=== PATIENT | male | born 1930 | race Caucasian/White ===

== ENCOUNTER → 2016-03-16 | Outpatient (REF) | payer OTHER ==
[~2016-03-16] MED LIST: ASPI1TAB PO; ASPI81TA45 OR; ASPI81TA83 OR; BACL10TA2 OR; CARD120T6 OR; CIPR500T89 PO; COLA100C2 OR; DILT30TA PO; FLEXERIL OR; FLOM5CAP PO; GABA600T PO; HYDR25TA6 OR; IBUP600T OR; IBUP80TA PO; METF-414 PO; METF500T PO; METFORMIN OR; METR500T10 PO; NEUR100C OR; OMEP20CA3 PO; OMEP20TA7 PO; OTC PROSTATE MED PO; PENNSAID TOP; PERC5TAB6 PO; PERC5TAB8 OR; PRAV20TA2 PO; PRAV40TA OR; REST15CA OR; SOMA250T OR; SOTA80TA2 OR; SOTA80TA2 PO; SOTALOL PO; TERA2CAP3 OR; TERA2CAP3 PO; TIAG2TAB PO; TIZA2CAP3 PO; TIZA2TA PO; TIZA2TAB OR; VICO5TAB OR; VOLT1GEL24 TD; XANA0.25 OR; XANA0.25 PO; XARE20TA PO; ZANA4TAB PO; [UNRECOGNIZED DRUG - OTHER] PO
== END ==
LOC: M SFHCLERA 11:21
PROVIDERS: ATTEND Family Medicine
DX: R82.90 Unspecified abnormal findings in urine (principal)

== ENCOUNTER → 2016-03-23 | Outpatient (CLI) | payer OTHER ==
[2016-03-23 14:17] LABS: ANION GAP 9 MEQ/L (8-16); BLOOD UREA NITROGEN 18 MG/DL (7-18); CALCIUM LEVEL 8.9 MG/DL (8.8-10.2); CARBON DIOXIDE LEVEL 29 MEQ/L (21-32); CHLORIDE LEVEL 105 MEQ/L (98-107); CREATININE FOR GFR 1.03 MG/DL (0.70-1.30); GLOMERULAR FILTRATION RATE > 60.0 (>35); GLUCOSE, FASTING 78 MG/DL (83-110); POTASSIUM SERUM 4.7 MEQ/L (3.5-5.1); SODIUM LEVEL 143 MEQ/L (136-145)
== END ==
LOC: M SMT 10:11
PROVIDERS: ATTEND Nurse Practitioner Women's Health
DX: R31.9 Hematuria, unspecified (principal)
CPT/HCPCS: 36415; 80048; 81001; 87086; 88108; G0463

== ENCOUNTER → 2016-04-04 | Outpatient (REF) | payer OTHER ==
[2016-04-04 19:20] LABS: PERCENT SATURATION 18.5 % (19.7-37.4)
== END ==
LOC: M LAB REF 17:03
PROVIDERS: ATTEND Internal Medicine Nephrology
DX: N39.0 Urinary tract infection, site not specified (principal); D50.9 Iron deficiency anemia, unspecified

== ENCOUNTER → 2016-04-11 | Outpatient (CLI) | payer OTHER ==
[~2016-04-11] MED LIST changes: +ISOVUE-370 76% 100ML VIAL (Q9967) As Ordered ONE
--- NOTE | 2016-04-11 09:17 | REP ---
CT UROGRAM: ABDOMEN AND PELVIS CT WITHOUT AND WITH IV CONTRAST, WITHOUT ORAL CONTRAST: HISTORY: Hematuria. Comparison CT study is from December 08, 2015. CT CONTRAST DOSE: 100 mL of Isovue-[address] FINDINGS: Preliminary digital cooperative manager radiograph demonstrates advanced degenerative disc disease at L2-3. Bowel gas pattern is unremarkable. The lung bases show extensive calcific pleural plaquing bilaterally consistent with previous asbestos exposure. Patient is status post cholecystectomy. No focal hepatic lesion is seen. No adrenal lesion is observed on either side. The spleen is homogeneous in size. There are accessory splenules near the splenic hilus. The pancreas shows marked diffuse fatty infiltration or involution. No pancreatic mass lesion is seen. Noncontrast CT study through the kidneys shows no evidence of intrarenal nephrolithiasis on either side. No hydronephrosis is seen. The kidneys enhance symmetrically. They are mildly atrophic. No filling defect is seen in the collecting system on delayed images. Ureters describe a normal course to the bladder. No bladder mass lesion is seen. There is sigmoid colon diverticulosis without evidence of diverticulitis. Diverticulosis is also seen in the descending segment of the colon. Prostate enlargement is seen, and the prostate contains a few calcifications. No retroperitoneal mass or adenopathy is seen. Normal caliber aorta is noted. There are degenerative disc changes throughout the lumbar spine. No bony destructive lesion is appreciated. IMPRESSION: Prostate enlargement. Mild bilateral cortical atrophy. No hydronephrosis, nephrolithiasis, or mass lesion seen. Left colonic diverticulosis and degenerative spondylosis in the spine along with bilateral calcific pleural plaquing are among incidental findings. Signed by Javi Tariq MD 04/11/2016 02:32 P
== END ==
LOC: M RAD 07:58
PROVIDERS: ATTEND Nurse Practitioner Women's Health
DX: R31.9 Hematuria, unspecified (principal); N40.0 Benign prostatic hyperplasia without lower urinary tract symptoms; K57.30 Diverticulosis of large intestine without perforation or abscess without bleeding; G31.9 Degenerative disease of nervous system, unspecified
CPT/HCPCS: 74178; Q9967

== ENCOUNTER → 2016-04-18 | Outpatient (CLI) | payer OTHER ==
[~2016-04-18] MED LIST changes: +CONRAY-43 43% 50ML VIAL (Q9960) As Ordered ONE; -ISOVUE-370 76% 100ML VIAL (Q9967) As Ordered ONE; +LIDOCAINE 1% MDV 20ML VIAL As Ordered ONE; +TRIAMCINOLONE ACETONIDE SUSP 40 MG/ML VIAL (J3301) As Ordered ONE
--- NOTE | 2016-04-18 12:29 | REP ---
LEFT HIP INJECTION: The procedure was performed under the direct supervision of Dr. Edwards. The benefits and risks including, but not limited to, pain, infection, bleeding, and anaphylaxis were explained to the patient, and informed consent was obtained. The left femoral neck was localized using fluoroscopic guidance. The skin was prepped and draped in a sterile fashion. 1% lidocaine was used as a local anesthetic. Using fluoroscopic guidance, a 22-gauge spinal needle was inserted and advanced to the femoral neck. 0.5 mL of Conray-43 was injected to verify placement. 6 mL of a solution containing 5 mL of 1% lidocaine and 1 mL of Kenalog 40 mg was injected. The needle was then removed. The patient tolerated the procedure well, and there were no immediate complications. 2 second of fluoroscopy time was utilized for this procedure. Reviewed by SUKUMAR Santos 04/18/2016 12:55 PEdited and Signed by Carlitos Edwards MD 04/18/2016 03:29 P
== END | disposition home or self-care (01) ==
LOC: M RADPRO 10:19
PROVIDERS: ATTEND Orthopaedic Surgery
DX: M16.12 Unilateral primary osteoarthritis, left hip (principal)
CPT/HCPCS: 20610; 77002; J3301; Q9960

== ENCOUNTER → 2016-05-25 | Outpatient (REF) | payer OTHER ==
[~2016-05-25] MED LIST changes: -CONRAY-43 43% 50ML VIAL (Q9960) As Ordered ONE; -LIDOCAINE 1% MDV 20ML VIAL As Ordered ONE; -TRIAMCINOLONE ACETONIDE SUSP 40 MG/ML VIAL (J3301) As Ordered ONE
== END ==
LOC: M SFHCLERA 17:15
PROVIDERS: ATTEND Family Medicine
DX: Z12.11 Encounter for screening for malignant neoplasm of colon (principal)

== ENCOUNTER → 2016-05-29 | Outpatient (REF) | payer OTHER ==
[2016-05-29 19:14] LABS: INR 1.34
== END ==
LOC: M LABDRAW1 16:51
PROVIDERS: ATTEND Physical Medicine & Rehabilitation
DX: I10 Essential (primary) hypertension (principal); E11.9 Type 2 diabetes mellitus without complications; G89.4 Chronic pain syndrome; Z79.84 Long term (current) use of oral hypoglycemic drugs; Z79.899 Other long term (current) drug therapy

== ENCOUNTER 2016-07-17 13:27 | Emergency (ER) | payer OTHER ==
[~2016-07-17] VITALS: Ht 172.7 cm; Wt 82.6 kg
[2016-07-17] MEDS ORDERED: PERCOCET 5MG/325MG TAB PO ONE (15:00)
--- NOTE | 2016-07-17 15:41 | REP ---
CT CERVICAL SPINE WITHOUT CONTRAST: 07/17/2016. Comparison: CT 08/21/2001 at [facility]. Clinical history: Worsening nontraumatic pain. Remote odontoid transverse fracture 15 years ago. Technique: Axial soft-tissue and bone windows with coronal and sagittal reconstructions provided. Findings: There is a transverse old fracture through the dens with sclerotic margins anteriorly and peripherally. The fracture is not fully united. Compared to the 2001 study there is a few millimeters of anterolisthesis of the upper dens fragment on the base of the dens, but nothing suggesting an acute fracture. Prevertebral swelling mid and lower thoracic region, spondylosis from C3-4 through T2-3 noted with anterior osteophytes at all levels, the largest at T2-3, C6-7, and C7-T1. There are posterior osteophytes and fusing at the C5-6 level with posterior osteophytes at C3-4, C4-5 and C6-7 levels as well. Spinous processes intact. There is extensive hypertrophic facet change at multiple levels in the mid and lower thoracic spine. Large posterior osteophytic spur in the neural canal at the C5 to mid body of C6. This would cause significant central canal stenosis. There is foraminal encroachment bilaterally at the C5-6 level, C4-5, C3-4, sparing C2-3. There is marginally adequate foramina at C6-7 without other significant findings. No prevertebral swelling or malalignment. Impression: 1. Evidence of old transverse fracture of the dens with a few millimeters of anterolisthesis of the upper fragment on the base of the dens compared to the 2001 CT study, but none of this appears grossly acute without any significant prevertebral swelling in this region. 2. Some degenerative disc change with marked narrowing from C3-4 through T2-3 disc levels with anterior osteophytes at all levels, posterior osteophytes at multiple levels, the largest being from C5-6 through C6-7 causing significant central canal stenosis at that level with bilateral foraminal encroachment due to facet arthritis, uncinate spurs and disc bulging. Signed by Malcom Harrison MD 07/17/2016 05:24 P
[2016-07-17 15:43] VITALS: BP 138/65
== END 2016-07-17 16:08 | disposition home or self-care (01) ==
LOC: M ED 14:59
DX: M50.320 Other cervical disc degeneration, mid-cervical region, unspecified level (principal); M54.12 Radiculopathy, cervical region

== ENCOUNTER 2016-07-20 15:08 | Emergency (ER) | payer OTHER ==
[~2016-07-20] VITALS: Ht 172.7 cm; Wt 83.9 kg
--- NOTE | 2016-07-20 16:11 | REP ---
Clinical: Trauma. Comparison: 08/22/2014 . Findings: Age-related atrophy and microvascular ischemic changes are appreciated. The ventricles and sulci are symmetric. Edwards-white differentiation is maintained. There is no evidence for acute intracranial hemorrhage, mass/mass effect, pathology or infarction. No extra-axial fluid collection. Calvarium is intact. Paranasal sinuses and mastoid air cells are clear. Impression: Age related atrophy and microvascular ischemic changes. No acute intracranial hemorrhage, infarction, or mass/mass effect. Signed by Eugenio Sommers MD 07/20/2016 04:02 P
[2016-07-20] MEDS ORDERED: PERCOCET 5MG/325MG TAB PO ONE (18:00)
--- NOTE | 2016-07-20 18:17 | REP ---
CT of the cervical spine: Comparison is a 08/21 2001. Axial images are acquired helical scanning in the reformatted in sagittal and coronal projections. Comparison is 08/21/2001. The patient has an old fracture through the base of the dens. The lucent fracture line persists. The margins of the fracture well corticated suggesting fibrous union. There is no displacement or angulation of the odontoid process. There is osteoarthritis of the articulation between the dens and anterior process of C1. The skull base, C1 and C2 are otherwise unremarkable except for osteoarthritis. There is advanced degenerative disc disease throughout the cervical spine with fusion of the endplates at C 04/05 and 05/06. There are posterior osteophytes projecting into the spinal canal at C 04/05 and C5-6. There are no vertebral body compression deformities. There is no listhesis. The facets appear normally aligned. There is facet osteoarthritis. I suspect the facets at C 04/05 on the left are fused. This is likely a consequence of the facet osteoarthritis. The prevertebral soft tissues are unremarkable. Impression: Old fracture of the base of the dens without evidence of displacement or angulation and this appears to have healed with fibrous union. No acute fracture or listhesis. Severe osteoarthritis and degenerative disc disease as described. The end plates are fused as a consequence of the advanced degenerative disc disease at C 04/05 and C5-6. I suspect the posterior facets are fused on the left at C 05/06. There are large osteophytes projecting posteriorly into the spinal canal at C 05/06. Signed by Carlitos Edmonds MD 07/20/2016 06:09 P
[2016-07-20 18:25] LABS: MEAN CORPUSCULAR HEMOGLOBIN 31.6 pg (27.0-33.0); MEAN CORPUSCULAR HGB CONC 33.5 g/dl (32.0-36.5); MEAN CORPUSCULAR VOLUME 94.1 fl (80.0-96.0); PLATELET COUNT, AUTOMATED 285 k/mm3 (150-450); RED CELL DISTRIBUTION WIDTH 13.3 % (11.5-14.5); WHITE BLOOD COUNT 9.6 K/mm3 (4.0-10.0)
[2016-07-20 19:37] VITALS: BP 125/69
== END 2016-07-20 19:38 | disposition home or self-care (01) ==
LOC: M ED 17:08
DX: M54.2 Cervicalgia (principal); G89.29 Other chronic pain; W06.XXXA Fall from bed, initial encounter; Y92.89 Other specified places as the place of occurrence of the external cause; Y93.84 Activity, sleeping; Y99.8 Other external cause status; G31.9 Degenerative disease of nervous system, unspecified; R90.82 White matter disease, unspecified; M47.812 Spondylosis without myelopathy or radiculopathy, cervical region; I48.0 Paroxysmal atrial fibrillation; I10 Essential (primary) hypertension; E11.9 Type 2 diabetes mellitus without complications; Z89.512 Acquired absence of left leg below knee; Z89.611 Acquired absence of right leg above knee; Z89.111 Acquired absence of right hand; H54.42 Blindness, left eye, normal vision right eye; Z87.891 Personal history of nicotine dependence; Z79.01 Long term (current) use of anticoagulants; Z79.899 Other long term (current) drug therapy; Z79.84 Long term (current) use of oral hypoglycemic drugs; Z88.5 Allergy status to narcotic agent

== ENCOUNTER 2016-07-22 17:15 | Inpatient (IN) | payer OTHER ==
[~2016-07-22] VITALS: Ht 172.7 cm; Wt 74.4 kg
[2016-07-22] MEDS ORDERED: TIMO5OPD OU (17:36)
[2016-07-22] MEDS ORDERED: REFR0.1D OU (17:36)
[2016-07-22 18:47] LABS: ANION GAP 7 MEQ/L (8-16); BLOOD UREA NITROGEN 13 MG/DL (7-18); CALCIUM LEVEL 8.2 MG/DL (8.8-10.2); CARBON DIOXIDE LEVEL 28 MEQ/L (21-32); CHLORIDE LEVEL 102 MEQ/L (98-107); CREATININE FOR GFR 0.89 MG/DL (0.70-1.30); GLOMERULAR FILTRATION RATE > 60.0 (>35); GLUCOSE, FASTING 96 MG/DL (83-110); POTASSIUM SERUM 4.2 MEQ/L (3.5-5.1); SODIUM LEVEL 137 MEQ/L (136-145)
[2016-07-22 18:57] LABS: MEAN CORPUSCULAR HEMOGLOBIN 31.6 pg (27.0-33.0); MEAN CORPUSCULAR HGB CONC 32.6 g/dl (32.0-36.5); MEAN CORPUSCULAR VOLUME 96.8 fl (80.0-96.0); PLATELET COUNT, AUTOMATED 316 k/mm3 (150-450); WHITE BLOOD COUNT 11.7 K/mm3 (4.0-10.0)
[2016-07-22 19:09] LABS: BASOPHILS 1 % (0-4); EOSINOPHILS 1 % (0-5)
[2016-07-22] MEDS ORDERED: ONDANSETRON 4MG/2ML VIAL (J2405) IV PRN (20:00)
[2016-07-22] MEDS ORDERED: cefTRIAXone SOD 2 GM in D5W MINI-BAG PLUS 50 ML IV ONE (20:00)
[2016-07-22 20:06] LABS: GLUCOSE CSF 66 MG/DL (40-75)
[2016-07-22 20:12] LABS: RBC CSF AUTO 222 /mm3 (0-0); WBC CSF AUTO 11 /mm3 (0-10)
[2016-07-22 20:13] LABS: RBC CSF AUTO 5 /mm3 (0-0); WBC CSF AUTO 1 /mm3 (0-10)
[2016-07-22 20:14] LABS: APPEARANCE, CSF CLEAR (CLEAR); COLOR, CSF COLORLESS (COLORLESS); CSF DIFF IF INDICATED? YES (NO); CSF DILUENT LOT # 6221; CSF TUBE# CELL CNT TUBE 1
[2016-07-22 20:14] LABS: APPEARANCE, CSF CLEAR (CLEAR); COLOR, CSF COLORLESS (COLORLESS); CSF DIFF IF INDICATED? NO (NO); CSF TUBE# CELL CNT TUBE 4
[2016-07-22 20:15] LABS: CSF DILUENT LOT # 6221
[2016-07-22] MEDS ORDERED: PERCOCET 5MG/325MG TAB PO ONE (20:15)
[2016-07-22 20:27] LABS: ALBUMIN 2.8 GM/DL (3.2-5.2); ALBUMIN/GLOBULIN RATIO 0.72 (1.00-1.93); ALKALINE PHOSPHATASE 137 U/L (45-117); ALT/SGPT 26 U/L (12-78); AST/SGOT 24 U/L (15-37); BILIRUBIN,DIRECT 0.3 MG/DL (0.0-0.2); BILIRUBIN,TOTAL 0.6 MG/DL (0.2-1.0); TOTAL PROTEIN 6.7 GM/DL (6.4-8.2)
[2016-07-22] MEDS ORDERED: DICL1GEL3 TD (20:34)
[2016-07-22] MEDS ORDERED: LATA5OPD OU (20:34)
[2016-07-22] MEDS ORDERED: TIZA2TA PO (20:34)
[2016-07-22 20:35] LABS: ERYTHROCYTE SEDIMENTATION RATE 83 mm/hr (0-30)
[2016-07-22] MEDS ORDERED: VANCOMYCIN HCL 1,000 MG, VIAL MATE ADAPTER 1 EACH in D5W 250 ML IV SCH (21:00)
[2016-07-22] MEDS ORDERED: GABAPENTIN 300 MG CAP PO SCH (21:00)
[2016-07-22] MEDS ORDERED: OMEPRAZOLE 20 MG CAP PO PRN (21:45)
[2016-07-22 22:18] LABS: ABG BASE EXCESS -1.6 (-2.0-2.0); ABG HCO3 21.6 MEQ/L (22.0-26.0); ABG PARTIAL PRESSURE CO2 31.5 mmHg (35.0-45.0); ABG PARTIAL PRESSURE O2 88.6 mmHg (75.0-100.0); ABG STANDARD HCO3 23.1 MEQ/L (22.0-26.0); ABG TOTAL CO2 22.5 MEQ/L (23.0-31.0); ABG pH (ARTERIAL) 7.453 UNITS (7.350-7.450)
[2016-07-22 22:26] LABS: METHADONE URINE NEGATIVE (NEGATIVE)
[2016-07-22 22:48] VITALS: BP 143/71
[2016-07-22] MEDS ORDERED: AMPICILLIN SOD IV SCH (23:00)
[2016-07-22] MEDS ORDERED: D5W MINI IV SCH (23:00)
[2016-07-22] MEDS ORDERED: GLUCOSE 4 GM CHEW TABLET PO PRN (23:30)
[2016-07-22] MEDS ORDERED: DEXTROSE 50% 50 ML SYRINGE IV PRN (23:30)
[2016-07-22] MEDS ORDERED: GLUCAGON FOR INJ 1 MG VIAL (J1610) SC PRN (23:30)
[2016-07-22] MEDS: SOTALOL HCL 80 MG TAB PO SCH (23:50)
[2016-07-22] MEDS: TERAZOSIN 1 MG CAP PO SCH (23:51)
[2016-07-22] MEDS: RIVAROXABAN 20 MG TAB (XARELTO) PO SCH (23:52)
[2016-07-22] MEDS: AMPICILLIN SOD 2 GM in D5W MINI-BAG PLUS 100 ML IV SCH (23:53)
[2016-07-22] MEDS: GABAPENTIN 300 MG CAP PO SCH (23:53)
[2016-07-22] MEDS: LATANOPROST 0.005% OPHTH SOLN 2.5 ML OU SCH (23:54)
[2016-07-22 23:59] VITALS: BP 115/64
[2016-07-23] VITALS (7 sets, daily range): BP systolic 105–136; BP diastolic 54–81; PULSE 61–77
[2016-07-23] MEDS: AMPICILLIN SOD 2 GM in D5W MINI-BAG PLUS 100 ML IV SCH ×6 (02:18→22:57)
[2016-07-23] MEDS ORDERED: DICLOFENAC EPOLAMINE 1.3 % PATCH TOP SCH (02:30)
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
[2016-07-23] MEDS: PERCOCET 5MG/325MG TAB PO PRN ×4 (03:23→20:31)
--- NOTE | 2016-07-23 03:59 | PHACANCOPD ---
PHARMACY VANCOMYCIN DOSING Pt Demographics Demographics Patient Age:86 , Weight:73.9 , Gender: male Adjusted Body Weight Date: 07/23/16, Adjusted Body Weight: [70.6] Kg Vancomycin Vancomycin indication: AMS Vancomycin Target Ranges: 10-20 mcg/ml Vancomycin Load Y/N: No Load Dose Date Time Vancomycin Load Dose: Date: Time: Vancomycin Dose Date: 07/23/16. Current Vancomycin Dose: [1 GM Q18H] Intermittent Dosing?: No Labs Labs Laboratory Tests 07/22/16 18:20 Red Blood Count 3.96 L, Mean Corpuscular Volume 96.8 H, Mean Corpuscular Hemoglobin 31.6, Mean Corpuscular Hemoglobin Concent 32.6, Red Cell Distribution Width 13.0, Calcium Level 8.2 L Micro Microbiology 07/22/16 Blood Culture, Received Pending 07/22/16 Blood Culture, Received Pending 07/22/16 , Received Pending 07/22/16 Gram Stain - Final, Resulted 07/22/16 CSF Culture, Resulted Pending 07/22/16 MRSA Screen, Resulted Pending 07/22/16 Respiratory Virus Panel (PCR) (BERE) - Final, Resulted 07/22/16 Urine Culture, Received Pending Creatinine Clearance Date:07/23/16. Creatinine Clearance: [60.6]Calculated. Pending Labs vancomycin trough due 07/24@1100 Assessment and Plan Maintaining Current Dose?: Yes Reason for dose change: No Dose Change Pharmacist Note Pharmacist Note Date: 07/23/16. Pharmacist note:[id number]: AKA admitted w AMS r/o meningitis/ encephalitis. ABX begun as follows: Ampicillin 2 GM IV Q4h,Ceftriaxone 2 GM Q12H ,and Vancomycin per consult,Will give 1 Gram Vancomycin in ED @2330 and will continue this dose Q18H.First trough is ordered for 07/24@1100: Will continue to follow labs and levels HAILEY TAY [facility]ARM[facility] July 23, 2016 03:59
[2016-07-23 05:17] LABS: MEAN CORPUSCULAR HGB CONC 32.7 g/dl (32.0-36.5); MEAN CORPUSCULAR VOLUME 94.9 fl (80.0-96.0); PLATELET COUNT, AUTOMATED 282 k/mm3 (150-450); RED CELL DISTRIBUTION WIDTH 13.2 % (11.5-14.5); WHITE BLOOD COUNT 9.5 K/mm3 (4.0-10.0)
[2016-07-23 05:21] LABS: ANION GAP 8 MEQ/L (8-16); BLOOD UREA NITROGEN 13 MG/DL (7-18); CARBON DIOXIDE LEVEL 27 MEQ/L (21-32); CHLORIDE LEVEL 101 MEQ/L (98-107); GLOMERULAR FILTRATION RATE > 60.0 (>35); GLUCOSE, FASTING 144 MG/DL (83-110); POTASSIUM SERUM 3.7 MEQ/L (3.5-5.1); SODIUM LEVEL 136 MEQ/L (136-145)
[2016-07-23 06:13] LABS: BASOPHILS 1 % (0-4); EOSINOPHILS 1 % (0-5)
--- NOTE | 2016-07-23 07:53 | ECGEPIP ---
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
--- NOTE | 2016-07-23 08:58 | REP ---
Clinical: Fever. Technique: Portable semiupright. Comparison: 12/08/2015. Findings: Mediastinum and cardiac silhouette are stable and within normal limits. The lung delgado demonstrate diffuse chronic interstitial changes including scattered partially calcified pleural plaques. Superimposed acute basilar infiltrate/atelectasis cannot be excluded. No effusion. No pneumothorax. Skeletal structures demonstrate stable degenerative changes. 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 Cannot exclude superimposed basilar process. Signed by Eugenio Sommers MD 07/23/2016 08:49 A
[2016-07-23] MEDS: DICLOFENAC EPOLAMINE 1.3 % PATCH TOP SCH ×2 (09:00→20:31)
[2016-07-23] MEDS: HumaLOG INSULIN (NovoLOG) PER UNIT SC SCH ×4 (09:04→20:01)
[2016-07-23] MEDS: LACTOBACILLUS ACIDOPHILUS CAP (BACID) PO SCH (09:05)
[2016-07-23] MEDS: GABAPENTIN 300 MG CAP PO SCH ×3 (09:05→20:29)
[2016-07-23] MEDS: cefTRIAXone SOD 2 GM in D5W MINI-BAG PLUS 50 ML IV SCH ×2 (09:05→19:58)
[2016-07-23] MEDS: SOTALOL HCL 80 MG TAB PO SCH ×2 (09:09→20:30)
[2016-07-23] MEDS: TIMOLOL MALEATE 0.5% OPHTH SOLN 5 ML OU SCH (09:09)
--- NOTE | 2016-07-23 13:57 | REP ---
Clinical: Trauma. Comparison: 07/20/2016. Findings: Age-related atrophy and microvascular ischemic changes are appreciated. The ventricles and sulci are symmetric. Edwards-white differentiation is maintained. There is no evidence for acute intracranial hemorrhage, mass/mass effect, pathology or infarction. No extra-axial fluid collection. Calvarium is intact. Paranasal sinuses and mastoid air cells are clear. Impression: Age related atrophy and microvascular ischemic changes. No acute intracranial hemorrhage, infarction, or mass/mass effect. Signed by Eugenio Sommers MD 07/23/2016 01:49 P
[2016-07-23] MEDS: DOCUSATE SODIUM 100 MG CAP PO PRN (15:42)
[2016-07-23] MEDS ORDERED: SENNA 8.6 MG TAB (SENOKOT) PO PRN (15:45)
[2016-07-23] MEDS ORDERED: VANCOMYCIN HCL 1,000 MG, VIAL MATE ADAPTER 1 EACH in D5W 250 ML IV SCH (18:00)
[2016-07-23] MEDS: RIVAROXABAN 20 MG TAB (XARELTO) PO SCH (20:30)
[2016-07-23] MEDS: TERAZOSIN 1 MG CAP PO SCH (20:30)
[2016-07-23] MEDS: LATANOPROST 0.005% OPHTH SOLN 2.5 ML OU SCH (20:32)
[2016-07-24] MEDS: AMPICILLIN SOD 2 GM in D5W MINI-BAG PLUS 100 ML IV SCH ×3 (02:32→10:15)
[2016-07-24] MEDS: PERCOCET 5MG/325MG TAB PO PRN ×3 (03:53→20:25)
[2016-07-24 04:55] VITALS: BP 137/67
[2016-07-24 05:16] LABS: MEAN CORPUSCULAR HEMOGLOBIN 31.5 pg (27.0-33.0); MEAN CORPUSCULAR HGB CONC 33.1 g/dl (32.0-36.5); PLATELET COUNT, AUTOMATED 306 k/mm3 (150-450); RED CELL DISTRIBUTION WIDTH 13.1 % (11.5-14.5); WHITE BLOOD COUNT 8.4 K/mm3 (4.0-10.0)
[2016-07-24 05:25] LABS: ANION GAP 9 MEQ/L (8-16); BLOOD UREA NITROGEN 15 MG/DL (7-18); CALCIUM LEVEL 8.1 MG/DL (8.8-10.2); CARBON DIOXIDE LEVEL 27 MEQ/L (21-32); CHLORIDE LEVEL 103 MEQ/L (98-107); CREATININE FOR GFR 0.96 MG/DL (0.70-1.30); GLOMERULAR FILTRATION RATE > 60.0 (>35); GLUCOSE, FASTING 125 MG/DL (83-110); POTASSIUM SERUM 3.9 MEQ/L (3.5-5.1); SODIUM LEVEL 139 MEQ/L (136-145)
[2016-07-24 05:50] LABS: BANDS 1 % (< 11); EOSINOPHILS 1 % (0-5)
[2016-07-24 08:00] VITALS: BP 137/72
[2016-07-24] MEDS: LACTOBACILLUS ACIDOPHILUS CAP (BACID) PO SCH (08:36)
[2016-07-24] MEDS: HumaLOG INSULIN (NovoLOG) PER UNIT SC SCH ×4 (08:36→21:00)
[2016-07-24] MEDS: DICLOFENAC EPOLAMINE 1.3 % PATCH TOP SCH ×2 (08:37→20:31)
[2016-07-24] MEDS: cefTRIAXone SOD 2 GM in D5W MINI-BAG PLUS 50 ML IV SCH (08:37)
[2016-07-24] MEDS: GABAPENTIN 300 MG CAP PO SCH ×3 (08:37→20:27)
[2016-07-24] MEDS: TIMOLOL MALEATE 0.5% OPHTH SOLN 5 ML OU SCH (08:37)
[2016-07-24] MEDS: SOTALOL HCL 80 MG TAB PO SCH ×2 (09:50→20:26)
--- NOTE | 2016-07-24 11:33 | IPNPDOC ---
Subjective Date Seen The patient was seen on 07/24/16. Subjective Chief Complaint/HPI The patient is a 86-year-old male admitted with a reason for visit of [facility]. General: Denies: ROS Unobtainable, Chills, Night Sweats, Fatigue, Malaise, Normal Appetite, Other Symptoms Constitutional: Denies: Chills, Fever, Malaise, Night Sweats, Weakness, Fatigue , Weight Loss, Lethargy, Other Eyes: Denies: Pain, Vision change, Conjunctivae inflammation, Eyelid inflammation, Redness, Other ENT: Denies: Head Aches, Ear Pain, Dysphagia, Sinus Congestion, Post Nasal Drip , Sore Throat, Epistaxis, Other Symptoms Skin: Denies: Rash, Lesions, Jaundice, Bruising, Itching, Dry, Breakdown, Nail Changes, Other Pulmonary: Denies: Dyspnea, Cough, Pleuritic Chest Pain, Other Symptoms Cardiovascular: Denies: Chest Pain, Palpitations, Orthopnea, Paroxysmal Noc. Dyspnea, Edema, Lt Headedness, Other Symptoms Gastrointestinal: Denies: Nausea, Vomiting, Abdominal Pain, Diarrhea, Constipation, Melena, Hematochezia, Other Symptoms Genitourinary: Denies: Dysuria, Frequency, Incontinence, Hematuria, Retention, Other Symptoms Musculoskeletal: Reports: Neck Pain Objective Physical Examination General Exam: Positive: Alert, Cooperative Eye Exam: Positive: Conjunctiva & lids normal, EOMI, Negative: Sclera icteric, Ptosis ENT Exam: Positive: Tongue Midline, Nares Patent, Negative: Atraumatic Neck Exam: Positive: Supple, Other (pain to palpation bilateral posterior neck , pain with movement), Negative: Lymphadenopathy Chest Exam: Positive: Rhonchi, Diminished Heart Exam: Positive: Rate Normal, Tachycardic, Regular Rhythm, Normal S1, Normal S2, Negative: Gallops, Murmurs, Rubs Telemetry: Positive: Bradycardia Abdomen Exam: Positive: Normal bowel sounds, Soft, Negative: Tenderness, Hepatospenomegaly, Mass, Hernia Extremity Exam: Positive: Other (left [id number] amputation, right below- the-knee amputation, right hand amputation) Psych Exam: Positive: Oriented x 3 Assessment /Plan Problems (1) Neck pain Status: Acute Problem Text: CT C spine from 07/20 shows: Old fracture of the base of the dens without evidence of displacement or angulation and this appears to have healed with fibrous union. No acute fracture or listhesis. Severe osteoarthritis and degenerative disc disease as described. The end plates are fused as a consequence of the advanced degenerative disc disease at C 04/05 and C5-6. I suspect the posterior facets are fused on the left at C 05/06. There are large osteophytes projecting posteriorly into the spinal canal at C 05/06. Continue with pain regimen. If no improvement consider pain management c/s, orthopedic c/s. (2) Meningitis Status: Acute Discussed With: Patient Problem Specific Plan: Monitor Clinically Problem Text: Appears possibly asceptic meningitis. (3) Afib Status: Chronic Discussed With: Patient Problem Text: Continue sotalol, cardizem, xarelto. (4) Diabetes Status: Chronic Problem Text: insulin sliding scale (5) GERD (gastroesophageal reflux disease) Status: Chronic Problem Text: prilosec (6) HTN (hypertension) Status: Chronic Discussed With: Patient Problem Specific Plan: Monitor Clinically Problem Text: cardizem, sotalol, terazosin (7) BPH (benign prostatic hyperplasia) Status: Chronic Discussed With: Patient Problem Specific Plan: Monitor Clinically Problem Text: terazosin (8) Chronic lower back pain Status: Chronic Discussed With: Patient Problem Specific Plan: Monitor Clinically (9) Degenerative disc disease, cervical Status: Acute (10) Altered mental status Status: Resolved Discussed With: Patient Problem Specific Plan: Monitor Clinically Plan/VTE VTE Prophylaxis Ordered?: Yes (Xarelto for atrial fibrillation) Plan/Urinary Catheter Reason for insertion/continuin: Acute obstruct/retention Plan Diet: Continue Current (consistent carbohydrate) Activity: Encourage Ambulation Therapy: PT Diagnostics: Check Labs, Repeat Labs in AM, Obtain Cultures Anticipated Discharge: Home Pending orthopedics consultation. Continue pain control, will possibly require pain management consultation Pending ID consultation, possibly asceptic meningitis. PT/OT. VS, I&O, 24H, Fishbone Vital Signs/I&O Vital Signs Date Time Temp Pulse Resp B/P (MAP) Pulse Ox O2 Delivery O2 Flow Rate FiO2 07/24/16 08:44 Room Air 07/24/16 08:00 97.6 59 20 137/72 (93) 98 I&O- Last 24 Hours up to 6 AM 07/24/16 05:59 Intake Total 1590 ml Output Total 1550 ml Balance 40 ml Laboratory Data 24H LABS Laboratory Tests 2 07/23/16 11:33: Bedside Glucose (Misc Panel) 181H 07/23/16 16:44: Bedside Glucose (Misc Panel) 166H 07/23/16 20:00: Bedside Glucose (Misc Panel) 178H 07/24/16 04:35: Neutrophils 74, Band Neutrophils 1, Lymphocytes (Manual) 14L, Monocytes (Manual ) 5, Eosinophils (Manual) 1, Atypical Lymphocytes 5, Platelet Estimate NORMAL, Anion Gap 9, Glomerular Filtration Rate > 60.0, Blood Urea Nitrogen 15, Creatinine 0.96, Sodium Level 139, Potassium Level 3.9, Chloride Level 103, Carbon Dioxide Level 27, Calcium Level 8.1L 07/24/16 11:06: CBC/BMP Laboratory Tests 07/24/16 04:35 Red Blood Count 3.57 L, Mean Corpuscular Volume 95.0, Mean Corpuscular Hemoglobin 31.5, Mean Corpuscular Hemoglobin Concent 33.1, Red Cell Distribution Width 13.1, Calcium Level 8.1 L Microbiology Microbiology 07/22/16 Blood Culture - Preliminary, Resulted No growth after 24 hours . All specim... 07/22/16 Blood Culture - Preliminary, Resulted No growth after 24 hours . All specim... 07/22/16 - Final, Complete 07/22/16 Gram Stain - Final, Complete 07/22/16 CSF Culture - Final, Complete 07/22/16 MRSA Screen - Final, Complete 07/22/16 Respiratory Virus Panel (PCR) ([facility]) - Final, Complete 07/22/16 Urine Culture - Final, Complete NATALIA OTTO MD July 24, 2016 11:33
[2016-07-24 12:00] VITALS: BP 136/64
[2016-07-24 15:50] VITALS: BP 128/56
[2016-07-24 20:00] VITALS: BP 145/83
[2016-07-24] MEDS: NORTRIPTYLINE 25 MG CAP PO SCH (20:25)
[2016-07-24] MEDS: RIVAROXABAN 20 MG TAB (XARELTO) PO SCH (20:27)
[2016-07-24] MEDS: TERAZOSIN 1 MG CAP PO SCH (20:27)
[2016-07-24] MEDS: LATANOPROST 0.005% OPHTH SOLN 2.5 ML OU SCH (20:31)
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
[2016-07-24] MEDS: tiZANidine 4 MG TAB PO PRN (22:41)
--- NOTE | 2016-07-24 23:19 | IPN ---
DATE: 07/24/2016 ADDENDUM: Addendum on the note on Mr. Kolby Thibodeaux. Also, the patient should be ruled out for Lyme disease. Lyme serology was sent, although he denies having any recent rashes. [place]. 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
[2016-07-24 23:59] VITALS: BP 121/60
[2016-07-25] VITALS (11 sets, daily range): BP systolic 122–138; BP diastolic 62–80; O2SAT 90–100
[2016-07-25] MEDS ORDERED: SLF 3 ML SYR IV PRN
[2016-07-25] MEDS: SLF 3 ML SYR IV SCH ×3 (05:45→22:12)
[2016-07-25 06:09] LABS: MEAN CORPUSCULAR HEMOGLOBIN 31.5 pg (27.0-33.0); MEAN CORPUSCULAR HGB CONC 32.9 g/dl (32.0-36.5); MEAN CORPUSCULAR VOLUME 95.6 fl (80.0-96.0); PLATELET COUNT, AUTOMATED 320 k/mm3 (150-450); RED CELL DISTRIBUTION WIDTH 13.1 % (11.5-14.5); WHITE BLOOD COUNT 7.2 K/mm3 (4.0-10.0)
[2016-07-25 06:16] LABS: ANION GAP 7 MEQ/L (8-16); BLOOD UREA NITROGEN 12 MG/DL (7-18); CALCIUM LEVEL 8.5 MG/DL (8.8-10.2); CARBON DIOXIDE LEVEL 25 MEQ/L (21-32); CHLORIDE LEVEL 106 MEQ/L (98-107); CREATININE FOR GFR 0.84 MG/DL (0.70-1.30); GLOMERULAR FILTRATION RATE > 60.0 (>35); GLUCOSE, FASTING 110 MG/DL (83-110); POTASSIUM SERUM 4.3 MEQ/L (3.5-5.1); SODIUM LEVEL 138 MEQ/L (136-145)
[2016-07-25 06:29] LABS: EOSINOPHILS 2 % (0-5)
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
[2016-07-25] MEDS: HumaLOG INSULIN (NovoLOG) PER UNIT SC SCH ×4 (08:06→21:00)
[2016-07-25] MEDS: PERCOCET 5MG/325MG TAB PO PRN ×3 (08:06→20:49)
[2016-07-25] MEDS: DICLOFENAC EPOLAMINE 1.3 % PATCH TOP SCH ×3 (08:30→20:51)
[2016-07-25] MEDS: LACTOBACILLUS ACIDOPHILUS CAP (BACID) PO SCH (08:31)
[2016-07-25] MEDS: GABAPENTIN 300 MG CAP PO SCH ×3 (08:32→20:47)
[2016-07-25] MEDS: TIMOLOL MALEATE 0.5% OPHTH SOLN 5 ML OU SCH (08:32)
[2016-07-25] MEDS: SOTALOL HCL 80 MG TAB PO SCH ×2 (08:32→20:48)
[2016-07-25] MEDS ORDERED: MORPHINE 2 MG/ML 1ML SYRINGE IV ONE ×2 (12:00→12:45)
[2016-07-25] MEDS: ACETAMINOPHEN TAB 650MG DOSE (2X325MG) PO PRN (17:27)
--- NOTE | 2016-07-25 17:33 | IPNPDOC ---
Subjective Date Seen The patient was seen on 07/25/16. Subjective Chief Complaint/HPI The patient is a 86-year-old male admitted with a reason for visit of [facility]. Events since last encounter This morning pain reasonably well controlled- tolerating diet Went on to have phantom limb pain of left lower extremity- unresponsive to morphine that prevented MRI Responded to valium for spasm Pulmonary: Denies: Dyspnea, Cough Cardiovascular: Denies: Chest Pain Gastrointestinal: Denies: Nausea, Vomiting, Abdominal Pain Objective Physical Examination General Exam: Positive: Alert, Cooperative Eye Exam: Negative: Sclera icteric ENT Exam: Positive: Tongue Midline, Nares Patent, Negative: Atraumatic Neck Exam: Positive: Supple, Other (pain at bilateral occiput), Negative: Lymphadenopathy Chest Exam: Positive: Rhonchi, Diminished Heart Exam: Positive: Rate Normal, Regular Rhythm, Normal S1, Normal S2 Telemetry: Positive: Bradycardia Abdomen Exam: Positive: Normal bowel sounds, Soft, Negative: Tenderness Psych Exam: Positive: Oriented x 3 Assessment /Plan Problems (1) Neck pain Status: Acute Problem Text: CT C spine from 07/20 shows: Old fracture of the base of the dens without evidence of displacement or angulation and this appears to have healed with fibrous union. No acute fracture or listhesis. Severe osteoarthritis and degenerative disc disease as described. The end plates are fused as a consequence of the advanced degenerative disc disease at C 04/05 and C5-6. I suspect the posterior facets are fused on the left at C 05/06. There are large osteophytes projecting posteriorly into the spinal canal at C 05/06. Continue with pain regimen. Has previously been told than pain management has nothing more to offer him (2) Meningitis Status: Acute Discussed With: Patient Problem Specific Plan: Monitor Clinically Problem Text: Initially thought possibly aseptic meningitis- has been seen by Dr. Coles (3) Afib Status: Chronic Discussed With: Patient Problem Text: Continue sotalol, cardizem, xarelto. No ICH on CT, will repeat (4) Diabetes Status: Chronic Problem Text: insulin sliding scale (5) GERD (gastroesophageal reflux disease) Status: Chronic Problem Text: prilosec (6) HTN (hypertension) Status: Chronic Discussed With: Patient Problem Specific Plan: Monitor Clinically Problem Text: cardizem, sotalol, terazosin (7) BPH (benign prostatic hyperplasia) Status: Chronic Discussed With: Patient Problem Specific Plan: Monitor Clinically Problem Text: terazosin (8) Chronic lower back pain Status: Chronic Discussed With: Patient Problem Specific Plan: Monitor Clinically (9) Degenerative disc disease, cervical Status: Acute (10) Altered mental status Status: Resolved Discussed With: Patient Problem Specific Plan: Monitor Clinically Plan/VTE VTE Prophylaxis Ordered?: Yes (Xarelto for atrial fibrillation) Plan/Urinary Catheter Reason for insertion/continuin: Acute obstruct/retention Plan Diet: Continue Current (consistent carbohydrate) Activity: Encourage Ambulation Therapy: PT Diagnostics: Check Labs, Repeat Labs in AM, Obtain Cultures Anticipated Discharge: Home VS, I&O, 24H, Fishbone Vital Signs/I&O Vital Signs Date Time Temp Pulse Resp B/P (MAP) Pulse Ox O2 Delivery O2 Flow Rate FiO2 07/25/16 16:00 92 Room Air 07/25/16 15:58 99.6 80 18 136/80 (98) I&O- Last 24 Hours up to 6 AM 07/25/16 06:00 Intake Total 1540 ml Output Total 1000 ml Balance 540 ml Laboratory Data 24H LABS Laboratory Tests 2 07/24/16 21:18: Bedside Glucose (Misc Panel) 188H 07/25/16 05:42: Neutrophils 67, Lymphocytes (Manual) 20, Monocytes (Manual) 8, Eosinophils ( Manual) 2, Atypical Lymphocytes 3, Platelet Estimate NORMAL, Red Blood Cell Morphology NORMAL, Anion Gap 7L, Glomerular Filtration Rate > 60.0, Blood Urea Nitrogen 12, Creatinine 0.84, Sodium Level 138, Potassium Level 4.3, Chloride Level 106, Carbon Dioxide Level 25, Calcium Level 8.5L CBC/BMP Laboratory Tests 07/25/16 05:42 Red Blood Count 3.56 L, Mean Corpuscular Volume 95.6, Mean Corpuscular Hemoglobin 31.5, Mean Corpuscular Hemoglobin Concent 32.9, Red Cell Distribution Width 13.1, Calcium Level 8.5 L Microbiology Microbiology 07/22/16 Blood Culture - Preliminary, Resulted No Growth after 48 hours. All Specime... 07/22/16 Blood Culture - Preliminary, Resulted No Growth after 48 hours. All Specime... 07/22/16 - Final, Complete 07/22/16 Gram Stain - Final, Complete 07/22/16 CSF Culture - Final, Complete 07/22/16 MRSA Screen - Final, Complete 07/22/16 Respiratory Virus Panel (PCR) ([facility]) - Final, Complete 07/22/16 Urine Culture - Final, Complete MONTRELL PEPE MD July 25, 2016 17:32
--- NOTE | 2016-07-25 18:26 | REP ---
Clinical: Headache. Fall/trauma. Comparison: 07/23/2016 . Findings: Age-related atrophy and microvascular ischemic changes are appreciated. The ventricles and sulci are symmetric. Edwards-white differentiation is maintained. There is no evidence for acute intracranial hemorrhage, mass/mass effect, pathology or infarction. No extra-axial fluid collection. Calvarium is intact. Paranasal sinuses and mastoid air cells are clear. Impression: Age related atrophy and microvascular ischemic changes. No acute intracranial hemorrhage, infarction, or mass/mass effect. Signed by Eugenio Sommers MD 07/25/2016 06:18 P
--- NOTE | 2016-07-25 18:30 | REP ---
Clinical: Fever. Comparison: 07/22/2016. Findings: Evaluation is limited by poor inspiratory effort. Mild cardiomegaly cannot be excluded. Diffuse bilateral pleuroparenchymal changes including calcified pleural plaques are again identified and unchanged. Bibasilar atelectasis cannot be excluded. Skeletal structures demonstrate stable degenerative changes. Impression: Chronic stable changes. Cannot exclude basilar atelectasis or small right pleural reaction. Signed by Eugenio Sommers MD 07/25/2016 06:22 P
[2016-07-25] MEDS: NORTRIPTYLINE 25 MG CAP PO SCH (20:47)
[2016-07-25] MEDS: RIVAROXABAN 20 MG TAB (XARELTO) PO SCH (20:49)
[2016-07-25] MEDS: TERAZOSIN 1 MG CAP PO SCH (20:50)
[2016-07-25] MEDS: LATANOPROST 0.005% OPHTH SOLN 2.5 ML OU SCH (20:52)
[2016-07-25] MEDS: tiZANidine 4 MG TAB PO PRN (22:11)
[2016-07-25] MEDS: cefTRIAXone SOD 2 GM in D5W MINI-BAG PLUS 50 ML IV SCH (22:11)
--- NOTE | 2016-07-25 22:21 | IPN ---
DATE: 07/25/2016 Mr. Thibodeaux continues complaining of fever and neck stiffness. Today he could not have his MRI because he had significant muscle spasm in his left leg from phantom pain. His temperature was 102.9 at 5 o'clock. Pulse 103, respirations 20, blood pressure 122/70, oxygen saturation 97% on 3 liters nasal cannula. Neck remained stiff. HEART: Normal S1, S2. No murmurs. Lungs are clear. No wheezes, rales or rhonchi. ABDOMEN: Soft, nontender. Blood cultures, two sets from 07/22/2016, were no growth after 72 hours. On 07/25/2016, two more sets of blood cultures were ordered. Methicillin-resistant Staphylococcus aureus (MRSA) screen and respiratory virus panel were negative. Cerebrospinal fluid (CSF) finding had total protein elevated at 76 and slight increase in RBC with 68% lymphocytes. The patient received vancomycin and Rocephin yesterday after CSF. Multiplex polymerase chain reaction (PCR) was negative and gram stain and culture were negative. All antibiotics were discontinued. IMPRESSION: Abnormal CSF finding with elevated total protein, neck stiffness and fever. 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 PLAN: 1. Will resume IV Rocephin 2 grams every 24 hours until Lyme serology is available. 2. MRI of brain and cervical spine to be done tomorrow with better sedation. [facility]
[2016-07-26] VITALS (16 sets, daily range): BP systolic 100–166; BP diastolic 53–72; O2SAT 82–100
[2016-07-26 00:10] LABS: Lyme Disease IgG/IgM Antibodie <0.91 ISR (0.00-0.90); Lyme Disease IgM Ab Quantitati <0.80 index (0.00-0.79)
[2016-07-26] MEDS: SLF 3 ML SYR IV SCH ×3 (05:18→21:48)
[2016-07-26 05:43] LABS: MEAN CORPUSCULAR HEMOGLOBIN 31.5 pg (27.0-33.0); MEAN CORPUSCULAR HGB CONC 33.2 g/dl (32.0-36.5); MEAN CORPUSCULAR VOLUME 94.9 fl (80.0-96.0); PLATELET COUNT, AUTOMATED 383 k/mm3 (150-450); RED CELL DISTRIBUTION WIDTH 12.8 % (11.5-14.5)
[2016-07-26 05:47] LABS: ANION GAP 8 MEQ/L (8-16); BLOOD UREA NITROGEN 14 MG/DL (7-18); CALCIUM LEVEL 8.1 MG/DL (8.8-10.2); CARBON DIOXIDE LEVEL 28 MEQ/L (21-32); CHLORIDE LEVEL 103 MEQ/L (98-107); CREATININE FOR GFR 0.83 MG/DL (0.70-1.30); GLOMERULAR FILTRATION RATE > 60.0 (>35); GLUCOSE, FASTING 131 MG/DL (83-110); POTASSIUM SERUM 4.2 MEQ/L (3.5-5.1); SODIUM LEVEL 139 MEQ/L (136-145)
[2016-07-26 06:37] LABS: BASOPHILS 3 % (0-4); EOSINOPHILS 1 % (0-5)
[2016-07-26] MEDS: GABAPENTIN 300 MG CAP PO SCH ×3 (08:35→21:47)
[2016-07-26] MEDS: LACTOBACILLUS ACIDOPHILUS CAP (BACID) PO SCH (08:35)
[2016-07-26] MEDS: SOTALOL HCL 80 MG TAB PO SCH ×2 (08:36→21:00)
[2016-07-26] MEDS: HumaLOG INSULIN (NovoLOG) PER UNIT SC SCH ×4 (08:36→21:00)
[2016-07-26] MEDS: TIMOLOL MALEATE 0.5% OPHTH SOLN 5 ML OU SCH (08:36)
[2016-07-26] MEDS: DICLOFENAC EPOLAMINE 1.3 % PATCH TOP SCH ×2 (09:00→21:00)
[2016-07-26] MEDS: tiZANidine 4 MG TAB PO PRN ×2 (09:33→14:34)
[2016-07-26] MEDS: PERCOCET 5MG/325MG TAB PO PRN ×2 (09:39→21:50)
[2016-07-26] MEDS ORDERED: PERCOCET 5MG/325MG TAB PO ONE (11:15)
--- NOTE | 2016-07-26 16:23 | IPNPDOC ---
Subjective Date Seen The patient was seen on 07/26/16. Subjective Chief Complaint/HPI The patient is a 86-year-old male admitted with a reason for visit of [facility]. Events since last encounter Slept well last night, left phantom limb pain controlled better this morning, tolerated diet, no chest pain, has neck pain Constitutional: Denies: Chills, Fever Skin: Denies: Rash, Lesions Pulmonary: Denies: Dyspnea, Cough Cardiovascular: Denies: Chest Pain, Palpitations Gastrointestinal: Denies: Nausea, Vomiting, Abdominal Pain Musculoskeletal: Reports: Neck Pain Objective Physical Examination General Exam: Positive: Alert, Cooperative, No Acute Distress ENT Exam: Positive: Tongue Midline, Nares Patent Neck Exam: Positive: Supple, Other Chest Exam: Positive: Rhonchi, Diminished Heart Exam: Positive: Rate Normal, Regular Rhythm, Normal S1, Normal S2 Telemetry: Positive: Bradycardia Abdomen Exam: Positive: Normal bowel sounds, Soft Psych Exam: Positive: Oriented x 3 Assessment /Plan Problems (1) Neck pain Status: Acute Problem Text: CT C spine from 07/20 shows: Old fracture of the base of the dens without evidence of displacement or angulation and this appears to have healed with fibrous union. No acute fracture or listhesis. Severe osteoarthritis and degenerative disc disease as described. The end plates are fused as a consequence of the advanced degenerative disc disease at C 04/05 and C5-6. I suspect the posterior facets are fused on the left at C 05/06. There are large osteophytes projecting posteriorly into the spinal canal at C 05/06. Continue with pain regimen. Has previously been told than pain management has nothing more to offer him I ordered repeat attempt at MRI today (2) Meningitis Status: Acute Discussed With: Patient Problem Specific Plan: Monitor Clinically Problem Text: Initially thought possibly aseptic meningitis- has been seen by Dr. Coles We discussed in person- will send csf for lyme/[place] (3) Afib Status: Chronic Discussed With: Patient Problem Text: Continue sotalol, cardizem, xarelto. No ICH on CT, will repeat continue telemetry care (4) Diabetes Status: Chronic Problem Text: insulin sliding scale (5) GERD (gastroesophageal reflux disease) Status: Chronic Problem Text: prilosec (6) HTN (hypertension) Status: Chronic Discussed With: Patient Problem Specific Plan: Monitor Clinically Problem Text: cardizem, sotalol, terazosin (7) BPH (benign prostatic hyperplasia) Status: Chronic Discussed With: Patient Problem Specific Plan: Monitor Clinically Problem Text: terazosin (8) Chronic lower back pain Status: Chronic Discussed With: Patient Problem Specific Plan: Monitor Clinically (9) Degenerative disc disease, cervical Status: Acute (10) Altered mental status Status: Resolved Discussed With: Patient Problem Specific Plan: Monitor Clinically (11) Phantom limb pain Problem Text: would like to try lidocaine cream to limb, flector has been tried unsuccessfully in past Plan/VTE VTE Prophylaxis Ordered?: Yes (Xarelto for atrial fibrillation) Plan/Urinary Catheter Reason for insertion/continuin: Acute obstruct/retention Plan Diet: Continue Current (consistent carbohydrate) Activity: Encourage Ambulation Therapy: PT Diagnostics: Check Labs, Repeat Labs in AM, Obtain Cultures Anticipated Discharge: Home VS, I&O, 24H, [facility] Vital Signs/I&O Vital Signs Date Time Temp Pulse Resp B/P (MAP) Pulse Ox O2 Delivery O2 Flow Rate FiO2 07/26/16 14:35 20 Nasal Cannula 3.0 07/26/16 14:00 98 07/26/16 12:00 99.8 70 100/72 (81) I&O- Last 24 Hours up to 6 AM 07/26/16 05:59 Intake Total 1380 ml Output Total 775 ml Balance 605 ml Laboratory Data 24H LABS Laboratory Tests 2 07/25/16 17:29: Bedside Glucose (Misc Panel) 119H 07/25/16 19:40: Urine Appearance CLEAR, Urine Color YELLOW, Urine pH 7.0, Urine Specific [place] 1.015, Urine Protein NEGATIVE, Urine Glucose (UA) NEGATIVE, Urine Ketones NEGATIVE, Urine Urobilinogen 0.2, Urine Bilirubin NEGATIVE, Urine Leukocyte Esterase NEGATIVE, Urine Blood NEGATIVE, Urine Nitrite NEGATIVE, Urine WBC (Auto) 1, Urine RBC (Auto) 5H, Urine Hyaline Casts (Auto) 0, Urine Bacteria (Auto) NEGATIVE, Urine Squamous Epithelial Cells 0, Urine Sperm (Auto) 07/25/16 20:59: Bedside Glucose (Misc Panel) 158H 07/26/16 05:17: Neutrophils 75, Lymphocytes (Manual) 12L, Monocytes (Manual) 8, Eosinophils ( Manual) 1, Basophils (Manual) 3, Atypical Lymphocytes 1, Platelet Estimate NORMAL, Red Blood Cell Morphology NORMAL, Anion Gap 8, Glomerular Filtration Rate > 60.0, Blood Urea Nitrogen 14, Creatinine 0.83, Sodium Level 139, Potassium Level 4.2, Chloride Level 103, Carbon Dioxide Level 28, Calcium Level 8.1L, Total Creatine Kinase 19L, C-Reactive Protein, Quantitative 18.50H 07/26/16 11:28: Bedside Glucose (Misc Panel) 132H CBC/BMP Laboratory Tests 07/26/16 05:17 Red Blood Count 3.74 L, Mean Corpuscular Volume 94.9, Mean Corpuscular Hemoglobin 31.5, Mean Corpuscular Hemoglobin Concent 33.2, Red Cell Distribution Width 12.8, Calcium Level 8.1 L Microbiology Microbiology 07/25/16 Blood Culture, Received Pending 07/25/16 Blood Culture, Received Pending 07/22/16 Blood Culture - Preliminary, Resulted No Growth after 72 hours. All specime... 07/22/16 Blood Culture - Preliminary, Resulted No Growth after 72 hours. All specime... 07/22/16 - Final, Complete 07/22/16 Gram Stain - Final, Complete 07/22/16 CSF Culture - Final, Complete 07/22/16 MRSA Screen - Final, Complete 07/22/16 Respiratory Virus Panel (PCR) ([facility]) - Final, Complete 07/22/16 Urine Culture - Final, Complete MONTRELL PEPE MD July 26, 2016 16:23
[2016-07-26] MEDS: ACETAMINOPHEN TAB 650MG DOSE (2X325MG) PO PRN (17:57)
[2016-07-26] MEDS: TERAZOSIN 1 MG CAP PO SCH (21:46)
[2016-07-26] MEDS: LATANOPROST 0.005% OPHTH SOLN 2.5 ML OU SCH (21:47)
[2016-07-26] MEDS: RIVAROXABAN 20 MG TAB (XARELTO) PO SCH (21:47)
[2016-07-26] MEDS: NORTRIPTYLINE 25 MG CAP PO SCH (21:47)
[2016-07-26] MEDS: cefTRIAXone SOD 2 GM in D5W MINI-BAG PLUS 50 ML IV SCH (21:48)
[2016-07-27] VITALS (11 sets, daily range): BP systolic 80–160; BP diastolic 54–79; O2SAT 93–100
[2016-07-27] MEDS: tiZANidine 4 MG TAB PO PRN ×2 (00:17→18:20)
[2016-07-27] MEDS ORDERED: NS 500 ML IV ONE (04:30)
[2016-07-27] MEDS: SLF 3 ML SYR IV SCH ×3 (06:00→22:00)
[2016-07-27 06:25] LABS: MEAN CORPUSCULAR HEMOGLOBIN 30.9 pg (27.0-33.0); MEAN CORPUSCULAR HGB CONC 32.7 g/dl (32.0-36.5); MEAN CORPUSCULAR VOLUME 94.5 fl (80.0-96.0); PLATELET COUNT, AUTOMATED 422 k/mm3 (150-450); RED CELL DISTRIBUTION WIDTH 12.7 % (11.5-14.5); WHITE BLOOD COUNT 8.4 K/mm3 (4.0-10.0)
[2016-07-27 06:34] LABS: ANION GAP 8 MEQ/L (8-16); BLOOD UREA NITROGEN 13 MG/DL (7-18); CALCIUM LEVEL 8.7 MG/DL (8.8-10.2); CARBON DIOXIDE LEVEL 27 MEQ/L (21-32); CHLORIDE LEVEL 100 MEQ/L (98-107); CREATININE FOR GFR 0.96 MG/DL (0.70-1.30); GLOMERULAR FILTRATION RATE > 60.0 (>35); GLUCOSE, FASTING 150 MG/DL (83-110); POTASSIUM SERUM 4.1 MEQ/L (3.5-5.1); SODIUM LEVEL 135 MEQ/L (136-145)
[2016-07-27 06:47] LABS: BASOPHILS 1 % (0-4); EOSINOPHILS 2 % (0-5)
[2016-07-27] MEDS: GABAPENTIN 300 MG CAP PO SCH ×2 (08:39→15:44)
[2016-07-27] MEDS: HumaLOG INSULIN (NovoLOG) PER UNIT SC SCH ×4 (08:39→21:00)
[2016-07-27] MEDS: LACTOBACILLUS ACIDOPHILUS CAP (BACID) PO SCH (08:39)
[2016-07-27] MEDS: DICLOFENAC EPOLAMINE 1.3 % PATCH TOP SCH ×2 (08:41→21:00)
[2016-07-27] MEDS: TIMOLOL MALEATE 0.5% OPHTH SOLN 5 ML OU SCH (08:41)
[2016-07-27] MEDS: SOTALOL HCL 80 MG TAB PO SCH ×2 (09:00→21:00)
--- NOTE | 2016-07-27 09:04 | REP ---
MRI BRAIN WITHOUT AND WITH CONTRAST: HISTORY: Fever. CONTRAST: ProHance 15 mL. COMPARISON: CT 07/25/2016. Areas of increased signal intensity on T2-weighted images are present in the periventricular and subcortical white matter. This represents small vessel ischemic disease. There is no intraparenchymal hemorrhage, infarct, mass or midline shift. There is no abnormal enhancement. The ventricular system and cortical sulci as well as subarachnoid space in the posterior fossa are dilated consistent with mild volume loss. There is no extracerebral collection. The sinuses are clear. IMPRESSION: 1. Small vessel ischemic disease. 2. Mild volume loss. Signed by Maxx Kent MD 07/27/2016 09:36 A
--- NOTE | 2016-07-27 09:19 | REP ---
MRI CERVICAL SPINE WITHOUT AND WITH CONTRAST: HISTORY: Neck pain. CONTRAST: ProHance 15 mL. There is an old ununited type 3 fracture of the odontoid process. There is no subluxation. A disc bulge is present at the C2-3 level. There is minimal effacement of the thecal sac without spinal cord compression. Uncinate process hypertrophy is present on the left. This produces minimal narrowing of the left C2 neural foramen. The right C2 neural foramen is patent. A disc bulge with associated osteophyte formation is present at the C3-4 level. This produces moderate spinal cord compression. Bilateral uncinate process and facet hypertrophy are present. These findings produce severe narrowing of the C3 neural foramina. A disc bulge with associated osteophyte formation is present at the C4-5 level. There is mild spinal cord compression. Bilateral uncinate process and left facet hypertrophy are present. These findings produce moderate and severe narrowing of the right and left C4 neural foramina respectively. A disc bulge with associated osteophyte formation is present at the C5-6 level. There is severe spinal cord compression. Bilateral uncinate process and left facet hypertrophy are present. These findings produce severe narrowing of the C5 neural foramina. A disc bulge with associated osteophyte formation is present at the C6-7 level. There is moderate effacement of the thecal sac without spinal cord compression. Bilateral uncinate process and left facet hypertrophy are present. These findings produce moderate narrowing of the C6 neural foramina. A disc bulge is present at the C7-T1 level. There is minimal effacement of the thecal sac without spinal cord compression. Bilateral facet hypertrophy is present. This produces minimal narrowing of the C7 neural foramina. There is no other disc bulge or herniation. The remaining neural foramina are patent. The spinal cord is normal in signal intensity. The C2-3, C3-4, C6-7 and C7-T1 intervertebral discs are decreased in height consistent with disc degeneration. Normal signal intensity is present in the cervical vertebral bodies. IMPRESSION: 1. 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 2. There is cervical spondylosis at the C2-3 through C7-T1 levels with spinal cord compression at the C3-4 through C5-6 levels as described above. Signed by Maxx Kent MD 07/27/2016 09:38 A
[2016-07-27] MEDS: PERCOCET 5MG/325MG TAB PO PRN ×2 (11:03→15:46)
--- NOTE | 2016-07-27 12:17 | IPNPDOC ---
Subjective Date Seen The patient was seen on 07/27/16. Subjective Chief Complaint/HPI The patient is a 86-year-old male admitted with a reason for visit of [facility]. Events since last encounter Continues with head and neck pain, was hypotensive last night after evening meds , recieved ivf with effect- patient was unaware of hypotension still has LLE stump pain Constitutional: Denies: Chills, Fever ENT: Reports: Head Aches Pulmonary: Denies: Dyspnea, Cough Cardiovascular: Denies: Chest Pain, Palpitations Gastrointestinal: Denies: Nausea, Vomiting, Abdominal Pain Musculoskeletal: Reports: Neck Pain Objective Physical Examination General Exam: Positive: Alert, Cooperative, No Acute Distress ENT Exam: Positive: Tongue Midline Neck Exam: Positive: Supple, Other Chest Exam: Positive: Diminished, Negative: Rhonchi, Wheezing Heart Exam: Positive: Rate Normal, Regular Rhythm, Normal S1, Normal S2 Telemetry: Positive: Bradycardia Abdomen Exam: Positive: Normal bowel sounds, Soft Psych Exam: Positive: Oriented x 3 Assessment /Plan Problems (1) Neck pain Status: Acute Problem Text: CT C spine from 07/20 shows: Old fracture of the base of the dens without evidence of displacement or angulation and this appears to have healed with fibrous union. No acute fracture or listhesis. Severe osteoarthritis and degenerative disc disease as described. The end plates are fused as a consequence of the advanced degenerative disc disease at C 04/05 and C5-6. I suspect the posterior facets are fused on the left at C 05/06. There are large osteophytes projecting posteriorly into the spinal canal at C 05/06. Continue with pain regimen. 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 Cervical spondylosis at the C2-3 through C7-T1 levels with spinal cord compression at the C3-4 through C5-6 levels as described above I discussed with Dr. Grmim by phone, he will see in consult. Not currently a surgical candidate (2) Meningitis Status: Acute Discussed With: Patient Problem Specific Plan: Monitor Clinically Problem Text: Initially thought possibly aseptic meningitis- has been seen by Dr. Sanket kelly for lyme/[place] pending (3) Afib Status: Chronic Discussed With: Patient Problem Text: Continue sotalol, cardizem, xarelto. Hold parameters placed based on episode of hypotension last evening No ICH on CT, will repeat continue telemetry care (4) Diabetes Status: Chronic Problem Text: insulin sliding scale (5) GERD (gastroesophageal reflux disease) Status: Chronic Problem Text: prilosec (6) HTN (hypertension) Status: Chronic Discussed With: Patient Problem Specific Plan: Monitor Clinically Problem Text: cardizem, sotalol, terazosin (7) BPH (benign prostatic hyperplasia) Status: Chronic Discussed With: Patient Problem Specific Plan: Monitor Clinically Problem Text: terazosin (8) Chronic lower back pain Status: Chronic Discussed With: Patient Problem Specific Plan: Monitor Clinically (9) Degenerative disc disease, cervical Status: Acute (10) Altered mental status Status: Resolved Discussed With: Patient Problem Specific Plan: Monitor Clinically (11) Phantom limb pain Problem Text: would like to try lidocaine cream to limb, flector has been tried unsuccessfully in past Plan/VTE VTE Prophylaxis Ordered?: Yes (Xarelto for atrial fibrillation) Plan/Urinary Catheter Reason for insertion/continuin: Acute obstruct/retention Plan Diet: Continue Current (consistent carbohydrate) Activity: Encourage Ambulation Therapy: PT Diagnostics: Check Labs, Repeat Labs in AM, Obtain Cultures Anticipated Discharge: Home VS, I&O, 24H, [facility] Vital Signs/I&O Vital Signs Date Time Temp Pulse Resp B/P (MAP) Pulse Ox O2 Delivery O2 Flow Rate FiO2 07/27/16 11:03 20 Room Air 07/27/16 09:00 54 111/56 07/27/16 08:36 2.0 07/27/16 08:00 97.9 97 I&O- Last 24 Hours up to 6 AM 07/27/16 06:00 Intake Total 1760 ml Output Total 775 ml Balance 985 ml Laboratory Data 24H LABS Laboratory Tests 2 07/26/16 17:51: Bedside Glucose (Misc Panel) 106 07/26/16 21:20: Bedside Glucose (Misc Panel) 132H 07/27/16 05:26: Neutrophils 61, Lymphocytes (Manual) 20, Monocytes (Manual) 13H, Eosinophils ( Manual) 2, Basophils (Manual) 1, Atypical Lymphocytes 3, Platelet Estimate INCREASED, Red Blood Cell Morphology NORMAL, Anion Gap 8, Glomerular Filtration Rate > 60.0, Blood Urea Nitrogen 13, Creatinine 0.96, Sodium Level 135L, Potassium Level 4.1, Chloride Level 100, Carbon Dioxide Level 27, Calcium Level 8.7L CBC/BMP Laboratory Tests 07/27/16 05:26 Red Blood Count 3.56 L, Mean Corpuscular Volume 94.5, Mean Corpuscular Hemoglobin 30.9, Mean Corpuscular Hemoglobin Concent 32.7, Red Cell Distribution Width 12.7, Calcium Level 8.7 L Microbiology Microbiology 07/25/16 Blood Culture - Preliminary, Resulted No growth after 24 hours . All specim... 07/25/16 Blood Culture - Preliminary, Resulted No growth after 24 hours . All specim... 07/22/16 Blood Culture - Preliminary, Resulted No Growth after 72 hours. All specime... 07/22/16 Blood Culture - Preliminary, Resulted No Growth after 72 hours. All specime... 07/22/16 - Final, Complete 07/22/16 Gram Stain - Final, Complete 07/22/16 CSF Culture - Final, Complete 07/22/16 MRSA Screen - Final, Complete 07/22/16 Respiratory Virus Panel (PCR) ([facility]) - Final, Complete 07/22/16 Urine Culture - Final, Complete MONTRELL PEPE MD July 27, 2016 12:17
--- NOTE | 2016-07-27 18:15 | REP ---
Clinical: Fever. Technique: AP semiupright. Comparison: 07/25/2016. Findings: Diffuse chronic interstitial changes and partially calcified pleural plaques are again identified and unchanged. Cardiomegaly is suggested bibasilar infiltrate/atelectasis (right greater than left) cannot be excluded. No pneumothorax. Skeletal structures stable. Impression: Diffuse chronic changes. Cardiomegaly. Cannot exclude superimposed lower lobe infiltrate/atelectasis. Signed by Eugenio Sommers MD 07/27/2016 06:06 P
[2016-07-27] MEDS: LIDOCAINE 4% CREAM 5GM (LMX4) TOP PRN (18:21)
[2016-07-27] MEDS ORDERED: GASTROGRAFIN SOLUTION 30ML PO ONE (19:35)
[2016-07-27] MEDS ORDERED: GASTROGRAFIN SOLUTION 30ML (Q9963) PO ONE (20:05)
--- NOTE | 2016-07-27 21:10 | IPN ---
DATE: 07/27/2016 Mr. Thibodeaux complains of persistent neck stiffness and myoclonic jerks of the left leg which seem to be worse lately. He denies any abdominal pain, nausea, vomiting or diarrhea. He continues to have fevers. Temperature is 101, pulse 69, respirations 19, blood pressure 150/79, oxygen saturation 90% on room air. Heart: Normal S1, S2. No murmurs. Lungs are clear. No wheezes, rales, or rhonchi. Abdomen: Soft, nontender. Left leg stump has some healed areas but no evidence of erythema, purulence or drainage. Right stump has no infection either. Left leg is constantly flexing and rhythmic movement. Neck is mildly stiff, tender mostly on the right side. LABORATORY DATA: White count 8.4, hemoglobin 11, hematocrit 33.6, platelets 422, 61% neutrophils, 20% lymphocytes, 13% monocytes. White count on admission was 11.7. Blood cultures on 07/22/2016, two sets, were no growth after 5 days. Cerebrospinal fluid (CSF) cultures are final negative. Urine culture is negative. Blood cultures on 07/25/2016, were also no growth and 07/27/2016, two more sets of blood cultures have been ordered. Chest x-ray today from 07/27/2016, showed diffuse chronic changes with cardiomegaly, cannot exclude superimposed lower lobe infiltrate / atelectasis. This was a supine. Brain MRI shows small vessel ischemic disease, mild volume loss with and without contrast. There is no abscess. Cervical (C) spine MRI shows old type 3 odontoid process fracture without subluxation and spondylosis at C2-[address] C7-T1 with spinal cord compression at 3-4 and 5 and 6. IMPRESSION: 1. Fever of unknown origin with neck stiffness, elevated CRP at 18.5, negative cultures. 2. Triple amputation. 3. Severe degenerative disc disease of cervical spine with spinal stenosis. PLAN will schedule the patient tomorrow for CT chest and abdomen to rule out a psoas abscess or occult malignancy or abscess as the cause of fever. The patient is currently on IV Rocephin day #3. MTDD
[2016-07-27] MEDS: TERAZOSIN 1 MG CAP PO SCH (22:24)
[2016-07-27] MEDS: GABAPENTIN 400 MG CAP PO SCH (22:24)
[2016-07-27] MEDS: cefTRIAXone SOD 2 GM in D5W MINI-BAG PLUS 50 ML IV SCH (22:27)
[2016-07-27] MEDS: LATANOPROST 0.005% OPHTH SOLN 2.5 ML OU SCH (22:27)
[2016-07-27] MEDS: RIVAROXABAN 20 MG TAB (XARELTO) PO SCH (22:30)
[2016-07-28] VITALS (8 sets, daily range): BP systolic 110–128; BP diastolic 58–76
[2016-07-28] MEDS: tiZANidine 4 MG TAB PO PRN ×3 (04:29→23:57)
[2016-07-28 05:38] LABS: MEAN CORPUSCULAR HGB CONC 32.8 g/dl (32.0-36.5); MEAN CORPUSCULAR VOLUME 94.5 fl (80.0-96.0); RED CELL DISTRIBUTION WIDTH 12.6 % (11.5-14.5); WHITE BLOOD COUNT 6.7 K/mm3 (4.0-10.0)
[2016-07-28] MEDS: SLF 3 ML SYR IV SCH ×3 (05:45→22:18)
[2016-07-28 05:59] LABS: ANION GAP 9 MEQ/L (8-16); BLOOD UREA NITROGEN 13 MG/DL (7-18); CALCIUM LEVEL 8.6 MG/DL (8.8-10.2); CARBON DIOXIDE LEVEL 27 MEQ/L (21-32); CHLORIDE LEVEL 101 MEQ/L (98-107); CREATININE FOR GFR 0.74 MG/DL (0.70-1.30); GLOMERULAR FILTRATION RATE > 60.0 (>35); GLUCOSE, FASTING 99 MG/DL (83-110); POTASSIUM SERUM 4.1 MEQ/L (3.5-5.1); SODIUM LEVEL 137 MEQ/L (136-145)
[2016-07-28] MEDS: HumaLOG INSULIN (NovoLOG) PER UNIT SC SCH ×4 (07:30→22:26)
[2016-07-28] MEDS: LACTOBACILLUS ACIDOPHILUS CAP (BACID) PO SCH (08:40)
[2016-07-28] MEDS: GABAPENTIN 400 MG CAP PO SCH ×3 (08:41→22:15)
[2016-07-28] MEDS: SOTALOL HCL 80 MG TAB PO SCH ×2 (08:41→22:33)
[2016-07-28] MEDS: DICLOFENAC EPOLAMINE 1.3 % PATCH TOP SCH ×2 (08:44→21:00)
[2016-07-28] MEDS: TIMOLOL MALEATE 0.5% OPHTH SOLN 5 ML OU SCH (08:45)
[2016-07-28] MEDS ORDERED: GASTROGRAFIN SOLUTION 30ML PO ONE (08:45)
[2016-07-28] MEDS ORDERED: GASTROGRAFIN SOLUTION 30ML (Q9963) PO ONE (09:15)
[2016-07-28] MEDS ORDERED: ISOVUE-370 76% 100ML VIAL (Q9967) As Ordered ONE (09:43)
--- NOTE | 2016-07-28 11:00 | REP ---
Clinical: Abdominal pain and fever. Technique: Axial contrast enhanced images from the lung bases to the pubic symphysis using oral and 100 ml Isovue 370 intravenous contrast material with coronal and sagittal re-formations. Comparison: 04/11/2016. Findings: Lung bases demonstrate partially calcified pleural plaques and chronic fibro atelectatic change suggesting sequelae of asbestosis Liver, spleen, bilateral adrenal glands and kidneys are normal. Diffuse complete fatty replacement of the pancreas is appreciated along with prior cholecystectomy. The enteric system demonstrates moderate fecal stasis through the ascending and transverse colon as well as sigmoid diverticulosis without evidence for acute diverticulitis. There is no evidence for bowel obstruction or acute inflammatory process. The small bowel appears normal. Pelvis demonstrates normal bladder and age appropriate prostate/seminal vesicles. No free air. No free fluid. No significant intraperitoneal or retroperitoneal adenopathy. Atherosclerotic changes to the aorta and vasculature noted without aneurysm or dissection. Skeletal structures demonstrate degenerative changes without focal osseous abnormality. Impression: Moderate fecal stasis. Sigmoid diverticulosis without acute diverticulitis. Chronic changes as described above. No free fluid or acute intra-abdominal/pelvic pathology. Signed by Eugenio Sommers MD 07/28/2016 10:52 A
--- NOTE | 2016-07-28 11:01 | REP ---
Clinical: Chest pain and fever. Technique: Axial contrast enhanced images from the thoracic inlet to the upper abdomen using 100 ml Isovue 370 intravenous contrast material with coronal and sagittal re-formations. Comparison: None. Findings: Scattered bilateral partially calcified pleural plaques are noted along with mild age-related diffuse chronic interstitial changes and basilar chronic fibroatelectatic change. No acute consolidation, obvious nodule or mass lesion is appreciated. No axillary, hilar or mediastinal adenopathy. Atherosclerotic changes to the thoracic aorta and coronary arteries noted without aortic aneurysm/dissection, cardiomegaly or pericardial effusion. Surrounding musculoskeletal structures demonstrate age-related degenerative change. Impression: 1. 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 2. No acute mediastinal or pleuroparenchymal process appreciated. Signed by Eugenio Sommers MD 07/28/2016 10:52 A
[2016-07-28] MEDS: PERCOCET 5MG/325MG TAB PO PRN ×2 (11:22→17:09)
[2016-07-28] MEDS: DOCUSATE SODIUM 100 MG CAP PO PRN (14:32)
--- NOTE | 2016-07-28 14:59 | IPNPDOC ---
Subjective Date Seen The patient was seen on 07/28/16. Subjective Chief Complaint/HPI The patient is a 86-year-old male admitted with a reason for visit of [facility]. Events since last encounter Slept better last night, no unusual dreams, tolerating diet, neck pain/headache persist but are better, he has more energy- looking forward to working with PT Constitutional: Denies: Chills, Fever ENT: Reports: Head Aches Pulmonary: Denies: Dyspnea, Cough Cardiovascular: Denies: Chest Pain, Palpitations Gastrointestinal: Denies: Nausea, Vomiting, Abdominal Pain Musculoskeletal: Reports: Neck Pain Objective Physical Examination General Exam: Positive: Alert, Cooperative, No Acute Distress Eye Exam: Negative: Sclera icteric ENT Exam: Positive: Mucous membr. moist/pink Neck Exam: Positive: Supple, Other Chest Exam: Positive: Diminished, Negative: Rales, Rhonchi, Wheezing Heart Exam: Positive: Rate Normal, Regular Rhythm, Normal S1, Normal S2 Telemetry: Positive: Bradycardia Abdomen Exam: Positive: Normal bowel sounds, Soft Psych Exam: Positive: Oriented x 3 Assessment /Plan Problems (1) Neck pain Status: Acute Problem Text: CT C spine from 07/20 shows: Old fracture of the base of the dens without evidence of displacement or angulation and this appears to have healed with fibrous union. No acute fracture or listhesis. Severe osteoarthritis and degenerative disc disease as described. The end plates are fused as a consequence of the advanced degenerative disc disease at C 04/05 and C5-6. I suspect the posterior facets are fused on the left at C 05/06. There are large osteophytes projecting posteriorly into the spinal canal at C 05/06. Continue with pain regimen. 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 Cervical spondylosis at the C2-3 through C7-T1 levels with spinal cord compression at the C3-4 through C5-6 levels as described above I discussed with Dr. Grimm by phone, he will see in consult. Not currently a surgical candidate Plans to see patient 07/28/16- pain improved AM 07/28/16 (2) Meningitis Status: Acute Discussed With: Patient Problem Specific Plan: Monitor Clinically Problem Text: Initially thought possibly aseptic meningitis- has been seen by Dr. Coles- we discussed in person 07/28/16 csf for lyme/west nile pending workup for FUO includes unremarkable CT chest/abd/pelvis- echo ordered for possible aseptic endocarditis, rheumatoid screen (3) Afib Status: Chronic Discussed With: Patient Problem Text: Continue sotalol, cardizem, xarelto. Hold parameters placed based on episode of hypotension continue telemetry care (4) Diabetes Status: Chronic Problem Text: insulin sliding scale (5) GERD (gastroesophageal reflux disease) Status: Chronic Problem Text: prilosec (6) HTN (hypertension) Status: Chronic Discussed With: Patient Problem Specific Plan: Monitor Clinically Problem Text: cardizem, sotalol, terazosin (7) BPH (benign prostatic hyperplasia) Status: Chronic Discussed With: Patient Problem Specific Plan: Monitor Clinically Problem Text: terazosin (8) Chronic lower back pain Status: Chronic Discussed With: Patient Problem Specific Plan: Monitor Clinically (9) Degenerative disc disease, cervical Status: Acute (10) Altered mental status Status: Resolved Discussed With: Patient Problem Specific Plan: Monitor Clinically (11) Phantom limb pain Problem Text: would like to try lidocaine cream to limb, flector has been tried unsuccessfully in past Plan/VTE VTE Prophylaxis Ordered?: Yes (Xarelto for atrial fibrillation) Plan/Urinary Catheter Reason for insertion/continuin: Acute obstruct/retention Plan Diet: Continue Current (consistent carbohydrate) Activity: Encourage Ambulation Therapy: PT Diagnostics: Check Labs, Repeat Labs in AM, Obtain Cultures Anticipated Discharge: Home VS, I&O, 24H, [facility] Vital Signs/I&O Vital Signs Date Time Temp Pulse Resp B/P (MAP) Pulse Ox O2 Delivery O2 Flow Rate FiO2 07/28/16 12:00 98.3 66 20 123/60 (81) 96 Room Air 07/28/16 08:45 2.0 I&O- Last 24 Hours up to 6 AM 07/28/16 06:00 Intake Total 1080 ml Output Total 1125 ml Balance -45 ml Laboratory Data 24H LABS Laboratory Tests 2 07/27/16 16:34: Bedside Glucose (Misc Panel) 98 07/27/16 20:28: Bedside Glucose (Misc Panel) 181H 07/28/16 05:14: Erythrocyte Sedimentation Rate 116H, Anion Gap 9, Glomerular Filtration Rate > 60.0, Blood Urea Nitrogen 13, Creatinine 0.74, Sodium Level 137, Potassium Level 4.1, Chloride Level 101, Carbon Dioxide Level 27, Calcium Level 8.6L, C- Reactive Protein, Quantitative 25.10H 07/28/16 12:03: Bedside Glucose (Misc Panel) 157H 07/28/16 12:12: CBC/BMP Laboratory Tests 07/28/16 05:14 Red Blood Count 3.59 L, Mean Corpuscular Volume 94.5, Mean Corpuscular Hemoglobin 31.0, Mean Corpuscular Hemoglobin Concent 32.8, Red Cell Distribution Width 12.6, Calcium Level 8.6 L Microbiology Microbiology 07/27/16 Blood Culture, Received Pending 07/27/16 Blood Culture, Received Pending 07/25/16 Blood Culture - Preliminary, Resulted No Growth after 48 hours. All Specime... 07/25/16 Blood Culture - Preliminary, Resulted No Growth after 48 hours. All Specime... 07/22/16 Blood Culture - Final, Complete NO GROWTH AFTER 5 DAYS 07/22/16 Blood Culture - Final, Complete NO GROWTH AFTER 5 DAYS 07/22/16 - Final, Complete 07/22/16 Gram Stain - Final, Complete 07/22/16 CSF Culture - Final, Complete 07/22/16 MRSA Screen - Final, Complete 07/22/16 Respiratory Virus Panel (PCR) ([facility]) - Final, Complete 07/22/16 Urine Culture - Final, Complete MONTRELL PEPE MD July 28, 2016 14:59
--- NOTE | 2016-07-28 15:03 | IPN ---
DATE: 07/28/2016 Mr. Thibodeaux seems to be doing fairly well. He is sitting in his chair eating his breakfast. He just had a CT of the abdomen and chest. I have reviewed the studies with Dr. Sommers. There is no evidence of infection. 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 No mediastinal adenopathy. No infiltrates. CT of the abdomen and pelvis looks normal as well except for some fecal stasis and diverticulosis. There is no pathology. PHYSICAL EXAMINATION: The patient continues to have fevers mostly at night. He had a temperature 101 and it seems like every fever mostly is at nighttime. Neck is slightly stiff mostly with terminal stiffness. Heart normal S1, S2. No murmurs. Lungs are clear with no wheezes, rales or rhonchi. Abdomen is soft, nontender. Extremities: Triple amputation, both legs and right arm. No evidence of infection. Oropharynx is clear with no thrush. He has upper dentures, but his own teeth on the bottom, and he has a cleaning every 6 months. LABORATORY DATA: White count is 6.7, hemoglobin 11.2, hematocrit 34, platelets 473. ESR 116. Sodium 137, potassium 4.1, chloride 101, bicarbonate 27, BUN 13, creatinine 0.74, glucose 99, calcium 8.6, CRP 25.1. IMPRESSION 1. Fever of unknown origin, so far Lyme serology was negative. RANJITH and anti-CCP are pending. CSF showed elevated total protein but no pleocytosis. VDRL was negative. Urinalysis negative. Blood cultures is negative. The patient has significantly elevated inflammation marker, including sedimentation rate and CRP. CT of the abdomen and chest were negative as well. PLAN: We will obtain echocardiogram to rule out endocarditis and order West Nile serology. Other things that need to be ruled out would be autoimmune diseases.
[2016-07-28] MEDS: ACETAMINOPHEN TAB 650MG DOSE (2X325MG) PO PRN (20:14)
[2016-07-28] MEDS: RIVAROXABAN 20 MG TAB (XARELTO) PO SCH (22:15)
[2016-07-28] MEDS: LATANOPROST 0.005% OPHTH SOLN 2.5 ML OU SCH (22:16)
[2016-07-28] MEDS: cefTRIAXone SOD 2 GM in D5W MINI-BAG PLUS 50 ML IV SCH (22:17)
[2016-07-28] MEDS: TERAZOSIN 1 MG CAP PO SCH (22:33)
[2016-07-29 03:49] VITALS: BP 135/63
[2016-07-29 05:22] LABS: MEAN CORPUSCULAR HEMOGLOBIN 30.7 pg (27.0-33.0); MEAN CORPUSCULAR HGB CONC 32.1 g/dl (32.0-36.5); MEAN CORPUSCULAR VOLUME 95.6 fl (80.0-96.0); RED CELL DISTRIBUTION WIDTH 12.7 % (11.5-14.5); WHITE BLOOD COUNT 5.8 K/mm3 (4.0-10.0)
[2016-07-29 05:35] LABS: ANION GAP 8 MEQ/L (8-16); BLOOD UREA NITROGEN 14 MG/DL (7-18); CALCIUM LEVEL 8.6 MG/DL (8.8-10.2); CARBON DIOXIDE LEVEL 28 MEQ/L (21-32); CHLORIDE LEVEL 102 MEQ/L (98-107); CREATININE FOR GFR 0.79 MG/DL (0.70-1.30); GLOMERULAR FILTRATION RATE > 60.0 (>35); GLUCOSE, FASTING 111 MG/DL (83-110); SODIUM LEVEL 138 MEQ/L (136-145)
[2016-07-29] MEDS: SLF 3 ML SYR IV SCH ×3 (06:14→21:49)
[2016-07-29 08:00] VITALS: BP 132/67
[2016-07-29] MEDS: SOTALOL HCL 80 MG TAB PO SCH ×2 (08:53→21:44)
[2016-07-29] MEDS: GABAPENTIN 400 MG CAP PO SCH ×3 (08:53→21:43)
[2016-07-29] MEDS: LACTOBACILLUS ACIDOPHILUS CAP (BACID) PO SCH (08:53)
[2016-07-29] MEDS: HumaLOG INSULIN (NovoLOG) PER UNIT SC SCH ×4 (08:53→21:46)
[2016-07-29] MEDS: DICLOFENAC EPOLAMINE 1.3 % PATCH TOP SCH ×2 (08:53→21:00)
[2016-07-29] MEDS: TIMOLOL MALEATE 0.5% OPHTH SOLN 5 ML OU SCH (08:53)
--- NOTE | 2016-07-29 10:50 | ECHO ---
DATE OF SERVICE: 07/28/2016 REFERRING PROVIDER: Dr. Manuel Coles PATIENT LOCATION: Room 3225 REASON FOR ECHOCARDIOGRAM: Fever. 2D MEASUREMENTS: IVS: 1.2 cm LV: 4.1 cm LVPW: 1.2 cm LA: 4.0 cm Aorta: 3.6 cm DOPPLER MEASUREMENTS: Peak velocity across the aortic valve: 1.5 m/s Peak velocity across the LVOT: 1.1 m/s Mitral E: 0.81 Mitral A: 1.1 with a ratio of 0.8 Maximum tricuspid valve velocity: 2.6 m/s 2D COMMENTS: 1. Normal left ventricular size, wall thickness and normal global left ventricular systolic function. Left ventricular systolic ejection fraction is estimated at 60-65%. 2. Borderline enlarged left atrium. Normal right atrium and right ventricle. 3. The atrial septum appeared to be normal without evidence of defect or shunt. 4. Normal aortic root. 5. No pericardial effusions seen. 6. Minimal calcified aortic valve with normal leaflet excursion. Mildly calcified mitral annulus with normal anterior mitral valve leaflet motion. Normal tricuspid valve. The pulmonic valve and proximal pulmonary artery branches were not well visualized. 7. The inferior vena cava was not visualized. DOPPLER: It detects trace mitral regurgitation and mild tricuspid regurgitation. The calculated pulmonary artery systolic pressure varies between 30 to 40 mmHg. Abnormal relaxation pattern was noted across the mitral valve leaflets as well as the mitral valve annulus consistent with grade 1 left ventricular diastolic dysfunction. IMPRESSION: 1. Normal global left ventricular systolic function. There are features of left ventricular diastolic dysfunction manifested by abnormal relaxation, grade 1. 2. Aortic valve sclerosis without stenosis or aortic regurgitation. 3. Mitral annulus calcification with trace mitral regurgitation. 4. Mild tricuspid regurgitation with mild pulmonary hypertension. MTDD
--- NOTE | 2016-07-29 11:15 | IPNPDOC ---
Subjective Date Seen The patient was seen on 07/29/16. Subjective Chief Complaint/HPI The patient is a 86-year-old male admitted with a reason for visit of [facility]. Events since last encounter Feeling better- specifically no shoulder pain, no head ache, less neck pain, no muscle aches- still feels weaker than normal- was in chair quite a bit yesterday. tolerating diet Constitutional: Denies: Chills, Fever Pulmonary: Denies: Dyspnea, Cough Cardiovascular: Denies: Chest Pain, Palpitations Gastrointestinal: Denies: Nausea, Vomiting, Abdominal Pain Objective Physical Examination General Exam: Positive: Alert, Cooperative, No Acute Distress ENT Exam: Positive: Mucous membr. moist/pink Neck Exam: Positive: Supple, Other Chest Exam: Positive: Clear to auscultation, Negative: Rales, Rhonchi, Wheezing Heart Exam: Positive: Rate Normal, Regular Rhythm, Normal S1, Normal S2 Telemetry: Positive: Bradycardia Abdomen Exam: Positive: Normal bowel sounds, Soft Psych Exam: Positive: Oriented x 3 Assessment /Plan Problems (1) Neck pain Status: Acute Problem Text: CT C spine from 07/20 shows: Old fracture of the base of the dens without evidence of displacement or angulation and this appears to have healed with fibrous union. No acute fracture or listhesis. Severe osteoarthritis and degenerative disc disease as described. The end plates are fused as a consequence of the advanced degenerative disc disease at C 04/05 and C5-6. I suspect the posterior facets are fused on the left at C 05/06. There are large osteophytes projecting posteriorly into the spinal canal at C 05/06. Continue with pain regimen. 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 Cervical spondylosis at the C2-3 through C7-T1 levels with spinal cord compression at the C3-4 through C5-6 levels as described above Dr. Grimm saw in consult- may be a surgical candidate for c-spine stenosis- once infectious work-up is complete (2) Meningitis Status: Acute Discussed With: Patient Problem Specific Plan: Monitor Clinically Problem Text: Initially thought possibly aseptic meningitis- has been seen by Dr. Coles- we discussed in person 07/28/16 csf for lyme/west nile pending workup for FUO includes unremarkable CT chest/abd/pelvis- echo ordered for possible culture-negative/partially treated endocarditis, rheumatoid screen pending (3) Afib Status: Chronic Discussed With: Patient Problem Text: Continue sotalol, cardizem, xarelto. Hold parameters placed based on episode of hypotension continue telemetry care (4) Diabetes Status: Chronic Problem Text: insulin sliding scale (5) GERD (gastroesophageal reflux disease) Status: Chronic Problem Text: prilosec (6) HTN (hypertension) Status: Chronic Discussed With: Patient Problem Specific Plan: Monitor Clinically Problem Text: cardizem, sotalol, terazosin (7) BPH (benign prostatic hyperplasia) Status: Chronic Discussed With: Patient Problem Specific Plan: Monitor Clinically Problem Text: terazosin (8) Chronic lower back pain Status: Chronic Discussed With: Patient Problem Specific Plan: Monitor Clinically (9) Degenerative disc disease, cervical Status: Acute (10) Altered mental status Status: Resolved Discussed With: Patient Problem Specific Plan: Monitor Clinically (11) Phantom limb pain Problem Text: improved 07/29/16 (12) Diastolic CHF Status: Chronic Problem Text: compensated fluid status Plan/VTE VTE Prophylaxis Ordered?: Yes (Xarelto for atrial fibrillation) Plan/Urinary Catheter Reason for insertion/continuin: Acute obstruct/retention Plan Diet: Continue Current (consistent carbohydrate) Activity: Encourage Ambulation Therapy: PT Diagnostics: Check Labs, Repeat Labs in AM, Obtain Cultures Anticipated Discharge: Home VS, I&O, 24H, [facility] Vital Signs/I&O Vital Signs Date Time Temp Pulse Resp B/P (MAP) Pulse Ox O2 Delivery O2 Flow Rate FiO2 07/29/16 08:53 66 132/67 07/29/16 08:00 98.6 18 98 Room Air 07/28/16 08:45 2.0 I&O- Last 24 Hours up to 6 AM 07/29/16 06:00 Intake Total 1490 ml Output Total 1425 ml Balance 65 ml Laboratory Data 24H LABS Laboratory Tests 2 07/28/16 12:03: Bedside Glucose (Misc Panel) 157H 07/28/16 12:12: 07/28/16 16:42: Bedside Glucose (Misc Panel) 126H 07/28/16 22:21: Bedside Glucose (Misc Panel) 162H 07/29/16 04:37: Anion Gap 8, Glomerular Filtration Rate > 60.0, Blood Urea Nitrogen 14, Creatinine 0.79, Sodium Level 138, Potassium Level 4.0, Chloride Level 102, Carbon Dioxide Level 28, Calcium Level 8.6L CBC/BMP Laboratory Tests 07/29/16 04:37 Red Blood Count 3.47 L, Mean Corpuscular Volume 95.6, Mean Corpuscular Hemoglobin 30.7, Mean Corpuscular Hemoglobin Concent 32.1, Red Cell Distribution Width 12.7, Calcium Level 8.6 L Microbiology Microbiology 07/27/16 Blood Culture - Preliminary, Resulted No growth after 24 hours . All specim... 07/27/16 Blood Culture - Preliminary, Resulted No growth after 24 hours . All specim... 07/25/16 Blood Culture - Preliminary, Resulted No Growth after 72 hours. All specime... 07/25/16 Blood Culture - Preliminary, Resulted No Growth after 72 hours. All specime... 07/22/16 Blood Culture - Final, Complete NO GROWTH AFTER 5 DAYS 07/22/16 Blood Culture - Final, Complete NO GROWTH AFTER 5 DAYS 07/22/16 - Final, Complete 07/22/16 Gram Stain - Final, Complete 07/22/16 CSF Culture - Final, Complete 07/22/16 MRSA Screen - Final, Complete 07/22/16 Respiratory Virus Panel (PCR) ([facility]) - Final, Complete 07/22/16 Urine Culture - Final, Complete MONTRELL PEPE MD July 29, 2016 11:15
[2016-07-29] MEDS: PERCOCET 5MG/325MG TAB PO PRN ×2 (11:32→19:28)
[2016-07-29 12:00] VITALS: BP 134/60
[2016-07-29 16:00] VITALS: BP 129/62
[2016-07-29 20:01] VITALS: BP 142/65
[2016-07-29] MEDS: RIVAROXABAN 20 MG TAB (XARELTO) PO SCH (21:43)
[2016-07-29] MEDS: TERAZOSIN 1 MG CAP PO SCH (21:45)
[2016-07-29] MEDS: LATANOPROST 0.005% OPHTH SOLN 2.5 ML OU SCH (21:48)
[2016-07-29] MEDS: cefTRIAXone SOD 2 GM in D5W MINI-BAG PLUS 50 ML IV SCH (21:48)
[2016-07-30] VITALS (8 sets, daily range): BP systolic 92–163; BP diastolic 48–75
[2016-07-30] MEDS: tiZANidine 4 MG TAB PO PRN ×2 (00:54→21:41)
[2016-07-30] MEDS: SLF 3 ML SYR IV SCH ×3 (04:31→21:41)
[2016-07-30 06:06] LABS: ANION GAP 7 MEQ/L (8-16); BLOOD UREA NITROGEN 13 MG/DL (7-18); CALCIUM LEVEL 9.1 MG/DL (8.8-10.2); CARBON DIOXIDE LEVEL 28 MEQ/L (21-32); CHLORIDE LEVEL 103 MEQ/L (98-107); CREATININE FOR GFR 0.75 MG/DL (0.70-1.30); GLOMERULAR FILTRATION RATE > 60.0 (>35); GLUCOSE, FASTING 97 MG/DL (83-110); SODIUM LEVEL 138 MEQ/L (136-145)
[2016-07-30 06:07] LABS: MEAN CORPUSCULAR HEMOGLOBIN 30.6 pg (27.0-33.0); MEAN CORPUSCULAR VOLUME 95.6 fl (80.0-96.0); RED CELL DISTRIBUTION WIDTH 12.7 % (11.5-14.5); WHITE BLOOD COUNT 6.9 K/mm3 (4.0-10.0)
[2016-07-30] MEDS: LIDOCAINE 4% CREAM 5GM (LMX4) TOP PRN (06:11)
[2016-07-30] MEDS: HumaLOG INSULIN (NovoLOG) PER UNIT SC SCH ×4 (07:15→20:52)
[2016-07-30] MEDS: LACTOBACILLUS ACIDOPHILUS CAP (BACID) PO SCH (08:12)
[2016-07-30] MEDS: GABAPENTIN 400 MG CAP PO SCH ×3 (08:12→20:42)
[2016-07-30] MEDS: PERCOCET 5MG/325MG TAB PO PRN ×3 (08:13→20:43)
[2016-07-30] MEDS: SOTALOL HCL 80 MG TAB PO SCH ×2 (08:13→20:42)
[2016-07-30] MEDS: TIMOLOL MALEATE 0.5% OPHTH SOLN 5 ML OU SCH (08:14)
[2016-07-30] MEDS: DICLOFENAC EPOLAMINE 1.3 % PATCH TOP SCH ×2 (08:18→20:45)
--- NOTE | 2016-07-30 10:51 | IPNPDOC ---
Subjective Date Seen The patient was seen on 07/30/16. Subjective Chief Complaint/HPI The patient is a 86-year-old male admitted with a reason for visit of [facility]. Events since last encounter Has some right shoulder pain, neck pain and headache- has not received percocet as it fell off mar last evening- overall feels better than a few days ago, tolerating diet, walked yesterday Constitutional: Denies: Chills, Fever ENT: Reports: Head Aches Skin: Denies: Rash Pulmonary: Denies: Dyspnea, Cough Cardiovascular: Denies: Chest Pain, Palpitations Gastrointestinal: Denies: Nausea, Vomiting, Abdominal Pain Musculoskeletal: Reports: Neck Pain Objective Physical Examination General Exam: Positive: Alert, No Acute Distress Eye Exam: Negative: Sclera icteric ENT Exam: Positive: Mucous membr. moist/pink Neck Exam: Positive: Supple, Other Chest Exam: Positive: Clear to auscultation, Negative: Rales, Rhonchi, Wheezing Heart Exam: Positive: Rate Normal, Regular Rhythm, Normal S1, Normal S2 Telemetry: Positive: Bradycardia Abdomen Exam: Positive: Normal bowel sounds, Soft Psych Exam: Positive: Oriented x 3 Assessment /Plan Problems (1) Neck pain Status: Acute Problem Text: CT C spine from 07/20 shows: Old fracture of the base of the dens without evidence of displacement or angulation and this appears to have healed with fibrous union. No acute fracture or listhesis. Severe osteoarthritis and degenerative disc disease as described. The end plates are fused as a consequence of the advanced degenerative disc disease at C 04/05 and C5-6. I suspect the posterior facets are fused on the left at C 05/06. There are large osteophytes projecting posteriorly into the spinal canal at C 05/06. Continue with pain regimen. 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 Cervical spondylosis at the C2-3 through C7-T1 levels with spinal cord compression at the C3-4 through C5-6 levels as described above Dr. Grimm saw in consult- may be a surgical candidate for c-spine stenosis- once infectious work-up is complete Pain improving over several days as of 07/30/16 (2) Meningitis Status: Acute Discussed With: Patient Problem Specific Plan: Monitor Clinically Problem Text: Initially thought possibly aseptic meningitis- has been seen by Dr. Coles- we discussed in person 07/28/16 csf for lyme/west nile pending workup for FUO includes unremarkable CT chest/abd/pelvis- echo ordered for possible culture-negative/partially treated endocarditis, rheumatoid screen pending (3) Afib Status: Chronic Discussed With: Patient Problem Text: Continue sotalol, cardizem, xarelto. Hold parameters placed based on episode of hypotension continues telemetry care (4) Diabetes Status: Chronic Problem Text: insulin sliding scale (5) GERD (gastroesophageal reflux disease) Status: Chronic Problem Text: prilosec (6) HTN (hypertension) Status: Chronic Discussed With: Patient Problem Specific Plan: Monitor Clinically Problem Text: cardizem, sotalol, terazosin (7) BPH (benign prostatic hyperplasia) Status: Chronic Discussed With: Patient Problem Specific Plan: Monitor Clinically Problem Text: terazosin (8) Chronic lower back pain Status: Chronic Discussed With: Patient Problem Specific Plan: Monitor Clinically (9) Degenerative disc disease, cervical Status: Acute (10) Altered mental status Status: Resolved Discussed With: Patient Problem Specific Plan: Monitor Clinically (11) Phantom limb pain Problem Text: improved 07/29/16 percocet fell off MAR last night- is renewed (12) Diastolic CHF Status: Chronic Problem Text: compensated fluid status Plan/VTE VTE Prophylaxis Ordered?: Yes (Xarelto for atrial fibrillation) Plan/Urinary Catheter Reason for insertion/continuin: Acute obstruct/retention Plan Diet: Continue Current (consistent carbohydrate) Activity: Encourage Ambulation Therapy: PT Diagnostics: Check Labs, Repeat Labs in AM, Obtain Cultures Anticipated Discharge: Home VS, I&O, 24H, [facility], 1928[facility]1983 Vital Signs/I&O Vital Signs Date Time Temp Pulse Resp B/P (MAP) Pulse Ox O2 Delivery O2 Flow Rate FiO2 07/30/16 08:43 18 07/30/16 08:13 77 126/74 07/30/16 08:12 Room Air 07/30/16 08:00 99.5 95 07/30/16 04:19 2.0 I&O- Last 24 Hours up to 6 AM 07/30/16 05:59 Intake Total 540 ml Output Total 650 ml Balance -110 ml Laboratory Data 24H LABS Laboratory Tests 2 07/29/16 11:34: Bedside Glucose (Misc Panel) 121H 07/29/16 16:41: Bedside Glucose (Misc Panel) 121H 07/29/16 21:09: Bedside Glucose (Misc Panel) 118H 07/30/16 04:50: Anion Gap 7L, Glomerular Filtration Rate > 60.0, Blood Urea Nitrogen 13, Creatinine 0.75, Sodium Level 138, Potassium Level 4.0, Chloride Level 103, Carbon Dioxide Level 28, Calcium Level 9.1 CBC/BMP Laboratory Tests 07/30/16 04:50 Red Blood Count 3.73 L, Mean Corpuscular Volume 95.6, Mean Corpuscular Hemoglobin 30.6, Mean Corpuscular Hemoglobin Concent 32.0, Red Cell Distribution Width 12.7, Calcium Level 9.1 Microbiology Microbiology 07/27/16 Blood Culture - Preliminary, Resulted No Growth after 48 hours. All Specime... 07/27/16 Blood Culture - Preliminary, Resulted No Growth after 48 hours. All Specime... 07/25/16 Blood Culture - Preliminary, Resulted No Growth after 72 hours. All specime... 07/25/16 Blood Culture - Preliminary, Resulted No Growth after 72 hours. All specime... 07/22/16 Blood Culture - Final, Complete NO GROWTH AFTER 5 DAYS 07/22/16 Blood Culture - Final, Complete NO GROWTH AFTER 5 DAYS 07/22/16 - Final, Complete 07/22/16 Gram Stain - Final, Complete 07/22/16 CSF Culture - Final, Complete 07/22/16 MRSA Screen - Final, Complete 07/22/16 Respiratory Virus Panel (PCR) ([facility]) - Final, Complete 07/22/16 Urine Culture - Final, Complete MONTRELL PEPE MD July 30, 2016 10:50
[2016-07-30] MEDS: TERAZOSIN 1 MG CAP PO SCH (20:43)
[2016-07-30] MEDS: RIVAROXABAN 20 MG TAB (XARELTO) PO SCH (20:44)
[2016-07-30] MEDS: cefTRIAXone SOD 2 GM in D5W MINI-BAG PLUS 50 ML IV SCH (20:44)
[2016-07-30] MEDS: LATANOPROST 0.005% OPHTH SOLN 2.5 ML OU SCH (20:44)
[2016-07-31] MEDS: PERCOCET 5MG/325MG TAB PO PRN ×3 (00:32→15:09)
[2016-07-31] MEDS: tiZANidine 4 MG TAB PO PRN ×2 (05:16→21:52)
[2016-07-31] MEDS: SLF 3 ML SYR IV SCH ×3 (05:18→22:00)
[2016-07-31 05:20] LABS: MEAN CORPUSCULAR HEMOGLOBIN 30.7 pg (27.0-33.0); MEAN CORPUSCULAR HGB CONC 32.2 g/dl (32.0-36.5); MEAN CORPUSCULAR VOLUME 95.4 fl (80.0-96.0); RED CELL DISTRIBUTION WIDTH 12.7 % (11.5-14.5); WHITE BLOOD COUNT 5.5 K/mm3 (4.0-10.0)
[2016-07-31 05:25] VITALS: BP 146/80
[2016-07-31 05:33] LABS: ANION GAP 8 MEQ/L (8-16); BLOOD UREA NITROGEN 13 MG/DL (7-18); CALCIUM LEVEL 8.8 MG/DL (8.8-10.2); CARBON DIOXIDE LEVEL 27 MEQ/L (21-32); CHLORIDE LEVEL 105 MEQ/L (98-107); GLOMERULAR FILTRATION RATE > 60.0 (>35); GLUCOSE, FASTING 106 MG/DL (83-110); POTASSIUM SERUM 4.1 MEQ/L (3.5-5.1); SODIUM LEVEL 140 MEQ/L (136-145)
[2016-07-31 08:00] VITALS: BP 135/71
[2016-07-31] MEDS: HumaLOG INSULIN (NovoLOG) PER UNIT SC SCH ×4 (08:15→21:00)
[2016-07-31] MEDS: DICLOFENAC EPOLAMINE 1.3 % PATCH TOP SCH ×3 (08:15→20:40)
[2016-07-31] MEDS: GABAPENTIN 400 MG CAP PO SCH ×3 (08:16→20:40)
[2016-07-31] MEDS: SOTALOL HCL 80 MG TAB PO SCH ×2 (08:16→20:40)
[2016-07-31] MEDS: LACTOBACILLUS ACIDOPHILUS CAP (BACID) PO SCH (08:16)
[2016-07-31] MEDS: TIMOLOL MALEATE 0.5% OPHTH SOLN 5 ML OU SCH (08:17)
[2016-07-31 12:00] VITALS: BP 129/59
--- NOTE | 2016-07-31 14:55 | IPNPDOC ---
Subjective Date Seen The patient was seen on 07/31/16. Subjective Chief Complaint/HPI The patient is a 86-year-old male admitted with a reason for visit of AMS. Events since last encounter Feeling well, has walked short distances, thinks he is getting better, would like to think about going home, would consider spine surgery Constitutional: Denies: Chills, Fever ENT: Reports: Head Aches Pulmonary: Denies: Dyspnea, Cough Cardiovascular: Denies: Chest Pain, Palpitations Gastrointestinal: Denies: Nausea, Vomiting Musculoskeletal: Reports: Neck Pain Objective Physical Examination General Exam: Positive: Alert, Cooperative, No Acute Distress Eye Exam: Negative: Sclera icteric ENT Exam: Positive: Mucous membr. moist/pink Neck Exam: Positive: Supple, Other Chest Exam: Positive: Clear to auscultation, Negative: Rales, Rhonchi, Wheezing Heart Exam: Positive: Rate Normal, Regular Rhythm, Normal S1, Normal S2 Telemetry: Positive: Bradycardia Abdomen Exam: Positive: Normal bowel sounds, Soft Psych Exam: Positive: Oriented x 3 Assessment /Plan Problems (1) Neck pain Status: Acute Problem Text: CT C spine from 07/20 shows: Old fracture of the base of the dens without evidence of displacement or angulation and this appears to have healed with fibrous union. No acute fracture or listhesis. Severe osteoarthritis and degenerative disc disease as described. The end plates are fused as a consequence of the advanced degenerative disc disease at C 04/05 and C5-6. I suspect the posterior facets are fused on the left at C 05/06. There are large osteophytes projecting posteriorly into the spinal canal at C 05/06. Continue with pain regimen. 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 Cervical spondylosis at the C2-3 through C7-T1 levels with spinal cord compression at the C3-4 through C5-6 levels as described above Dr. Baez saw in consult- may be a surgical candidate for c-spine stenosis- once infectious work-up is complete Pain improving over several days as of 07/30/16 Need to further evaluate plan with Dr. Baez after holiday weekend (2) Meningitis Status: Acute Discussed With: Patient Problem Specific Plan: Monitor Clinically Problem Text: Initially thought possibly aseptic meningitis- has been seen by Dr. Coles- we discussed in person 07/28/16 csf for lyme/west nile pending workup for FUO includes unremarkable CT chest/abd/pelvis- echo ordered for possible culture-negative/partially treated endocarditis, rheumatoid screen negative (3) Afib Status: Chronic Discussed With: Patient Problem Text: Continue sotalol, cardizem, xarelto. Hold parameters placed based on episode of hypotension had bradycardia 07/31/16, ecg ordered- results pending- continue telemetry (4) Diabetes Status: Chronic Problem Text: insulin sliding scale (5) GERD (gastroesophageal reflux disease) Status: Chronic Problem Text: prilosec (6) HTN (hypertension) Status: Chronic Discussed With: Patient Problem Specific Plan: Monitor Clinically Problem Text: cardizem, sotalol, terazosin (7) BPH (benign prostatic hyperplasia) Status: Chronic Discussed With: Patient Problem Specific Plan: Monitor Clinically Problem Text: terazosin (8) Chronic lower back pain Status: Chronic Discussed With: Patient Problem Specific Plan: Monitor Clinically (9) Degenerative disc disease, cervical Status: Acute (10) Altered mental status Status: Resolved Discussed With: Patient Problem Specific Plan: Monitor Clinically (11) Phantom limb pain Problem Text: improved 07/29/16 percocet fell off MAR last night- is renewed (12) Diastolic CHF Status: Chronic Problem Text: compensated fluid status Plan/VTE VTE Prophylaxis Ordered?: Yes (Xarelto for atrial fibrillation) Plan/Urinary Catheter Reason for insertion/continuin: Acute obstruct/retention Plan Diet: Continue Current (consistent carbohydrate) Activity: Encourage Ambulation Therapy: PT Diagnostics: Check Labs, Repeat Labs in AM, Obtain Cultures Anticipated Discharge: Home VS, I&O, 24H, [facility] Vital Signs/I&O Vital Signs Date Time Temp Pulse Resp B/P (MAP) Pulse Ox O2 Delivery O2 Flow Rate FiO2 07/31/16 12:00 97.8 42 18 129/59 (82) 98 Room Air 07/30/16 04:19 2.0 I&O- Last 24 Hours up to 6 AM 07/31/16 06:00 Intake Total 1040 ml Output Total 300 ml Balance 740 ml Laboratory Data 24H LABS Laboratory Tests 2 07/30/16 16:47: Bedside Glucose (Misc Panel) 129H 07/30/16 20:39: Bedside Glucose (Misc Panel) 140H 07/31/16 04:44: Anion Gap 8, Glomerular Filtration Rate > 60.0, Blood Urea Nitrogen 13, Creatinine 0.80, Sodium Level 140, Potassium Level 4.1, Chloride Level 105, Carbon Dioxide Level 27, Calcium Level 8.8 07/31/16 12:14: Bedside Glucose (Misc Panel) 118H CBC/BMP Laboratory Tests 07/31/16 04:44 Red Blood Count 3.60 L, Mean Corpuscular Volume 95.4, Mean Corpuscular Hemoglobin 30.7, Mean Corpuscular Hemoglobin Concent 32.2, Red Cell Distribution Width 12.7, Calcium Level 8.8 Microbiology Microbiology 07/27/16 Blood Culture - Preliminary, Resulted No Growth after 72 hours. All specime... 07/27/16 Blood Culture - Preliminary, Resulted No Growth after 72 hours. All specime... 07/25/16 Blood Culture - Final, Complete NO GROWTH AFTER 5 DAYS 07/25/16 Blood Culture - Final, Complete NO GROWTH AFTER 5 DAYS 07/22/16 Blood Culture - Final, Complete NO GROWTH AFTER 5 DAYS 07/22/16 Blood Culture - Final, Complete NO GROWTH AFTER 5 DAYS 07/22/16 - Final, Complete 07/22/16 Gram Stain - Final, Complete 07/22/16 CSF Culture - Final, Complete 07/22/16 MRSA Screen - Final, Complete 07/22/16 Respiratory Virus Panel (PCR) (BERE) - Final, Complete 07/22/16 Urine Culture - Final, Complete MONTRELL PEPE MD July 31, 2016 14:55
[2016-07-31 16:00] VITALS: BP 126/60
[2016-07-31 20:00] VITALS: BP 132/64
[2016-07-31] MEDS: TERAZOSIN 1 MG CAP PO SCH (20:39)
[2016-07-31] MEDS: RIVAROXABAN 20 MG TAB (XARELTO) PO SCH (20:40)
[2016-07-31] MEDS: LATANOPROST 0.005% OPHTH SOLN 2.5 ML OU SCH (20:40)
--- NOTE | 2016-07-31 22:14 | ECGEPIP ---
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
[2016-07-31] MEDS: cefTRIAXone SOD 2 GM in D5W MINI-BAG PLUS 50 ML IV SCH (23:16)
[2016-08-01] VITALS (7 sets, daily range): BP systolic 108–141; BP diastolic 57–81
[2016-08-01] MEDS: PERCOCET 5MG/325MG TAB PO PRN ×4 (00:25→22:28)
[2016-08-01 05:32] LABS: MEAN CORPUSCULAR HGB CONC 32.8 g/dl (32.0-36.5); MEAN CORPUSCULAR VOLUME 94.6 fl (80.0-96.0); RED CELL DISTRIBUTION WIDTH 12.8 % (11.5-14.5); WHITE BLOOD COUNT 6.5 K/mm3 (4.0-10.0)
[2016-08-01 05:48] LABS: ANION GAP 7 MEQ/L (8-16); BLOOD UREA NITROGEN 14 MG/DL (7-18); CALCIUM LEVEL 9.2 MG/DL (8.8-10.2); CARBON DIOXIDE LEVEL 29 MEQ/L (21-32); CHLORIDE LEVEL 107 MEQ/L (98-107); CREATININE FOR GFR 0.81 MG/DL (0.70-1.30); GLOMERULAR FILTRATION RATE > 60.0 (>35); GLUCOSE, FASTING 95 MG/DL (83-110); POTASSIUM SERUM 4.3 MEQ/L (3.5-5.1); SODIUM LEVEL 143 MEQ/L (136-145)
[2016-08-01] MEDS: SLF 3 ML SYR IV SCH ×3 (06:00→22:00)
[2016-08-01] MEDS: HumaLOG INSULIN (NovoLOG) PER UNIT SC SCH ×4 (07:46→21:00)
[2016-08-01] MEDS: tiZANidine 4 MG TAB PO PRN ×2 (08:55→21:00)
[2016-08-01] MEDS: LACTOBACILLUS ACIDOPHILUS CAP (BACID) PO SCH (08:55)
[2016-08-01] MEDS: GABAPENTIN 400 MG CAP PO SCH ×3 (08:55→21:00)
[2016-08-01] MEDS: DICLOFENAC EPOLAMINE 1.3 % PATCH TOP SCH ×2 (08:58→21:00)
[2016-08-01] MEDS: TIMOLOL MALEATE 0.5% OPHTH SOLN 5 ML OU SCH (08:58)
[2016-08-01] MEDS: SOTALOL HCL 80 MG TAB PO SCH ×2 (09:27→20:59)
--- NOTE | 2016-08-01 09:30 | IPNPDOC ---
Subjective Date Seen The patient was seen on 08/01/16. Subjective Chief Complaint/HPI The patient is a 86-year-old male admitted with a reason for visit of AMS. Events since last encounter Patient continues to have decreased pain in his neck. He feels he is ready to go home. No fevers or chills. Did have some bradycardia yesterday afternoon but denies shortness of breath and chest pain. He was able to walk around with walker yesterday up and down the [place]. 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 moist/pink Neck Exam: Positive: Supple, Other, Negative: JVD Chest Exam: Positive: Clear to auscultation, Negative: Rales, Rhonchi, Wheezing Heart Exam: Positive: Rate Normal, Regular Rhythm, Normal S1, Normal S2 Telemetry: Positive: Bradycardia Abdomen Exam: Positive: Normal bowel sounds, Soft Extremity Exam: Positive: Other (no pain with range of motion in the neck.) Psych Exam: Positive: Oriented x 3 Assessment /Plan Problems (1) FUO (fever of unknown origin) Status: Resolved Response to Treatment: Stable Problem Text: Blood Cultures, Urinalysis, and Imaging not suggestive of any acute infectious process CSF revealed elevated total protein but no pleocytosis VDRL, RANJITH, Lyme work up, and anti-CCP negative ECHO with no signs of vegetation noted CRP decreased from 25-->5.8 Patient has remained afebrile for the last 48+ hours, and WBC has also been WNL s/p Rocephin for 7 days Patient's mentation and functionality has returned back to baseline Will follow up with PT recommendations regarding further disposition (2) Neck pain Status: Chronic Response to Treatment: Stable Problem Specific Plan: Monitor Clinically Problem Text: No pain in cervical spine as of 08/01/2016 Patient states that the pain has been well controlled and he denies any acute complaints Will d/w with Ortho and have the patient f/u with Dr. Grimm as an outpatient (3) Afib Status: Chronic Discussed With: Patient Problem Text: Continue sotalol, cardizem, xarelto. Hold parameters placed based on episode of hypotension had bradycardia 07/31/16, ecg ordered- showed bradycardia with right bundle branch block as seen on previous EKGs. Patient is still on telemetry. No bradycardia overnight. Patient was not symptomatic. (4) Diabetes Status: Chronic Problem Text: insulin sliding scale (5) GERD (gastroesophageal reflux disease) Status: Chronic Problem Text: prilosec (6) HTN (hypertension) Status: Chronic Discussed With: Patient Problem Specific Plan: Monitor Clinically Problem Text: cardizem, sotalol, terazosin (7) BPH (benign prostatic hyperplasia) Status: Chronic Discussed With: Patient Problem Specific Plan: Monitor Clinically Problem Text: terazosin (8) Chronic lower back pain Status: Chronic Discussed With: Patient Problem Specific Plan: Monitor Clinically (9) Degenerative disc disease, cervical Status: Acute (10) Altered mental status Status: Resolved Discussed With: Patient Problem Specific Plan: Monitor Clinically (11) Phantom limb pain Problem Text: Since restarting the Percocet this pain has been more manageable. (12) Diastolic CHF Status: Chronic Problem Text: compensated fluid status Plan/VTE VTE Prophylaxis Ordered?: Yes (Xarelto for atrial fibrillation) Plan/Urinary Catheter Reason for insertion/continuin: Acute obstruct/retention Plan Diet: Continue Current (consistent carbohydrate) Activity: Encourage Ambulation (patient was able to ambulate up and down the hallway yesterday.) Therapy: PT (having PT follow-up on patient to assess ambulation with walker.) Diagnostics: Check Labs, Repeat Labs in AM, Obtain Cultures Anticipated Discharge: Home VS, I&O, 24H, [facility] Vital Signs/I&O Vital Signs Date Time Temp Pulse Resp B/P (MAP) Pulse Ox O2 Delivery O2 Flow Rate FiO2 08/01/16 08:56 74 108/57 08/01/16 08:00 98.9 18 93 Room Air 07/30/16 04:19 2.0 I&O- Last 24 Hours up to 6 AM 08/01/16 06:00 Intake Total 1760 ml Output Total 1700 ml Balance 60 ml Laboratory Data 24H LABS Laboratory Tests 2 07/31/16 12:14: Bedside Glucose (Misc Panel) 118H 07/31/16 17:03: Bedside Glucose (Misc Panel) 106 07/31/16 21:50: Bedside Glucose (Misc Panel) 115H 08/01/16 05:18: Anion Gap 7L, Glomerular Filtration Rate > 60.0, Blood Urea Nitrogen 14, Creatinine 0.81, Sodium Level 143, Potassium Level 4.3, Chloride Level 107, Carbon Dioxide Level 29, Calcium Level 9.2 CBC/BMP Laboratory Tests 08/01/16 05:18 Red Blood Count 3.84 L, Mean Corpuscular Volume 94.6, Mean Corpuscular Hemoglobin 31.0, Mean Corpuscular Hemoglobin Concent 32.8, Red Cell Distribution Width 12.8, Calcium Level 9.2 Microbiology Microbiology 07/27/16 Blood Culture - Preliminary, Resulted No Growth after 72 hours. All specime... 07/27/16 Blood Culture - Preliminary, Resulted No Growth after 72 hours. All specime... 07/25/16 Blood Culture - Final, Complete NO GROWTH AFTER 5 DAYS 07/25/16 Blood Culture - Final, Complete NO GROWTH AFTER 5 DAYS 07/22/16 Blood Culture - Final, Complete NO GROWTH AFTER 5 DAYS 07/22/16 Blood Culture - Final, Complete NO GROWTH AFTER 5 DAYS 07/22/16 - Final, Complete 07/22/16 Gram Stain - Final, Complete 07/22/16 CSF Culture - Final, Complete 07/22/16 MRSA Screen - Final, Complete 07/22/16 Respiratory Virus Panel (PCR) (BERE) - Final, Complete 07/22/16 Urine Culture - Final, Complete GME ATTESTATION GME ATTESTATION My preceptor for this patient encounter was Dr. Chatterjee and he was physically present in the building during the encounter and was fully available. As needed , all aspects of the patient interview, examination, medical decision making process, and medical care plan development were reviewed and approved by the preceptor. Preceptor is aware and concurs with the plan as stated in the body of this note and will attest to such by his/her cosignature. NATALIA MOSCOSO DO August 01, 2016 09:22 TODD CHATTERJEE MD August 01, 2016 14:19
[2016-08-01 14:13] LABS: WEST NILE VIRUS ANTIBODY IgM Negative (Negative)
--- NOTE | 2016-08-01 17:57 | IPN ---
DATE: 08/01/2016 Mr. Thibodeaux seems to be doing very well. He is anxious to go home today, but physical therapy (PT) did not clear him because he tripped. He states that this has been 30 years that he has taken care of himself with both bilateral prosthesis, and tripping is part of his normal routine. He feels safe to go home. His is coming this afternoon, and he would like really to go home today. His last dose of antibiotic was on July 31. He received intravenous (IV) Rocephin. He has been afebrile for the past 3 days. He has no nausea, vomiting, or diarrhea. No neck stiffness. He is back to baseline neck pain, which is from cervical osteoarthritis. LABORATORY DATA: White count is 6.5, hemoglobin 11.9, hematocrit 36.3, platelets 689. Sodium 143, potassium 4.3, chloride 107, bicarbonate 29, BUN 14, creatinine 0.81, glucose 95, calcium 9.2. CRP is down from 25.1 to 5.8 in the past 4 days. All cultures have been negative, blood cultures six sets. Urine cultures, CSF culture, MRSA screen. Serology for Lyme disease was negative. West Nile virus was negative as well. RANJITH negative. Anti-CCP was negative. IMPRESSION: 1. Fever with neck stiffness and abnormal cerebrospinal fluid (CSF) with elevated total protein. All have resolved. The patient probably had a prior illness. He has received IV Rocephin for a total of 7 days, but all bacterial cultures have been negative. 2. 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 I did discuss the case with Dr. Quesada, who will come and discuss his discharge with the patient and his tyra. There is no need for infectious disease followup as an outpatient
[2016-08-01] MEDS: RIVAROXABAN 20 MG TAB (XARELTO) PO SCH (20:59)
[2016-08-01] MEDS: LATANOPROST 0.005% OPHTH SOLN 2.5 ML OU SCH (21:00)
[2016-08-01] MEDS: TERAZOSIN 1 MG CAP PO SCH (21:00)
[2016-08-02] MEDS: SLF 3 ML SYR IV SCH (05:01)
[2016-08-02 06:00] VITALS: BP 164/82
[2016-08-02 06:31] LABS: MEAN CORPUSCULAR HEMOGLOBIN 30.8 pg (27.0-33.0); MEAN CORPUSCULAR HGB CONC 32.6 g/dl (32.0-36.5); MEAN CORPUSCULAR VOLUME 94.3 fl (80.0-96.0); RED CELL DISTRIBUTION WIDTH 12.7 % (11.5-14.5); WHITE BLOOD COUNT 7.1 K/mm3 (4.0-10.0)
[2016-08-02 06:46] LABS: ANION GAP 6 MEQ/L (8-16); BLOOD UREA NITROGEN 16 MG/DL (7-18); CALCIUM LEVEL 9.1 MG/DL (8.8-10.2); CARBON DIOXIDE LEVEL 31 MEQ/L (21-32); CHLORIDE LEVEL 105 MEQ/L (98-107); CREATININE FOR GFR 0.79 MG/DL (0.70-1.30); GLOMERULAR FILTRATION RATE > 60.0 (>35); GLUCOSE, FASTING 96 MG/DL (83-110); POTASSIUM SERUM 4.6 MEQ/L (3.5-5.1); SODIUM LEVEL 142 MEQ/L (136-145)
[2016-08-02] MEDS: HumaLOG INSULIN (NovoLOG) PER UNIT SC SCH ×2 (07:30→11:46)
[2016-08-02] MEDS: DICLOFENAC EPOLAMINE 1.3 % PATCH TOP SCH (07:57)
[2016-08-02 08:55] VITALS: BP 164/82
[2016-08-02] MEDS: LACTOBACILLUS ACIDOPHILUS CAP (BACID) PO SCH (08:55)
[2016-08-02] MEDS: GABAPENTIN 400 MG CAP PO SCH (08:55)
[2016-08-02] MEDS: PERCOCET 5MG/325MG TAB PO PRN (08:55)
[2016-08-02] MEDS: TIMOLOL MALEATE 0.5% OPHTH SOLN 5 ML OU SCH (08:55)
[2016-08-02] MEDS: SOTALOL HCL 80 MG TAB PO SCH (08:55)
--- NOTE | 2016-08-02 11:23 | DS.PDOC ---
Discharge Summary General Date of Admission July 22, 2016 at 19:53 Date of Discharge 08/02/2016 Primary Care Physician: QUIANA HORVATH MD Attending Physician: TODD CHATTERJEE MD Specialist/Consultants Involve: Manuel Coles MD Specialist/Consultants Involve Bethel Maria M.D., Bruce M.D. Discharge Summary PROCEDURES PERFORMED DURING STAY: [None]. ADMITTING DIAGNOSES: 1. Neck pain. 2. Altered mental status. 3. Chronic atrial fibrillation. DISCHARGE DIAGNOSES: 1. Fever of unknown origin. 2. Neck pain. 3. Chronic atrial fibrillation. COMPLICATIONS/CHIEF COMPLAINT: AMS. HISTORY OF PRESENT ILLNESS: Patient is a 86-year-old male who was seen in the ER on 07/22/2016 for neck pain and headache. Patient was accompanied by his . 10 days prior to ER visit patient was in good health. Patient is a former and has triple amputations. 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 Patient has prosthetics for all 3 of these extremities. Patient did not have any complaints of unsteadiness or falls. Patient sleeps sitting on the edge of the bed and fell forward and hit his head. Patient was unable to get himself back in the bed. Patient denied confusion, loss of consciousness, bowel incontinence, tongue laceration. Patient said his head hurt and that he is stiff neck next day. Patient went to the ER at that time. The images neck and this showed degenerative disc disease of the cervical spine and patient was discharged from the ER. Upon second presentation to the ER patient was diagnosed with acute exacerbation of chronic neck pain recommended to follow-up with his PCP. Patient was afebrile at that time. The patient was turned back to the ER [address] Trejo. Patient appeared more confused and fatigued at that time. states that patient was "wasn't right". HOSPITAL COURSE: Patient was admitted on 07/22/2016. While in the hospital patient had a workup for his neck pain and altered mental status which was thought to be related with patient's fever of unknown origin. Workup included 6 blood cultures, urine culture, CSF culture and Gram stain, respiratory virus panel, MRSA screen and UA. All cultures were negative. Respiratory virus panel negative and MRSA screen negative. UA showed yellow clear urine with no signs of infection. Repeated chest x-ray showed chronic changes with repeated right lobe atelectasis cannot be ruled out. Chest CT was also performed and showed chronic changes. Multiple head CTs were performed and showed chronic changes. 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 This was discussed with spinal surgeon Dr. Grimm. He agreed to see patient in outpatient setting to discuss possible surgery. Patient showed interest in this and will see Dr. Tenorio as outpatient for potential surgery of his neck. Patient was seen by neurologist Dr. Gomes. His assessment is that patient's neck pain was musculoskeletal origin and that an infectious etiology needs to be ruled out. He also recommended a brain MRI, nortriptyline for patient's limb amputations and cutting back on tizanidine. Patient was also seen by infectious disease specialist Dr. Coles. After infectious disease workup that was found to be no infectious cause for patient' s neck pain and fever. Patient did receive 7 days of IV Rocephin. Lyme and West Nile were both negative. AMA and anti-CCP were negative. Service spinal fluid did reveal elevated protein. Was thought the patient had previous infection prior to hospitalization. This has since resolved. No follow-up needed for infectious disease as outpatient. No further continuation of antibiotics at home. DISCHARGE MEDICATIONS: Please see below. ALLERGIES: Please see below. PHYSICAL EXAMINATION ON DISCHARGE: VITAL SIGNS: Please see below. GENERAL: Alert and orientated. Cooperative and comfortable. HEENT: No signs of injury. No pain to palpation of cervical spine. NECK: Supple, no enlarged masses. CARDIOVASCULAR EXAMINATION: Normal S1 and S2 with no clicks rubs gallops or murmurs. RESPIRATORY EXAMINATION: Clear to auscultation bilaterally. No wheezing rhonchi or rales. ABDOMINAL EXAMINATION: Nondistended. Bowel sounds on auscultation. No tenderness to palpation. EXTREMITIES: No lower extremity edema. Radial pulses 2 out of 4 bilaterally. SKIN: No new rashes or lesions. Patient does have left old bruise on left forearm, from prior to admission. NEUROLOGICAL EXAMINATION: Patient able to move extremities equally. PSYCHIATRIC EXAMINATION: No depression or anxiety. LABORATORY DATA: Please see below. IMAGING: Chest x-ray revealed chronic changes. 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 Cannot exclude superimposed basilar process. Head CTs revealed age-related ischemic changes. Age related atrophy and microvascular ischemic changes. No acute intracranial hemorrhage, infarction, or mass/mass effect. Cervical MRI revealed, 1. 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 2. There is cervical spondylosis at the C2-3 through C7-T1 levels with spinal cord compression at the C3-4 through C5-6 levels as described above. Chest CT revealed chronic changes. Brain MRI revealed small vessel ischemic disease and mild volume loss. PROGNOSIS: Stable ACTIVITY: [As tolerated]. DIET: As tolerated. DISCHARGE PLAN: Discharge home DISPOSITION: Patient is a 86-year-old male with a history of atrial fibrillation , hypertension, diabetes, limb amputations who presented to [facility] on 07/[facility]2016 with neck stiffness pain and a headache. Patient is currently stable and is being discharged to home. Patient should continue with home medications at this time. No new medications need to be continued. Patient is to follow-up with PCP in the next week. Patient also discussed having interest in discussing spinal surgery for his chronic neck pain. Needs to follow-up with Dr. Grimm, spinal surgeon in the next 2-3 weeks. Patient was cleared by physical therapy today to go home. Continue on home medications. ITEMS TO FOLLOWUP ON ON OUTPATIENT: 1. Follow-up with PCP in the next week. 2. Follow-up with spinal surgeon Dr. Grimm within the next 2-3 weeks. DISCHARGE CONDITION: [Stable]. TIME SPENT ON DISCHARGE: Greater than 30 minutes minutes. Vital Signs/I&Os Vital Signs Date Time Temp Pulse Resp B/P (MAP) Pulse Ox O2 Delivery O2 Flow Rate FiO2 08/02/16 09:25 16 08/02/16 08:55 65 164/82 08/02/16 06:00 97.7 98 Room Air 07/30/16 04:19 2.0 I&O- Last 24 Hours up to 6 AM 08/02/16 06:00 Intake Total 1560 ml Output Total 1000 ml Balance 560 ml Laboratory Data Labs 24H Laboratory Tests 2 08/01/16 11:44: Bedside Glucose (Misc Panel) 119H 08/01/16 20:03: Bedside Glucose (Misc Panel) 214H 08/02/16 06:22: Anion Gap 6L, Glomerular Filtration Rate > 60.0, Blood Urea Nitrogen 16, Creatinine 0.79, Sodium Level 142, Potassium Level 4.6, Chloride Level 105, Carbon Dioxide Level 31, Calcium Level 9.1 CBC/BMP Laboratory Tests 08/02/16 06:22 Red Blood Count 3.88 L, Mean Corpuscular Volume 94.3, Mean Corpuscular Hemoglobin 30.8, Mean Corpuscular Hemoglobin Concent 32.6, Red Cell Distribution Width 12.7, Calcium Level 9.1 FSBS Laboratory Tests Test 08/01/16 11:44 08/01/16 20:03 Range/Units Bedside Glucose (Misc Panel) 119 214 83-110 MG/DL Microbiology Microbiology 07/27/16 Blood Culture - Final, Complete NO GROWTH AFTER 5 DAYS 07/27/16 Blood Culture - Final, Complete NO GROWTH AFTER 5 DAYS 07/25/16 Blood Culture - Final, Complete NO GROWTH AFTER 5 DAYS 07/25/16 Blood Culture - Final, Complete NO GROWTH AFTER 5 DAYS Discharge Medications Scheduled (Sotalol HCl) 80 Mg Tab, 80 MG PO BID, (Reported) Diltiazem HCl (Diltiazem HCl) 30 Mg Tab, 30 MG PO BID, (Reported) Gabapentin (Gabapentin) 600 Mg Tab, 600 MG PO TID, (Reported) Latanoprost (Latanoprost) 50 Drop/2.5 Ml Soln, 1 DROP OU QHS, (Reported) Metformin Hydrochloride (Metformin HCl) 500 Mg Tab, 500 MG PO DAILY, (Reported) Rivaroxaban (Xarelto) 20 Mg Tab, 20 MG PO QHS, (Reported) Terazosin HCl (Terazosin HCl) 2 Mg Cap, 2 MG PO QHS, (Reported) Timolol Maleate (Timolol Maleate) 0.5 % Cyndie, 1 DROP OU DAILY, (Reported) Scheduled PRN (Diclofenac Sodium) 1 % Gel, 4 GM TD QID PRN for PAIN, (Reported) PLACES ON LEG STUMPS Alprazolam (Xanax) 0.25 Mg Tab, 0.25 MG PO DAILY PRN for ANXIETY, (Reported) Carboxymethylcellulose Sodium (Refresh Plus) 1 Ea Cyndie, 1 DROP OU TID PRN for DRY EYES, (Reported) Omeprazole (Omeprazole) 20 Mg Cap, 20 MG PO QAM PRN for ACID REFLUX, (Reported) Oxycodone/Acetaminophen (Percocet 5-325 mg) 1 Tab Tab, 1 TAB PO Q6H PRN for PAIN , (Reported) Tizanidine HCl (Tizanidine HCl) 2 Mg Tab, 2 MG PO BID PRN for MUSCLE SPASMS, ( Reported) MORNING AND AFTERNOON Tizanidine HCl (Tizanidine HCl) 2 Mg Tab, 4 MG PO QHS PRN for MUSCLE SPASMS, ( Reported) Allergies Coded Allergies: Fentanyl (Verified Adverse Reaction, Mild, DIZZINESS ANXIOUSNESS,NAUSEA, 12/08/15) GME ATTESTATION GME ATTESTATION My preceptor for this patient encounter was Dr. Chatterjee and he was physically present in the building during the encounter and was fully available. As needed , all aspects of the patient interview, examination, medical decision making process, and medical care plan development were reviewed and approved by the preceptor. Preceptor is aware and concurs with the plan as stated in the body of this note and will attest to such by his/her cosignature. NATALIA MOSCOSO DO August 02, 2016 11:18
== END 2016-08-02 12:00 | disposition home or self-care (01) | DRG 552 ==
LOC: M ED 18:08 → M ED INP 19:53 → M PCU 22:27 → M MS5PR 08-01 18:45
PROVIDERS: ADMIT General Practice; ATTEND Internal Medicine
PROC: 009U3ZX Drainage of Spinal Canal, Percutaneous Approach, Diagnostic (ICD-10-PCS; principal; 2016-07-22)
DX: M50.321 Other cervical disc degeneration at C4-C5 level (principal); I50.32 Chronic diastolic (congestive) heart failure; G89.29 Other chronic pain; E11.40 Type 2 diabetes mellitus with diabetic neuropathy, unspecified; G31.9 Degenerative disease of nervous system, unspecified; N40.0 Benign prostatic hyperplasia without lower urinary tract symptoms; R90.82 White matter disease, unspecified; H54.42 Blindness, left eye, normal vision right eye; M47.812 Spondylosis without myelopathy or radiculopathy, cervical region; M50.322 Other cervical disc degeneration at C5-C6 level; I48.2 Chronic atrial fibrillation; H91.93 Unspecified hearing loss, bilateral; K59.00 Constipation, unspecified; R50.9 Fever, unspecified; R41.82 Altered mental status, unspecified; K21.9 Gastro-esophageal reflux disease without esophagitis; M62.838 Other muscle spasm; M54.5 Low back pain; I11.0 Hypertensive heart disease with heart failure; Z89.512 Acquired absence of left leg below knee; Z89.611 Acquired absence of right leg above knee; R39.12 Poor urinary stream; Z89.111 Acquired absence of right hand; Z87.891 Personal history of nicotine dependence; Z79.01 Long term (current) use of anticoagulants; Z79.899 Other long term (current) drug therapy; Z79.84 Long term (current) use of oral hypoglycemic drugs; Z88.5 Allergy status to narcotic agent; Z85.828 Personal history of other malignant neoplasm of skin

== ENCOUNTER → 2016-08-09 | Outpatient (REF) | payer OTHER ==
[~2016-08-09] MED LIST changes: +CIPR-249 PO; -CIPR500T89 PO; +DICL1GEL3 TD; +LATA5OPD OU; -METF500T PO; +METF500T13 PO; +METR1TAB66 PO; -METR500T10 PO; +PERC5TAB12 PO; -PERC5TAB6 PO; +REFR0.1D OU; +TIMO0.5S29 OU; +VOLT1GEL15 TD; -VOLT1GEL24 TD
[2016-08-09 17:22] LABS: ALBUMIN 3.2 GM/DL (3.2-5.2); ALBUMIN/GLOBULIN RATIO 0.84 (1.00-1.93); ALKALINE PHOSPHATASE 109 U/L (45-117); ALT/SGPT 18 U/L (12-78); ANION GAP 6 MEQ/L (8-16); AST/SGOT 17 U/L (15-37); BILIRUBIN,TOTAL 0.3 MG/DL (0.2-1.0); BLOOD UREA NITROGEN 18 MG/DL (7-18); CALCIUM LEVEL 8.7 MG/DL (8.8-10.2); CARBON DIOXIDE LEVEL 30 MEQ/L (21-32); CHLORIDE LEVEL 105 MEQ/L (98-107); CREATININE FOR GFR 0.97 MG/DL (0.70-1.30); GLOMERULAR FILTRATION RATE > 60.0 (>35); GLUCOSE, FASTING 87 MG/DL (83-110); POTASSIUM SERUM 4.7 MEQ/L (3.5-5.1); SODIUM LEVEL 141 MEQ/L (136-145)
[2016-08-09 18:03] LABS: MEAN CORPUSCULAR HEMOGLOBIN 31.2 pg (27.0-33.0); MEAN CORPUSCULAR HGB CONC 32.2 g/dl (32.0-36.5); MEAN CORPUSCULAR VOLUME 96.7 fl (80.0-96.0); RED CELL DISTRIBUTION WIDTH 13.4 % (11.5-14.5); WHITE BLOOD COUNT 8.7 K/mm3 (4.0-10.0)
[2016-08-09 21:48] LABS: EOSINOPHILS 4 % (0-5); PLATELET CLUMPS SMALL AMT
== END ==
LOC: M SFHCLERA 11:31
PROVIDERS: ATTEND Family Medicine
DX: R50.9 Fever, unspecified (principal)
CPT/HCPCS: 80053; 85007; 85027; 86140; G0463

== ENCOUNTER → 2016-10-05 | Outpatient (CLI) | payer OTHER ==
--- NOTE | 2016-10-06 08:11 | REP ---
Clinical: Neck pain. Technique: AP, lateral, flexion/extension, bilateral oblique and open mouth views of the cervical spine. Findings: Advanced multilevel degenerative disc osteophyte complexes and osteopenia noted throughout the cervical spine. Alignment is maintained. There is no obvious acute fracture / compression injury or subluxation. Impression: Limited evaluation due to advanced osteopenia and multilevel degenerative changes. Alignment appears maintained. Signed by Eugenio Sommers MD 10/06/2016 03:08 A
== END ==
LOC: M LRY 13:58
PROVIDERS: ATTEND Family Medicine
DX: M85.89 Other specified disorders of bone density and structure, multiple sites (principal); M25.78 Osteophyte, vertebrae; M50.30 Other cervical disc degeneration, unspecified cervical region
CPT/HCPCS: 72052; G0463

== ENCOUNTER 2017-02-04 14:12 | Inpatient (IN) | payer OTHER ==
[~2017-02-04] VITALS: Ht 172.7 cm; Wt 85.1 kg
[2017-02-04 16:11] LABS: MEAN CORPUSCULAR HEMOGLOBIN 30.8 pg (27.0-33.0); MEAN CORPUSCULAR HGB CONC 32.3 g/dl (32.0-36.5); MEAN CORPUSCULAR VOLUME 95.4 fl (80.0-96.0); PLATELET COUNT, AUTOMATED 359 10^3/uL (150-450); RED CELL DISTRIBUTION WIDTH 12.5 % (11.5-14.5); WHITE BLOOD COUNT 8.8 10^3/uL (4.0-10.0)
--- NOTE | 2017-02-04 16:17 | REP ---
Chest one-view HISTORY: CHF Comparison: 07/27/1969 An increase in interstitial markings is present in the lungs consistent with chronic interstitial change. Calcified pleural plaques are present. The cardiac silhouette is enlarged. The pulmonary vasculature is normal in appearance. Impression: 1. Chronic interstitial change. 2. Cardiomegaly. Signed by Maxx Kent MD 02/04/2017 04:09 P
[2017-02-04 16:26] LABS: ANION GAP 4 MEQ/L (8-16); BLOOD UREA NITROGEN 16 MG/DL (7-18); CALCIUM LEVEL 8.5 MG/DL (8.8-10.2); CARBON DIOXIDE LEVEL 31 MEQ/L (21-32); CHLORIDE LEVEL 104 MEQ/L (98-107); GLOMERULAR FILTRATION RATE > 60.0 (>35); GLUCOSE, FASTING 118 MG/DL (83-110); POTASSIUM SERUM 4.5 MEQ/L (3.5-5.1); SODIUM LEVEL 139 MEQ/L (136-145)
[2017-02-04] MEDS ORDERED: PERCOCET 5MG/325MG TAB PO ONE (16:45)
[2017-02-04] MEDS ORDERED: GABAPENTIN 300 MG CAP PO ONE (17:00)
--- NOTE | 2017-02-04 18:14 | ECGEPIP ---
Stationary ECG Study [facility] - ED Test Date: 2017-02-04 Pat Name: VANITA GEORGE Department: Room: - Gender: M [employer] Tender: KORTNEY : 1930 Requested By: CHELSIE Jackson Order Number: [id number] Reading MD: Omega Martinez Measurements Intervals [place] Rate: 80 P: 22 DC: 183 QRS: -22 QRSD: 99 T: 3 QT: 361 QTc: 418 Interpretive Statements SINUS RHYTHM BORDERLINE LEFT AXIS DEVIATION MODERATE VOLTAGE CRITERIA FOR LVH, CONSIDER NORMAL VARIANT NSTTW ABNORMALITIES SIMILAR TO 07/31/16 Electronically Signed On 02-04-2017 18:14:10 EST by Omega Martinez
[2017-02-04] MEDS ORDERED: MORPHINE 2 MG/ML 1ML SYRINGE As Ordered ONE (18:49)
[2017-02-04] MEDS ORDERED: MORPHINE 2 MG/ML 1ML SYRINGE IV ONE (19:00)
[2017-02-04] MEDS ORDERED: CYCLOBENZAPRINE 5MG TABLET PO PRN (19:30)
[2017-02-04] MEDS ORDERED: ACETAMINOPHEN TAB 650MG DOSE (2X325MG) PO PRN (19:30)
[2017-02-04] MEDS ORDERED: ONDANSETRON 4MG/2ML VIAL (J2405) IV PRN (19:30)
[2017-02-04] MEDS ORDERED: ACETAMINOPHEN TAB 650MG DOSE (2X325MG) PO ONE (19:30)
[2017-02-04] MEDS ORDERED: NS 1,500 ML IV SCH (20:00)
[2017-02-04] MEDS ORDERED: DEXTROSE 50% 50 ML SYRINGE IV PRN (20:00)
[2017-02-04] MEDS ORDERED: GLUCOSE 4 GM CHEW TABLET PO PRN (20:00)
[2017-02-04] MEDS ORDERED: GLUCAGON FOR INJ 1 MG VIAL (J1610) SC PRN (20:00)
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
[2017-02-04 20:22] LABS: ERYTHROCYTE SEDIMENTATION RATE 118 mm/hr (0-30)
[2017-02-04] MEDS: HumaLOG INSULIN (NovoLOG) PER UNIT SC SCH (21:00)
[2017-02-04 22:00] VITALS: BP 117/66
[2017-02-04] MEDS ORDERED: VANCOMYCIN HCL 1,000 MG, VIAL MATE ADAPTER 1 EACH in D5W 250 ML IV ONE (23:00)
[2017-02-04] MEDS: GABAPENTIN 300 MG CAP PO SCH (23:05)
[2017-02-04] MEDS: PERCOCET 5MG/325MG TAB PO PRN (23:06)
[2017-02-04] MEDS: RIVAROXABAN 20 MG TAB (XARELTO) PO SCH (23:08)
[2017-02-04 23:59] VITALS: BP 132/68
[2017-02-05] MEDS: LATANOPROST 0.005% OPHTH SOLN 2.5 ML OU SCH ×2 (00:53→20:43)
[2017-02-05] MEDS: SOTALOL HCL 80 MG TAB PO SCH ×3 (00:53→20:41)
[2017-02-05] MEDS: TERAZOSIN 1 MG CAP PO SCH ×2 (00:53→20:42)
[2017-02-05] MEDS: PIPERACILLIN/TAZOBACTAM SOD 3.375 GM in APPROPRIATE DILUENT 1 EA IV SCH ×4 (00:54→22:14)
--- NOTE | 2017-02-05 04:46 | PHACANCOPD ---
PHARMACY VANCOMYCIN DOSING Pt Demographics Demographics Patient Age:86 , Weight:83.800 , Gender: male Adjusted Body Weight Date: 02/05/17, Adjusted Body Weight: [75.9] Kg Vancomycin Vancomycin indication: EMPIRIC TX:FEVER Vancomycin Target Ranges: 15-20 mcg/ml Vancomycin Load Y/N: No Load Dose Date Time Vancomycin Load Dose: Date: Time: Vancomycin Dose Date: 02/05/17. Current Vancomycin Dose: [1 GM Q18H] Intermittent Dosing?: No Labs Labs Laboratory Tests 02/04/17 15:19 Red Blood Count 3.70 L, Mean Corpuscular Volume 95.4, Mean Corpuscular Hemoglobin 30.8, Mean Corpuscular Hemoglobin Concent 32.3, Red Cell Distribution Width 12.5, Calcium Level 8.5 L, Total Creatine Kinase 30 L Micro Microbiology 02/04/17 Blood Culture, Received Pending 02/04/17 Blood Culture, Received Pending 02/04/17 Respiratory Virus Panel (PCR) (BERE) - Final, Complete 02/04/17 Influenza Virus Type A Antigen - Final, Complete 02/04/17 Influenza Virus Type B Antigen - Final, Complete Creatinine Clearance Date:02/05/17. Creatinine Clearance: [64.4 ]. Pending Labs Vancomycin trough due:02/06@2200 Assessment and Plan Maintaining Current Dose?: Yes Reason for dose change: No Dose Change Pharmacist Note Pharmacist Note Date: 02/05/17. Pharmacist note:86YOM ADMITTED W/FEVER OF UNKNOWN ORIGIN.Ht;68", Wt;87.3kg(ABW=75.9kg),SCR=0.9,CRCL=64.4-calculated,allergy:fentanyl. To recieve Pip/Tazo 3.375 IV Q8h and Vancomycin per Pharmacy consult.Vanco 1 GM administered 02/04@2300. Will begin regimenof 1 gram iv Q18H 02/05@1100.First trough is scheduled 02/06@2200.-will continue to follow [facility] Feb 05, 2017 04:46
[2017-02-05 05:02] VITALS: BP 134/64
[2017-02-05 05:08] LABS: MEAN CORPUSCULAR HEMOGLOBIN 30.4 pg (27.0-33.0); MEAN CORPUSCULAR HGB CONC 32.6 g/dl (32.0-36.5); MEAN CORPUSCULAR VOLUME 93.5 fl (80.0-96.0); PLATELET COUNT, AUTOMATED 321 10^3/uL (150-450); RED CELL DISTRIBUTION WIDTH 12.6 % (11.5-14.5); WHITE BLOOD COUNT 8.2 10^3/uL (4.0-10.0)
[2017-02-05 05:31] LABS: ALBUMIN 2.4 GM/DL (3.2-5.2); ALBUMIN/GLOBULIN RATIO 0.52 (1.00-1.93); ALKALINE PHOSPHATASE 105 U/L (45-117); ALT/SGPT 18 U/L (12-78); ANION GAP 9 MEQ/L (8-16); AST/SGOT 20 U/L (7-37); BILIRUBIN,TOTAL 0.7 MG/DL (0.2-1.0); BLOOD UREA NITROGEN 15 MG/DL (7-18); CARBON DIOXIDE LEVEL 24 MEQ/L (21-32); CHLORIDE LEVEL 106 MEQ/L (98-107); GLOMERULAR FILTRATION RATE > 60.0 (>35); GLUCOSE, FASTING 108 MG/DL (83-110); MAGNESIUM LEVEL 2.2 MG/DL (1.8-2.4); POTASSIUM SERUM 3.9 MEQ/L (3.5-5.1); SODIUM LEVEL 139 MEQ/L (136-145)
[2017-02-05 05:36] LABS: ERYTHROCYTE SEDIMENTATION RATE 83 mm/hr (0-30)
[2017-02-05] MEDS: PERCOCET 5MG/325MG TAB PO PRN ×4 (05:58→22:15)
[2017-02-05] MEDS: HumaLOG INSULIN (NovoLOG) PER UNIT SC SCH ×4 (07:46→20:31)
[2017-02-05 08:00] VITALS: BP 125/61
[2017-02-05] MEDS: TIMOLOL MALEATE 0.5% OPHTH SOLN 5 ML OU SCH (09:11)
[2017-02-05] MEDS: GABAPENTIN 300 MG CAP PO SCH ×4 (09:12→20:41)
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
[2017-02-05] MEDS: VANCOMYCIN HCL 1,000 MG, VIAL MATE ADAPTER 1 EACH in D5W 250 ML IV SCH (10:40)
[2017-02-05] MEDS ORDERED: SLF 3 ML SYR IV PRN (11:30)
[2017-02-05] MEDS: SLF 3 ML SYR IV SCH ×2 (14:00→20:42)
[2017-02-05 16:00] VITALS: BP 140/64
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
[2017-02-05 19:55] VITALS: BP 167/69
[2017-02-05] MEDS: RIVAROXABAN 20 MG TAB (XARELTO) PO SCH (20:42)
[2017-02-05] MEDS: MORPHINE 2 MG/ML 1ML SYRINGE IV PRN (21:39)
[2017-02-05 23:59] VITALS: BP 126/61
[2017-02-06 04:00] VITALS: BP 117/66
[2017-02-06] MEDS: VANCOMYCIN HCL 1,000 MG, VIAL MATE ADAPTER 1 EACH in D5W 250 ML IV SCH ×2 (04:31→22:51)
[2017-02-06] MEDS: SLF 3 ML SYR IV SCH ×3 (04:32→22:51)
[2017-02-06 05:30] LABS: MEAN CORPUSCULAR HGB CONC 32.4 g/dl (32.0-36.5); MEAN CORPUSCULAR VOLUME 95.6 fl (80.0-96.0); PLATELET COUNT, AUTOMATED 378 10^3/uL (150-450); RED CELL DISTRIBUTION WIDTH 12.6 % (11.5-14.5); WHITE BLOOD COUNT 7.8 10^3/uL (4.0-10.0)
[2017-02-06 05:51] LABS: ALBUMIN 2.5 GM/DL (3.2-5.2); ALBUMIN/GLOBULIN RATIO 0.52 (1.00-1.93); ALKALINE PHOSPHATASE 116 U/L (45-117); ALT/SGPT 19 U/L (12-78); ANION GAP 9 MEQ/L (8-16); AST/SGOT 21 U/L (7-37); BILIRUBIN,TOTAL 0.4 MG/DL (0.2-1.0); BLOOD UREA NITROGEN 15 MG/DL (7-18); CALCIUM LEVEL 8.2 MG/DL (8.8-10.2); CARBON DIOXIDE LEVEL 24 MEQ/L (21-32); CHLORIDE LEVEL 106 MEQ/L (98-107); CREATININE FOR GFR 0.95 MG/DL (0.70-1.30); GLOMERULAR FILTRATION RATE > 60.0 (>35); GLUCOSE, FASTING 128 MG/DL (83-110); MAGNESIUM LEVEL 2.3 MG/DL (1.8-2.4); SODIUM LEVEL 139 MEQ/L (136-145); TOTAL PROTEIN 7.3 GM/DL (6.4-8.2)
[2017-02-06] MEDS: PIPERACILLIN/TAZOBACTAM SOD 3.375 GM in APPROPRIATE DILUENT 1 EA IV SCH ×2 (06:03→14:31)
[2017-02-06] MEDS ORDERED: INFLUENZA VIRUS VACCINE HIGH DOSE 0.5 ML SYRINGE (90662) IM ONE (09:00)
[2017-02-06] MEDS: PERCOCET 5MG/325MG TAB PO SCH ×4 (09:02→23:14)
[2017-02-06] MEDS: SOTALOL HCL 80 MG TAB PO SCH ×2 (09:03→22:48)
[2017-02-06] MEDS: HumaLOG INSULIN (NovoLOG) PER UNIT SC SCH ×4 (09:03→20:05)
[2017-02-06] MEDS: GABAPENTIN 300 MG CAP PO SCH ×4 (09:04→22:44)
[2017-02-06] MEDS: TIMOLOL MALEATE 0.5% OPHTH SOLN 5 ML OU SCH (09:05)
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
[2017-02-06 11:49] VITALS: BP 117/83
--- NOTE | 2017-02-06 13:24 | REP ---
CERVICAL SPINE, TWO VIEWS: HISTORY: Neck pain. The cervical spine is visualized from C1-C4 in the lateral radiograph. There is no acute fracture or subluxation. The C2-3 and C3-4 intervertebral discs are decreased in height consistent with disc degeneration. Osteophytes are present on C3 and 4. IMPRESSION: Degenerative change as described above. THORACIC SPINE, TWO VIEWS: There is no acute fracture or subluxation. The intervertebral discs are decreased in height consistent with disc degeneration. Osteophytes are present throughout the thoracic spine. IMPRESSION: Degenerative change as described above. LUMBAR SPINE, TWO VIEWS: There is no acute fracture or subluxation. The intervertebral discs are decreased in height consistent with disc degeneration. Osteophytes are present throughout the lumbar spine. IMPRESSION: Degenerative change as described above. Signed by Maxx Kent MD 02/06/2017 01:33 P
[2017-02-06 15:40] VITALS: BP 131/65
[2017-02-06] MEDS: MORPHINE 2 MG/ML 1ML SYRINGE IV PRN (19:56)
[2017-02-06 20:00] VITALS: BP 130/74
--- NOTE | 2017-02-06 22:30 | REPUSA ---
MRI of the thoracic spine without contrast Clinical statement: discitis. Technique: Multiecho multiplanar MRI images of the thoracic spine were obtained without administratio n of contrast. No comparison is available. Findings: The study is limited secondary motion artifact. The thoracic vertebral bodies are in satisf actory position and alignment. No fractures or dislocations are demonstrated. The bone marrow appears unremarkable. Intervertebral disc spaces are well maintained. The facet joints are intact. The surro unding soft tissues are within normal limits. There is moderate disc bulging at T10/T11 and T11/T12, causing moderate central canal stenosis measur ing 9 mm in AP diameter. At T12/L1, there is minimal disc bulging. Impression: 1. No focal inflammatory changes appreciated. 2. Moderate severity disc bulging at T 10/T11 and T11/T12, causing moderate central canal stenosis. 3. Minimal disc bulging at T12/L1.
--- NOTE | 2017-02-06 22:40 | REPUSA ---
MRI cervical spine without contrast Clinical statement: discitis. Technique: Multiecho multiplanar MRI images of the cervical spine were obtained without administratio n of contrast. Images are limited secondary motion artifact. No comparison is available. Findings: The cervical vertebral bodies are in satisfactory position and alignment. No fractures or d islocations are demonstrated. Normal heterogeneous bone marrow signal is noted. No osseous tumors are seen. The visualized portions of the posterior fossa are unremarkable. The cervical cranial junction is intact. The intervertebral disc spaces are almost completely lost at C4/C5 and C5/C6. Severe dege nerative disc disease is also noted at C3/C4 and C6/C7. The facet joints are intact without evidence of subluxation. The cervical spinal cord demonstrates normal signal and contour. The surrounding soft tissues are within normal limits. At C3/C4, there is a moderate disc osteophyte complex and disc bulge. This causes moderate central ca nal stenosis measuring 8 mm in AP diameter. There is moderately severe bilateral neural foraminal maycol rowing. At C4/C5, there is mild disc osteophyte complex noted. There is mild central canal stenosis measuring 10 mm in AP diameter. There is severe bilateral neural foraminal narrowing noted. At C5/C6, there is a large left paracentral disc protrusion measuring 0.7 x 1.0 cm causing severe mas s effect on the left anterior thecal sac. There is severe central canal stenosis. There is severe kanchan ateral neural foraminal narrowing. At C6/C7, there is a mild disc osteophyte complex and disc bulge. There is no central canal stenosis. There is moderate bilateral neural foraminal narrowing. Impression: 1. No focal bone marrow edema or disc edema demonstrated to suggest discitis. 2. Severe multilevel degenerative disc disease throughout the cervical spine as described. 3. Left paracentral disc protrusion at C5/C6 causing severe central canal stenosis and severe bilater al neural foraminal narrowing. 4. At C3/C4, there is moderate disc osteophyte complex and disc bulge causing moderate central canal stenosis and moderately severe bilateral neural foraminal narrowing. 5. At C4/C5 and C6/C7, mild disc osteophyte complexes as described.
[2017-02-06] MEDS: TERAZOSIN 1 MG CAP PO SCH (22:47)
[2017-02-06] MEDS: RIVAROXABAN 20 MG TAB (XARELTO) PO SCH (22:48)
[2017-02-06] MEDS: LATANOPROST 0.005% OPHTH SOLN 2.5 ML OU SCH (22:49)
--- NOTE | 2017-02-06 22:49 | PHACANCOPD ---
PHARMACY VANCOMYCIN DOSING Pt Demographics Demographics Patient Age:86 , Weight:82.400 , Gender: male Adjusted Body Weight Date: 02/05/17, Adjusted Body Weight: [75.9] Kg Events Past 24 Hours Events Past 24 Hours: NO: Dialysis, Diuretic Therapy, Change in CrCl, Fever, Elevation in WBC, Pending Diagnostics, Pending Procedures, Other Vancomycin Vancomycin indication: EMPIRIC TX:FEVER Vancomycin Target Ranges: 15-20 mcg/ml Vancomycin Load Y/N: No Load Dose Date Time Vancomycin Load Dose: Date: Time: Vancomycin Dose Date: 02/05/17. Current Vancomycin Dose: [1 GM Q18H] Intermittent Dosing?: No Labs Labs Item Value Date Time White Blood Count 7.8 10^3/uL 02/06/17 0504 Creatinine 0.95 MG/DL 02/06/17 0504 Blood Urea Nitrogen 15 MG/DL 02/06/17 0504 Vancomycin Level Trough 13.4 UG/ML 02/06/17 221 Vital Signs Label Value Date Time Patient Temperature 98.9 degrees F 02/06/171999 Temperature Source Temporal 02/06/171999 Micro Microbiology 02/04/17 Blood Culture - Preliminary, Resulted No Growth after 48 hours. All Specime... 02/04/17 Blood Culture - Preliminary, Resulted No Growth after 48 hours. All Specime... 02/04/17 Respiratory Virus Panel (PCR) ([facility]) - Final, Complete 02/04/17 Influenza Virus Type A Antigen - Final, Complete 02/04/17 Influenza Virus Type B Antigen - Final, Complete 02/05/17 Urine Culture - Final, Complete Creatinine Clearance Date:02/05/17. Creatinine Clearance: [64.4 ]. Pending Labs Vancomycin trough due:02/07@2200 Assessment and Plan Maintaining Current Dose?: No Reason for dose change: Trough too low Pharmacist Note Pharmacist Note Date: 02/05/17. Pharmacist note:Trough of 13.4 is below target range. Dose increased to 1000mg q12h with a trough ordered for - @2200. Will continue to monitor and make adjustments as needed. [facility] Feb 06, 2017 22:49
--- NOTE | 2017-02-06 23:50 | REPUSA ---
MRI of the lumbar spine without contrast Clinical statement: discitis. Technique: Multiecho multiplanar MRI images of the lumbar spine were obtained without administration of contrast. Comparison: None. Findings: The patient could not tolerate the study, and the study was terminated. There is T1 and T2 hyperintensity demonstrated at the end plates of L2 and L3. No discrete bone marrow edema is noted. S evere multilevel degenerative disc disease with disc osteophyte complexes and disc bulges are noted a t all levels. A synovial cyst is seen posterior to S3. Impression: Severely limited study because study was terminated early. No discrete evidence of discit is on the limited images. A repeat study is suggested if there is further clinical concern.
[2017-02-07] MEDS: MORPHINE 2 MG/ML 1ML SYRINGE IV PRN (00:22)
[2017-02-07] MEDS: PIPERACILLIN/TAZOBACTAM SOD 3.375 GM in APPROPRIATE DILUENT 1 EA IV SCH ×2 (00:48→06:21)
[2017-02-07] MEDS: CYCLOBENZAPRINE 10 MG TAB PO PRN ×3 (01:04→20:04)
[2017-02-07 04:09] VITALS: BP 114/58
[2017-02-07 05:56] LABS: MEAN CORPUSCULAR HEMOGLOBIN 30.5 pg (27.0-33.0); MEAN CORPUSCULAR VOLUME 95.3 fl (80.0-96.0); PLATELET COUNT, AUTOMATED 376 10^3/uL (150-450); RED CELL DISTRIBUTION WIDTH 12.5 % (11.5-14.5); WHITE BLOOD COUNT 6.5 10^3/uL (4.0-10.0)
[2017-02-07 06:14] LABS: ALBUMIN 2.3 GM/DL (3.2-5.2); ALKALINE PHOSPHATASE 112 U/L (45-117); ALT/SGPT 18 U/L (12-78); ANION GAP 4 MEQ/L (8-16); AST/SGOT 17 U/L (7-37); BILIRUBIN,TOTAL 0.3 MG/DL (0.2-1.0); BLOOD UREA NITROGEN 15 MG/DL (7-18); CALCIUM LEVEL 8.4 MG/DL (8.8-10.2); CARBON DIOXIDE LEVEL 29 MEQ/L (21-32); CHLORIDE LEVEL 106 MEQ/L (98-107); GLOMERULAR FILTRATION RATE > 60.0 (>35); GLUCOSE, FASTING 124 MG/DL (83-110); SODIUM LEVEL 139 MEQ/L (136-145); TOTAL PROTEIN 6.9 GM/DL (6.4-8.2)
[2017-02-07] MEDS: SLF 3 ML SYR IV SCH ×3 (06:22→21:25)
[2017-02-07] MEDS: PERCOCET 5MG/325MG TAB PO SCH ×4 (06:22→23:43)
[2017-02-07 08:00] VITALS: BP 111/56
[2017-02-07] MEDS: HumaLOG INSULIN (NovoLOG) PER UNIT SC SCH ×4 (08:35→20:05)
[2017-02-07] MEDS: TIMOLOL MALEATE 0.5% OPHTH SOLN 5 ML OU SCH (09:46)
[2017-02-07] MEDS: SOTALOL HCL 80 MG TAB PO SCH ×2 (09:46→20:05)
[2017-02-07] MEDS: GABAPENTIN 300 MG CAP PO SCH ×4 (09:46→20:03)
[2017-02-07] MEDS ORDERED: MIRALAX *UNIT DOSE* 17GM PACKET PO PRN (10:00)
--- NOTE | 2017-02-07 10:04 | IPNPDOC ---
Date Seen The patient was seen on 02/07/17. Progress Note SUBJECTIVE: Patient is a 86-year-old male with intractable back pain. Patient is evaluated at bedside this morning. His is present at bedside. Patient is somewhat somnolent, but arousable. He received MRI imaging yesterday. Canal stenosis is appreciated, but no evidence of discitis was appreciated. Continues to admit to right shoulder pain. OBJECTIVE PHYSICAL EXAMINATION: VITAL SIGNS: Please see below. GENERAL: Elderly male, appears stated age, triple amputee (bilateral lower extremities, right upper extremity), no acute distress, somewhat somnolent HEENT: Atraumatic, normocephalic, right eye appears cloudy, oral mucosa appears pink and moist, nasal septum appears midline, nares are patent CARDIOVASCULAR: Regular rate and rhythm, normal S1 and S2, no murmurs, rubs, clicks RESPIRATORY: Crackles appreciated most prominently in the lower lung lobes bilaterally ABDOMINAL: Soft, non-tender, non-distended, bowel sounds appreciated EXTREMITIES: Radial pulse on the left is equal, symmetrical, +2, visible skin on bilateral lower extremities and upper right extremity appear without lesion/ rash or erythema, no edema appreciated, right upper extremity had prosthesis removed with a healed incision noted on the dorsal aspect of the forearm NEUROLOGICAL: CN II-XII grossly intact PSYCHOLOGICAL: Alert and conversant LABORATORY DATA: Please see below. MICROBIOLOGY: Please see below. IMAGING: Chest x-ray IMPRESSION: 1. Chronic interstitial change. 2. Cardiomegaly. MRI cervical spine without contrast IMPRESSION: 1. No focal bone marrow edema or disc edema demonstrated to suggest discitis. 2. Severe multilevel degenerative disc disease throughout the cervical spine as described. 3. Left paracentral disc protrusion at C5/C6 causing severe central canal stenosis and severe bilateral neural foraminal narrowing. 4. At C3/C4, there is moderate disc osteophyte complex and disc bulge causing moderate central canal stenosis and moderately severe bilateral neural foraminal narrowing. 5. At C4/C5 and C6/C7, mild disc osteophyte complexes as described. MRI thoracic spine without contrast IMPRESSION: 1. No focal inflammatory changes appreciated. 2. Moderate severity disc bulging at T 10/T11 and T11/T12, causing moderate central canal stenosis. 3. Minimal disc bulging at T12/L1. MRI lumbosacral spine without contrast IMPRESSION: Severely limited study because study was terminated early. No discrete evidence of discitis on the limited images. A repeat study is suggested if there is further clinical concern. DVT prophylaxis ordered?: Xarelto. ASSESSMENT AND PLAN: This is a 86-year-old male with intractable back pain. PROBLEMS: 1. Right shoulder pain: Obtain right shoulder x-ray. Likely arthritic. 2. Intractable Back Pain: Appreciate the assistance from pain management. Continue with recommendations from pain management, including Gabapentin, Flexeril, and Morphine. MRI did not reveal any acute changes suggestive of discitis. Canal stenosis appreciated in the cervical and thoracic spine. Patient has previously seen orthopedics and we could consider consulting them for recommendations. Physical therapy recommends that patient continue with PT. He is not safe for discharge at this time as he needs to be evaluated for stair assessment. 3. Fever of Unclear Etiology: Resolved. Tylenol, as needed. Antibiotics have been discontinued. Low probability of underlying infection. Afebrile for > 48 hours. 4. Diabetes with diabetic neuropathy: SSI, fingersticks AC/HS, and hypoglycemic protocol. Continue with Gabapentin. 5. Atrial fibrillation: Rate controlled. On Cardizem and Sotalol. Continue with Xarelto for anticoagulation. 6. BPH: Continue with current home medication. 7. Hypertension: Continue with current home medication regimen. 8. Grade 1 diastolic congestive heart failure: Compensated. 9. History of triple amputation following tractor accident: Right upper extremity prosthetic. Bilateral lower extremity prostheses. No rashes/lesions appreciated. DISPOSITION: Admitted to the medical-surgical unit. Obtaining shoulder x-ray. Continue with pain management. Could consider consulting orthopedics. Antibiotics have been discontinued. VS, I&O, 24H, Ab Vital Signs/I&O Vital Signs Date Time Temp Pulse Resp B/P (MAP) Pulse Ox O2 Delivery O2 Flow Rate FiO2 02/07/17 08:00 99.3 92 17 111/56 (74) 93 Room Air I&O- Last 24 Hours up to 6 AM 02/08/17 06:00 Output Total 0 ml Balance 0 ml Laboratory Data 24H LABS Laboratory Tests 2 02/06/17 12:02: Bedside Glucose (Misc Panel) 124H 02/06/17 17:03: Bedside Glucose (Misc Panel) 112H 02/06/17 19:51: Bedside Glucose (Misc Panel) 140H 02/06/17 22:10: Vancomycin Level Trough 13.4 02/07/17 05:40: Nucleated Red Blood Cells % (auto) 0.0, Anion Gap 4L, Glomerular Filtration Rate > 60.0, Blood Urea Nitrogen 15, Creatinine 1.00, Sodium Level 139, Potassium Level 4.0, Chloride Level 106, Carbon Dioxide Level 29, Calcium Level 8.4L, Aspartate Amino Transf (AST/SGOT) 17, Alanine Aminotransferase (ALT/SGPT) 18, Alkaline Phosphatase 112, Total Bilirubin 0.3, Total Protein 6.9, Albumin 2.3L, Magnesium Level 2.0, Albumin/Globulin Ratio 0.50L CBC/BMP Laboratory Tests 02/07/17 05:40 Red Blood Count 3.44 L, Mean Corpuscular Volume 95.3, Mean Corpuscular Hemoglobin 30.5, Mean Corpuscular Hemoglobin Concent 32.0, Red Cell Distribution Width 12.5, Calcium Level 8.4 L, Aspartate Amino Transf (AST/SGOT) 17, Alanine Aminotransferase (ALT/SGPT) 18, Alkaline Phosphatase 112, Total Bilirubin 0.3, Total Protein 6.9, Albumin 2.3 L Microbiology Microbiology 02/04/17 Blood Culture - Preliminary, Resulted No Growth after 48 hours. All Specime... 02/04/17 Blood Culture - Preliminary, Resulted No Growth after 48 hours. All Specime... 02/04/17 Respiratory Virus Panel (PCR) ([facility]) - Final, Complete 02/04/17 Influenza Virus Type A Antigen - Final, Complete 02/04/17 Influenza Virus Type B Antigen - Final, Complete 02/05/17 Urine Culture - Final, Complete MAIK AGUILAR DO Feb 07, 2017 09:11
--- NOTE | 2017-02-07 10:06 | REP ---
RIGHT SHOULDER, THREE VIEWS: HISTORY: Pain. There is no acute fracture or dislocation. There is severe narrowing of the joint spaces with associate sclerosis at the glenohumeral joint. There is deformity of the head of the humerus. Osteophytes are present on the medial and lateral head of the humerus. Osteophytes are present at the acromioclavicular joint. Calcification is present lateral to the head of the humerus. This represents ligamentous or tendon calcification. IMPRESSION: Severe degenerative change, as described above. Signed by Maxx Kent MD 02/07/2017 10:07 A
[2017-02-07] MEDS: SENOKOT S TAB PO SCH ×2 (10:13→20:04)
[2017-02-07] MEDS: BISACODYL 5 MG TAB PO SCH (10:13)
[2017-02-07] MEDS ORDERED: VANCOMYCIN HCL 1,000 MG, VIAL MATE ADAPTER 1 EACH in D5W 250 ML IV SCH (11:00)
[2017-02-07 14:15] VITALS: BP 120/65
--- NOTE | 2017-02-07 18:38 | CR ---
DATE OF CONSULTATION: 02/07/2017 REASON FOR CONSULTATION: Intractable back pain. HISTORY OF PRESENT ILLNESS: This is an 86-year-old male who was admitted with severe back pain. The patient does have a history of surgery to his lumbar spine by Dr. Grimm around seven or eight years ago. He has a known history of both lumbar and cervical stenosis. The patient had declined an operation for his cervical stenosis in the past. The patient also states that he is having severe pain in his right shoulder. He denies any injuries. He said the pain was unfortunately getting too severe and he was unable to tolerate it at home. PAST MEDICAL HISTORY: 1. Triple amputation from a tractor accident. 2. Hypertension. 3. Diabetes mellitus. 4. Atrial fibrillation on Xarelto. 5. Gastroesophageal reflux disease (GERD). 6. Neuropathy. 7. Benign prostatic hypertrophy (BPH). PAST SURGICAL HISTORY: 1. Triple amputation from a tractor accident. 2. Cholecystectomy. 3. L3-[address] Grimm. 4. Open reduction internal fixation, right wrist and ulna. 5. Left [id number] amputation. 6. Right below-knee amputation. 7. Right hand amputation. SOCIAL HISTORY: The patient lives with his . 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 PHYSICAL EXAMINATION: GENERAL: Well-appearing, alert and oriented, in no acute distress. PULMONARY: Regular breathing. MUSCULOSKELETAL: Upon examination, the patient has pain with range of motion of his shoulder. He is able to abduct to about 30 degrees. He has difficulty with forward flexion. He says this is somewhat of his baseline motion. He has some pain with internal and external rotation of the shoulder. He has a prosthesis on this side. In regards to his back. He has no axial pain with palpation of the cervical, thoracic or lumbar spine. He does have some paraspinal pain over the right flank and has pain over the posterior aspect of his shoulder as well. No numbness or tingling. IMAGING STUDIES: X-rays of the right shoulder are reviewed and show a severe degenerative arthritis of the glenohumeral joint. MRI: Of note the MRI was terminated early and so I am not fully able to comment on the results. There is evidence of severe canal stenosis throughout the cervical spine with multilevel degenerative disease. There is a paracentral disc protrusion at C5-6 and a disc osteophyte complex at C3-4 also causing moderate canal stenosis. MRI of the thoracic spine shows disc bulges at T10-11 and T11-12 causing moderate stenosis. MRI of the lumbar spine is severely limited because the study was terminated early. IMPRESSION: 1. Severe cervical stenosis, moderate thoracic canal stenosis, and lumbar stenosis without any discrete evidence of discitis. 2. Right glenohumeral joint arthritis. PLAN: 1. Right shoulder pain: The patient's pain is likely related to his significant glenohumeral joint arthritis. If he is able to tolerate nonsteroidal antiinflammatory agents (NSAIDs), this would be helpful for his pain. He can followup at [facility] for further discussion of his shoulder pain. He may be a candidate for a potential corticosteroid injection into the glenohumeral joint at some point. 2. Back pain: The patient has previously been seen by Dr. Grimm who had discussed in the past a decompression of his cervical (C) spine given his severe cervical stenosis. The patient should followup with Dr. Grimm in the next few days for further discussion of his back pain and MRI findings. It would be helpful for him to obtain a new MRI which was complete so that we could actually evaluate all of the images. Unfortunately, it seems that he was not able to tolerate this before. I have discussed the case with Dr. Grimm who is aware that he is in the hospital and will try to see him towards the end of the week if the patient is still in-house.
[2017-02-07] MEDS: TERAZOSIN 1 MG CAP PO SCH (20:04)
[2017-02-07] MEDS: LATANOPROST 0.005% OPHTH SOLN 2.5 ML OU SCH (21:25)
[2017-02-07] MEDS: RIVAROXABAN 20 MG TAB (XARELTO) PO SCH (21:25)
[2017-02-07 22:00] VITALS: BP 139/66
[2017-02-08] MEDS ORDERED: tiZANidine 4 MG TAB PO ONE ×2 (00:15→10:00)
[2017-02-08] MEDS: SLF 3 ML SYR IV SCH ×3 (05:27→21:01)
[2017-02-08] MEDS: PERCOCET 5MG/325MG TAB PO SCH ×4 (05:27→23:54)
[2017-02-08 05:58] VITALS: BP 134/74
[2017-02-08] MEDS: HumaLOG INSULIN (NovoLOG) PER UNIT SC SCH ×4 (07:30→21:00)
[2017-02-08 08:02] LABS: MEAN CORPUSCULAR HEMOGLOBIN 30.9 pg (27.0-33.0); MEAN CORPUSCULAR HGB CONC 32.1 g/dl (32.0-36.5); MEAN CORPUSCULAR VOLUME 96.2 fl (80.0-96.0); PLATELET COUNT, AUTOMATED 424 10^3/uL (150-450); RED CELL DISTRIBUTION WIDTH 12.6 % (11.5-14.5); WHITE BLOOD COUNT 6.2 10^3/uL (4.0-10.0)
[2017-02-08] MEDS: GABAPENTIN 300 MG CAP PO SCH ×4 (08:34→21:00)
[2017-02-08] MEDS: BISACODYL 5 MG TAB PO SCH (08:34)
[2017-02-08] MEDS: SENOKOT S TAB PO SCH ×2 (08:34→21:00)
[2017-02-08] MEDS: TIMOLOL MALEATE 0.5% OPHTH SOLN 5 ML OU SCH (08:34)
[2017-02-08] MEDS: SOTALOL HCL 80 MG TAB PO SCH ×2 (08:36→21:00)
[2017-02-08 08:40] LABS: ALBUMIN 2.5 GM/DL (3.2-5.2); ALKALINE PHOSPHATASE 124 U/L (45-117); ALT/SGPT 19 U/L (12-78); ANION GAP 9 MEQ/L (8-16); AST/SGOT 26 U/L (7-37); BILIRUBIN,TOTAL 0.3 MG/DL (0.2-1.0); BLOOD UREA NITROGEN 15 MG/DL (7-18); CALCIUM LEVEL 8.9 MG/DL (8.8-10.2); CARBON DIOXIDE LEVEL 21 MEQ/L (21-32); CHLORIDE LEVEL 109 MEQ/L (98-107); CREATININE FOR GFR 0.97 MG/DL (0.70-1.30); GLOMERULAR FILTRATION RATE > 60.0 (>35); GLUCOSE, FASTING 99 MG/DL (83-110); MAGNESIUM LEVEL 2.2 MG/DL (1.8-2.4); POTASSIUM SERUM 4.5 MEQ/L (3.5-5.1); SODIUM LEVEL 139 MEQ/L (136-145); TOTAL PROTEIN 7.5 GM/DL (6.4-8.2)
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
[2017-02-08] MEDS: MORPHINE 2 MG/ML 1ML SYRINGE IV PRN ×2 (11:48→23:05)
[2017-02-08 14:00] VITALS: BP 105/60
--- NOTE | 2017-02-08 15:29 | REP ---
MRI LUMBAR SPINE WITHOUT CONTRAST: HISTORY: Back pain. COMPARISON: 02/06/2017 Decreased signal intensity on T2-weighted images is present in the lumbar intervertebral discs. The discs are decreased in height. These findings are consistent with disc degeneration. A diffuse disc bulge is present at the L1-2 level. There is hypertrophy of the ligamenta flava and posterior articulating facets. These findings produce moderate central canal stenosis. The L1 nerves exit the neural foramina without compression. A diffuse disc bulge is present at the L2-3 level. There is hypertrophy of the ligamenta flava and posterior articulating facets. These findings produce severe central canal stenosis. There is compression of the right L2 nerve in the neural foramen. The left L2 nerve exits the neural foramen without compression. A diffuse disc bulge is present at the L3-4 level. There is hypertrophy of the ligamenta flava and posterior articulating facets. These findings produce severe central canal stenosis. There is compression of the left L3 nerve in the neural foramen. The right L3 nerve exits the neural foramen without compression. A diffuse disc bulge is present at the L4-5 level. There is hypertrophy of the ligamenta flava and posterior articulating facets. These findings produce moderate central canal stenosis. There is compression of the L4 nerves in the neural foramina. A diffuse disc bulge and small disc protrusion central and eccentric to the left are present at the L5-S1 level. There is minimal compression of the thecal sac and left S1 nerve as it exits the thecal sac. There are 3 mm of retrolisthesis of L5 on S1. There is hypertrophy of the posterior articulating facets. There is compression of the L5 nerves in the neural foramina. The conus medullar is normal in appearance terminating at the level of the L1-2 intervertebral disc. Decreased or increased signal intensity on T2-weighted images is present in the endplates of the L2 through S1 vertebral bodies. This represents degenerative change. IMPRESSION: 1. Moderate central canal stenosis at the L1-2 and L4-5 levels secondary to disc bulge, ligamentous and facet hypertrophy. 2. Severe central canal stenosis at the L2-3 and L3-4 levels secondary to disc bulge, ligamentous and facet hypertrophy. 3. Diffuse disc bulge and small disc protrusion at the L5-S1 level with minimal compression of the thecal sac and left S1 nerve as it exits the thecal sac. Signed by Maxx Kent MD 02/08/2017 03:33 P
[2017-02-08] MEDS: LATANOPROST 0.005% OPHTH SOLN 2.5 ML OU SCH (20:59)
[2017-02-08] MEDS: TERAZOSIN 1 MG CAP PO SCH (20:59)
[2017-02-08 21:00] VITALS: BP 139/74
[2017-02-08] MEDS ORDERED: tiZANidine 4 MG TAB PO SCH (21:00)
[2017-02-08] MEDS: RIVAROXABAN 20 MG TAB (XARELTO) PO SCH (21:00)
[2017-02-09] MEDS: SLF 3 ML SYR IV SCH (05:47)
[2017-02-09] MEDS: PERCOCET 5MG/325MG TAB PO SCH ×2 (05:47→12:26)
[2017-02-09 05:51] VITALS: BP 115/61
[2017-02-09 07:56] LABS: MEAN CORPUSCULAR HEMOGLOBIN 30.7 pg (27.0-33.0); MEAN CORPUSCULAR HGB CONC 31.4 g/dl (32.0-36.5); MEAN CORPUSCULAR VOLUME 97.7 fl (80.0-96.0); PLATELET COUNT, AUTOMATED 456 10^3/uL (150-450); RED CELL DISTRIBUTION WIDTH 12.6 % (11.5-14.5); WHITE BLOOD COUNT 6.2 10^3/uL (4.0-10.0)
[2017-02-09] MEDS: HumaLOG INSULIN (NovoLOG) PER UNIT SC SCH ×2 (08:37→12:00)
[2017-02-09] MEDS: SENOKOT S TAB PO SCH (08:39)
[2017-02-09] MEDS: BISACODYL 5 MG TAB PO SCH (08:39)
[2017-02-09] MEDS: GABAPENTIN 300 MG CAP PO SCH ×2 (08:39→12:25)
[2017-02-09] MEDS: TIMOLOL MALEATE 0.5% OPHTH SOLN 5 ML OU SCH (08:40)
[2017-02-09] MEDS ORDERED: OXYC-517 PO ×2 (08:42→09:11)
[2017-02-09] MEDS ORDERED: PERCOCET PO (08:42)
[2017-02-09 08:47] LABS: ALBUMIN 2.6 GM/DL (3.2-5.2); ALBUMIN/GLOBULIN RATIO 0.67 (1.00-1.93); ALKALINE PHOSPHATASE 122 U/L (45-117); ALT/SGPT 19 U/L (12-78); ANION GAP 8 MEQ/L (8-16); AST/SGOT 18 U/L (7-37); BILIRUBIN,TOTAL 0.2 MG/DL (0.2-1.0); BLOOD UREA NITROGEN 17 MG/DL (7-18); CALCIUM LEVEL 8.1 MG/DL (8.8-10.2); CARBON DIOXIDE LEVEL 25 MEQ/L (21-32); CHLORIDE LEVEL 108 MEQ/L (98-107); CREATININE FOR GFR 0.88 MG/DL (0.70-1.30); GLOMERULAR FILTRATION RATE > 60.0 (>35); GLUCOSE, FASTING 109 MG/DL (83-110); MAGNESIUM LEVEL 2.2 MG/DL (1.8-2.4); POTASSIUM SERUM 4.2 MEQ/L (3.5-5.1); SODIUM LEVEL 141 MEQ/L (136-145); TOTAL PROTEIN 6.5 GM/DL (6.4-8.2)
[2017-02-09 09:00] VITALS: BP 115/54
[2017-02-09] MEDS: SOTALOL HCL 80 MG TAB PO SCH (09:00)
[2017-02-09] MEDS ORDERED: OXYC1TAB23 PO (09:11)
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
== END 2017-02-09 12:50 | disposition home or self-care (01) | DRG 552 ==
LOC: M ED 14:12 → EDBD 14:12 → M ED INP 18:25 → M PCU 21:54 → M MS4PR 02-07 13:56
PROVIDERS: ADMIT Internal Medicine; ATTEND Internal Medicine Nephrology
DX: M48.02 Spinal stenosis, cervical region (principal); I50.32 Chronic diastolic (congestive) heart failure; M48.04 Spinal stenosis, thoracic region; I11.0 Hypertensive heart disease with heart failure; M48.061 Spinal stenosis, lumbar region without neurogenic claudication; E11.40 Type 2 diabetes mellitus with diabetic neuropathy, unspecified; I48.91 Unspecified atrial fibrillation; K21.9 Gastro-esophageal reflux disease without esophagitis; M79.1 Myalgia; M19.011 Primary osteoarthritis, right shoulder; R50.9 Fever, unspecified; N40.0 Benign prostatic hyperplasia without lower urinary tract symptoms; G54.6 Phantom limb syndrome with pain; Z79.01 Long term (current) use of anticoagulants; Z79.84 Long term (current) use of oral hypoglycemic drugs; Z79.899 Other long term (current) drug therapy; Z88.5 Allergy status to narcotic agent; Z89.612 Acquired absence of left leg above knee; Z89.111 Acquired absence of right hand; Z89.511 Acquired absence of right leg below knee; Z79.891 Long term (current) use of opiate analgesic

== ENCOUNTER 2017-03-16 09:58 | Inpatient (IN) | payer OTHER ==
[2017-03-16] MEDS: NS 1,000 ML IV ×2 (10:08→15:33)
[2017-03-16] MEDS: NS 500 ML IV (10:15)
[2017-03-16 10:27] LABS: ABG BASE EXCESS -3.7 (-2.0-2.0); ABG HCO3 20.9 MEQ/L (22.0-26.0); ABG O2 SATURATION 95.2 % (95.0-99.0); ABG PARTIAL PRESSURE CO2 36.7 mmHg (35.0-45.0); ABG PARTIAL PRESSURE O2 78.2 mmHg (75.0-100.0); ABG STANDARD HCO3 21.4 MEQ/L (22.0-26.0); ABG TOTAL CO2 22.1 MEQ/L (23.0-31.0); ABG pH (ARTERIAL) 7.374 UNITS (7.350-7.450)
[2017-03-16 10:58] LABS: HEMATOCRIT 39.7 % (42.0-52.0); HEMOGLOBIN 12.9 g/dl (14.0-18.0); MEAN CORPUSCULAR HEMOGLOBIN 31.1 pg (27.0-33.0); MEAN CORPUSCULAR HGB CONC 32.5 g/dl (32.0-36.5); MEAN CORPUSCULAR VOLUME 95.7 fl (80.0-96.0); PLATELET COUNT, AUTOMATED 228 10^3/uL (150-450); RED BLOOD COUNT 4.15 10^6/uL (4.30-6.10); RED CELL DISTRIBUTION WIDTH 15.3 % (11.5-14.5)
[2017-03-16 10:59] LABS: VENOUS HCO3 23.3 MEQ/L (23.0-27.0); VENOUS O2 SATURATION 86.3 % (60.0-80.0); VENOUS PARTIAL PRESSURE CO2 46.2 mmHg (38.0-50.0); VENOUS PARTIAL PRESSURE O2 55.8 mmHg (30.0-50.0); VENOUS PH 7.321 UNITS (7.330-7.430); VENOUS STANDARD HCO3 21.7 MEQ/L; VENOUS TOTAL CO2 24.7 MEQ/L (24.0-28.0)
[2017-03-16 11:02] LABS: ADD MANUAL DIFFER YES; DIFF SLIDE NUMBER 187; POSITIVE MORPH POS FLAG
[2017-03-16 11:06] LABS: INR 1.42; PROTHROMBIN TIME 17.7 SECONDS (12.4-14.5)
[2017-03-16 11:17] LABS: BANDS 12 % (< 11); LYMPHOCYTES 17 % (16-52); MONOCYTES 6 % (0-8); NEUTROPHILS 65 % (35-75); PLATELET ESTIMATE NORMAL (NORMAL)
[2017-03-16 11:17] LABS: AMMONIA < 10 uMOL/L (<32)
[2017-03-16 11:21] LABS: LACTIC ACID SEPSIS PROTOCOL 2.9 MMOL/L (0.4-2.0)
[2017-03-16 11:33] LABS: ALBUMIN 3.1 GM/DL (3.2-5.2); ALKALINE PHOSPHATASE 96 U/L (45-117); ALT/SGPT 108 U/L (12-78); AST/SGOT 289 U/L (7-37); BILIRUBIN,DIRECT 0.3 MG/DL (0.0-0.2); BILIRUBIN,TOTAL 0.9 MG/DL (0.2-1.0); BLOOD UREA NITROGEN 74 MG/DL (7-18); CALCIUM LEVEL 7.5 MG/DL (8.8-10.2); CARBON DIOXIDE LEVEL 24 MEQ/L (21-32); CHLORIDE LEVEL 107 MEQ/L (98-107); CREATININE FOR GFR 3.15 MG/DL (0.70-1.30); GLUCOSE, FASTING 137 MG/DL (83-110); POTASSIUM SERUM 4.9 MEQ/L (3.5-5.1); SODIUM LEVEL 143 MEQ/L (136-145); TOTAL PROTEIN 6.6 GM/DL (6.4-8.2); TROPONIN I 0.15 NG/ML (< 0.10)
[2017-03-16 11:54] LABS: CK-MB VALUE MASS 43.3 NG/ML (0.0-3.6); CPK CREATINE PHOSPHOKINASE 8193 U/L (39-308); MB/CK RELATIVE INDEX 0.52 (< OR =4)
[2017-03-16 12:02] LABS: ALBUMIN/GLOBULIN RATIO 0.89 (1.00-1.93); ANION GAP 12 MEQ/L (8-16)
[2017-03-16] MEDS: SODIUM CHLORIDE 0.9% 1000 ML IV (12:30)
[2017-03-16 12:48] LABS: MYOGLOBIN SCREEN, URINE POSITIVE (NEGATIVE)
[2017-03-16 13:09] LABS: MYOGLOBIN > 500 NG/ML (16-116)
[2017-03-16 13:12] LABS: AMPHETAMINES LEVEL URINE NEGATIVE (NEGATIVE); BARBITURATES URINE NEGATIVE (NEGATIVE); BENZODIAZEPINES URINE NEGATIVE (NEGATIVE); CANNABINOIDS URINE NEGATIVE (NEGATIVE); COCAINE METABOLITE URINE NEGATIVE (NEGATIVE); METHADONE URINE NEGATIVE (NEGATIVE); OPIATES URINE POSITIVE (NEGATIVE); PHENCYCLIDINE URINE NEGATIVE (NEGATIVE); SODIUM,RANDOM URINE 21 MEQ/L
[2017-03-16 13:15] LABS: APPEARANCE, URINE CLOUDY (CLEAR); BACTERIA, URINE AUTO 1+ (NEGATIVE); BILIRUBIN, URINE AUTO NEGATIVE (NEGATIVE); BLOOD, URINE BLOOD 3+ (NEGATIVE); COLOR, URINE AMBER (YELLOW); GLUCOSE, URINE (UA) AUTO NEGATIVE (NEGATIVE); KETONE, URINE AUTO NEGATIVE (NEGATIVE); LEUKOCYTE ESTERASE, URINE AUTO NEGATIVE (NEGATIVE); MUCUS, URINE SMALL (NEGATIVE); NITRITE, URINE AUTO NEGATIVE (NEGATIVE); PROTEIN, URINE AUTO 1+ mg/dL (NEGATIVE); RBC, URINE AUTO 3 /HPF (0-3); SQUAMOUS EPITHELIAL CELL UR AU 0 /HPF (0-6); WBC, URINE AUTO 6 /HPF (0-3)
[2017-03-16 13:35] LABS: ACETAMINOPHEN LEVEL < 2.0 UG/ML (10.0-30.0)
[2017-03-16] MEDS: CEFTRIAXONE SOD 2 GM in APPROPRIATE DILUENT 1 EA IV (13:48)
[2017-03-16] MEDS: D5W/0.9% SODIUM CHLORIDE 1,000 ML IV (16:49)
[2017-03-16 17:03] LABS: TROPONIN I 0.14 NG/ML (< 0.10)
[2017-03-16 17:23] LABS: CK-MB VALUE MASS 38.1 NG/ML (0.0-3.6); CPK CREATINE PHOSPHOKINASE 9955 U/L (39-308); MB/CK RELATIVE INDEX 0.38 (< OR =4)
[2017-03-16] MEDS ORDERED: RIVAROXABAN 20 MG TAB (XARELTO) PO (21:00)
[2017-03-16 21:48] LABS: BEDSIDE GLUCOSE 157 MG/DL (83-110)
[2017-03-16] MEDS ORDERED: DEXTROSE 50% 50 ML SYRINGE IV (22:00)
[2017-03-16] MEDS ORDERED: GLUCAGON FOR INJ 1 MG VIAL (J1610) SC (22:00)
[2017-03-16] MEDS ORDERED: GLUCOSE 4 GM CHEW TABLET PO (22:00)
[2017-03-16] MEDS: SOTALOL HCL 80 MG TAB PO (22:05)
[2017-03-16] MEDS: TERAZOSIN 1 MG CAP PO (22:06)
[2017-03-16] MEDS: LATANOPROST 0.005% OPHTH SOLN 2.5 ML OU (22:06)
[2017-03-17] MEDS ORDERED: HumaLOG INSULIN (NovoLOG) PER UNIT SC
[2017-03-17 00:44] LABS: TROPONIN I 0.13 NG/ML (< 0.10)
[2017-03-17 01:06] LABS: CK-MB VALUE MASS 20.4 NG/ML (0.0-3.6); CPK CREATINE PHOSPHOKINASE 7217 U/L (39-308); MB/CK RELATIVE INDEX 0.28 (< OR =4)
[2017-03-17] MEDS: GABAPENTIN 300 MG CAP PO ×4 (01:14→23:15)
[2017-03-17] MEDS: MORPHINE 2 MG/ML 1ML SYRINGE IV (01:18)
[2017-03-17] MEDS: D5W/0.9% SODIUM CHLORIDE 1,000 ML IV (05:32)
[2017-03-17 07:16] LABS: HEMATOCRIT 33.8 % (42.0-52.0); HEMOGLOBIN 11.2 g/dl (14.0-18.0); MEAN CORPUSCULAR HEMOGLOBIN 31.6 pg (27.0-33.0); MEAN CORPUSCULAR HGB CONC 33.1 g/dl (32.0-36.5); MEAN CORPUSCULAR VOLUME 95.5 fl (80.0-96.0); PLATELET COUNT, AUTOMATED 166 10^3/uL (150-450); RED BLOOD COUNT 3.54 10^6/uL (4.30-6.10); RED CELL DISTRIBUTION WIDTH 14.9 % (11.5-14.5); WHITE BLOOD COUNT 8.8 10^3/uL (4.0-10.0)
[2017-03-17 08:07] LABS: ALBUMIN 2.4 GM/DL (3.2-5.2); ALBUMIN/GLOBULIN RATIO 0.63 (1.00-1.93); ALKALINE PHOSPHATASE 76 U/L (45-117); ALT/SGPT 107 U/L (12-78); ANION GAP 5 MEQ/L (8-16); AST/SGOT 334 U/L (7-37); BILIRUBIN,TOTAL 0.8 MG/DL (0.2-1.0); BLOOD UREA NITROGEN 52 MG/DL (7-18); CALCIUM LEVEL 7.8 MG/DL (8.8-10.2); CARBON DIOXIDE LEVEL 27 MEQ/L (21-32); CHLORIDE LEVEL 109 MEQ/L (98-107); CPK CREATINE PHOSPHOKINASE 6944 U/L (39-308); CREATININE FOR GFR 1.46 MG/DL (0.70-1.30); GLOMERULAR FILTRATION RATE 48.9 (>35); GLUCOSE, FASTING 154 MG/DL (83-110); MAGNESIUM LEVEL 2.1 MG/DL (1.8-2.4); SODIUM LEVEL 141 MEQ/L (136-145); TOTAL PROTEIN 6.2 GM/DL (6.4-8.2)
[2017-03-17] MEDS: HumaLOG INSULIN (NovoLOG) PER UNIT SC ×4 (08:40→21:00)
[2017-03-17] MEDS: TIMOLOL MALEATE 0.5% OPHTH SOLN 5 ML OU (08:41)
[2017-03-17] MEDS: SOTALOL HCL 80 MG TAB PO ×2 (09:00→23:13)
[2017-03-17 11:24] LABS: BILIRUBIN,DIRECT 0.3 MG/DL (0.0-0.2); FERRITIN 245 NG/ML (26-388); GAMMA GLUTAMYLTRANSPEPTIDASE 83 U/L (15-85); IRON (FE) 47 UG/DL (65-175); TOTAL IRON BINDING CAPACITY 181 UG/DL (250-450)
[2017-03-17 12:05] LABS: BEDSIDE GLUCOSE 250 MG/DL (83-110)
[2017-03-17 14:11] LABS: LACTIC ACID SEPSIS PROTOCOL 1.7 MMOL/L (0.4-2.0)
[2017-03-17 14:23] LABS: CPK CREATINE PHOSPHOKINASE 6502 U/L (39-308)
[2017-03-17] MEDS: CEFTRIAXONE SOD 1 GM in APPROPRIATE DILUENT 1 EA IV (14:30)
[2017-03-17 17:10] LABS: BEDSIDE GLUCOSE 123 MG/DL (83-110)
[2017-03-17] MEDS: RIVAROXABAN 15 MG TAB (XARELTO) PO (17:50)
[2017-03-17] MEDS: LATANOPROST 0.005% OPHTH SOLN 2.5 ML OU (23:15)
[2017-03-17] MEDS: TERAZOSIN 1 MG CAP PO (23:15)
[2017-03-17 23:30] LABS: BEDSIDE GLUCOSE 120 MG/DL (83-110)
[2017-03-18] MEDS: MORPHINE 2 MG/ML 1ML SYRINGE IV (00:17)
[2017-03-18 05:31] LABS: HEMATOCRIT 34.4 % (42.0-52.0); HEMOGLOBIN 11.1 g/dl (14.0-18.0); MEAN CORPUSCULAR HEMOGLOBIN 30.4 pg (27.0-33.0); MEAN CORPUSCULAR HGB CONC 32.3 g/dl (32.0-36.5); MEAN CORPUSCULAR VOLUME 94.2 fl (80.0-96.0); PLATELET COUNT, AUTOMATED 155 10^3/uL (150-450); RED BLOOD COUNT 3.65 10^6/uL (4.30-6.10); RED CELL DISTRIBUTION WIDTH 14.6 % (11.5-14.5); WHITE BLOOD COUNT 12.2 10^3/uL (4.0-10.0)
[2017-03-18 05:56] LABS: ALBUMIN 2.3 GM/DL (3.2-5.2); ALBUMIN/GLOBULIN RATIO 0.59 (1.00-1.93); ALKALINE PHOSPHATASE 92 U/L (45-117); ALT/SGPT 101 U/L (12-78); ANION GAP 7 MEQ/L (8-16); AST/SGOT 292 U/L (7-37); BLOOD UREA NITROGEN 32 MG/DL (7-18); CALCIUM LEVEL 8.2 MG/DL (8.8-10.2); CARBON DIOXIDE LEVEL 26 MEQ/L (21-32); CHLORIDE LEVEL 108 MEQ/L (98-107); CHOLESTEROL LEVEL 83 MG/DL (<200); CHOLESTEROL RISK RATIO 3.458 (<5); CREATININE FOR GFR 1.03 MG/DL (0.70-1.30); GLOMERULAR FILTRATION RATE > 60.0 (>35); GLUCOSE, FASTING 108 MG/DL (83-110); HDL CHOLESTEROL 24 MG/DL (>40); LDL CHOLESTEROL 34.8 MG/DL (<100); MAGNESIUM LEVEL 2.2 MG/DL (1.8-2.4); NON-HDL-C 59 MG/DL; POTASSIUM SERUM 4.1 MEQ/L (3.5-5.1); SODIUM LEVEL 141 MEQ/L (136-145); TOTAL PROTEIN 6.2 GM/DL (6.4-8.2); TRIGLYCERIDES LEVEL 121 MG/DL (<150)
[2017-03-18] MEDS: TIMOLOL MALEATE 0.5% OPHTH SOLN 5 ML OU (08:27)
[2017-03-18] MEDS: HumaLOG INSULIN (NovoLOG) PER UNIT SC ×4 (08:28→21:00)
[2017-03-18] MEDS: ACETAMINOPHEN TAB 650MG DOSE (2X325MG) PO ×2 (08:29→22:13)
[2017-03-18] MEDS: SOTALOL HCL 80 MG TAB PO ×2 (08:29→22:14)
[2017-03-18] MEDS: GABAPENTIN 300 MG CAP PO ×3 (08:29→22:13)
[2017-03-18 09:40] LABS: ETHYL ALCOHOL (ETHANOL) < 0.003 % (0.000-0.010)
[2017-03-18 10:10] LABS: CPK CREATINE PHOSPHOKINASE 5008 U/L (39-308)
[2017-03-18 12:52] LABS: BEDSIDE GLUCOSE 177 MG/DL (83-110)
[2017-03-18] MEDS: AZITHROMYCIN 250 MG TAB PO (15:11)
[2017-03-18] MEDS: CEFTRIAXONE SOD 1 GM in APPROPRIATE DILUENT 1 EA IV (15:11)
[2017-03-18] MEDS: PERCOCET 5MG/325MG TAB PO (15:12)
[2017-03-18 16:58] LABS: BEDSIDE GLUCOSE 91 MG/DL (83-110)
[2017-03-18] MEDS: RIVAROXABAN 15 MG TAB (XARELTO) PO (18:27)
[2017-03-18 20:19] LABS: BEDSIDE GLUCOSE 141 MG/DL (83-110)
[2017-03-18] MEDS: TERAZOSIN 1 MG CAP PO (22:14)
[2017-03-18] MEDS: LATANOPROST 0.005% OPHTH SOLN 2.5 ML OU (22:15)
[2017-03-19 05:45] LABS: HEMATOCRIT 35.6 % (42.0-52.0); HEMOGLOBIN 11.6 g/dl (14.0-18.0); MEAN CORPUSCULAR HEMOGLOBIN 30.9 pg (27.0-33.0); MEAN CORPUSCULAR HGB CONC 32.6 g/dl (32.0-36.5); MEAN CORPUSCULAR VOLUME 94.9 fl (80.0-96.0); PLATELET COUNT, AUTOMATED 188 10^3/uL (150-450); RED BLOOD COUNT 3.75 10^6/uL (4.30-6.10); RED CELL DISTRIBUTION WIDTH 14.7 % (11.5-14.5); WHITE BLOOD COUNT 13.3 10^3/uL (4.0-10.0)
[2017-03-19 06:08] LABS: ALBUMIN 2.3 GM/DL (3.2-5.2); ALBUMIN/GLOBULIN RATIO 0.55 (1.00-1.93); ALKALINE PHOSPHATASE 102 U/L (45-117); ALT/SGPT 108 U/L (12-78); ANION GAP 7 MEQ/L (8-16); AST/SGOT 233 U/L (7-37); BILIRUBIN,TOTAL 0.9 MG/DL (0.2-1.0); BLOOD UREA NITROGEN 24 MG/DL (7-18); CALCIUM LEVEL 8.2 MG/DL (8.8-10.2); CARBON DIOXIDE LEVEL 26 MEQ/L (21-32); CHLORIDE LEVEL 110 MEQ/L (98-107); CREATININE FOR GFR 0.92 MG/DL (0.70-1.30); GLOMERULAR FILTRATION RATE > 60.0 (>35); GLUCOSE, FASTING 111 MG/DL (83-110); POTASSIUM SERUM 4.2 MEQ/L (3.5-5.1); SODIUM LEVEL 143 MEQ/L (136-145); TOTAL PROTEIN 6.5 GM/DL (6.4-8.2)
[2017-03-19] MEDS: PERCOCET 5MG/325MG TAB PO ×2 (07:16→20:50)
[2017-03-19 07:47] LABS: CPK CREATINE PHOSPHOKINASE 3121 U/L (39-308)
[2017-03-19] MEDS: HumaLOG INSULIN (NovoLOG) PER UNIT SC ×4 (08:24→21:00)
[2017-03-19] MEDS: GABAPENTIN 300 MG CAP PO ×3 (08:24→20:47)
[2017-03-19] MEDS: AZITHROMYCIN 250 MG TAB PO (08:24)
[2017-03-19] MEDS: SOTALOL HCL 80 MG TAB PO ×2 (08:24→20:51)
[2017-03-19] MEDS: TIMOLOL MALEATE 0.5% OPHTH SOLN 5 ML OU (08:25)
[2017-03-19] MEDS: guaiFENesin ER 600 MG TAB PO ×2 (09:23→20:50)
[2017-03-19] MEDS: BISACODYL 5 MG TAB PO (09:23)
[2017-03-19 12:13] LABS: BEDSIDE GLUCOSE 116 MG/DL (83-110)
[2017-03-19] MEDS ORDERED: LevoFLOXacin IV 750 MG in APPROPRIATE DILUENT 1 EA IV (13:00)
[2017-03-19 14:10] LABS: HEPATITIS B SURFACE ANTIGEN NEGATIVE (NEGATIVE)
[2017-03-19] MEDS: TRIAMCINOLONE ACET 0.1% OINTMENT 80 GM TOP ×2 (14:12→20:51)
[2017-03-19] MEDS: LevoFLOXacin IV 500 MG in APPROPRIATE DILUENT 1 EA IV (14:12)
[2017-03-19 14:39] LABS: HEPATITIS C VIRUS ABY INDEX 0.1 INDEX (<0.8)
[2017-03-19] MEDS: ACETAMINOPHEN TAB 650MG DOSE (2X325MG) PO (16:12)
[2017-03-19 17:33] LABS: BEDSIDE GLUCOSE 194 MG/DL (83-110)
[2017-03-19] MEDS: RIVAROXABAN 15 MG TAB (XARELTO) PO (17:34)
[2017-03-19] MEDS: TERAZOSIN 1 MG CAP PO (20:49)
[2017-03-19] MEDS: TAMSULOSIN 0.4 MG CAP PO (20:50)
[2017-03-19] MEDS: LATANOPROST 0.005% OPHTH SOLN 2.5 ML OU (20:51)
[2017-03-19 21:07] LABS: BEDSIDE GLUCOSE 79 MG/DL (83-110)
[2017-03-20] MEDS: ACETAMINOPHEN TAB 650MG DOSE (2X325MG) PO (04:32)
[2017-03-20 06:45] LABS: BEDSIDE GLUCOSE 121 MG/DL (83-110)
[2017-03-20 06:50] LABS: CHLORIDE LEVEL 108 MEQ/L (98-107); SODIUM LEVEL 141 MEQ/L (136-145)
[2017-03-20 06:52] LABS: CALCIUM LEVEL 8.1 MG/DL (8.8-10.2)
[2017-03-20 06:53] LABS: ALBUMIN 2.2 GM/DL (3.2-5.2); ANION GAP 9 MEQ/L (8-16); BLOOD UREA NITROGEN 24 MG/DL (7-18); CARBON DIOXIDE LEVEL 24 MEQ/L (21-32); GLUCOSE, FASTING 128 MG/DL (83-110)
[2017-03-20 06:56] LABS: ALT/SGPT 82 U/L (12-78); AST/SGOT 106 U/L (7-37); CREATININE FOR GFR 0.87 MG/DL (0.70-1.30); GLOMERULAR FILTRATION RATE > 60.0 (>35); HEMOGLOBIN 11.1 g/dl (14.0-18.0); MEAN CORPUSCULAR HEMOGLOBIN 30.7 pg (27.0-33.0); MEAN CORPUSCULAR HGB CONC 32.6 g/dl (32.0-36.5); MEAN CORPUSCULAR VOLUME 93.9 fl (80.0-96.0); PLATELET COUNT, AUTOMATED 217 10^3/uL (150-450); RED BLOOD COUNT 3.62 10^6/uL (4.30-6.10); RED CELL DISTRIBUTION WIDTH 14.9 % (11.5-14.5); WHITE BLOOD COUNT 10.7 10^3/uL (4.0-10.0)
[2017-03-20 06:57] LABS: BILIRUBIN,TOTAL 0.8 MG/DL (0.2-1.0)
[2017-03-20 06:58] LABS: ALBUMIN/GLOBULIN RATIO 0.54 (1.00-1.93); TOTAL PROTEIN 6.3 GM/DL (6.4-8.2)
[2017-03-20 06:59] LABS: ALKALINE PHOSPHATASE 92 U/L (45-117)
[2017-03-20] MEDS: GABAPENTIN 300 MG CAP PO ×3 (08:06→20:54)
[2017-03-20] MEDS: guaiFENesin ER 600 MG TAB PO ×2 (08:06→20:54)
[2017-03-20] MEDS: SOTALOL HCL 80 MG TAB PO ×2 (08:07→20:55)
[2017-03-20] MEDS: BISACODYL 5 MG TAB PO (08:07)
[2017-03-20] MEDS: HumaLOG INSULIN (NovoLOG) PER UNIT SC ×4 (08:07→20:55)
[2017-03-20] MEDS: TIMOLOL MALEATE 0.5% OPHTH SOLN 5 ML OU (08:08)
[2017-03-20] MEDS: TRIAMCINOLONE ACET 0.1% OINTMENT 80 GM TOP ×2 (08:08→20:56)
[2017-03-20] MEDS: PERCOCET 5MG/325MG TAB PO ×3 (08:14→20:53)
[2017-03-20 11:27] LABS: CPK CREATINE PHOSPHOKINASE 1024 U/L (39-308)
[2017-03-20 12:09] LABS: BEDSIDE GLUCOSE 129 MG/DL (83-110)
[2017-03-20] MEDS: LevoFLOXacin IV 500 MG in APPROPRIATE DILUENT 1 EA IV (14:32)
[2017-03-20 16:45] LABS: BEDSIDE GLUCOSE 132 MG/DL (83-110)
[2017-03-20] MEDS: RIVAROXABAN 15 MG TAB (XARELTO) PO (17:04)
[2017-03-20] MEDS: TERAZOSIN 1 MG CAP PO (20:54)
[2017-03-20] MEDS: TAMSULOSIN 0.4 MG CAP PO (20:54)
[2017-03-20] MEDS: LATANOPROST 0.005% OPHTH SOLN 2.5 ML OU (20:56)
[2017-03-20 21:11] LABS: BEDSIDE GLUCOSE 93 MG/DL (83-110)
[2017-03-21 05:51] LABS: HEMATOCRIT 32.1 % (42.0-52.0); HEMOGLOBIN 10.3 g/dl (14.0-18.0); MEAN CORPUSCULAR HEMOGLOBIN 30.7 pg (27.0-33.0); MEAN CORPUSCULAR HGB CONC 32.1 g/dl (32.0-36.5); MEAN CORPUSCULAR VOLUME 95.8 fl (80.0-96.0); PLATELET COUNT, AUTOMATED 249 10^3/uL (150-450); RED BLOOD COUNT 3.35 10^6/uL (4.30-6.10); RED CELL DISTRIBUTION WIDTH 15.2 % (11.5-14.5); WHITE BLOOD COUNT 12.7 10^3/uL (4.0-10.0)
[2017-03-21 06:10] LABS: ALBUMIN/GLOBULIN RATIO 0.48 (1.00-1.93); ALKALINE PHOSPHATASE 91 U/L (45-117); ALT/SGPT 66 U/L (12-78); ANION GAP 7 MEQ/L (8-16); AST/SGOT 68 U/L (7-37); BILIRUBIN,TOTAL 0.7 MG/DL (0.2-1.0); BLOOD UREA NITROGEN 23 MG/DL (7-18); CARBON DIOXIDE LEVEL 26 MEQ/L (21-32); CHLORIDE LEVEL 106 MEQ/L (98-107); CPK CREATINE PHOSPHOKINASE 571 U/L (39-308); CREATININE FOR GFR 0.87 MG/DL (0.70-1.30); GLOMERULAR FILTRATION RATE > 60.0 (>35); GLUCOSE, FASTING 103 MG/DL (83-110); POTASSIUM SERUM 4.1 MEQ/L (3.5-5.1); SODIUM LEVEL 139 MEQ/L (136-145); TOTAL PROTEIN 6.2 GM/DL (6.4-8.2)
[2017-03-21] MEDS: SOTALOL HCL 80 MG TAB PO ×2 (08:26→22:01)
[2017-03-21] MEDS: HumaLOG INSULIN (NovoLOG) PER UNIT SC ×4 (08:26→21:00)
[2017-03-21] MEDS: BISACODYL 5 MG TAB PO (08:27)
[2017-03-21] MEDS: GABAPENTIN 300 MG CAP PO ×3 (08:27→22:00)
[2017-03-21] MEDS: guaiFENesin ER 600 MG TAB PO ×2 (08:27→22:01)
[2017-03-21] MEDS: PERCOCET 5MG/325MG TAB PO ×2 (08:28→16:13)
[2017-03-21] MEDS: MIRALAX *UNIT DOSE* 17GM PACKET PO (08:32)
[2017-03-21] MEDS: TIMOLOL MALEATE 0.5% OPHTH SOLN 5 ML OU (08:32)
[2017-03-21] MEDS: TRIAMCINOLONE ACET 0.1% OINTMENT 80 GM TOP ×2 (08:32→22:02)
[2017-03-21] MEDS ORDERED: MIRALAX *UNIT DOSE* 17GM PACKET PO (09:00)
[2017-03-21] MEDS: LevoFLOXacin IV 500 MG in APPROPRIATE DILUENT 1 EA IV (13:59)
[2017-03-21] MEDS: LACTULOSE 20 GM/30 ML SYRUP UD PO ×2 (14:48→17:54)
[2017-03-21] MEDS: SANTYL OINT 30GM TOP (14:49)
[2017-03-21 16:27] LABS: BEDSIDE GLUCOSE 103 MG/DL (83-110)
[2017-03-21] MEDS: RIVAROXABAN 15 MG TAB (XARELTO) PO (17:54)
[2017-03-21 17:55] LABS: BEDSIDE GLUCOSE 105 MG/DL (83-110)
[2017-03-21] MEDS: TERAZOSIN 1 MG CAP PO (22:00)
[2017-03-21] MEDS: TAMSULOSIN 0.4 MG CAP PO (22:01)
[2017-03-21] MEDS: ACETAMINOPHEN TAB 650MG DOSE (2X325MG) PO (22:01)
[2017-03-21] MEDS: LATANOPROST 0.005% OPHTH SOLN 2.5 ML OU (22:03)
[2017-03-21 22:22] LABS: BEDSIDE GLUCOSE 149 MG/DL (83-110)
[2017-03-22] MEDS: LACTULOSE 20 GM/30 ML SYRUP UD PO ×4 (00:04→18:10)
[2017-03-22] MEDS: PERCOCET 5MG/325MG TAB PO ×4 (00:05→21:14)
[2017-03-22 06:10] LABS: HEMATOCRIT 31.9 % (42.0-52.0); HEMOGLOBIN 10.4 g/dl (14.0-18.0); MEAN CORPUSCULAR HEMOGLOBIN 31.2 pg (27.0-33.0); MEAN CORPUSCULAR HGB CONC 32.6 g/dl (32.0-36.5); MEAN CORPUSCULAR VOLUME 95.8 fl (80.0-96.0); PLATELET COUNT, AUTOMATED 294 10^3/uL (150-450); RED BLOOD COUNT 3.33 10^6/uL (4.30-6.10); RED CELL DISTRIBUTION WIDTH 15.1 % (11.5-14.5); WHITE BLOOD COUNT 11.9 10^3/uL (4.0-10.0)
[2017-03-22 06:15] LABS: ALBUMIN 1.9 GM/DL (3.2-5.2); ALBUMIN/GLOBULIN RATIO 0.43 (1.00-1.93); ALKALINE PHOSPHATASE 101 U/L (45-117); ALT/SGPT 59 U/L (12-78); ANION GAP 7 MEQ/L (8-16); AST/SGOT 59 U/L (7-37); BILIRUBIN,TOTAL 0.7 MG/DL (0.2-1.0); BLOOD UREA NITROGEN 18 MG/DL (7-18); CALCIUM LEVEL 8.1 MG/DL (8.8-10.2); CARBON DIOXIDE LEVEL 23 MEQ/L (21-32); CHLORIDE LEVEL 107 MEQ/L (98-107); CPK CREATINE PHOSPHOKINASE 369 U/L (39-308); CREATININE FOR GFR 0.75 MG/DL (0.70-1.30); GLOMERULAR FILTRATION RATE > 60.0 (>35); GLUCOSE, FASTING 107 MG/DL (83-110); MAGNESIUM LEVEL 2.1 MG/DL (1.8-2.4); SODIUM LEVEL 137 MEQ/L (136-145); TOTAL PROTEIN 6.3 GM/DL (6.4-8.2)
[2017-03-22] MEDS: LevoFLOXacin 500 MG TABLET PO (06:27)
[2017-03-22] MEDS: SOTALOL HCL 80 MG TAB PO ×2 (08:44→21:13)
[2017-03-22] MEDS: GABAPENTIN 300 MG CAP PO ×3 (08:44→21:12)
[2017-03-22] MEDS: BISACODYL 5 MG TAB PO (08:44)
[2017-03-22] MEDS: guaiFENesin ER 600 MG TAB PO ×2 (08:44→21:12)
[2017-03-22] MEDS ORDERED: LEVALBUTEROL 1.25 MG/0.5 ML CONCENTRATE NEB INH (08:45)
[2017-03-22] MEDS: HumaLOG INSULIN (NovoLOG) PER UNIT SC ×4 (08:45→21:00)
[2017-03-22] MEDS: TIMOLOL MALEATE 0.5% OPHTH SOLN 5 ML OU (08:48)
[2017-03-22] MEDS: TRIAMCINOLONE ACET 0.1% OINTMENT 80 GM TOP ×2 (08:49→21:00)
[2017-03-22] MEDS: MIRALAX *UNIT DOSE* 17GM PACKET PO (09:00)
[2017-03-22 11:52] LABS: BEDSIDE GLUCOSE 87 MG/DL (83-110)
[2017-03-22] MEDS: SANTYL OINT 30GM TOP (15:22)
[2017-03-22 17:24] LABS: BEDSIDE GLUCOSE 95 MG/DL (83-110)
[2017-03-22] MEDS: RIVAROXABAN 15 MG TAB (XARELTO) PO (18:10)
[2017-03-22] MEDS: LATANOPROST 0.005% OPHTH SOLN 2.5 ML OU (21:00)
[2017-03-22 21:10] LABS: BEDSIDE GLUCOSE 152 MG/DL (83-110)
[2017-03-22] MEDS: TAMSULOSIN 0.4 MG CAP PO (21:12)
[2017-03-22] MEDS: TERAZOSIN 1 MG CAP PO (21:13)
[2017-03-23] MEDS: LACTULOSE 20 GM/30 ML SYRUP UD PO ×2 (06:01)
[2017-03-23] MEDS: LevoFLOXacin 500 MG TABLET PO (06:01)
[2017-03-23 06:03] LABS: HEMATOCRIT 30.6 % (42.0-52.0); HEMOGLOBIN 9.9 g/dl (14.0-18.0); MEAN CORPUSCULAR HEMOGLOBIN 30.6 pg (27.0-33.0); MEAN CORPUSCULAR HGB CONC 32.4 g/dl (32.0-36.5); MEAN CORPUSCULAR VOLUME 94.4 fl (80.0-96.0); PLATELET COUNT, AUTOMATED 398 10^3/uL (150-450); RED BLOOD COUNT 3.24 10^6/uL (4.30-6.10); WHITE BLOOD COUNT 12.3 10^3/uL (4.0-10.0)
[2017-03-23 06:29] LABS: ALBUMIN 1.9 GM/DL (3.2-5.2); ALBUMIN/GLOBULIN RATIO 0.42 (1.00-1.93); ALKALINE PHOSPHATASE 108 U/L (45-117); ALT/SGPT 49 U/L (12-78); ANION GAP 10 MEQ/L (8-16); AST/SGOT 41 U/L (7-37); BILIRUBIN,TOTAL 0.7 MG/DL (0.2-1.0); BLOOD UREA NITROGEN 16 MG/DL (7-18); CALCIUM LEVEL 8.4 MG/DL (8.8-10.2); CARBON DIOXIDE LEVEL 23 MEQ/L (21-32); CHLORIDE LEVEL 106 MEQ/L (98-107); CPK CREATINE PHOSPHOKINASE 261 U/L (39-308); CREATININE FOR GFR 0.71 MG/DL (0.70-1.30); GLOMERULAR FILTRATION RATE > 60.0 (>35); GLUCOSE, FASTING 105 MG/DL (83-110); SODIUM LEVEL 139 MEQ/L (136-145); TOTAL PROTEIN 6.4 GM/DL (6.4-8.2)
[2017-03-23] MEDS: HumaLOG INSULIN (NovoLOG) PER UNIT SC ×4 (07:30→21:01)
[2017-03-23] MEDS: GABAPENTIN 300 MG CAP PO ×3 (09:48→21:50)
[2017-03-23] MEDS: guaiFENesin ER 600 MG TAB PO ×2 (09:48→21:49)
[2017-03-23] MEDS: SANTYL OINT 30GM TOP (09:48)
[2017-03-23] MEDS: SOTALOL HCL 80 MG TAB PO ×2 (09:48→21:49)
[2017-03-23] MEDS: BISACODYL 5 MG TAB PO (09:49)
[2017-03-23] MEDS: MIRALAX *UNIT DOSE* 17GM PACKET PO (09:49)
[2017-03-23] MEDS: PERCOCET 5MG/325MG TAB PO ×2 (09:53→18:53)
[2017-03-23 12:06] LABS: BEDSIDE GLUCOSE 157 MG/DL (83-110)
[2017-03-23] MEDS: TIMOLOL MALEATE 0.5% OPHTH SOLN 5 ML OU (12:23)
[2017-03-23] MEDS: TRIAMCINOLONE ACET 0.1% OINTMENT 80 GM TOP ×2 (12:29→21:52)
[2017-03-23] MEDS: RIVAROXABAN 15 MG TAB (XARELTO) PO (17:07)
[2017-03-23 17:51] LABS: BEDSIDE GLUCOSE 118 MG/DL (83-110)
[2017-03-23 20:57] LABS: BEDSIDE GLUCOSE 142 MG/DL (83-110)
[2017-03-23] MEDS: TERAZOSIN 1 MG CAP PO (21:49)
[2017-03-23] MEDS: TAMSULOSIN 0.4 MG CAP PO (21:49)
[2017-03-23] MEDS: LATANOPROST 0.005% OPHTH SOLN 2.5 ML OU (21:50)
[2017-03-24] MEDS: LevoFLOXacin 500 MG TABLET PO (05:35)
[2017-03-24 06:36] LABS: BEDSIDE GLUCOSE 121 MG/DL (83-110)
[2017-03-24 06:42] LABS: CPK CREATINE PHOSPHOKINASE 219 U/L (39-308)
[2017-03-24] MEDS: HumaLOG INSULIN (NovoLOG) PER UNIT SC ×4 (07:30→21:00)
[2017-03-24 07:38] LABS: BLOOD UREA NITROGEN 15 MG/DL (7-18); CALCIUM LEVEL 8.4 MG/DL (8.8-10.2); CHLORIDE LEVEL 107 MEQ/L (98-107); CREATININE FOR GFR 0.76 MG/DL (0.70-1.30); GLUCOSE, FASTING 105 MG/DL (83-110); POTASSIUM SERUM 4.3 MEQ/L (3.5-5.1); SODIUM LEVEL 140 MEQ/L (136-145)
[2017-03-24 07:56] LABS: ANION GAP 9 MEQ/L (8-16); CARBON DIOXIDE LEVEL 24 MEQ/L (21-32)
[2017-03-24] MEDS: BISACODYL 5 MG TAB PO (08:31)
[2017-03-24] MEDS: guaiFENesin ER 600 MG TAB PO ×2 (08:31→20:46)
[2017-03-24] MEDS: MIRALAX *UNIT DOSE* 17GM PACKET PO (08:31)
[2017-03-24] MEDS: SOTALOL HCL 80 MG TAB PO ×2 (08:31→20:46)
[2017-03-24] MEDS: GABAPENTIN 300 MG CAP PO ×3 (08:31→20:46)
[2017-03-24] MEDS: TRIAMCINOLONE ACET 0.1% OINTMENT 80 GM TOP ×2 (08:35→20:47)
[2017-03-24] MEDS: SANTYL OINT 30GM TOP (08:35)
[2017-03-24] MEDS: TIMOLOL MALEATE 0.5% OPHTH SOLN 5 ML OU (08:35)
[2017-03-24] MEDS: BACITRACIN OINT 30GM TOP ×3 (09:00→20:47)
[2017-03-24] MEDS: PERCOCET 5MG/325MG TAB PO ×3 (09:19→21:22)
[2017-03-24] MEDS: SIMETHICONE 80 MG CHEW TAB PO ×4 (09:20→20:44)
[2017-03-24 11:55] LABS: BEDSIDE GLUCOSE 75 MG/DL (83-110)
[2017-03-24 16:37] LABS: BEDSIDE GLUCOSE 143 MG/DL (83-110)
[2017-03-24] MEDS: RIVAROXABAN 15 MG TAB (XARELTO) PO (17:57)
[2017-03-24 20:33] LABS: BEDSIDE GLUCOSE 87 MG/DL (83-110)
[2017-03-24] MEDS: TAMSULOSIN 0.4 MG CAP PO (20:45)
[2017-03-24] MEDS: TERAZOSIN 1 MG CAP PO (20:45)
[2017-03-24] MEDS: LATANOPROST 0.005% OPHTH SOLN 2.5 ML OU (20:48)
[2017-03-25] MEDS: LevoFLOXacin 500 MG TABLET PO (05:25)
[2017-03-25] MEDS: PERCOCET 5MG/325MG TAB PO ×2 (05:26→15:47)
[2017-03-25 06:11] LABS: HEMATOCRIT 30.1 % (42.0-52.0); HEMOGLOBIN 9.9 g/dl (14.0-18.0); MEAN CORPUSCULAR HGB CONC 32.9 g/dl (32.0-36.5); MEAN CORPUSCULAR VOLUME 94.4 fl (80.0-96.0); PLATELET COUNT, AUTOMATED 451 10^3/uL (150-450); RED BLOOD COUNT 3.19 10^6/uL (4.30-6.10); WHITE BLOOD COUNT 13.5 10^3/uL (4.0-10.0)
[2017-03-25 06:27] LABS: ALBUMIN 1.9 GM/DL (3.2-5.2); ALBUMIN/GLOBULIN RATIO 0.43 (1.00-1.93); ALKALINE PHOSPHATASE 107 U/L (45-117); ALT/SGPT 32 U/L (12-78); ANION GAP 8 MEQ/L (8-16); AST/SGOT 29 U/L (7-37); BILIRUBIN,TOTAL 0.6 MG/DL (0.2-1.0); BLOOD UREA NITROGEN 17 MG/DL (7-18); CALCIUM LEVEL 7.8 MG/DL (8.8-10.2); CARBON DIOXIDE LEVEL 25 MEQ/L (21-32); CHLORIDE LEVEL 105 MEQ/L (98-107); CPK CREATINE PHOSPHOKINASE 137 U/L (39-308); CREATININE FOR GFR 0.79 MG/DL (0.70-1.30); GLOMERULAR FILTRATION RATE > 60.0 (>35); GLUCOSE, FASTING 115 MG/DL (83-110); POTASSIUM SERUM 4.3 MEQ/L (3.5-5.1); SODIUM LEVEL 138 MEQ/L (136-145); TOTAL PROTEIN 6.3 GM/DL (6.4-8.2)
[2017-03-25] MEDS: HumaLOG INSULIN (NovoLOG) PER UNIT SC ×4 (07:30→20:31)
[2017-03-25] MEDS: guaiFENesin ER 600 MG TAB PO ×2 (08:15→20:26)
[2017-03-25] MEDS: MIRALAX *UNIT DOSE* 17GM PACKET PO (08:15)
[2017-03-25] MEDS: SOTALOL HCL 80 MG TAB PO ×2 (08:16→20:27)
[2017-03-25] MEDS: SIMETHICONE 80 MG CHEW TAB PO ×4 (08:16→20:26)
[2017-03-25] MEDS: BISACODYL 5 MG TAB PO (08:16)
[2017-03-25] MEDS: GABAPENTIN 300 MG CAP PO ×3 (08:16→20:27)
[2017-03-25] MEDS: BACITRACIN OINT 30GM TOP ×3 (08:17→20:28)
[2017-03-25] MEDS: SANTYL OINT 30GM TOP (08:18)
[2017-03-25] MEDS: TRIAMCINOLONE ACET 0.1% OINTMENT 80 GM TOP ×2 (08:18→20:28)
[2017-03-25] MEDS: TIMOLOL MALEATE 0.5% OPHTH SOLN 5 ML OU (08:18)
[2017-03-25 12:14] LABS: BEDSIDE GLUCOSE 140 MG/DL (83-110)
[2017-03-25 16:32] LABS: BEDSIDE GLUCOSE 135 MG/DL (83-110)
[2017-03-25] MEDS: RIVAROXABAN 15 MG TAB (XARELTO) PO (17:39)
[2017-03-25] MEDS: FAMOTIDINE 20 MG TAB PO (20:26)
[2017-03-25] MEDS: TERAZOSIN 1 MG CAP PO (20:26)
[2017-03-25] MEDS: TAMSULOSIN 0.4 MG CAP PO (20:26)
[2017-03-25] MEDS: LATANOPROST 0.005% OPHTH SOLN 2.5 ML OU (20:29)
[2017-03-25 21:04] LABS: BEDSIDE GLUCOSE 131 MG/DL (83-110)
[2017-03-26] MEDS: PERCOCET 5MG/325MG TAB PO ×3 (02:30→18:33)
[2017-03-26] MEDS: LevoFLOXacin 500 MG TABLET PO (05:56)
[2017-03-26 06:59] LABS: HEMATOCRIT 29.7 % (42.0-52.0); HEMOGLOBIN 9.7 g/dl (14.0-18.0); MEAN CORPUSCULAR HEMOGLOBIN 30.5 pg (27.0-33.0); MEAN CORPUSCULAR HGB CONC 32.7 g/dl (32.0-36.5); MEAN CORPUSCULAR VOLUME 93.4 fl (80.0-96.0); PLATELET COUNT, AUTOMATED 512 10^3/uL (150-450); RED BLOOD COUNT 3.18 10^6/uL (4.30-6.10); WHITE BLOOD COUNT 12.3 10^3/uL (4.0-10.0)
[2017-03-26 07:32] LABS: ALBUMIN 1.8 GM/DL (3.2-5.2); ALKALINE PHOSPHATASE 95 U/L (45-117); ALT/SGPT 27 U/L (12-78); ANION GAP 8 MEQ/L (8-16); AST/SGOT 24 U/L (7-37); BILIRUBIN,TOTAL 0.7 MG/DL (0.2-1.0); BLOOD UREA NITROGEN 18 MG/DL (7-18); CALCIUM LEVEL 8.3 MG/DL (8.8-10.2); CARBON DIOXIDE LEVEL 25 MEQ/L (21-32); CHLORIDE LEVEL 104 MEQ/L (98-107); CREATININE FOR GFR 0.82 MG/DL (0.70-1.30); GLOMERULAR FILTRATION RATE > 60.0 (>35); GLUCOSE, FASTING 102 MG/DL (83-110); POTASSIUM SERUM 4.2 MEQ/L (3.5-5.1); SODIUM LEVEL 137 MEQ/L (136-145); TOTAL PROTEIN 6.3 GM/DL (6.4-8.2)
[2017-03-26] MEDS: SIMETHICONE 80 MG CHEW TAB PO ×4 (08:15→21:03)
[2017-03-26] MEDS: GABAPENTIN 300 MG CAP PO ×3 (08:15→21:00)
[2017-03-26] MEDS: guaiFENesin ER 600 MG TAB PO ×2 (08:18→21:00)
[2017-03-26] MEDS: FAMOTIDINE 20 MG TAB PO ×2 (08:18→21:01)
[2017-03-26] MEDS: SOTALOL HCL 80 MG TAB PO ×2 (08:19→21:03)
[2017-03-26] MEDS: BISACODYL 5 MG TAB PO (08:19)
[2017-03-26] MEDS: MIRALAX *UNIT DOSE* 17GM PACKET PO (08:19)
[2017-03-26] MEDS: SANTYL OINT 30GM TOP (08:19)
[2017-03-26] MEDS: BACITRACIN OINT 30GM TOP ×3 (08:20→21:05)
[2017-03-26] MEDS: TIMOLOL MALEATE 0.5% OPHTH SOLN 5 ML OU (08:20)
[2017-03-26] MEDS: HumaLOG INSULIN (NovoLOG) PER UNIT SC ×4 (08:21→21:00)
[2017-03-26 11:37] LABS: BEDSIDE GLUCOSE 118 MG/DL (83-110)
[2017-03-26 16:53] LABS: BEDSIDE GLUCOSE 164 MG/DL (83-110)
[2017-03-26] MEDS: RIVAROXABAN 15 MG TAB (XARELTO) PO (17:09)
[2017-03-26 20:43] LABS: BEDSIDE GLUCOSE 106 MG/DL (83-110)
[2017-03-26] MEDS: TAMSULOSIN 0.4 MG CAP PO (21:01)
[2017-03-26] MEDS: TERAZOSIN 1 MG CAP PO (21:02)
[2017-03-26] MEDS: LATANOPROST 0.005% OPHTH SOLN 2.5 ML OU (21:04)
[2017-03-27] MEDS: LevoFLOXacin 500 MG TABLET PO (05:55)
[2017-03-27 06:32] LABS: HEMATOCRIT 29.8 % (42.0-52.0); HEMOGLOBIN 9.8 g/dl (14.0-18.0); MEAN CORPUSCULAR HGB CONC 32.9 g/dl (32.0-36.5); MEAN CORPUSCULAR VOLUME 94.3 fl (80.0-96.0); PLATELET COUNT, AUTOMATED 549 10^3/uL (150-450); RED BLOOD COUNT 3.16 10^6/uL (4.30-6.10); RED CELL DISTRIBUTION WIDTH 15.2 % (11.5-14.5); WHITE BLOOD COUNT 12.6 10^3/uL (4.0-10.0)
[2017-03-27 07:07] LABS: ALBUMIN 1.9 GM/DL (3.2-5.2); ALBUMIN/GLOBULIN RATIO 0.39 (1.00-1.93); ALKALINE PHOSPHATASE 98 U/L (45-117); ALT/SGPT 25 U/L (12-78); ANION GAP 9 MEQ/L (8-16); AST/SGOT 30 U/L (7-37); BILIRUBIN,TOTAL 0.6 MG/DL (0.2-1.0); BLOOD UREA NITROGEN 19 MG/DL (7-18); CALCIUM LEVEL 8.4 MG/DL (8.8-10.2); CARBON DIOXIDE LEVEL 25 MEQ/L (21-32); CHLORIDE LEVEL 102 MEQ/L (98-107); CREATININE FOR GFR 0.83 MG/DL (0.70-1.30); GLOMERULAR FILTRATION RATE > 60.0 (>35); GLUCOSE, FASTING 101 MG/DL (70-100); POTASSIUM SERUM 4.2 MEQ/L (3.5-5.1); SODIUM LEVEL 136 MEQ/L (136-145); TOTAL PROTEIN 6.8 GM/DL (6.4-8.2)
[2017-03-27] MEDS: HumaLOG INSULIN (NovoLOG) PER UNIT SC ×4 (08:58→21:00)
[2017-03-27] MEDS: FAMOTIDINE 20 MG TAB PO ×2 (08:58→21:26)
[2017-03-27] MEDS: SIMETHICONE 80 MG CHEW TAB PO ×4 (08:58→21:26)
[2017-03-27] MEDS: GABAPENTIN 300 MG CAP PO ×3 (08:58→21:26)
[2017-03-27] MEDS: BISACODYL 5 MG TAB PO (08:59)
[2017-03-27] MEDS: MIRALAX *UNIT DOSE* 17GM PACKET PO (08:59)
[2017-03-27] MEDS: SOTALOL HCL 80 MG TAB PO ×2 (08:59→21:27)
[2017-03-27] MEDS: TIMOLOL MALEATE 0.5% OPHTH SOLN 5 ML OU (09:00)
[2017-03-27] MEDS: guaiFENesin ER 600 MG TAB PO ×2 (09:00→21:26)
[2017-03-27] MEDS: SANTYL OINT 30GM TOP (10:00)
[2017-03-27] MEDS: BACITRACIN OINT 30GM TOP ×3 (10:00→21:26)
[2017-03-27] MEDS: PERCOCET 5MG/325MG TAB PO ×3 (10:33→23:41)
[2017-03-27 13:23] LABS: BEDSIDE GLUCOSE 111 MG/DL (83-110)
[2017-03-27] MEDS ORDERED: VANCOMYCIN HCL 1,000 MG in D5W 0 ML IV (15:00)
[2017-03-27] MEDS: MEROPENEM INJ 1 GM in APPROPRIATE DILUENT 1 EA IV ×2 (15:14→21:25)
[2017-03-27 15:36] LABS: APPEARANCE, URINE HAZY (CLEAR); BACTERIA, URINE AUTO NEGATIVE (NEGATIVE); BILIRUBIN, URINE AUTO NEGATIVE (NEGATIVE); BLOOD, URINE BLOOD 1+ (NEGATIVE); COLOR, URINE YELLOW (YELLOW); GLUCOSE, URINE (UA) AUTO NEGATIVE (NEGATIVE); KETONE, URINE AUTO NEGATIVE (NEGATIVE); LEUKOCYTE ESTERASE, URINE AUTO NEGATIVE (NEGATIVE); MUCUS, URINE SMALL (NEGATIVE); NITRITE, URINE AUTO NEGATIVE (NEGATIVE); PROTEIN, URINE AUTO 1+ mg/dL (NEGATIVE); RBC, URINE AUTO 15 /HPF (0-3); SPECIFIC GRAVITY URINE AUTO 1.025 (1.002-1.035); SQUAMOUS EPITHELIAL CELL UR AU 0 /HPF (0-6); WBC, URINE AUTO 2 /HPF (0-3)
[2017-03-27 16:22] LABS: BEDSIDE GLUCOSE 131 MG/DL (83-110)
[2017-03-27] MEDS: VANCOMYCIN HCL 1,000 MG, VIAL MATE ADAPTER 1 EACH in D5W 250 ML IV (16:40)
[2017-03-27] MEDS: RIVAROXABAN 15 MG TAB (XARELTO) PO (17:05)
[2017-03-27 20:55] LABS: BEDSIDE GLUCOSE 164 MG/DL (83-110)
[2017-03-27] MEDS: LATANOPROST 0.005% OPHTH SOLN 2.5 ML OU (21:25)
[2017-03-27] MEDS: TAMSULOSIN 0.4 MG CAP PO (21:26)
[2017-03-27] MEDS: TERAZOSIN 1 MG CAP PO (21:27)
[2017-03-28] MEDS: MEROPENEM INJ 1 GM in APPROPRIATE DILUENT 1 EA IV ×3 (05:41→22:58)
[2017-03-28 07:12] LABS: MEAN CORPUSCULAR HGB CONC 32.3 g/dl (32.0-36.5); MEAN CORPUSCULAR VOLUME 93.1 fl (80.0-96.0); PLATELET COUNT, AUTOMATED 606 10^3/uL (150-450); RED BLOOD COUNT 3.33 10^6/uL (4.30-6.10)
[2017-03-28 07:33] LABS: ALBUMIN 1.9 GM/DL (3.2-5.2); ALBUMIN/GLOBULIN RATIO 0.39 (1.00-1.93); ALKALINE PHOSPHATASE 110 U/L (45-117); ALT/SGPT 25 U/L (12-78); ANION GAP 6 MEQ/L (8-16); AST/SGOT 33 U/L (7-37); BILIRUBIN,TOTAL 0.6 MG/DL (0.2-1.0); BLOOD UREA NITROGEN 16 MG/DL (7-18); CALCIUM LEVEL 8.2 MG/DL (8.8-10.2); CARBON DIOXIDE LEVEL 27 MEQ/L (21-32); CHLORIDE LEVEL 104 MEQ/L (98-107); CREATININE FOR GFR 0.81 MG/DL (0.70-1.30); GLOMERULAR FILTRATION RATE > 60.0 (>35); GLUCOSE, FASTING 109 MG/DL (70-100); POTASSIUM SERUM 4.5 MEQ/L (3.5-5.1); SODIUM LEVEL 137 MEQ/L (136-145); TOTAL PROTEIN 6.8 GM/DL (6.4-8.2)
[2017-03-28] MEDS: HumaLOG INSULIN (NovoLOG) PER UNIT SC ×4 (08:27→21:00)
[2017-03-28] MEDS: BACITRACIN OINT 30GM TOP ×3 (09:00→20:14)
[2017-03-28] MEDS: SANTYL OINT 30GM TOP (09:00)
[2017-03-28] MEDS: GABAPENTIN 300 MG CAP PO ×3 (09:23→20:12)
[2017-03-28] MEDS: SOTALOL HCL 80 MG TAB PO ×2 (09:24→20:11)
[2017-03-28] MEDS: guaiFENesin ER 600 MG TAB PO ×2 (09:24→20:11)
[2017-03-28] MEDS: FAMOTIDINE 20 MG TAB PO ×2 (09:24→20:13)
[2017-03-28] MEDS: MIRALAX *UNIT DOSE* 17GM PACKET PO (09:24)
[2017-03-28] MEDS: BISACODYL 5 MG TAB PO (09:24)
[2017-03-28] MEDS: SIMETHICONE 80 MG CHEW TAB PO ×4 (09:24→20:13)
[2017-03-28] MEDS: TIMOLOL MALEATE 0.5% OPHTH SOLN 5 ML OU (09:25)
[2017-03-28] MEDS: ACETAMINOPHEN TAB 650MG DOSE (2X325MG) PO ×2 (10:09→22:58)
[2017-03-28] MEDS: PERCOCET 5MG/325MG TAB PO (10:57)
[2017-03-28 12:02] LABS: BEDSIDE GLUCOSE 129 MG/DL (83-110)
[2017-03-28] MEDS: VANCOMYCIN HCL 1,000 MG, VIAL MATE ADAPTER 1 EACH in D5W 250 ML IV (12:03)
[2017-03-28] MEDS ORDERED: DIAPER RELIEF PASTE (DESITIN) 60GM TOP ×2 (16:00→17:00)
[2017-03-28 16:45] LABS: BEDSIDE GLUCOSE 141 MG/DL (83-110)
[2017-03-28] MEDS: RIVAROXABAN 15 MG TAB (XARELTO) PO (17:31)
[2017-03-28] MEDS: oxyCODONE 5MG TAB PO (17:31)
[2017-03-28] MEDS: TAMSULOSIN 0.4 MG CAP PO (20:12)
[2017-03-28] MEDS: TERAZOSIN 1 MG CAP PO (20:12)
[2017-03-28] MEDS: TRIAMCINOLONE ACET 0.1% OINTMENT 80 GM TOP (20:14)
[2017-03-28] MEDS: LATANOPROST 0.005% OPHTH SOLN 2.5 ML OU (20:15)
[2017-03-28 20:41] LABS: BEDSIDE GLUCOSE 147 MG/DL (83-110)
[2017-03-29] MEDS: VANCOMYCIN HCL 1,000 MG, VIAL MATE ADAPTER 1 EACH in D5W 250 ML IV ×2 (04:34→23:12)
[2017-03-29] MEDS: MEROPENEM INJ 1 GM in APPROPRIATE DILUENT 1 EA IV ×3 (05:26→21:30)
[2017-03-29 07:16] LABS: HEMOGLOBIN 9.1 g/dl (14.0-18.0); MEAN CORPUSCULAR HEMOGLOBIN 30.7 pg (27.0-33.0); MEAN CORPUSCULAR HGB CONC 32.5 g/dl (32.0-36.5); MEAN CORPUSCULAR VOLUME 94.6 fl (80.0-96.0); PLATELET COUNT, AUTOMATED 566 10^3/uL (150-450); RED BLOOD COUNT 2.96 10^6/uL (4.30-6.10); WHITE BLOOD COUNT 12.4 10^3/uL (4.0-10.0)
[2017-03-29 07:35] LABS: ALBUMIN 1.7 GM/DL (3.2-5.2); ALBUMIN/GLOBULIN RATIO 0.37 (1.00-1.93); ALKALINE PHOSPHATASE 101 U/L (45-117); ALT/SGPT 23 U/L (12-78); ANION GAP 6 MEQ/L (8-16); AST/SGOT 30 U/L (7-37); BILIRUBIN,TOTAL 0.5 MG/DL (0.2-1.0); BLOOD UREA NITROGEN 19 MG/DL (7-18); CALCIUM LEVEL 8.2 MG/DL (8.8-10.2); CARBON DIOXIDE LEVEL 27 MEQ/L (21-32); CHLORIDE LEVEL 103 MEQ/L (98-107); CREATININE FOR GFR 0.85 MG/DL (0.70-1.30); GLOMERULAR FILTRATION RATE > 60.0 (>35); GLUCOSE, FASTING 123 MG/DL (70-100); POTASSIUM SERUM 4.1 MEQ/L (3.5-5.1); SODIUM LEVEL 136 MEQ/L (136-145); TOTAL PROTEIN 6.3 GM/DL (6.4-8.2)
[2017-03-29 07:47] LABS: BEDSIDE GLUCOSE 111 MG/DL (83-110)
[2017-03-29] MEDS: HumaLOG INSULIN (NovoLOG) PER UNIT SC ×4 (08:13→20:36)
[2017-03-29] MEDS: SOTALOL HCL 80 MG TAB PO ×2 (09:24→20:34)
[2017-03-29] MEDS: GABAPENTIN 300 MG CAP PO ×3 (09:24→20:32)
[2017-03-29] MEDS: BISACODYL 5 MG TAB PO (09:24)
[2017-03-29] MEDS: MIRALAX *UNIT DOSE* 17GM PACKET PO (09:25)
[2017-03-29] MEDS: SIMETHICONE 80 MG CHEW TAB PO ×4 (09:25→20:33)
[2017-03-29] MEDS: FAMOTIDINE 20 MG TAB PO ×2 (09:25→20:34)
[2017-03-29] MEDS: guaiFENesin ER 600 MG TAB PO ×2 (09:25→20:34)
[2017-03-29] MEDS: oxyCODONE 5MG TAB PO ×3 (09:26→20:35)
[2017-03-29] MEDS: TIMOLOL MALEATE 0.5% OPHTH SOLN 5 ML OU (09:29)
[2017-03-29] MEDS: BACITRACIN OINT 30GM TOP ×3 (09:29→20:35)
[2017-03-29 11:38] LABS: BEDSIDE GLUCOSE 140 MG/DL (83-110)
[2017-03-29 13:22] LABS: URIC ACID 4.8 MG/DL (3.5-7.2)
[2017-03-29] MEDS: ACETAMINOPHEN TAB 650MG DOSE (2X325MG) PO (15:21)
[2017-03-29 16:50] LABS: BEDSIDE GLUCOSE 148 MG/DL (83-110)
[2017-03-29] MEDS: RIVAROXABAN 15 MG TAB (XARELTO) PO (17:09)
[2017-03-29] MEDS: TERAZOSIN 1 MG CAP PO (20:33)
[2017-03-29] MEDS: TAMSULOSIN 0.4 MG CAP PO (20:36)
[2017-03-29] MEDS: LATANOPROST 0.005% OPHTH SOLN 2.5 ML OU (20:36)
[2017-03-29 22:57] LABS: VANCOMYCIN LEVEL TROUGH 12.4 UG/ML (10.0-20.0)
[2017-03-29 23:00] LABS: BEDSIDE GLUCOSE 154 MG/DL (83-110)
[2017-03-30] MEDS: MEROPENEM INJ 1 GM in APPROPRIATE DILUENT 1 EA IV ×2 (05:43→15:16)
[2017-03-30 07:04] LABS: BASO # 0.1 10^3/uL (0.0-0.2); BASO % 0.5 % (0.0-1.0); EOS # 0.1 10^3/uL (0.0-0.50); EOS % 0.8 % (0.0-3.0); HEMATOCRIT 28.5 % (42.0-52.0); HEMOGLOBIN 9.2 g/dl (14.0-18.0); IMMATURE GRANULOCYTE # 0.1 10^3/uL (0-0); IMMATURE GRANULOCYTE % 0.8 % (0-0); LYMPH # 1.8 10^3/uL (1.5-4.5); LYMPH % 13.8 % (24.0-44.0); MEAN CORPUSCULAR HEMOGLOBIN 30.5 pg (27.0-33.0); MEAN CORPUSCULAR HGB CONC 32.3 g/dl (32.0-36.5); MEAN CORPUSCULAR VOLUME 94.4 fl (80.0-96.0); MONO # 1.6 10^3/uL (0.0-0.8); MONO % 12.4 % (0.0-5.0); NEUTROPHILS # 9.5 10^3/uL (1.8-7.7); NEUTROPHILS % 71.7 % (36.0-66.0); PLATELET COUNT, AUTOMATED 527 10^3/uL (150-450); RED BLOOD COUNT 3.02 10^6/uL (4.30-6.10); WHITE BLOOD COUNT 13.2 10^3/uL (4.0-10.0)
[2017-03-30 07:23] LABS: ALBUMIN 1.7 GM/DL (3.2-5.2); ALBUMIN/GLOBULIN RATIO 0.37 (1.00-1.93); ALKALINE PHOSPHATASE 104 U/L (45-117); ALT/SGPT 25 U/L (12-78); ANION GAP 5 MEQ/L (8-16); AST/SGOT 36 U/L (7-37); BILIRUBIN,TOTAL 0.5 MG/DL (0.2-1.0); BLOOD UREA NITROGEN 17 MG/DL (7-18); CARBON DIOXIDE LEVEL 26 MEQ/L (21-32); CHLORIDE LEVEL 103 MEQ/L (98-107); CREATININE FOR GFR 0.81 MG/DL (0.70-1.30); GLOMERULAR FILTRATION RATE > 60.0 (>35); GLUCOSE, FASTING 108 MG/DL (70-100); POTASSIUM SERUM 4.4 MEQ/L (3.5-5.1); SODIUM LEVEL 134 MEQ/L (136-145); TOTAL PROTEIN 6.3 GM/DL (6.4-8.2)
[2017-03-30] MEDS: BACITRACIN OINT 30GM TOP ×3 (09:00→21:54)
[2017-03-30] MEDS: HumaLOG INSULIN (NovoLOG) PER UNIT SC ×4 (09:05→21:53)
[2017-03-30] MEDS: MIRALAX *UNIT DOSE* 17GM PACKET PO (09:06)
[2017-03-30] MEDS: guaiFENesin ER 600 MG TAB PO ×2 (09:06→21:53)
[2017-03-30] MEDS: GABAPENTIN 300 MG CAP PO ×3 (09:06→21:53)
[2017-03-30] MEDS: SIMETHICONE 80 MG CHEW TAB PO ×4 (09:06→21:50)
[2017-03-30] MEDS: SOTALOL HCL 80 MG TAB PO ×2 (09:07→21:52)
[2017-03-30] MEDS: BISACODYL 5 MG TAB PO (09:07)
[2017-03-30] MEDS: TIMOLOL MALEATE 0.5% OPHTH SOLN 5 ML OU (09:08)
[2017-03-30] MEDS: FAMOTIDINE 20 MG TAB PO ×2 (09:09→21:52)
[2017-03-30 10:33] LABS: CPK CREATINE PHOSPHOKINASE 131 U/L (39-308)
[2017-03-30] MEDS: predniSONE 20 MG TAB PO (10:37)
[2017-03-30] MEDS: oxyCODONE 5MG TAB PO ×2 (11:00→15:15)
[2017-03-30 11:45] LABS: BEDSIDE GLUCOSE 129 MG/DL (83-110)
[2017-03-30] MEDS ORDERED: LIDOCAINE 1% SDV INJ 30 ML VIAL SC (15:00)
[2017-03-30] MEDS ORDERED: LIDOCAINE 1% MDV 20ML VIAL As Ordered (15:12)
[2017-03-30] MEDS: ACETAMINOPHEN TAB 650MG DOSE (2X325MG) PO (15:14)
[2017-03-30 16:25] LABS: BEDSIDE GLUCOSE 244 MG/DL (83-110)
[2017-03-30] MEDS: RIVAROXABAN 15 MG TAB (XARELTO) PO (17:19)
[2017-03-30 20:48] LABS: BEDSIDE GLUCOSE 253 MG/DL (83-110)
[2017-03-30] MEDS: TAMSULOSIN 0.4 MG CAP PO (21:50)
[2017-03-30] MEDS: DOXYCYCLINE HYCLATE 100 MG TAB PO (21:50)
[2017-03-30] MEDS: TERAZOSIN 1 MG CAP PO (21:52)
[2017-03-30] MEDS: LATANOPROST 0.005% OPHTH SOLN 2.5 ML OU (21:53)
[2017-03-31 05:56] LABS: HEMATOCRIT 28.4 % (42.0-52.0); HEMOGLOBIN 9.3 g/dl (14.0-18.0); MEAN CORPUSCULAR HEMOGLOBIN 30.3 pg (27.0-33.0); MEAN CORPUSCULAR HGB CONC 32.7 g/dl (32.0-36.5); MEAN CORPUSCULAR VOLUME 92.5 fl (80.0-96.0); PLATELET COUNT, AUTOMATED 594 10^3/uL (150-450); RED BLOOD COUNT 3.07 10^6/uL (4.30-6.10); RED CELL DISTRIBUTION WIDTH 14.6 % (11.5-14.5); WHITE BLOOD COUNT 11.5 10^3/uL (4.0-10.0)
[2017-03-31 06:19] LABS: ALBUMIN 1.7 GM/DL (3.2-5.2); ALBUMIN/GLOBULIN RATIO 0.33 (1.00-1.93); ALKALINE PHOSPHATASE 126 U/L (45-117); ALT/SGPT 32 U/L (12-78); ANION GAP 7 MEQ/L (8-16); AST/SGOT 40 U/L (7-37); BILIRUBIN,TOTAL 0.5 MG/DL (0.2-1.0); BLOOD UREA NITROGEN 19 MG/DL (7-18); CALCIUM LEVEL 8.4 MG/DL (8.8-10.2); CARBON DIOXIDE LEVEL 28 MEQ/L (21-32); CHLORIDE LEVEL 103 MEQ/L (98-107); CREATININE FOR GFR 0.69 MG/DL (0.70-1.30); GLOMERULAR FILTRATION RATE > 60.0 (>35); GLUCOSE, FASTING 119 MG/DL (70-100); POTASSIUM SERUM 4.3 MEQ/L (3.5-5.1); SODIUM LEVEL 138 MEQ/L (136-145); TOTAL PROTEIN 6.9 GM/DL (6.4-8.2)
[2017-03-31] MEDS: HumaLOG INSULIN (NovoLOG) PER UNIT SC ×4 (07:30→20:45)
[2017-03-31] MEDS: DOXYCYCLINE HYCLATE 100 MG TAB PO ×2 (08:21→21:00)
[2017-03-31] MEDS: BISACODYL 5 MG TAB PO (08:21)
[2017-03-31] MEDS: SOTALOL HCL 80 MG TAB PO ×2 (08:21→21:00)
[2017-03-31] MEDS: predniSONE 20 MG TAB PO (08:21)
[2017-03-31] MEDS: FAMOTIDINE 20 MG TAB PO ×2 (08:21→21:01)
[2017-03-31] MEDS: GABAPENTIN 300 MG CAP PO ×3 (08:21→21:02)
[2017-03-31] MEDS: guaiFENesin ER 600 MG TAB PO ×2 (08:21→21:00)
[2017-03-31] MEDS: SIMETHICONE 80 MG CHEW TAB PO ×4 (08:21→21:03)
[2017-03-31] MEDS: MIRALAX *UNIT DOSE* 17GM PACKET PO (08:22)
[2017-03-31] MEDS: oxyCODONE 5MG TAB PO ×4 (08:26→21:02)
[2017-03-31] MEDS: BACITRACIN OINT 30GM TOP ×3 (08:27→21:03)
[2017-03-31] MEDS: TIMOLOL MALEATE 0.5% OPHTH SOLN 5 ML OU (08:27)
[2017-03-31 12:03] LABS: BEDSIDE GLUCOSE 188 MG/DL (83-110)
[2017-03-31] MEDS: RIVAROXABAN 15 MG TAB (XARELTO) PO (16:30)
[2017-03-31] MEDS: MOM 30ML SUSPENSION UDC PO (16:30)
[2017-03-31 20:41] LABS: BEDSIDE GLUCOSE 215 MG/DL (83-110)
[2017-03-31] MEDS: LATANOPROST 0.005% OPHTH SOLN 2.5 ML OU (21:00)
[2017-03-31] MEDS: TAMSULOSIN 0.4 MG CAP PO (21:00)
[2017-03-31] MEDS: TERAZOSIN 1 MG CAP PO (21:02)
[2017-03-31] MEDS: ACETAMINOPHEN TAB 650MG DOSE (2X325MG) PO (22:27)
[2017-04-01] MEDS: oxyCODONE 5MG TAB PO ×3 (04:39→16:26)
[2017-04-01 06:08] LABS: HEMATOCRIT 30.4 % (42.0-52.0); HEMOGLOBIN 9.8 g/dl (14.0-18.0); MEAN CORPUSCULAR HEMOGLOBIN 30.9 pg (27.0-33.0); MEAN CORPUSCULAR HGB CONC 32.2 g/dl (32.0-36.5); MEAN CORPUSCULAR VOLUME 95.9 fl (80.0-96.0); PLATELET COUNT, AUTOMATED 538 10^3/uL (150-450); RED BLOOD COUNT 3.17 10^6/uL (4.30-6.10); RED CELL DISTRIBUTION WIDTH 14.7 % (11.5-14.5); WHITE BLOOD COUNT 9.4 10^3/uL (4.0-10.0)
[2017-04-01 06:26] LABS: ALBUMIN 1.8 GM/DL (3.2-5.2); ALBUMIN/GLOBULIN RATIO 0.36 (1.00-1.93); ALKALINE PHOSPHATASE 114 U/L (45-117); ALT/SGPT 54 U/L (12-78); ANION GAP 6 MEQ/L (8-16); AST/SGOT 78 U/L (7-37); BILIRUBIN,TOTAL 0.4 MG/DL (0.2-1.0); BLOOD UREA NITROGEN 24 MG/DL (7-18); CALCIUM LEVEL 8.8 MG/DL (8.8-10.2); CARBON DIOXIDE LEVEL 28 MEQ/L (21-32); CHLORIDE LEVEL 104 MEQ/L (98-107); GLOMERULAR FILTRATION RATE > 60.0 (>35); GLUCOSE, FASTING 94 MG/DL (70-100); POTASSIUM SERUM 4.8 MEQ/L (3.5-5.1); SODIUM LEVEL 138 MEQ/L (136-145); TOTAL PROTEIN 6.8 GM/DL (6.4-8.2)
[2017-04-01] MEDS: HumaLOG INSULIN (NovoLOG) PER UNIT SC ×4 (07:15→21:00)
[2017-04-01] MEDS: BISACODYL 5 MG TAB PO (08:53)
[2017-04-01] MEDS: MOM 30ML SUSPENSION UDC PO (08:53)
[2017-04-01] MEDS: GABAPENTIN 300 MG CAP PO ×3 (08:53→20:19)
[2017-04-01] MEDS: DOXYCYCLINE HYCLATE 100 MG TAB PO ×2 (08:53→20:20)
[2017-04-01] MEDS: predniSONE 20 MG TAB PO (08:53)
[2017-04-01] MEDS: FAMOTIDINE 20 MG TAB PO ×2 (08:53→20:20)
[2017-04-01] MEDS: MIRALAX *UNIT DOSE* 17GM PACKET PO (08:53)
[2017-04-01] MEDS: guaiFENesin ER 600 MG TAB PO ×2 (08:53→20:20)
[2017-04-01] MEDS: SIMETHICONE 80 MG CHEW TAB PO ×4 (08:54→20:20)
[2017-04-01] MEDS: TIMOLOL MALEATE 0.5% OPHTH SOLN 5 ML OU (09:00)
[2017-04-01] MEDS: SOTALOL HCL 80 MG TAB PO ×2 (09:00→20:28)
[2017-04-01] MEDS: BACITRACIN OINT 30GM TOP ×3 (09:01→20:22)
[2017-04-01] MEDS: FLEET ENEMA PR ×2 (10:56→11:31)
[2017-04-01 11:19] LABS: BEDSIDE GLUCOSE 246 MG/DL (83-110)
[2017-04-01] MEDS: RIVAROXABAN 15 MG TAB (XARELTO) PO (17:42)
[2017-04-01] MEDS: TERAZOSIN 1 MG CAP PO (20:20)
[2017-04-01] MEDS: TAMSULOSIN 0.4 MG CAP PO (20:20)
[2017-04-01] MEDS: LATANOPROST 0.005% OPHTH SOLN 2.5 ML OU (20:21)
[2017-04-01 20:52] LABS: BEDSIDE GLUCOSE 140 MG/DL (83-110)
[2017-04-02] MEDS: oxyCODONE 5MG TAB PO ×5 (01:18→23:33)
[2017-04-02 06:08] LABS: HEMATOCRIT 29.9 % (42.0-52.0); HEMOGLOBIN 9.6 g/dl (14.0-18.0); MEAN CORPUSCULAR HEMOGLOBIN 29.9 pg (27.0-33.0); MEAN CORPUSCULAR HGB CONC 32.1 g/dl (32.0-36.5); MEAN CORPUSCULAR VOLUME 93.1 fl (80.0-96.0); PLATELET COUNT, AUTOMATED 632 10^3/uL (150-450); RED BLOOD COUNT 3.21 10^6/uL (4.30-6.10); RED CELL DISTRIBUTION WIDTH 14.6 % (11.5-14.5); WHITE BLOOD COUNT 8.9 10^3/uL (4.0-10.0)
[2017-04-02 06:40] LABS: ALBUMIN/GLOBULIN RATIO 0.43 (1.00-1.93); ALKALINE PHOSPHATASE 114 U/L (45-117); ALT/SGPT 66 U/L (12-78); ANION GAP 8 MEQ/L (8-16); AST/SGOT 71 U/L (7-37); BILIRUBIN,TOTAL 0.4 MG/DL (0.2-1.0); BLOOD UREA NITROGEN 23 MG/DL (7-18); CALCIUM LEVEL 8.6 MG/DL (8.8-10.2); CARBON DIOXIDE LEVEL 28 MEQ/L (21-32); CHLORIDE LEVEL 103 MEQ/L (98-107); CREATININE FOR GFR 0.77 MG/DL (0.70-1.30); GLOMERULAR FILTRATION RATE > 60.0 (>35); GLUCOSE, FASTING 90 MG/DL (70-100); POTASSIUM SERUM 4.6 MEQ/L (3.5-5.1); SODIUM LEVEL 139 MEQ/L (136-145); TOTAL PROTEIN 6.6 GM/DL (6.4-8.2)
[2017-04-02] MEDS: HumaLOG INSULIN (NovoLOG) PER UNIT SC ×4 (06:57→21:00)
[2017-04-02] MEDS: MIRALAX *UNIT DOSE* 17GM PACKET PO (08:28)
[2017-04-02] MEDS: FAMOTIDINE 20 MG TAB PO ×2 (08:28→21:17)
[2017-04-02] MEDS: SIMETHICONE 80 MG CHEW TAB PO ×4 (08:28→21:17)
[2017-04-02] MEDS: MOM 30ML SUSPENSION UDC PO (08:28)
[2017-04-02] MEDS: guaiFENesin ER 600 MG TAB PO ×2 (08:29→21:15)
[2017-04-02] MEDS: SOTALOL HCL 80 MG TAB PO ×2 (08:29→21:16)
[2017-04-02] MEDS: DOXYCYCLINE HYCLATE 100 MG TAB PO ×2 (08:29→21:15)
[2017-04-02] MEDS: predniSONE 20 MG TAB PO (08:29)
[2017-04-02] MEDS: GABAPENTIN 300 MG CAP PO ×3 (08:29→21:15)
[2017-04-02] MEDS: BISACODYL 5 MG TAB PO (08:29)
[2017-04-02] MEDS: BACITRACIN OINT 30GM TOP ×3 (08:39→21:19)
[2017-04-02] MEDS: TIMOLOL MALEATE 0.5% OPHTH SOLN 5 ML OU (08:39)
[2017-04-02 11:45] LABS: BEDSIDE GLUCOSE 102 MG/DL (83-110)
[2017-04-02 11:45] LABS: BEDSIDE GLUCOSE 209 MG/DL (83-110)
[2017-04-02 14:54] LABS: BEDSIDE GLUCOSE 149 MG/DL (83-110)
[2017-04-02 16:36] LABS: BEDSIDE GLUCOSE 224 MG/DL (83-110)
[2017-04-02] MEDS: RIVAROXABAN 15 MG TAB (XARELTO) PO (17:32)
[2017-04-02 20:14] LABS: BEDSIDE GLUCOSE 183 MG/DL (83-110)
[2017-04-02] MEDS: TAMSULOSIN 0.4 MG CAP PO (21:15)
[2017-04-02] MEDS: TERAZOSIN 1 MG CAP PO (21:18)
[2017-04-02] MEDS: LATANOPROST 0.005% OPHTH SOLN 2.5 ML OU (21:20)
[2017-04-03 06:33] LABS: BEDSIDE GLUCOSE 110 MG/DL (83-110)
[2017-04-03 06:54] LABS: HEMATOCRIT 31.3 % (42.0-52.0); HEMOGLOBIN 9.9 g/dl (14.0-18.0); MEAN CORPUSCULAR HEMOGLOBIN 29.6 pg (27.0-33.0); MEAN CORPUSCULAR HGB CONC 31.6 g/dl (32.0-36.5); MEAN CORPUSCULAR VOLUME 93.4 fl (80.0-96.0); PLATELET COUNT, AUTOMATED 613 10^3/uL (150-450); RED BLOOD COUNT 3.35 10^6/uL (4.30-6.10); RED CELL DISTRIBUTION WIDTH 14.8 % (11.5-14.5); WHITE BLOOD COUNT 8.7 10^3/uL (4.0-10.0)
[2017-04-03 07:12] LABS: ALBUMIN/GLOBULIN RATIO 0.43 (1.00-1.93); ALKALINE PHOSPHATASE 112 U/L (45-117); ALT/SGPT 55 U/L (12-78); ANION GAP 5 MEQ/L (8-16); AST/SGOT 42 U/L (7-37); BILIRUBIN,TOTAL 0.3 MG/DL (0.2-1.0); BLOOD UREA NITROGEN 22 MG/DL (7-18); CALCIUM LEVEL 8.6 MG/DL (8.8-10.2); CARBON DIOXIDE LEVEL 31 MEQ/L (21-32); CHLORIDE LEVEL 101 MEQ/L (98-107); CREATININE FOR GFR 0.77 MG/DL (0.70-1.30); GLOMERULAR FILTRATION RATE > 60.0 (>35); GLUCOSE, FASTING 92 MG/DL (70-100); POTASSIUM SERUM 4.3 MEQ/L (3.5-5.1); SODIUM LEVEL 137 MEQ/L (136-145); TOTAL PROTEIN 6.7 GM/DL (6.4-8.2)
[2017-04-03] MEDS: HumaLOG INSULIN (NovoLOG) PER UNIT SC ×4 (07:30→21:00)
[2017-04-03] MEDS: MIRALAX *UNIT DOSE* 17GM PACKET PO (08:57)
[2017-04-03] MEDS: MOM 30ML SUSPENSION UDC PO (08:57)
[2017-04-03] MEDS: SIMETHICONE 80 MG CHEW TAB PO ×4 (08:57→21:48)
[2017-04-03] MEDS: DOXYCYCLINE HYCLATE 100 MG TAB PO ×2 (08:58→21:47)
[2017-04-03] MEDS: BISACODYL 5 MG TAB PO (08:58)
[2017-04-03] MEDS: FAMOTIDINE 20 MG TAB PO ×2 (08:58→21:47)
[2017-04-03] MEDS: SOTALOL HCL 80 MG TAB PO ×2 (08:58→21:52)
[2017-04-03] MEDS: predniSONE 20 MG TAB PO (08:58)
[2017-04-03] MEDS: guaiFENesin ER 600 MG TAB PO ×2 (08:58→21:45)
[2017-04-03] MEDS: GABAPENTIN 300 MG CAP PO ×3 (08:58→21:47)
[2017-04-03] MEDS: oxyCODONE 5MG TAB PO ×4 (08:59→21:48)
[2017-04-03] MEDS: BACITRACIN OINT 30GM TOP ×3 (09:00→21:00)
[2017-04-03] MEDS: TIMOLOL MALEATE 0.5% OPHTH SOLN 5 ML OU (09:00)
[2017-04-03] MEDS: MAGNESIUM CITRATE 300 ML BTL PO ×2 (10:09→13:45)
[2017-04-03 11:40] LABS: BEDSIDE GLUCOSE 127 MG/DL (83-110)
[2017-04-03 16:40] LABS: BEDSIDE GLUCOSE 182 MG/DL (83-110)
[2017-04-03] MEDS: RIVAROXABAN 15 MG TAB (XARELTO) PO (17:58)
[2017-04-03 20:53] LABS: BEDSIDE GLUCOSE 184 MG/DL (83-110)
[2017-04-03] MEDS: TERAZOSIN 1 MG CAP PO (21:46)
[2017-04-03] MEDS: TAMSULOSIN 0.4 MG CAP PO (21:48)
[2017-04-03] MEDS: LATANOPROST 0.005% OPHTH SOLN 2.5 ML OU (21:49)
[2017-04-04 06:18] LABS: BEDSIDE GLUCOSE 110 MG/DL (83-110)
[2017-04-04] MEDS: HumaLOG INSULIN (NovoLOG) PER UNIT SC ×4 (07:30→20:59)
[2017-04-04] MEDS: SIMETHICONE 80 MG CHEW TAB PO ×4 (08:40→21:21)
[2017-04-04] MEDS: GABAPENTIN 300 MG CAP PO ×3 (08:40→21:22)
[2017-04-04] MEDS: oxyCODONE 5MG TAB PO ×3 (08:41→21:27)
[2017-04-04] MEDS: guaiFENesin ER 600 MG TAB PO ×2 (08:41→21:21)
[2017-04-04] MEDS: SOTALOL HCL 80 MG TAB PO ×2 (08:41→21:22)
[2017-04-04] MEDS: FAMOTIDINE 20 MG TAB PO ×2 (08:41→21:22)
[2017-04-04] MEDS: BISACODYL 5 MG TAB PO (08:41)
[2017-04-04] MEDS: DOXYCYCLINE HYCLATE 100 MG TAB PO ×2 (08:41→21:21)
[2017-04-04] MEDS: predniSONE 20 MG TAB PO (08:41)
[2017-04-04] MEDS: MIRALAX *UNIT DOSE* 17GM PACKET PO (08:41)
[2017-04-04] MEDS: BACITRACIN OINT 30GM TOP ×3 (08:42→21:23)
[2017-04-04] MEDS: TIMOLOL MALEATE 0.5% OPHTH SOLN 5 ML OU (08:42)
[2017-04-04 09:42] LABS: BASO # 0.1 10^3/uL (0.0-0.2); BASO % 0.5 % (0.0-1.0); EOS # 0.1 10^3/uL (0.0-0.50); EOS % 0.8 % (0.0-3.0); HEMATOCRIT 33.8 % (42.0-52.0); HEMOGLOBIN 10.8 g/dl (14.0-18.0); IMMATURE GRANULOCYTE # 0.1 10^3/uL (0-0); IMMATURE GRANULOCYTE % 1.1 % (0-0); LYMPH # 1.8 10^3/uL (1.5-4.5); LYMPH % 16.6 % (24.0-44.0); MEAN CORPUSCULAR HEMOGLOBIN 30.7 pg (27.0-33.0); MONO # 1.1 10^3/uL (0.0-0.8); MONO % 10.2 % (0.0-5.0); NEUTROPHILS # 7.8 10^3/uL (1.8-7.7); NEUTROPHILS % 70.8 % (36.0-66.0); PLATELET COUNT, AUTOMATED 567 10^3/uL (150-450); RED BLOOD COUNT 3.52 10^6/uL (4.30-6.10)
[2017-04-04 10:05] LABS: ANION GAP 6 MEQ/L (8-16); BLOOD UREA NITROGEN 23 MG/DL (7-18); CALCIUM LEVEL 8.8 MG/DL (8.8-10.2); CARBON DIOXIDE LEVEL 32 MEQ/L (21-32); CHLORIDE LEVEL 99 MEQ/L (98-107); CREATININE FOR GFR 0.92 MG/DL (0.70-1.30); GLOMERULAR FILTRATION RATE > 60.0 (>35); GLUCOSE, FASTING 166 MG/DL (70-100); POTASSIUM SERUM 4.8 MEQ/L (3.5-5.1); SODIUM LEVEL 137 MEQ/L (136-145)
[2017-04-04 12:04] LABS: BEDSIDE GLUCOSE 156 MG/DL (83-110)
[2017-04-04 17:15] LABS: BEDSIDE GLUCOSE 196 MG/DL (83-110)
[2017-04-04] MEDS: RIVAROXABAN 15 MG TAB (XARELTO) PO (17:15)
[2017-04-04 21:02] LABS: BEDSIDE GLUCOSE 187 MG/DL (83-110)
[2017-04-04] MEDS: TAMSULOSIN 0.4 MG CAP PO (21:21)
[2017-04-04] MEDS: TERAZOSIN 1 MG CAP PO (21:21)
[2017-04-04] MEDS: LATANOPROST 0.005% OPHTH SOLN 2.5 ML OU (21:22)
[2017-04-04] MEDS: TRIAMCINOLONE ACET 0.1% OINTMENT 80 GM TOP (22:58)
[2017-04-05] MEDS: oxyCODONE 5MG TAB PO ×4 (01:52→21:10)
[2017-04-05 06:16] LABS: HEMATOCRIT 30.7 % (42.0-52.0); HEMOGLOBIN 9.9 g/dl (14.0-18.0); MEAN CORPUSCULAR HEMOGLOBIN 30.5 pg (27.0-33.0); MEAN CORPUSCULAR HGB CONC 32.2 g/dl (32.0-36.5); MEAN CORPUSCULAR VOLUME 94.5 fl (80.0-96.0); PLATELET COUNT, AUTOMATED 580 10^3/uL (150-450); RED BLOOD COUNT 3.25 10^6/uL (4.30-6.10); WHITE BLOOD COUNT 10.9 10^3/uL (4.0-10.0)
[2017-04-05 06:44] LABS: ANION GAP 7 MEQ/L (8-16); BLOOD UREA NITROGEN 23 MG/DL (7-18); CALCIUM LEVEL 8.6 MG/DL (8.8-10.2); CARBON DIOXIDE LEVEL 31 MEQ/L (21-32); CHLORIDE LEVEL 99 MEQ/L (98-107); CREATININE FOR GFR 0.76 MG/DL (0.70-1.30); GLOMERULAR FILTRATION RATE > 60.0 (>35); GLUCOSE, FASTING 89 MG/DL (70-100); POTASSIUM SERUM 4.2 MEQ/L (3.5-5.1); SODIUM LEVEL 137 MEQ/L (136-145)
[2017-04-05] MEDS: HumaLOG INSULIN (NovoLOG) PER UNIT SC ×4 (07:01→21:13)
[2017-04-05] MEDS: TIMOLOL MALEATE 0.5% OPHTH SOLN 5 ML OU (09:00)
[2017-04-05] MEDS: BACITRACIN OINT 30GM TOP (09:00)
[2017-04-05] MEDS: MIRALAX *UNIT DOSE* 17GM PACKET PO (09:08)
[2017-04-05] MEDS: GABAPENTIN 300 MG CAP PO ×3 (09:08→21:09)
[2017-04-05] MEDS: SIMETHICONE 80 MG CHEW TAB PO ×4 (09:08→21:09)
[2017-04-05] MEDS: SOTALOL HCL 80 MG TAB PO ×2 (09:09→21:09)
[2017-04-05] MEDS: DOXYCYCLINE HYCLATE 100 MG TAB PO ×2 (09:09→21:09)
[2017-04-05] MEDS: BISACODYL 5 MG TAB PO (09:09)
[2017-04-05] MEDS: predniSONE 20 MG TAB PO (09:09)
[2017-04-05] MEDS: guaiFENesin ER 600 MG TAB PO ×2 (09:09→21:10)
[2017-04-05] MEDS: FAMOTIDINE 20 MG TAB PO ×2 (09:09→21:09)
[2017-04-05 11:56] LABS: BEDSIDE GLUCOSE 116 MG/DL (83-110)
[2017-04-05 16:44] LABS: BEDSIDE GLUCOSE 199 MG/DL (83-110)
[2017-04-05] MEDS: RIVAROXABAN 15 MG TAB (XARELTO) PO (17:20)
[2017-04-05] MEDS: TAMSULOSIN 0.4 MG CAP PO (21:10)
[2017-04-05] MEDS: LATANOPROST 0.005% OPHTH SOLN 2.5 ML OU (21:11)
[2017-04-05] MEDS: TERAZOSIN 1 MG CAP PO (21:11)
[2017-04-05 21:34] LABS: BEDSIDE GLUCOSE 218 MG/DL (83-110)
[2017-04-06 05:57] LABS: HEMATOCRIT 32.1 % (42.0-52.0); HEMOGLOBIN 10.2 g/dl (14.0-18.0); MEAN CORPUSCULAR HEMOGLOBIN 29.9 pg (27.0-33.0); MEAN CORPUSCULAR HGB CONC 31.8 g/dl (32.0-36.5); MEAN CORPUSCULAR VOLUME 94.1 fl (80.0-96.0); PLATELET COUNT, AUTOMATED 564 10^3/uL (150-450); RED BLOOD COUNT 3.41 10^6/uL (4.30-6.10); RED CELL DISTRIBUTION WIDTH 15.1 % (11.5-14.5); WHITE BLOOD COUNT 12.2 10^3/uL (4.0-10.0)
[2017-04-06 06:16] LABS: ANION GAP 7 MEQ/L (8-16); BLOOD UREA NITROGEN 22 MG/DL (7-18); CALCIUM LEVEL 8.6 MG/DL (8.8-10.2); CARBON DIOXIDE LEVEL 31 MEQ/L (21-32); CHLORIDE LEVEL 103 MEQ/L (98-107); CREATININE FOR GFR 0.73 MG/DL (0.70-1.30); GLOMERULAR FILTRATION RATE > 60.0 (>35); GLUCOSE, FASTING 92 MG/DL (70-100); POTASSIUM SERUM 4.5 MEQ/L (3.5-5.1); SODIUM LEVEL 141 MEQ/L (136-145)
[2017-04-06] MEDS: HumaLOG INSULIN (NovoLOG) PER UNIT SC ×4 (07:37→20:54)
[2017-04-06] MEDS: DOXYCYCLINE HYCLATE 100 MG TAB PO (09:12)
[2017-04-06] MEDS: BISACODYL 5 MG TAB PO (09:12)
[2017-04-06] MEDS: FAMOTIDINE 20 MG TAB PO ×2 (09:12→20:59)
[2017-04-06] MEDS: guaiFENesin ER 600 MG TAB PO ×2 (09:12→20:59)
[2017-04-06] MEDS: SIMETHICONE 80 MG CHEW TAB PO ×4 (09:12→20:59)
[2017-04-06] MEDS: GABAPENTIN 300 MG CAP PO ×3 (09:12→20:59)
[2017-04-06] MEDS: SOTALOL HCL 80 MG TAB PO ×2 (09:13→21:02)
[2017-04-06] MEDS: TIMOLOL MALEATE 0.5% OPHTH SOLN 5 ML OU (09:14)
[2017-04-06] MEDS: oxyCODONE 5MG TAB PO ×4 (09:14→22:53)
[2017-04-06] MEDS: MIRALAX *UNIT DOSE* 17GM PACKET PO (09:17)
[2017-04-06 11:41] LABS: BEDSIDE GLUCOSE 119 MG/DL (83-110)
[2017-04-06] MEDS: RIVAROXABAN 15 MG TAB (XARELTO) PO (20:59)
[2017-04-06] MEDS: TAMSULOSIN 0.4 MG CAP PO (20:59)
[2017-04-06] MEDS: LATANOPROST 0.005% OPHTH SOLN 2.5 ML OU (21:00)
[2017-04-06] MEDS: TERAZOSIN 1 MG CAP PO (21:03)
[2017-04-07 05:59] LABS: BEDSIDE GLUCOSE 110 MG/DL (83-110)
[2017-04-07 05:59] LABS: BEDSIDE GLUCOSE 115 MG/DL (83-110)
[2017-04-07 06:11] LABS: HEMATOCRIT 31.4 % (42.0-52.0); MEAN CORPUSCULAR HEMOGLOBIN 30.4 pg (27.0-33.0); MEAN CORPUSCULAR HGB CONC 31.8 g/dl (32.0-36.5); MEAN CORPUSCULAR VOLUME 95.4 fl (80.0-96.0); PLATELET COUNT, AUTOMATED 495 10^3/uL (150-450); RED BLOOD COUNT 3.29 10^6/uL (4.30-6.10); RED CELL DISTRIBUTION WIDTH 15.3 % (11.5-14.5)
[2017-04-07 06:23] LABS: ANION GAP 6 MEQ/L (8-16); BLOOD UREA NITROGEN 21 MG/DL (7-18); CALCIUM LEVEL 8.4 MG/DL (8.8-10.2); CARBON DIOXIDE LEVEL 31 MEQ/L (21-32); CHLORIDE LEVEL 100 MEQ/L (98-107); CREATININE FOR GFR 0.74 MG/DL (0.70-1.30); GLOMERULAR FILTRATION RATE > 60.0 (>35); GLUCOSE, FASTING 95 MG/DL (70-100); POTASSIUM SERUM 4.4 MEQ/L (3.5-5.1); SODIUM LEVEL 137 MEQ/L (136-145)
[2017-04-07] MEDS: HumaLOG INSULIN (NovoLOG) PER UNIT SC ×2 (07:30→11:20)
[2017-04-07] MEDS: FAMOTIDINE 20 MG TAB PO (08:29)
[2017-04-07] MEDS: GABAPENTIN 300 MG CAP PO (08:29)
[2017-04-07] MEDS: guaiFENesin ER 600 MG TAB PO (08:29)
[2017-04-07] MEDS: MIRALAX *UNIT DOSE* 17GM PACKET PO (08:29)
[2017-04-07] MEDS: SIMETHICONE 80 MG CHEW TAB PO ×2 (08:29→13:48)
[2017-04-07] MEDS: BISACODYL 5 MG TAB PO (08:29)
[2017-04-07] MEDS: SOTALOL HCL 80 MG TAB PO (08:30)
[2017-04-07] MEDS: TIMOLOL MALEATE 0.5% OPHTH SOLN 5 ML OU (08:32)
[2017-04-07] MEDS: oxyCODONE 5MG TAB PO (10:32)
[2017-04-08 11:59] LABS: BEDSIDE GLUCOSE 108 MG/DL (83-110)
== END 2017-04-07 13:59 | DRG 682 ==
LOC: M MSPAV 03-22 15:48 → M PCU 03-21 16:40 → M ED 09:58 → M ED INP 14:32 → M PCU 16:30
PROC: 0HB8XZZ Excision of Buttock Skin, External Approach (ICD-10-PCS; principal; 2017-03-30)
DX: N17.9 Acute kidney failure, unspecified (principal); G93.41 Metabolic encephalopathy; J69.0 Pneumonitis due to inhalation of food and vomit; M62.82 Rhabdomyolysis; E87.2 Acidosis; B17.9 Acute viral hepatitis, unspecified; R26.81 Unsteadiness on feet; L89.312 Pressure ulcer of right buttock, stage 2; N40.1 Benign prostatic hyperplasia with lower urinary tract symptoms; I10 Essential (primary) hypertension; M54.5 Low back pain; E11.40 Type 2 diabetes mellitus with diabetic neuropathy, unspecified; I48.0 Paroxysmal atrial fibrillation; M79.605 Pain in left leg; K21.9 Gastro-esophageal reflux disease without esophagitis; F03.90 Unspecified dementia, unspecified severity, without behavioral disturbance, psychotic disturbance, mood disturbance, and anxiety; Z89.111 Acquired absence of right hand; Z90.49 Acquired absence of other specified parts of digestive tract; Z98.1 Arthrodesis status; Z79.01 Long term (current) use of anticoagulants; Z77.090 Contact with and (suspected) exposure to asbestos; Z79.84 Long term (current) use of oral hypoglycemic drugs; Z79.899 Other long term (current) drug therapy; Z88.4 Allergy status to anesthetic agent

== ENCOUNTER 2017-04-07 14:20 | Inpatient (IN) | payer OTHER ==
[~2017-04-07 14:20] MED LIST changes: -ASPI1TAB PO; -ASPI81TA45 OR; -ASPI81TA83 OR; -BACL10TA2 OR; +BISACODYL 5 MG TAB PO; -CARD120T6 OR; -CIPR-249 PO; -COLA100C2 OR; +DEXTROSE 50% 50 ML SYRINGE IV; -DICL1GEL3 TD; -DILT30TA PO; +FLEET ENEMA PR; -FLEXERIL OR; -FLOM5CAP PO; -GABA600T PO; +GLUCAGON FOR INJ 1 MG VIAL (J1610) SC; +GLUCOSE 4 GM CHEW TABLET PO; -HYDR25TA6 OR; -IBUP600T OR; -IBUP80TA PO; -LATA5OPD OU; +LEVALBUTEROL 1.25 MG/0.5 ML CONCENTRATE NEB INH; -METF-414 PO; -METF500T13 PO; -METFORMIN OR; -METR1TAB66 PO; +MOM 30ML SUSPENSION UDC PO; -NEUR100C OR; +NON-FORMULARY COMPOUNDED MEDICATION TOP; -OMEP20CA3 PO; -OMEP20TA7 PO; -OTC PROSTATE MED PO; -PENNSAID TOP; -PERC5TAB12 PO; -PERC5TAB8 OR; -PRAV20TA2 PO; -PRAV40TA OR; -REFR0.1D OU; -REST15CA OR; -SOMA250T OR; -SOTA80TA2 OR; -SOTA80TA2 PO; -SOTALOL PO; -TERA2CAP3 OR; -TERA2CAP3 PO; -TIAG2TAB PO; -TIMO0.5S29 OU; -TIZA2CAP3 PO; -TIZA2TA PO; -TIZA2TAB OR; -VICO5TAB OR; -VOLT1GEL15 TD; -XANA0.25 OR; -XANA0.25 PO; -XARE20TA PO; -ZANA4TAB PO; -[UNRECOGNIZED DRUG - OTHER] PO
[2017-04-07] MEDS: HumaLOG INSULIN (NovoLOG) PER UNIT SC ×3 (14:50→20:25)
[2017-04-07 16:44] LABS: BEDSIDE GLUCOSE 131 MG/DL (83-110)
[2017-04-07] MEDS: GABAPENTIN 300 MG CAP PO ×2 (16:46→21:36)
[2017-04-07] MEDS: RIVAROXABAN 15 MG TAB (XARELTO) PO (16:46)
[2017-04-07] MEDS: SIMETHICONE 80 MG CHEW TAB PO ×2 (16:46→21:35)
[2017-04-07] MEDS: oxyCODONE 5MG TAB PO ×2 (16:48→21:36)
[2017-04-07] MEDS ORDERED: DIAPER RELIEF PASTE (DESITIN) 60GM TOP (18:00)
[2017-04-07 20:30] LABS: BEDSIDE GLUCOSE 135 MG/DL (83-110)
[2017-04-07] MEDS: TERAZOSIN 1 MG CAP PO (21:35)
[2017-04-07] MEDS: ACETAMINOPHEN TAB 650MG DOSE (2X325MG) PO (21:35)
[2017-04-07] MEDS: TAMSULOSIN 0.4 MG CAP PO (21:36)
[2017-04-07] MEDS: guaiFENesin ER 600 MG TAB PO (21:36)
[2017-04-07] MEDS: FAMOTIDINE 20 MG TAB PO (21:36)
[2017-04-07] MEDS: SOTALOL HCL 80 MG TAB PO (21:37)
[2017-04-07] MEDS: LATANOPROST 0.005% OPHTH SOLN 2.5 ML OU (21:37)
[2017-04-08 01:22] LABS: BEDSIDE GLUCOSE 113 MG/DL (83-110)
[2017-04-08] MEDS: GABAPENTIN 300 MG CAP PO ×3 (05:54→21:27)
[2017-04-08] MEDS: oxyCODONE 5MG TAB PO ×3 (05:55→16:23)
[2017-04-08 07:17] LABS: BASO # 0.1 10^3/uL (0.0-0.2); BASO % 0.5 % (0.0-1.0); EOS # 0.4 10^3/uL (0.0-0.50); EOS % 3.2 % (0.0-3.0); HEMATOCRIT 35.4 % (42.0-52.0); HEMOGLOBIN 11.3 g/dl (14.0-18.0); IMMATURE GRANULOCYTE # 0.1 10^3/uL (0-0); IMMATURE GRANULOCYTE % 0.9 % (0-0); LYMPH # 2.1 10^3/uL (1.5-4.5); LYMPH % 16.4 % (24.0-44.0); MEAN CORPUSCULAR HEMOGLOBIN 30.5 pg (27.0-33.0); MEAN CORPUSCULAR HGB CONC 31.9 g/dl (32.0-36.5); MEAN CORPUSCULAR VOLUME 95.4 fl (80.0-96.0); MONO # 1.3 10^3/uL (0.0-0.8); MONO % 10.5 % (0.0-5.0); NEUTROPHILS # 8.6 10^3/uL (1.8-7.7); NEUTROPHILS % 68.5 % (36.0-66.0); PLATELET COUNT, AUTOMATED 482 10^3/uL (150-450); RED BLOOD COUNT 3.71 10^6/uL (4.30-6.10); RED CELL DISTRIBUTION WIDTH 15.4 % (11.5-14.5); WHITE BLOOD COUNT 12.6 10^3/uL (4.0-10.0)
[2017-04-08 07:38] LABS: ALBUMIN 2.2 GM/DL (3.2-5.2); ALBUMIN/GLOBULIN RATIO 0.45 (1.00-1.93); ALKALINE PHOSPHATASE 109 U/L (45-117); ALT/SGPT 32 U/L (12-78); ANION GAP 6 MEQ/L (8-16); AST/SGOT 21 U/L (7-37); BILIRUBIN,TOTAL 0.9 MG/DL (0.2-1.0); BLOOD UREA NITROGEN 21 MG/DL (7-18); CALCIUM LEVEL 8.9 MG/DL (8.8-10.2); CARBON DIOXIDE LEVEL 29 MEQ/L (21-32); CHLORIDE LEVEL 102 MEQ/L (98-107); GLOMERULAR FILTRATION RATE > 60.0 (>35); GLUCOSE, FASTING 118 MG/DL (70-100); POTASSIUM SERUM 4.2 MEQ/L (3.5-5.1); SODIUM LEVEL 137 MEQ/L (136-145); TOTAL PROTEIN 7.1 GM/DL (6.4-8.2)
[2017-04-08] MEDS: FAMOTIDINE 20 MG TAB PO ×2 (08:35→21:26)
[2017-04-08] MEDS: SOTALOL HCL 80 MG TAB PO ×2 (08:35→21:25)
[2017-04-08] MEDS: guaiFENesin ER 600 MG TAB PO ×2 (08:35→21:27)
[2017-04-08] MEDS: HumaLOG INSULIN (NovoLOG) PER UNIT SC ×4 (08:35→21:00)
[2017-04-08] MEDS: SANTYL OINT 30GM TOP (08:36)
[2017-04-08] MEDS: MIRALAX *UNIT DOSE* 17GM PACKET PO (08:37)
[2017-04-08] MEDS: SIMETHICONE 80 MG CHEW TAB PO ×4 (08:38→21:26)
[2017-04-08] MEDS: TIMOLOL MALEATE 0.5% OPHTH SOLN 5 ML OU (08:40)
[2017-04-08 11:53] LABS: BEDSIDE GLUCOSE 193 MG/DL (83-110)
[2017-04-08] MEDS: RIVAROXABAN 15 MG TAB (XARELTO) PO (17:04)
[2017-04-08 17:05] LABS: BEDSIDE GLUCOSE 108 MG/DL (83-110)
[2017-04-08] MEDS: ACETAMINOPHEN TAB 650MG DOSE (2X325MG) PO (17:05)
[2017-04-08 21:12] LABS: BEDSIDE GLUCOSE 141 MG/DL (83-110)
[2017-04-08] MEDS: TERAZOSIN 1 MG CAP PO (21:26)
[2017-04-08] MEDS: LATANOPROST 0.005% OPHTH SOLN 2.5 ML OU (21:27)
[2017-04-08] MEDS: TAMSULOSIN 0.4 MG CAP PO (21:27)
[2017-04-09] MEDS: GABAPENTIN 300 MG CAP PO ×3 (05:52→20:41)
[2017-04-09 06:09] LABS: BEDSIDE GLUCOSE 120 MG/DL (83-110)
[2017-04-09 07:39] LABS: HEMATOCRIT 30.7 % (42.0-52.0); HEMOGLOBIN 9.9 g/dl (14.0-18.0); MEAN CORPUSCULAR HEMOGLOBIN 30.6 pg (27.0-33.0); MEAN CORPUSCULAR HGB CONC 32.2 g/dl (32.0-36.5); MEAN CORPUSCULAR VOLUME 94.8 fl (80.0-96.0); PLATELET COUNT, AUTOMATED 414 10^3/uL (150-450); RED BLOOD COUNT 3.24 10^6/uL (4.30-6.10); RED CELL DISTRIBUTION WIDTH 15.4 % (11.5-14.5); WHITE BLOOD COUNT 14.3 10^3/uL (4.0-10.0)
[2017-04-09] MEDS: SIMETHICONE 80 MG CHEW TAB PO ×4 (08:17→20:44)
[2017-04-09] MEDS: guaiFENesin ER 600 MG TAB PO ×2 (08:17→20:41)
[2017-04-09] MEDS: HumaLOG INSULIN (NovoLOG) PER UNIT SC ×4 (08:17→20:44)
[2017-04-09] MEDS: TIMOLOL MALEATE 0.5% OPHTH SOLN 5 ML OU (08:17)
[2017-04-09] MEDS: FAMOTIDINE 20 MG TAB PO ×2 (08:17→20:41)
[2017-04-09] MEDS: oxyCODONE 5MG TAB PO ×3 (08:18→19:46)
[2017-04-09] MEDS: SANTYL OINT 30GM TOP (08:19)
[2017-04-09] MEDS: MIRALAX *UNIT DOSE* 17GM PACKET PO (08:19)
[2017-04-09] MEDS: SOTALOL HCL 80 MG TAB PO ×2 (08:23→20:44)
[2017-04-09 08:28] LABS: ANION GAP 4 MEQ/L (8-16); BLOOD UREA NITROGEN 19 MG/DL (7-18); CALCIUM LEVEL 8.3 MG/DL (8.8-10.2); CARBON DIOXIDE LEVEL 29 MEQ/L (21-32); CHLORIDE LEVEL 100 MEQ/L (98-107); GLOMERULAR FILTRATION RATE > 60.0 (>35); GLUCOSE, FASTING 123 MG/DL (70-100); POTASSIUM SERUM 4.4 MEQ/L (3.5-5.1); SODIUM LEVEL 133 MEQ/L (136-145)
[2017-04-09] MEDS: ACETAMINOPHEN TAB 650MG DOSE (2X325MG) PO (11:00)
[2017-04-09 12:04] LABS: BEDSIDE GLUCOSE 113 MG/DL (83-110)
[2017-04-09 16:36] LABS: BEDSIDE GLUCOSE 196 MG/DL (83-110)
[2017-04-09] MEDS: RIVAROXABAN 15 MG TAB (XARELTO) PO (17:17)
[2017-04-09 18:03] LABS: KETONE, URINE AUTO RFX NEGATIVE (NEGATIVE); MUCUS, URINE RFX SMALL (NEGATIVE); NITRITE, URINE AUTO RFX NEGATIVE (NEGATIVE); RBC, URINE AUTO RFX 64 /HPF (0-3); SPECIFIC GRAVITY UR AUTO RFX 1.021 (1.002-1.035); SQUAM EPITHELIAL CELL UR AURFX 0 /HPF (0-6); YEAST LIKE CELL URINE AUTO RFX LARGE
[2017-04-09 18:59] LABS: LEUKOCYTE ESTERASE UR AUTO RFX 2+ (NEGATIVE); WBC, URINE AUTO RFX 37 /HPF (0-3)
[2017-04-09 20:19] LABS: BEDSIDE GLUCOSE 132 MG/DL (83-110)
[2017-04-09] MEDS: TAMSULOSIN 0.4 MG CAP PO (20:41)
[2017-04-09] MEDS: TERAZOSIN 1 MG CAP PO (20:43)
[2017-04-09] MEDS: LATANOPROST 0.005% OPHTH SOLN 2.5 ML OU (20:45)
[2017-04-10] MEDS: oxyCODONE 5MG TAB PO ×2 (05:50→12:54)
[2017-04-10] MEDS: ACETAMINOPHEN TAB 650MG DOSE (2X325MG) PO ×3 (05:51→17:58)
[2017-04-10 06:14] LABS: BEDSIDE GLUCOSE 121 MG/DL (83-110)
[2017-04-10 06:48] LABS: HEMATOCRIT 27.9 % (42.0-52.0); HEMOGLOBIN 9.2 g/dl (14.0-18.0); MEAN CORPUSCULAR HEMOGLOBIN 31.2 pg (27.0-33.0); MEAN CORPUSCULAR VOLUME 94.6 fl (80.0-96.0); PLATELET COUNT, AUTOMATED 360 10^3/uL (150-450); RED BLOOD COUNT 2.95 10^6/uL (4.30-6.10); RED CELL DISTRIBUTION WIDTH 15.5 % (11.5-14.5); WHITE BLOOD COUNT 13.3 10^3/uL (4.0-10.0)
[2017-04-10 07:13] LABS: ANION GAP 7 MEQ/L (8-16); BLOOD UREA NITROGEN 19 MG/DL (7-18); CALCIUM LEVEL 8.6 MG/DL (8.8-10.2); CARBON DIOXIDE LEVEL 28 MEQ/L (21-32); CHLORIDE LEVEL 99 MEQ/L (98-107); CREATININE FOR GFR 0.85 MG/DL (0.70-1.30); GLOMERULAR FILTRATION RATE > 60.0 (>35); GLUCOSE, FASTING 113 MG/DL (70-100); POTASSIUM SERUM 4.3 MEQ/L (3.5-5.1); SODIUM LEVEL 134 MEQ/L (136-145)
[2017-04-10] MEDS: HumaLOG INSULIN (NovoLOG) PER UNIT SC ×4 (07:49→20:09)
[2017-04-10] MEDS: SIMETHICONE 80 MG CHEW TAB PO ×4 (08:20→21:29)
[2017-04-10] MEDS: guaiFENesin ER 600 MG TAB PO ×2 (08:21→21:28)
[2017-04-10] MEDS: SOTALOL HCL 80 MG TAB PO ×2 (08:21→21:30)
[2017-04-10] MEDS: MIRALAX *UNIT DOSE* 17GM PACKET PO (08:21)
[2017-04-10] MEDS: FAMOTIDINE 20 MG TAB PO ×2 (08:21→21:28)
[2017-04-10] MEDS: TIMOLOL MALEATE 0.5% OPHTH SOLN 5 ML OU (08:22)
[2017-04-10] MEDS: SANTYL OINT 30GM TOP (08:22)
[2017-04-10] MEDS: GABAPENTIN 300 MG CAP PO ×4 (08:22→21:29)
[2017-04-10 12:00] LABS: BEDSIDE GLUCOSE 111 MG/DL (83-110)
[2017-04-10] MEDS: LEVALBUTEROL 1.25 MG/0.5 ML CONCENTRATE NEB INH ×3 (12:42→20:04)
[2017-04-10 15:19] LABS: ERYTHROCYTE SEDIMENTATION RATE 83 mm/hr (0-30)
[2017-04-10 15:32] LABS: ALBUMIN 2.1 GM/DL (3.2-5.2); ALBUMIN/GLOBULIN RATIO 0.53 (1.00-1.93); ALKALINE PHOSPHATASE 96 U/L (45-117); ALT/SGPT 20 U/L (12-78); AST/SGOT 22 U/L (7-37); BILIRUBIN,DIRECT 0.4 MG/DL (0.0-0.2); BILIRUBIN,TOTAL 0.7 MG/DL (0.2-1.0); TOTAL PROTEIN 6.1 GM/DL (6.4-8.2)
[2017-04-10 16:04] LABS: LACTIC ACID SEPSIS PROTOCOL 1.2 MMOL/L (0.4-2.0)
[2017-04-10] MEDS ORDERED: ISOVUE-370 76% 100ML VIAL (Q9967) As Ordered (16:40)
[2017-04-10 16:53] LABS: BEDSIDE GLUCOSE 108 MG/DL (83-110)
[2017-04-10] MEDS: LevoFLOXacin IV 750 MG in APPROPRIATE DILUENT 1 EA IV (17:14)
[2017-04-10] MEDS: RIVAROXABAN 15 MG TAB (XARELTO) PO (17:14)
[2017-04-10] MEDS: GASTROGRAFIN SOLUTION 30ML PO ×2 (17:58→18:33)
[2017-04-10 18:36] LABS: KETONE, URINE AUTO RFX NEGATIVE (NEGATIVE); MUCUS, URINE RFX SMALL (NEGATIVE); NITRITE, URINE AUTO RFX NEGATIVE (NEGATIVE); RBC, URINE AUTO RFX 9 /HPF (0-3); SPECIFIC GRAVITY UR AUTO RFX 1.016 (1.002-1.035); SQUAM EPITHELIAL CELL UR AURFX 0 /HPF (0-6)
[2017-04-10 18:38] LABS: LEUKOCYTE ESTERASE UR AUTO RFX 2+ (NEGATIVE); WBC, URINE AUTO RFX 33 /HPF (0-3)
[2017-04-10 20:15] LABS: BEDSIDE GLUCOSE 104 MG/DL (83-110)
[2017-04-10] MEDS: MEROPENEM INJ 1 GM in APPROPRIATE DILUENT 1 EA IV (20:20)
[2017-04-10] MEDS: TAMSULOSIN 0.4 MG CAP PO (21:28)
[2017-04-10] MEDS: LATANOPROST 0.005% OPHTH SOLN 2.5 ML OU (21:29)
[2017-04-10] MEDS: TERAZOSIN 1 MG CAP PO (21:30)
[2017-04-10] MEDS: VOLTAREN 1% TOP (22:13)
[2017-04-11] MEDS: LEVALBUTEROL 1.25 MG/0.5 ML CONCENTRATE NEB INH ×4 (00:08→12:07)
[2017-04-11] MEDS: oxyCODONE 5MG TAB PO ×2 (01:12→08:41)
[2017-04-11] MEDS: MEROPENEM INJ 1 GM in APPROPRIATE DILUENT 1 EA IV ×2 (04:20→11:25)
[2017-04-11 06:52] LABS: BASO % 0.1 % (0.0-1.0); EOS # 0.2 10^3/uL (0.0-0.50); EOS % 1.2 % (0.0-3.0); HEMATOCRIT 28.3 % (42.0-52.0); HEMOGLOBIN 9.1 g/dl (14.0-18.0); IMMATURE GRANULOCYTE # 0.1 10^3/uL (0-0); IMMATURE GRANULOCYTE % 0.6 % (0-0); LYMPH # 1.6 10^3/uL (1.5-4.5); LYMPH % 9.7 % (24.0-44.0); MEAN CORPUSCULAR HEMOGLOBIN 30.5 pg (27.0-33.0); MEAN CORPUSCULAR HGB CONC 32.2 g/dl (32.0-36.5); MONO # 1.7 10^3/uL (0.0-0.8); MONO % 10.2 % (0.0-5.0); NEUTROPHILS # 12.7 10^3/uL (1.8-7.7); NEUTROPHILS % 78.2 % (36.0-66.0); PLATELET COUNT, AUTOMATED 350 10^3/uL (150-450); RED BLOOD COUNT 2.98 10^6/uL (4.30-6.10); RED CELL DISTRIBUTION WIDTH 15.6 % (11.5-14.5); WHITE BLOOD COUNT 16.3 10^3/uL (4.0-10.0)
[2017-04-11 07:16] LABS: ALBUMIN/GLOBULIN RATIO 0.49 (1.00-1.93); ALKALINE PHOSPHATASE 97 U/L (45-117); ALT/SGPT 17 U/L (12-78); ANION GAP 7 MEQ/L (8-16); AST/SGOT 20 U/L (7-37); BILIRUBIN,TOTAL 0.8 MG/DL (0.2-1.0); BLOOD UREA NITROGEN 19 MG/DL (7-18); CALCIUM LEVEL 8.6 MG/DL (8.8-10.2); CARBON DIOXIDE LEVEL 28 MEQ/L (21-32); CHLORIDE LEVEL 100 MEQ/L (98-107); CREATININE FOR GFR 0.88 MG/DL (0.70-1.30); GLOMERULAR FILTRATION RATE > 60.0 (>35); GLUCOSE, FASTING 106 MG/DL (70-100); POTASSIUM SERUM 4.4 MEQ/L (3.5-5.1); SODIUM LEVEL 135 MEQ/L (136-145); TOTAL PROTEIN 6.1 GM/DL (6.4-8.2)
[2017-04-11 07:31] LABS: ERYTHROCYTE SEDIMENTATION RATE 104 mm/hr (0-30)
[2017-04-11] MEDS: HumaLOG INSULIN (NovoLOG) PER UNIT SC ×2 (08:43→12:19)
[2017-04-11] MEDS: guaiFENesin ER 600 MG TAB PO (08:43)
[2017-04-11] MEDS: SOTALOL HCL 80 MG TAB PO (08:44)
[2017-04-11] MEDS: SIMETHICONE 80 MG CHEW TAB PO ×2 (08:44→12:19)
[2017-04-11] MEDS: FAMOTIDINE 20 MG TAB PO (08:44)
[2017-04-11] MEDS: GABAPENTIN 300 MG CAP PO (08:44)
[2017-04-11] MEDS: MIRALAX *UNIT DOSE* 17GM PACKET PO (08:44)
[2017-04-11] MEDS: SANTYL OINT 30GM TOP (08:45)
[2017-04-11] MEDS: TIMOLOL MALEATE 0.5% OPHTH SOLN 5 ML OU (08:46)
[2017-04-11] MEDS: ACETAMINOPHEN TAB 650MG DOSE (2X325MG) PO (11:25)
[2017-04-11 11:29] LABS: BEDSIDE GLUCOSE 161 MG/DL (83-110)
[2017-04-11 11:34] LABS: FERRITIN 505 NG/ML (26-388); IRON (FE) 24 UG/DL (65-175); PERCENT SATURATION 13.9 % (19.7-50.0); TOTAL IRON BINDING CAPACITY 173 UG/DL (250-450)
[2017-04-11] MEDS: NYSTATIN 100,000 UNITS/GM TOPICAL PWD 15 GM TOP (12:18)
[2017-04-11] MEDS: CLOTRIMAZOLE 1% TOPICAL CREAM 30GM TOP (12:18)
[2017-04-11 12:21] LABS: VITAMIN B12 LEVEL 592 PG/ML (247-911)
[2017-04-11 12:22] LABS: FOLATE 15.2 NG/ML (>5.4)
[2017-04-11] MEDS ORDERED: NS 500 ML IV (13:30)
[2017-04-11] MEDS: NS 1,000 ML IV ×2 (13:47→14:36)
[2017-04-11] MEDS ORDERED: NS 2,000 ML IV (14:00)
[2017-04-11 14:34] LABS: LACTIC ACID SEPSIS PROTOCOL 1.5 MMOL/L (0.4-2.0)
[2017-04-11] MEDS ORDERED: NS 1,000 ML IV (15:00)
== END 2017-04-11 14:50 | disposition short-term general hospital (02) | DRG 947 ==
LOC: M PM&R 14:20
PROVIDERS: Physical Medicine & Rehabilitation
DX: R53.81 Other malaise (principal); L89.153 Pressure ulcer of sacral region, stage 3; J18.9 Pneumonia, unspecified organism; I10 Essential (primary) hypertension; E11.42 Type 2 diabetes mellitus with diabetic polyneuropathy; I48.0 Paroxysmal atrial fibrillation; K21.9 Gastro-esophageal reflux disease without esophagitis; N40.1 Benign prostatic hyperplasia with lower urinary tract symptoms; F03.90 Unspecified dementia, unspecified severity, without behavioral disturbance, psychotic disturbance, mood disturbance, and anxiety; M48.00 Spinal stenosis, site unspecified; D64.9 Anemia, unspecified; R50.9 Fever, unspecified; I25.10 Atherosclerotic heart disease of native coronary artery without angina pectoris; B35.9 Dermatophytosis, unspecified; R10.9 Unspecified abdominal pain; R33.9 Retention of urine, unspecified; R26.9 Unspecified abnormalities of gait and mobility; M54.5 Low back pain; Z89.511 Acquired absence of right leg below knee; Z89.612 Acquired absence of left leg above knee; Z89.111 Acquired absence of right hand; Z87.891 Personal history of nicotine dependence; Z88.5 Allergy status to narcotic agent; Z79.4 Long term (current) use of insulin; Z79.01 Long term (current) use of anticoagulants; Z79.899 Other long term (current) drug therapy

== ENCOUNTER 2017-04-11 15:04 | Inpatient (IN) | payer OTHER ==
[~2017-04-11 15:04] MED LIST changes: -BISACODYL 5 MG TAB PO; -FLEET ENEMA PR; -MOM 30ML SUSPENSION UDC PO; -NON-FORMULARY COMPOUNDED MEDICATION TOP
[2017-04-11] MEDS: NS 1,000 ML IV ×2 (15:45→16:04)
[2017-04-11] MEDS: LEVALBUTEROL 1.25 MG/0.5 ML CONCENTRATE NEB INH ×3 (16:00→20:50)
[2017-04-11] MEDS: GABAPENTIN 300 MG CAP PO ×2 (16:04→22:40)
[2017-04-11 16:05] LABS: CK-MB VALUE MASS 1.3 NG/ML (0.0-3.6); CPK CREATINE PHOSPHOKINASE 105 U/L (39-308); MB/CK RELATIVE INDEX 1.23 (< OR =4); TROPONIN I < 0.02 NG/ML (< 0.10)
[2017-04-11] MEDS: HumaLOG INSULIN (NovoLOG) PER UNIT SC ×2 (17:20→21:00)
[2017-04-11] MEDS: RIVAROXABAN 15 MG TAB (XARELTO) PO (17:21)
[2017-04-11 17:25] LABS: BEDSIDE GLUCOSE 105 MG/DL (83-110)
[2017-04-11] MEDS: oxyCODONE 5MG TAB PO (18:04)
[2017-04-11] MEDS: ACETAMINOPHEN TAB 650MG DOSE (2X325MG) PO (19:46)
[2017-04-11] MEDS: SOTALOL HCL 80 MG TAB PO (21:00)
[2017-04-11] MEDS: TERAZOSIN 1 MG CAP PO (21:00)
[2017-04-11 22:27] LABS: CK-MB VALUE MASS 1.1 NG/ML (0.0-3.6); CPK CREATINE PHOSPHOKINASE 91 U/L (39-308); TROPONIN I < 0.02 NG/ML (< 0.10)
[2017-04-11 22:27] LABS: BEDSIDE GLUCOSE 162 MG/DL (83-110)
[2017-04-11] MEDS: MEROPENEM INJ 1 GM in APPROPRIATE DILUENT 1 EA IV (22:40)
[2017-04-11] MEDS: CLOTRIMAZOLE 1% TOPICAL CREAM 30GM TOP (22:41)
[2017-04-11] MEDS: FAMOTIDINE 20 MG TAB PO (22:41)
[2017-04-11] MEDS: NYSTATIN 100,000 UNITS/GM TOPICAL PWD 15 GM TOP (22:41)
[2017-04-11] MEDS: LATANOPROST 0.005% OPHTH SOLN 2.5 ML OU (22:42)
[2017-04-12] MEDS: oxyCODONE 5MG TAB PO ×2 (00:37→10:27)
[2017-04-12] MEDS: NS 1,000 ML IV ×3 (04:28→20:54)
[2017-04-12] MEDS: ACETAMINOPHEN TAB 650MG DOSE (2X325MG) PO ×3 (04:28→20:51)
[2017-04-12] MEDS: MEROPENEM INJ 1 GM in APPROPRIATE DILUENT 1 EA IV ×3 (05:01→20:50)
[2017-04-12 05:31] LABS: BASO % 0.3 % (0.0-1.0); EOS # 0.3 10^3/uL (0.0-0.50); EOS % 1.7 % (0.0-3.0); HEMATOCRIT 27.1 % (42.0-52.0); HEMOGLOBIN 8.6 g/dl (14.0-18.0); IMMATURE GRANULOCYTE % 0.6 % (0-3.0); LYMPH # 1.1 10^3/uL (1.5-4.5); LYMPH % 7.6 % (24.0-44.0); MEAN CORPUSCULAR HEMOGLOBIN 30.7 pg (27.0-33.0); MEAN CORPUSCULAR HGB CONC 31.7 g/dl (32.0-36.5); MEAN CORPUSCULAR VOLUME 96.8 fl (80.0-96.0); MONO # 1.4 10^3/uL (0.0-0.8); MONO % 9.7 % (0.0-5.0); NEUTROPHILS # 11.9 10^3/uL (1.8-7.7); NEUTROPHILS % 80.1 % (36.0-66.0); PLATELET COUNT, AUTOMATED 308 10^3/uL (150-450); WHITE BLOOD COUNT 14.8 10^3/uL (4.0-10.0)
[2017-04-12 05:56] LABS: ALBUMIN 1.8 GM/DL (3.2-5.2); ALBUMIN/GLOBULIN RATIO 0.42 (1.00-1.93); ALKALINE PHOSPHATASE 80 U/L (45-117); ALT/SGPT 14 U/L (12-78); ANION GAP 9 MEQ/L (8-16); AST/SGOT 17 U/L (7-37); BILIRUBIN,TOTAL 0.5 MG/DL (0.2-1.0); BLOOD UREA NITROGEN 14 MG/DL (7-18); CALCIUM LEVEL 8.2 MG/DL (8.8-10.2); CARBON DIOXIDE LEVEL 23 MEQ/L (21-32); CHLORIDE LEVEL 107 MEQ/L (98-107); CK-MB VALUE MASS 1.5 NG/ML (0.0-3.6); CPK CREATINE PHOSPHOKINASE 83 U/L (39-308); GLOMERULAR FILTRATION RATE > 60.0 (>35); GLUCOSE, FASTING 111 MG/DL (70-100); MAGNESIUM LEVEL 2.1 MG/DL (1.8-2.4); POTASSIUM SERUM 4.3 MEQ/L (3.5-5.1); SODIUM LEVEL 139 MEQ/L (136-145); TOTAL PROTEIN 6.1 GM/DL (6.4-8.2); TROPONIN I < 0.02 NG/ML (< 0.10)
[2017-04-12 06:23] LABS: ERYTHROCYTE SEDIMENTATION RATE > 140 mm/hr (0-30)
[2017-04-12] MEDS: HumaLOG INSULIN (NovoLOG) PER UNIT SC ×4 (08:14→20:54)
[2017-04-12] MEDS: SOTALOL HCL 80 MG TAB PO ×3 (08:15→21:00)
[2017-04-12] MEDS: FAMOTIDINE 20 MG TAB PO ×3 (08:15→21:00)
[2017-04-12] MEDS: GABAPENTIN 300 MG CAP PO ×4 (08:16→21:00)
[2017-04-12] MEDS: TIMOLOL MALEATE 0.5% OPHTH SOLN 5 ML OU (08:17)
[2017-04-12] MEDS: CLOTRIMAZOLE 1% TOPICAL CREAM 30GM TOP ×2 (08:19→20:53)
[2017-04-12] MEDS: NYSTATIN 100,000 UNITS/GM TOPICAL PWD 15 GM TOP ×2 (08:19→20:53)
[2017-04-12] MEDS: LEVALBUTEROL 1.25 MG/0.5 ML CONCENTRATE NEB INH ×4 (08:29→21:15)
[2017-04-12] MEDS: TAMSULOSIN 0.4 MG CAP PO (10:26)
[2017-04-12] MEDS: SANTYL OINT 30GM TOP (10:27)
[2017-04-12] MEDS: LORazepam 2 MG/ML VIAL (J2060) IV ×2 (11:45→13:18)
[2017-04-12] MEDS ORDERED: PROHANCE 279.3MG/ML 15ML VIAL (A9576) As Ordered (13:55)
[2017-04-12 14:54] LABS: BEDSIDE GLUCOSE 118 MG/DL (83-110)
[2017-04-12 15:19] LABS: REASON FOR REVIEW ANEMIA / RBC MORPH; SLIDE REVIEW Report; SOURCE PERIPHERAL SMEAR
[2017-04-12 17:38] LABS: BEDSIDE GLUCOSE 133 MG/DL (83-110)
[2017-04-12] MEDS: RIVAROXABAN 15 MG TAB (XARELTO) PO (17:41)
[2017-04-12 20:13] LABS: BEDSIDE GLUCOSE 117 MG/DL (83-110)
[2017-04-12] MEDS: TERAZOSIN 1 MG CAP PO ×2 (20:52→21:00)
[2017-04-12] MEDS: LATANOPROST 0.005% OPHTH SOLN 2.5 ML OU (20:53)
[2017-04-13] MEDS: ACETAMINOPHEN TAB 650MG DOSE (2X325MG) PO ×4 (00:43→23:58)
[2017-04-13] MEDS: oxyCODONE 5MG TAB PO ×3 (02:36→16:21)
[2017-04-13] MEDS: MEROPENEM INJ 1 GM in APPROPRIATE DILUENT 1 EA IV ×3 (04:56→19:52)
[2017-04-13 05:29] LABS: BASO # 0.1 10^3/uL (0.0-0.2); BASO % 0.4 % (0.0-1.0); EOS # 0.2 10^3/uL (0.0-0.50); EOS % 1.7 % (0.0-3.0); HEMATOCRIT 27.3 % (42.0-52.0); HEMOGLOBIN 8.6 g/dl (14.0-18.0); IMMATURE GRANULOCYTE % 0.4 % (0-3.0); LYMPH # 1.6 10^3/uL (1.5-4.5); LYMPH % 11.6 % (24.0-44.0); MEAN CORPUSCULAR HEMOGLOBIN 30.4 pg (27.0-33.0); MEAN CORPUSCULAR HGB CONC 31.5 g/dl (32.0-36.5); MEAN CORPUSCULAR VOLUME 96.5 fl (80.0-96.0); MONO # 1.3 10^3/uL (0.0-0.8); MONO % 9.7 % (0.0-5.0); NEUTROPHILS # 10.5 10^3/uL (1.8-7.7); NEUTROPHILS % 76.2 % (36.0-66.0); PLATELET COUNT, AUTOMATED 306 10^3/uL (150-450); RED BLOOD COUNT 2.83 10^6/uL (4.30-6.10); RED CELL DISTRIBUTION WIDTH 15.9 % (11.5-14.5); WHITE BLOOD COUNT 13.8 10^3/uL (4.0-10.0)
[2017-04-13 05:53] LABS: ALBUMIN 1.8 GM/DL (3.2-5.2); ALBUMIN/GLOBULIN RATIO 0.41 (1.00-1.93); ALKALINE PHOSPHATASE 89 U/L (45-117); ALT/SGPT 13 U/L (12-78); ANION GAP 5 MEQ/L (8-16); AST/SGOT 18 U/L (7-37); BILIRUBIN,TOTAL 0.8 MG/DL (0.2-1.0); BLOOD UREA NITROGEN 12 MG/DL (7-18); CALCIUM LEVEL 8.2 MG/DL (8.8-10.2); CARBON DIOXIDE LEVEL 29 MEQ/L (21-32); CHLORIDE LEVEL 105 MEQ/L (98-107); CREATININE FOR GFR 0.64 MG/DL (0.70-1.30); GLOMERULAR FILTRATION RATE > 60.0 (>35); GLUCOSE, FASTING 100 MG/DL (70-100); MAGNESIUM LEVEL 1.8 MG/DL (1.8-2.4); POTASSIUM SERUM 4.1 MEQ/L (3.5-5.1); SODIUM LEVEL 139 MEQ/L (136-145); TOTAL PROTEIN 6.2 GM/DL (6.4-8.2)
[2017-04-13 06:00] LABS: ERYTHROCYTE SEDIMENTATION RATE 107 mm/hr (0-30)
[2017-04-13] MEDS: NS 1,000 ML IV ×2 (06:06→16:34)
[2017-04-13] MEDS: LEVALBUTEROL 1.25 MG/0.5 ML CONCENTRATE NEB INH ×4 (07:28→19:47)
[2017-04-13] MEDS: HumaLOG INSULIN (NovoLOG) PER UNIT SC ×4 (07:30→20:37)
[2017-04-13] MEDS: GABAPENTIN 300 MG CAP PO ×3 (08:49→20:40)
[2017-04-13] MEDS: TAMSULOSIN 0.4 MG CAP PO (08:50)
[2017-04-13] MEDS: SOTALOL HCL 80 MG TAB PO ×2 (08:50→20:39)
[2017-04-13] MEDS: FAMOTIDINE 20 MG TAB PO ×2 (08:50→20:40)
[2017-04-13] MEDS: CLOTRIMAZOLE 1% TOPICAL CREAM 30GM TOP ×2 (08:51→20:41)
[2017-04-13] MEDS: SANTYL OINT 30GM TOP (08:51)
[2017-04-13] MEDS: NYSTATIN 100,000 UNITS/GM TOPICAL PWD 15 GM TOP ×2 (08:51→20:41)
[2017-04-13] MEDS: TIMOLOL MALEATE 0.5% OPHTH SOLN 5 ML OU (09:00)
[2017-04-13 12:04] LABS: BEDSIDE GLUCOSE 134 MG/DL (83-110)
[2017-04-13] MEDS: LINEZOLID 600 MG in APPROPRIATE DILUENT 1 EA IV ×2 (12:13→23:58)
[2017-04-13 16:44] LABS: BEDSIDE GLUCOSE 175 MG/DL (83-110)
[2017-04-13] MEDS: RIVAROXABAN 15 MG TAB (XARELTO) PO (17:35)
[2017-04-13] MEDS: LATANOPROST 0.005% OPHTH SOLN 2.5 ML OU (20:40)
[2017-04-13] MEDS: TERAZOSIN 1 MG CAP PO (20:40)
[2017-04-13 21:40] LABS: BEDSIDE GLUCOSE 124 MG/DL (83-110)
[2017-04-14 04:14] LABS: BASO % 0.3 % (0.0-1.0); EOS # 0.3 10^3/uL (0.0-0.50); EOS % 2.4 % (0.0-3.0); HEMATOCRIT 25.2 % (42.0-52.0); HEMOGLOBIN 7.7 g/dl (14.0-18.0); IMMATURE GRANULOCYTE % 0.5 % (0-3.0); LYMPH # 1.7 10^3/uL (1.5-4.5); LYMPH % 15.6 % (24.0-44.0); MEAN CORPUSCULAR HEMOGLOBIN 30.1 pg (27.0-33.0); MEAN CORPUSCULAR HGB CONC 30.6 g/dl (32.0-36.5); MEAN CORPUSCULAR VOLUME 98.4 fl (80.0-96.0); MONO # 1.1 10^3/uL (0.0-0.8); MONO % 10.3 % (0.0-5.0); NEUTROPHILS # 7.8 10^3/uL (1.8-7.7); NEUTROPHILS % 70.9 % (36.0-66.0); PLATELET COUNT, AUTOMATED 282 10^3/uL (150-450); RED BLOOD COUNT 2.56 10^6/uL (4.30-6.10); RED CELL DISTRIBUTION WIDTH 15.8 % (11.5-14.5); WHITE BLOOD COUNT 11.1 10^3/uL (4.0-10.0)
[2017-04-14] MEDS: MEROPENEM INJ 1 GM in APPROPRIATE DILUENT 1 EA IV ×3 (04:28→20:17)
[2017-04-14] MEDS: NS 1,000 ML IV (04:28)
[2017-04-14 04:43] LABS: ALBUMIN 1.5 GM/DL (3.2-5.2); ALBUMIN/GLOBULIN RATIO 0.37 (1.00-1.93); ALKALINE PHOSPHATASE 74 U/L (45-117); ALT/SGPT 13 U/L (12-78); ANION GAP 3 MEQ/L (8-16); AST/SGOT 14 U/L (7-37); BILIRUBIN,TOTAL 0.6 MG/DL (0.2-1.0); BLOOD UREA NITROGEN 13 MG/DL (7-18); CARBON DIOXIDE LEVEL 28 MEQ/L (21-32); CHLORIDE LEVEL 107 MEQ/L (98-107); CREATININE FOR GFR 0.61 MG/DL (0.70-1.30); GLOMERULAR FILTRATION RATE > 60.0 (>35); GLUCOSE, FASTING 120 MG/DL (70-100); MAGNESIUM LEVEL 1.8 MG/DL (1.8-2.4); POTASSIUM SERUM 3.9 MEQ/L (3.5-5.1); SODIUM LEVEL 138 MEQ/L (136-145); TOTAL PROTEIN 5.6 GM/DL (6.4-8.2)
[2017-04-14 05:24] LABS: ERYTHROCYTE SEDIMENTATION RATE 128 mm/hr (0-30)
[2017-04-14 06:41] LABS: HEMATOCRIT 25.7 % (42.0-52.0); HEMOGLOBIN 8.1 g/dl (14.0-18.0)
[2017-04-14] MEDS: LEVALBUTEROL 1.25 MG/0.5 ML CONCENTRATE NEB INH ×4 (07:20→20:37)
[2017-04-14] MEDS: oxyCODONE 5MG TAB PO ×2 (07:46→12:01)
[2017-04-14] MEDS: HumaLOG INSULIN (NovoLOG) PER UNIT SC ×4 (07:46→21:00)
[2017-04-14] MEDS: SOTALOL HCL 80 MG TAB PO ×2 (08:39→20:23)
[2017-04-14] MEDS: TIMOLOL MALEATE 0.5% OPHTH SOLN 5 ML OU (08:39)
[2017-04-14] MEDS: TAMSULOSIN 0.4 MG CAP PO (08:40)
[2017-04-14] MEDS: SANTYL OINT 30GM TOP (08:40)
[2017-04-14] MEDS: GABAPENTIN 300 MG CAP PO ×3 (08:40→20:21)
[2017-04-14] MEDS: NYSTATIN 100,000 UNITS/GM TOPICAL PWD 15 GM TOP ×2 (08:41→21:28)
[2017-04-14] MEDS: FAMOTIDINE 20 MG TAB PO ×2 (08:41→20:23)
[2017-04-14] MEDS: CLOTRIMAZOLE 1% TOPICAL CREAM 30GM TOP ×2 (08:41→21:28)
[2017-04-14] MEDS: ACETAMINOPHEN TAB 650MG DOSE (2X325MG) PO ×2 (12:00→20:21)
[2017-04-14 12:03] LABS: BEDSIDE GLUCOSE 196 MG/DL (83-110)
[2017-04-14] MEDS: LINEZOLID 600 MG in APPROPRIATE DILUENT 1 EA IV ×2 (16:15→23:21)
[2017-04-14 18:14] LABS: BEDSIDE GLUCOSE 143 MG/DL (83-110)
[2017-04-14 18:14] LABS: BEDSIDE GLUCOSE 202 MG/DL (83-110)
[2017-04-14] MEDS: RIVAROXABAN 15 MG TAB (XARELTO) PO (18:14)
[2017-04-14] MEDS: TERAZOSIN 1 MG CAP PO (20:28)
[2017-04-14 21:01] LABS: BEDSIDE GLUCOSE 107 MG/DL (83-110)
[2017-04-14] MEDS: LATANOPROST 0.005% OPHTH SOLN 2.5 ML OU (21:27)
[2017-04-15] MEDS: MEROPENEM INJ 1 GM in APPROPRIATE DILUENT 1 EA IV ×3 (03:57→20:08)
[2017-04-15] MEDS: ACETAMINOPHEN TAB 650MG DOSE (2X325MG) PO ×3 (05:45→20:10)
[2017-04-15 06:33] LABS: BASO # 0.1 10^3/uL (0.0-0.2); BASO % 0.4 % (0.0-1.0); EOS # 0.2 10^3/uL (0.0-0.50); EOS % 1.9 % (0.0-3.0); HEMATOCRIT 25.3 % (42.0-52.0); IMMATURE GRANULOCYTE % 0.5 % (0-3.0); LYMPH # 1.4 10^3/uL (1.5-4.5); LYMPH % 11.7 % (24.0-44.0); MEAN CORPUSCULAR HEMOGLOBIN 30.5 pg (27.0-33.0); MEAN CORPUSCULAR HGB CONC 31.6 g/dl (32.0-36.5); MEAN CORPUSCULAR VOLUME 96.6 fl (80.0-96.0); MONO # 1.1 10^3/uL (0.0-0.8); MONO % 8.9 % (0.0-5.0); NEUTROPHILS # 9.3 10^3/uL (1.8-7.7); NEUTROPHILS % 76.6 % (36.0-66.0); PLATELET COUNT, AUTOMATED 263 10^3/uL (150-450); RED BLOOD COUNT 2.62 10^6/uL (4.30-6.10); RED CELL DISTRIBUTION WIDTH 15.8 % (11.5-14.5); WHITE BLOOD COUNT 12.2 10^3/uL (4.0-10.0)
[2017-04-15 06:58] LABS: ERYTHROCYTE SEDIMENTATION RATE 107 mm/hr (0-30)
[2017-04-15 07:02] LABS: ALBUMIN 1.6 GM/DL (3.2-5.2); ALBUMIN/GLOBULIN RATIO 0.36 (1.00-1.93); ALKALINE PHOSPHATASE 81 U/L (45-117); ALT/SGPT 11 U/L (12-78); ANION GAP 6 MEQ/L (8-16); AST/SGOT 15 U/L (7-37); BILIRUBIN,TOTAL 0.7 MG/DL (0.2-1.0); BLOOD UREA NITROGEN 15 MG/DL (7-18); CALCIUM LEVEL 8.4 MG/DL (8.8-10.2); CARBON DIOXIDE LEVEL 27 MEQ/L (21-32); CHLORIDE LEVEL 105 MEQ/L (98-107); CREATININE FOR GFR 0.62 MG/DL (0.70-1.30); GLOMERULAR FILTRATION RATE > 60.0 (>35); GLUCOSE, FASTING 115 MG/DL (70-100); MAGNESIUM LEVEL 1.9 MG/DL (1.8-2.4); SODIUM LEVEL 138 MEQ/L (136-145)
[2017-04-15] MEDS: LEVALBUTEROL 1.25 MG/0.5 ML CONCENTRATE NEB INH ×4 (07:22→20:40)
[2017-04-15] MEDS: TAMSULOSIN 0.4 MG CAP PO (08:45)
[2017-04-15] MEDS: GABAPENTIN 300 MG CAP PO ×3 (08:46→20:08)
[2017-04-15] MEDS: SOTALOL HCL 80 MG TAB PO ×2 (08:46→20:10)
[2017-04-15] MEDS: FAMOTIDINE 20 MG TAB PO ×2 (08:46→20:11)
[2017-04-15] MEDS: HumaLOG INSULIN (NovoLOG) PER UNIT SC ×4 (08:47→20:11)
[2017-04-15] MEDS: NYSTATIN 100,000 UNITS/GM TOPICAL PWD 15 GM TOP ×2 (08:49→20:12)
[2017-04-15] MEDS: CLOTRIMAZOLE 1% TOPICAL CREAM 30GM TOP ×2 (08:49→20:11)
[2017-04-15] MEDS: TIMOLOL MALEATE 0.5% OPHTH SOLN 5 ML OU (08:49)
[2017-04-15] MEDS: SANTYL OINT 30GM TOP (08:50)
[2017-04-15] MEDS: oxyCODONE 5MG TAB PO ×2 (11:03→15:25)
[2017-04-15 12:39] LABS: BEDSIDE GLUCOSE 125 MG/DL (83-110)
[2017-04-15] MEDS: LINEZOLID 600 MG in APPROPRIATE DILUENT 1 EA IV (12:58)
[2017-04-15] MEDS: IBUPROFEN 400 MG TAB PO (15:52)
[2017-04-15 17:15] LABS: BEDSIDE GLUCOSE 177 MG/DL (83-110)
[2017-04-15] MEDS: RIVAROXABAN 15 MG TAB (XARELTO) PO (17:25)
[2017-04-15] MEDS: TERAZOSIN 1 MG CAP PO (20:10)
[2017-04-15] MEDS: LATANOPROST 0.005% OPHTH SOLN 2.5 ML OU (20:12)
[2017-04-15 20:48] LABS: BEDSIDE GLUCOSE 138 MG/DL (83-110)
[2017-04-16] MEDS: LINEZOLID 600 MG in APPROPRIATE DILUENT 1 EA IV ×2 (00:49→12:26)
[2017-04-16] MEDS: MEROPENEM INJ 1 GM in APPROPRIATE DILUENT 1 EA IV ×3 (03:55→21:17)
[2017-04-16 06:34] LABS: BASO % 0.5 % (0.0-1.0); EOS # 0.3 10^3/uL (0.0-0.50); EOS % 5.3 % (0.0-3.0); HEMATOCRIT 26.1 % (42.0-52.0); HEMOGLOBIN 8.3 g/dl (14.0-18.0); IMMATURE GRANULOCYTE % 0.5 % (0-3.0); LYMPH # 1.2 10^3/uL (1.5-4.5); LYMPH % 18.6 % (24.0-44.0); MEAN CORPUSCULAR HEMOGLOBIN 30.7 pg (27.0-33.0); MEAN CORPUSCULAR HGB CONC 31.8 g/dl (32.0-36.5); MEAN CORPUSCULAR VOLUME 96.7 fl (80.0-96.0); MONO # 0.6 10^3/uL (0.0-0.8); NEUTROPHILS # 4.2 10^3/uL (1.8-7.7); NEUTROPHILS % 66.1 % (36.0-66.0); PLATELET COUNT, AUTOMATED 255 10^3/uL (150-450); RED CELL DISTRIBUTION WIDTH 15.3 % (11.5-14.5); WHITE BLOOD COUNT 6.4 10^3/uL (4.0-10.0)
[2017-04-16 06:53] LABS: ALBUMIN 1.6 GM/DL (3.2-5.2); ALBUMIN/GLOBULIN RATIO 0.36 (1.00-1.93); ALKALINE PHOSPHATASE 73 U/L (45-117); ALT/SGPT 7 U/L (12-78); ANION GAP 5 MEQ/L (8-16); AST/SGOT 14 U/L (7-37); BILIRUBIN,TOTAL 0.8 MG/DL (0.2-1.0); BLOOD UREA NITROGEN 20 MG/DL (7-18); CALCIUM LEVEL 8.3 MG/DL (8.8-10.2); CARBON DIOXIDE LEVEL 30 MEQ/L (21-32); CHLORIDE LEVEL 105 MEQ/L (98-107); CREATININE FOR GFR 0.67 MG/DL (0.70-1.30); GLOMERULAR FILTRATION RATE > 60.0 (>35); GLUCOSE, FASTING 111 MG/DL (70-100); POTASSIUM SERUM 3.9 MEQ/L (3.5-5.1); SODIUM LEVEL 140 MEQ/L (136-145)
[2017-04-16 07:29] LABS: ERYTHROCYTE SEDIMENTATION RATE 107 mm/hr (0-30)
[2017-04-16] MEDS: TAMSULOSIN 0.4 MG CAP PO (08:14)
[2017-04-16] MEDS: GABAPENTIN 300 MG CAP PO ×3 (08:14→21:13)
[2017-04-16] MEDS: FAMOTIDINE 20 MG TAB PO ×2 (08:14→21:14)
[2017-04-16] MEDS: SOTALOL HCL 80 MG TAB PO ×2 (08:14→21:13)
[2017-04-16] MEDS: HumaLOG INSULIN (NovoLOG) PER UNIT SC ×4 (08:15→21:00)
[2017-04-16] MEDS: CLOTRIMAZOLE 1% TOPICAL CREAM 30GM TOP ×2 (08:16→21:16)
[2017-04-16] MEDS: TIMOLOL MALEATE 0.5% OPHTH SOLN 5 ML OU (08:16)
[2017-04-16] MEDS: SANTYL OINT 30GM TOP (08:17)
[2017-04-16] MEDS: NYSTATIN 100,000 UNITS/GM TOPICAL PWD 15 GM TOP ×2 (08:17→21:17)
[2017-04-16] MEDS: ACETAMINOPHEN TAB 650MG DOSE (2X325MG) PO ×2 (10:34→21:15)
[2017-04-16] MEDS: LEVALBUTEROL 1.25 MG/0.5 ML CONCENTRATE NEB INH ×4 (10:56→20:59)
[2017-04-16 11:54] LABS: BEDSIDE GLUCOSE 96 MG/DL (83-110)
[2017-04-16] MEDS: oxyCODONE 5MG TAB PO ×3 (12:00→23:32)
[2017-04-16] MEDS: RIVAROXABAN 15 MG TAB (XARELTO) PO (17:37)
[2017-04-16] MEDS: TERAZOSIN 1 MG CAP PO (21:12)
[2017-04-16] MEDS: LATANOPROST 0.005% OPHTH SOLN 2.5 ML OU (21:15)
[2017-04-17 04:29] LABS: BEDSIDE GLUCOSE 119 MG/DL (83-110)
[2017-04-17 04:29] LABS: BEDSIDE GLUCOSE 121 MG/DL (83-110)
[2017-04-17] MEDS: LEVALBUTEROL 1.25 MG/0.5 ML CONCENTRATE NEB INH ×4 (07:16→20:16)
[2017-04-17 07:18] LABS: BASO % 0.4 % (0.0-1.0); EOS # 0.3 10^3/uL (0.0-0.50); EOS % 3.3 % (0.0-3.0); HEMATOCRIT 24.5 % (42.0-52.0); HEMOGLOBIN 7.9 g/dl (14.0-18.0); IMMATURE GRANULOCYTE % 0.4 % (0-3.0); LYMPH # 1.7 10^3/uL (1.5-4.5); LYMPH % 21.4 % (24.0-44.0); MEAN CORPUSCULAR HEMOGLOBIN 31.3 pg (27.0-33.0); MEAN CORPUSCULAR HGB CONC 32.2 g/dl (32.0-36.5); MEAN CORPUSCULAR VOLUME 97.2 fl (80.0-96.0); MONO # 0.7 10^3/uL (0.0-0.8); MONO % 9.1 % (0.0-5.0); NEUTROPHILS # 5.2 10^3/uL (1.8-7.7); NEUTROPHILS % 65.4 % (36.0-66.0); PLATELET COUNT, AUTOMATED 264 10^3/uL (150-450); RED BLOOD COUNT 2.52 10^6/uL (4.30-6.10); RED CELL DISTRIBUTION WIDTH 15.6 % (11.5-14.5); WHITE BLOOD COUNT 7.9 10^3/uL (4.0-10.0)
[2017-04-17] MEDS: HumaLOG INSULIN (NovoLOG) PER UNIT SC ×4 (07:30→21:00)
[2017-04-17 07:43] LABS: ALBUMIN 1.7 GM/DL (3.2-5.2); ALBUMIN/GLOBULIN RATIO 0.45 (1.00-1.93); ALKALINE PHOSPHATASE 76 U/L (45-117); ALT/SGPT 9 U/L (12-78); ANION GAP 8 MEQ/L (8-16); AST/SGOT 15 U/L (7-37); BILIRUBIN,TOTAL 0.6 MG/DL (0.2-1.0); BLOOD UREA NITROGEN 17 MG/DL (7-18); C REACTIVE PROTEIN QUANTITATIV 8.23 MG/DL (0.00-0.30); CARBON DIOXIDE LEVEL 27 MEQ/L (21-32); CHLORIDE LEVEL 103 MEQ/L (98-107); CREATININE FOR GFR 0.61 MG/DL (0.70-1.30); GLOMERULAR FILTRATION RATE > 60.0 (>35); GLUCOSE, FASTING 98 MG/DL (70-100); POTASSIUM SERUM 4.1 MEQ/L (3.5-5.1); SODIUM LEVEL 138 MEQ/L (136-145); TOTAL PROTEIN 5.5 GM/DL (6.4-8.2)
[2017-04-17 08:31] LABS: ERYTHROCYTE SEDIMENTATION RATE 127 mm/hr (0-30)
[2017-04-17] MEDS ORDERED: VARIBAR PUDDING 40% w/v 230ML TUBE As Ordered (09:16)
[2017-04-17] MEDS ORDERED: VARIBAR NECTAR 40% w/v 240ML SUSP BTL As Ordered (09:17)
[2017-04-17] MEDS ORDERED: E-Z-PAQUE 96% w/w SUSP 176GM BTL As Ordered (09:17)
[2017-04-17] MEDS: oxyCODONE 5MG TAB PO ×2 (13:15→17:41)
[2017-04-17 13:27] LABS: BEDSIDE GLUCOSE 99 MG/DL (83-110)
[2017-04-17] MEDS: SOTALOL HCL 80 MG TAB PO ×2 (13:53→21:48)
[2017-04-17] MEDS: GABAPENTIN 300 MG CAP PO ×3 (13:53→21:49)
[2017-04-17] MEDS: FAMOTIDINE 20 MG TAB PO ×2 (13:54→21:48)
[2017-04-17] MEDS: TIMOLOL MALEATE 0.5% OPHTH SOLN 5 ML OU (13:55)
[2017-04-17] MEDS: CLOTRIMAZOLE 1% TOPICAL CREAM 30GM TOP ×2 (13:56→21:50)
[2017-04-17] MEDS: NYSTATIN 100,000 UNITS/GM TOPICAL PWD 15 GM TOP ×2 (13:56→21:50)
[2017-04-17] MEDS: SANTYL OINT 30GM TOP (13:57)
[2017-04-17] MEDS: TAMSULOSIN 0.4 MG CAP PO (14:19)
[2017-04-17] MEDS: LINEZOLID 600 MG in APPROPRIATE DILUENT 1 EA IV ×2 (16:46)
[2017-04-17 17:06] LABS: BEDSIDE GLUCOSE 122 MG/DL (83-110)
[2017-04-17] MEDS: RIVAROXABAN 15 MG TAB (XARELTO) PO (17:41)
[2017-04-17] MEDS: TERAZOSIN 1 MG CAP PO (21:49)
[2017-04-17] MEDS: ACETAMINOPHEN TAB 650MG DOSE (2X325MG) PO (21:50)
[2017-04-17] MEDS: LATANOPROST 0.005% OPHTH SOLN 2.5 ML OU (21:51)
[2017-04-18] MEDS: LINEZOLID 600 MG in APPROPRIATE DILUENT 1 EA IV (00:50)
[2017-04-18] MEDS: LEVALBUTEROL 1.25 MG/0.5 ML CONCENTRATE NEB INH ×3 (05:46→20:46)
[2017-04-18 06:45] LABS: BASO % 0.3 % (0.0-1.0); EOS # 0.2 10^3/uL (0.0-0.50); EOS % 2.7 % (0.0-3.0); HEMATOCRIT 23.6 % (42.0-52.0); HEMOGLOBIN 7.4 g/dl (14.0-18.0); IMMATURE GRANULOCYTE % 0.3 % (0-3.0); LYMPH # 1.8 10^3/uL (1.5-4.5); LYMPH % 24.6 % (24.0-44.0); MEAN CORPUSCULAR HEMOGLOBIN 30.7 pg (27.0-33.0); MEAN CORPUSCULAR HGB CONC 31.4 g/dl (32.0-36.5); MEAN CORPUSCULAR VOLUME 97.9 fl (80.0-96.0); MONO # 0.7 10^3/uL (0.0-0.8); MONO % 9.4 % (0.0-5.0); NEUTROPHILS # 4.5 10^3/uL (1.8-7.7); NEUTROPHILS % 62.7 % (36.0-66.0); PLATELET COUNT, AUTOMATED 247 10^3/uL (150-450); RED BLOOD COUNT 2.41 10^6/uL (4.30-6.10); RED CELL DISTRIBUTION WIDTH 15.3 % (11.5-14.5); WHITE BLOOD COUNT 7.1 10^3/uL (4.0-10.0)
[2017-04-18 07:03] LABS: ERYTHROCYTE SEDIMENTATION RATE 106 mm/hr (0-30)
[2017-04-18 07:05] LABS: ALBUMIN 1.7 GM/DL (3.2-5.2); ALBUMIN/GLOBULIN RATIO 0.39 (1.00-1.93); ALKALINE PHOSPHATASE 73 U/L (45-117); ALT/SGPT 15 U/L (12-78); ANION GAP 5 MEQ/L (8-16); AST/SGOT 17 U/L (7-37); BILIRUBIN,TOTAL 0.8 MG/DL (0.2-1.0); BLOOD UREA NITROGEN 18 MG/DL (7-18); C REACTIVE PROTEIN QUANTITATIV 8.22 MG/DL (0.00-0.30); CALCIUM LEVEL 8.6 MG/DL (8.8-10.2); CARBON DIOXIDE LEVEL 29 MEQ/L (21-32); CHLORIDE LEVEL 102 MEQ/L (98-107); CREATININE FOR GFR 0.67 MG/DL (0.70-1.30); GLOMERULAR FILTRATION RATE > 60.0 (>35); GLUCOSE, FASTING 102 MG/DL (70-100); POTASSIUM SERUM 4.1 MEQ/L (3.5-5.1); SODIUM LEVEL 136 MEQ/L (136-145); TOTAL PROTEIN 6.1 GM/DL (6.4-8.2)
[2017-04-18 07:29] LABS: BEDSIDE GLUCOSE 141 MG/DL (83-110)
[2017-04-18] MEDS: HumaLOG INSULIN (NovoLOG) PER UNIT SC ×4 (07:30→21:00)
[2017-04-18] MEDS: GABAPENTIN 300 MG CAP PO ×3 (09:30→22:25)
[2017-04-18] MEDS: TAMSULOSIN 0.4 MG CAP PO (09:30)
[2017-04-18] MEDS: LOPERAMIDE 2 MG CAP PO (09:31)
[2017-04-18] MEDS: SOTALOL HCL 80 MG TAB PO ×2 (09:31→22:25)
[2017-04-18] MEDS: oxyCODONE 5MG TAB PO ×2 (09:31→14:22)
[2017-04-18] MEDS: FAMOTIDINE 20 MG TAB PO ×2 (09:32→22:25)
[2017-04-18] MEDS: LINEZOLID 600MG TABLET (ZYVOX) PO ×2 (09:32→22:25)
[2017-04-18] MEDS: TIMOLOL MALEATE 0.5% OPHTH SOLN 5 ML OU (09:32)
[2017-04-18] MEDS: NYSTATIN 100,000 UNITS/GM TOPICAL PWD 15 GM TOP ×2 (09:32→22:27)
[2017-04-18] MEDS: CLOTRIMAZOLE 1% TOPICAL CREAM 30GM TOP ×2 (09:32→22:27)
[2017-04-18] MEDS: SANTYL OINT 30GM TOP (09:33)
[2017-04-18 11:58] LABS: BEDSIDE GLUCOSE 126 MG/DL (83-110)
[2017-04-18 14:26] LABS: APPEARANCE, URINE HAZY (CLEAR); BACTERIA, URINE AUTO NEGATIVE (NEGATIVE); BILIRUBIN, URINE AUTO NEGATIVE (NEGATIVE); BLOOD, URINE BLOOD 1+ (NEGATIVE); COLOR, URINE YELLOW (YELLOW); GLUCOSE, URINE (UA) AUTO NEGATIVE (NEGATIVE); KETONE, URINE AUTO NEGATIVE (NEGATIVE); LEUKOCYTE ESTERASE, URINE AUTO 3+ (NEGATIVE); MUCUS, URINE SMALL (NEGATIVE); NITRITE, URINE AUTO NEGATIVE (NEGATIVE); PROTEIN, URINE AUTO NEGATIVE (NEGATIVE); RBC, URINE AUTO 10 /HPF (0-3); SPECIFIC GRAVITY URINE AUTO 1.016 (1.002-1.035); SQUAMOUS EPITHELIAL CELL UR AU 2 /HPF (0-6); UROBILINOGEN, URINE AUTO 0.2 mg/dL (0.0-2.0); WBC, URINE AUTO 10 /HPF (0-3); YEAST LIKE CELL URINE AUTO SMALL
[2017-04-18] MEDS: ACETAMINOPHEN TAB 650MG DOSE (2X325MG) PO (16:18)
[2017-04-18] MEDS: RIVAROXABAN 15 MG TAB (XARELTO) PO (18:23)
[2017-04-18 18:27] LABS: BEDSIDE GLUCOSE 126 MG/DL (83-110)
[2017-04-18 22:10] LABS: IMMEDIATE SPIN CROSSMATCH 1 2
[2017-04-18] MEDS: TERAZOSIN 1 MG CAP PO (22:25)
[2017-04-18] MEDS: LATANOPROST 0.005% OPHTH SOLN 2.5 ML OU (22:26)
[2017-04-19 02:05] LABS: BEDSIDE GLUCOSE 102 MG/DL (83-110)
[2017-04-19] MEDS: ACETAMINOPHEN TAB 650MG DOSE (2X325MG) PO ×2 (05:11→21:03)
[2017-04-19] MEDS: oxyCODONE 5MG TAB PO ×3 (06:43→21:02)
[2017-04-19] MEDS: LEVALBUTEROL 1.25 MG/0.5 ML CONCENTRATE NEB INH ×4 (07:08→20:21)
[2017-04-19] MEDS: HumaLOG INSULIN (NovoLOG) PER UNIT SC ×4 (07:30→21:00)
[2017-04-19 07:57] LABS: HEMATOCRIT 25.3 % (42.0-52.0); HEMOGLOBIN 8.1 g/dl (14.0-18.0); MEAN CORPUSCULAR HEMOGLOBIN 30.9 pg (27.0-33.0); MEAN CORPUSCULAR VOLUME 96.6 fl (80.0-96.0); PLATELET COUNT, AUTOMATED 260 10^3/uL (150-450); RED BLOOD COUNT 2.62 10^6/uL (4.30-6.10); RED CELL DISTRIBUTION WIDTH 15.8 % (11.5-14.5); WHITE BLOOD COUNT 6.8 10^3/uL (4.0-10.0)
[2017-04-19 08:19] LABS: ANION GAP 5 MEQ/L (8-16); BLOOD UREA NITROGEN 17 MG/DL (7-18); C REACTIVE PROTEIN QUANTITATIV 8.03 MG/DL (0.00-0.30); CALCIUM LEVEL 8.5 MG/DL (8.8-10.2); CARBON DIOXIDE LEVEL 29 MEQ/L (21-32); CHLORIDE LEVEL 103 MEQ/L (98-107); CREATININE FOR GFR 0.69 MG/DL (0.70-1.30); GLOMERULAR FILTRATION RATE > 60.0 (>35); GLUCOSE, FASTING 93 MG/DL (70-100); POTASSIUM SERUM 4.1 MEQ/L (3.5-5.1); SODIUM LEVEL 137 MEQ/L (136-145)
[2017-04-19 08:51] LABS: ERYTHROCYTE SEDIMENTATION RATE 106 mm/hr (0-30)
[2017-04-19] MEDS: SOTALOL HCL 80 MG TAB PO ×2 (10:32→21:02)
[2017-04-19] MEDS: TAMSULOSIN 0.4 MG CAP PO (10:33)
[2017-04-19] MEDS: GABAPENTIN 300 MG CAP PO ×3 (10:33→21:01)
[2017-04-19] MEDS: FAMOTIDINE 20 MG TAB PO ×2 (10:33→21:02)
[2017-04-19] MEDS: LINEZOLID 600MG TABLET (ZYVOX) PO ×2 (10:34→21:01)
[2017-04-19] MEDS: TIMOLOL MALEATE 0.5% OPHTH SOLN 5 ML OU (10:35)
[2017-04-19] MEDS: CLOTRIMAZOLE 1% TOPICAL CREAM 30GM TOP ×2 (10:36→21:03)
[2017-04-19] MEDS: NYSTATIN 100,000 UNITS/GM TOPICAL PWD 15 GM TOP ×2 (10:37→21:05)
[2017-04-19] MEDS: SANTYL OINT 30GM TOP (10:38)
[2017-04-19 11:44] LABS: BEDSIDE GLUCOSE 117 MG/DL (83-110)
[2017-04-19] MEDS: FLUCONAZOLE 200 MG in APPROPRIATE DILUENT 1 EA IV (17:00)
[2017-04-19 17:33] LABS: BEDSIDE GLUCOSE 161 MG/DL (83-110)
[2017-04-19] MEDS: RIVAROXABAN 15 MG TAB (XARELTO) PO (17:44)
[2017-04-19] MEDS: TERAZOSIN 1 MG CAP PO (21:01)
[2017-04-19] MEDS: LATANOPROST 0.005% OPHTH SOLN 2.5 ML OU (21:04)
[2017-04-19] MEDS: NYSTATIN OINTMENT 15 GM TOP (21:05)
[2017-04-19 21:14] LABS: BEDSIDE GLUCOSE 134 MG/DL (83-110)
[2017-04-19] MEDS: MEROPENEM INJ 1 GM in APPROPRIATE DILUENT 1 EA IV (22:55)
[2017-04-20] MEDS: MEROPENEM INJ 1 GM in APPROPRIATE DILUENT 1 EA IV ×4 (06:45→21:43)
[2017-04-20 06:47] LABS: HEMATOCRIT 24.2 % (42.0-52.0); HEMOGLOBIN 7.7 g/dl (14.0-18.0); MEAN CORPUSCULAR HEMOGLOBIN 31.3 pg (27.0-33.0); MEAN CORPUSCULAR HGB CONC 31.8 g/dl (32.0-36.5); MEAN CORPUSCULAR VOLUME 98.4 fl (80.0-96.0); PLATELET COUNT, AUTOMATED 228 10^3/uL (150-450); RED BLOOD COUNT 2.46 10^6/uL (4.30-6.10); RED CELL DISTRIBUTION WIDTH 15.6 % (11.5-14.5); WHITE BLOOD COUNT 6.5 10^3/uL (4.0-10.0)
[2017-04-20 07:19] LABS: ANION GAP 5 MEQ/L (8-16); BLOOD UREA NITROGEN 17 MG/DL (7-18); CALCIUM LEVEL 8.6 MG/DL (8.8-10.2); CARBON DIOXIDE LEVEL 31 MEQ/L (21-32); CHLORIDE LEVEL 103 MEQ/L (98-107); CREATININE FOR GFR 0.74 MG/DL (0.70-1.30); GLOMERULAR FILTRATION RATE > 60.0 (>35); GLUCOSE, FASTING 85 MG/DL (70-100); POTASSIUM SERUM 4.4 MEQ/L (3.5-5.1); SODIUM LEVEL 139 MEQ/L (136-145)
[2017-04-20] MEDS: HumaLOG INSULIN (NovoLOG) PER UNIT SC (07:50)
[2017-04-20] MEDS: LEVALBUTEROL 1.25 MG/0.5 ML CONCENTRATE NEB INH ×4 (08:19→20:46)
[2017-04-20] MEDS: GABAPENTIN 300 MG CAP PO ×3 (09:24→20:29)
[2017-04-20] MEDS: LINEZOLID 600MG TABLET (ZYVOX) PO ×2 (09:26→20:37)
[2017-04-20] MEDS: SOTALOL HCL 80 MG TAB PO ×2 (09:26→20:33)
[2017-04-20] MEDS: TIMOLOL MALEATE 0.5% OPHTH SOLN 5 ML OU (09:29)
[2017-04-20] MEDS: CLOTRIMAZOLE 1% TOPICAL CREAM 30GM TOP ×2 (09:29→20:32)
[2017-04-20] MEDS: NYSTATIN OINTMENT 15 GM TOP ×2 (09:30→20:31)
[2017-04-20] MEDS: FAMOTIDINE 20 MG TAB PO ×2 (09:38→20:29)
[2017-04-20] MEDS: TAMSULOSIN 0.4 MG CAP PO (09:38)
[2017-04-20] MEDS: NYSTATIN 100,000 UNITS/GM TOPICAL PWD 15 GM TOP ×2 (11:27→20:34)
[2017-04-20 12:01] LABS: BEDSIDE GLUCOSE 99 MG/DL (83-110)
[2017-04-20] MEDS: VOLTAREN 1% TOP ×2 (13:35→20:33)
[2017-04-20 14:09] LABS: IMMEDIATE SPIN CROSSMATCH 1 2
[2017-04-20] MEDS ORDERED: PROPOFOL 200 MG/20 ML VIAL As Ordered (14:53)
[2017-04-20] MEDS ORDERED: MIDAZOLAM INJ 2 MG/2 ML VIAL (J2250) As Ordered (14:53)
[2017-04-20] MEDS ORDERED: LIDOCAINE 2% INJ 100 MG/5 ML SDV (FOR ANES.) As Ordered (14:53)
[2017-04-20] MEDS ORDERED: fentaNYL 100 MCG/2 ML INJECTION (J3010) As Ordered (14:53)
[2017-04-20] MEDS ORDERED: KETAMINE HCL 200 MG/20 ML VIAL As Ordered (14:53)
[2017-04-20] MEDS: LIDOCAINE 1% SDV INJ 30 ML VIAL As Ordered (15:24)
[2017-04-20] MEDS ORDERED: ePHEDrine INJ 50 MG/ML VIAL As Ordered (15:33)
[2017-04-20] MEDS ORDERED: MORPHINE 10 MG/ML 1ML VIAL (J2270) IV (17:00)
[2017-04-20] MEDS ORDERED: ONDANSETRON 4MG/2ML VIAL (J2405) IV (17:00)
[2017-04-20] MEDS: LR 1,000 ML IV (18:13)
[2017-04-20] MEDS: FLUCONAZOLE 200 MG in APPROPRIATE DILUENT 1 EA IV (18:29)
[2017-04-20] MEDS: oxyCODONE 5MG TAB PO (20:30)
[2017-04-20] MEDS: ACETAMINOPHEN TAB 650MG DOSE (2X325MG) PO (20:31)
[2017-04-20] MEDS: LATANOPROST 0.005% OPHTH SOLN 2.5 ML OU (20:31)
[2017-04-20] MEDS: TERAZOSIN 1 MG CAP PO (20:32)
[2017-04-20 21:15] LABS: BEDSIDE GLUCOSE 113 MG/DL (83-110)
[2017-04-21] MEDS: ACETAMINOPHEN TAB 650MG DOSE (2X325MG) PO ×2 (05:07→16:13)
[2017-04-21] MEDS: oxyCODONE 5MG TAB PO ×3 (05:08→21:33)
[2017-04-21] MEDS: SODIUM CHLORIDE 0.9% INJ 10 ML SYR IV ×2 (05:08→17:39)
[2017-04-21] MEDS: MEROPENEM INJ 1 GM in APPROPRIATE DILUENT 1 EA IV ×3 (05:09→21:33)
[2017-04-21 05:24] LABS: HEMATOCRIT 26.6 % (42.0-52.0); HEMOGLOBIN 8.7 g/dl (14.0-18.0); MEAN CORPUSCULAR HGB CONC 32.7 g/dl (32.0-36.5); MEAN CORPUSCULAR VOLUME 94.7 fl (80.0-96.0); PLATELET COUNT, AUTOMATED 194 10^3/uL (150-450); RED BLOOD COUNT 2.81 10^6/uL (4.30-6.10); RED CELL DISTRIBUTION WIDTH 15.9 % (11.5-14.5); WHITE BLOOD COUNT 4.8 10^3/uL (4.0-10.0)
[2017-04-21 05:41] LABS: ANION GAP 8 MEQ/L (8-16); BLOOD UREA NITROGEN 19 MG/DL (7-18); CARBON DIOXIDE LEVEL 30 MEQ/L (21-32); CHLORIDE LEVEL 103 MEQ/L (98-107); CREATININE FOR GFR 0.63 MG/DL (0.70-1.30); GLOMERULAR FILTRATION RATE > 60.0 (>35); GLUCOSE, FASTING 87 MG/DL (70-100); POTASSIUM SERUM 4.2 MEQ/L (3.5-5.1); SODIUM LEVEL 141 MEQ/L (136-145)
[2017-04-21] MEDS: LEVALBUTEROL 1.25 MG/0.5 ML CONCENTRATE NEB INH ×4 (07:15→20:00)
[2017-04-21] MEDS: VOLTAREN 1% TOP ×2 (08:55→21:42)
[2017-04-21] MEDS: CLOTRIMAZOLE 1% TOPICAL CREAM 30GM TOP ×2 (08:56→21:42)
[2017-04-21] MEDS: NYSTATIN OINTMENT 15 GM TOP ×2 (08:56→21:41)
[2017-04-21] MEDS: TIMOLOL MALEATE 0.5% OPHTH SOLN 5 ML OU (08:57)
[2017-04-21] MEDS: SOTALOL HCL 80 MG TAB PO ×2 (08:57→21:32)
[2017-04-21] MEDS: TAMSULOSIN 0.4 MG CAP PO (08:58)
[2017-04-21] MEDS: GABAPENTIN 300 MG CAP PO ×3 (08:58→21:31)
[2017-04-21] MEDS: LINEZOLID 600MG TABLET (ZYVOX) PO ×2 (08:58→21:32)
[2017-04-21] MEDS: FAMOTIDINE 20 MG TAB PO ×2 (08:58→21:32)
[2017-04-21] MEDS: NYSTATIN 100,000 UNITS/GM TOPICAL PWD 15 GM TOP ×2 (08:59→21:41)
[2017-04-21 16:30] LABS: BEDSIDE GLUCOSE 97 MG/DL (83-110)
[2017-04-21] MEDS: FLUCONAZOLE 200 MG in APPROPRIATE DILUENT 1 EA IV (17:39)
[2017-04-21] MEDS: RIVAROXABAN 15 MG TAB (XARELTO) PO (17:39)
[2017-04-21] MEDS: TERAZOSIN 1 MG CAP PO (21:32)
[2017-04-21] MEDS: LATANOPROST 0.005% OPHTH SOLN 2.5 ML OU (21:41)
[2017-04-22] MEDS: SODIUM CHLORIDE 0.9% INJ 10 ML SYR IV ×2 (05:02→17:08)
[2017-04-22] MEDS: MEROPENEM INJ 1 GM in APPROPRIATE DILUENT 1 EA IV ×3 (05:04→22:24)
[2017-04-22 05:26] LABS: HEMATOCRIT 25.2 % (42.0-52.0); HEMOGLOBIN 8.1 g/dl (14.0-18.0); MEAN CORPUSCULAR HEMOGLOBIN 30.7 pg (27.0-33.0); MEAN CORPUSCULAR HGB CONC 32.1 g/dl (32.0-36.5); MEAN CORPUSCULAR VOLUME 95.5 fl (80.0-96.0); PLATELET COUNT, AUTOMATED 200 10^3/uL (150-450); RED BLOOD COUNT 2.64 10^6/uL (4.30-6.10); RED CELL DISTRIBUTION WIDTH 15.4 % (11.5-14.5); WHITE BLOOD COUNT 6.2 10^3/uL (4.0-10.0)
[2017-04-22 05:46] LABS: ANION GAP 6 MEQ/L (8-16); BLOOD UREA NITROGEN 21 MG/DL (7-18); C REACTIVE PROTEIN QUANTITATIV 7.83 MG/DL (0.00-0.30); CALCIUM LEVEL 7.7 MG/DL (8.8-10.2); CARBON DIOXIDE LEVEL 31 MEQ/L (21-32); CHLORIDE LEVEL 103 MEQ/L (98-107); CREATININE FOR GFR 0.67 MG/DL (0.70-1.30); GLOMERULAR FILTRATION RATE > 60.0 (>35); GLUCOSE, FASTING 93 MG/DL (70-100); POTASSIUM SERUM 4.4 MEQ/L (3.5-5.1); SODIUM LEVEL 140 MEQ/L (136-145)
[2017-04-22] MEDS: LEVALBUTEROL 1.25 MG/0.5 ML CONCENTRATE NEB INH ×4 (07:22→21:03)
[2017-04-22] MEDS: GABAPENTIN 300 MG CAP PO ×3 (08:29→22:18)
[2017-04-22] MEDS: TAMSULOSIN 0.4 MG CAP PO (08:29)
[2017-04-22] MEDS: FAMOTIDINE 20 MG TAB PO ×2 (08:29→22:15)
[2017-04-22] MEDS: LINEZOLID 600MG TABLET (ZYVOX) PO ×2 (08:29→22:17)
[2017-04-22] MEDS: oxyCODONE 5MG TAB PO ×3 (08:30→22:18)
[2017-04-22] MEDS: SOTALOL HCL 80 MG TAB PO ×2 (08:31→22:17)
[2017-04-22] MEDS: NYSTATIN OINTMENT 15 GM TOP ×2 (08:32→22:22)
[2017-04-22] MEDS: NYSTATIN 100,000 UNITS/GM TOPICAL PWD 15 GM TOP ×2 (08:32→22:21)
[2017-04-22] MEDS: TIMOLOL MALEATE 0.5% OPHTH SOLN 5 ML OU (08:33)
[2017-04-22] MEDS: CLOTRIMAZOLE 1% TOPICAL CREAM 30GM TOP ×2 (08:33→22:21)
[2017-04-22] MEDS: VOLTAREN 1% TOP ×2 (08:34→22:21)
[2017-04-22] MEDS: RIVAROXABAN 15 MG TAB (XARELTO) PO (17:08)
[2017-04-22] MEDS: FLUCONAZOLE 200 MG in APPROPRIATE DILUENT 1 EA IV (17:08)
[2017-04-22] MEDS: TERAZOSIN 1 MG CAP PO (22:16)
[2017-04-22] MEDS: LATANOPROST 0.005% OPHTH SOLN 2.5 ML OU (22:21)
[2017-04-23] MEDS: SODIUM CHLORIDE 0.9% INJ 10 ML SYR IV ×3 (05:02→16:59)
[2017-04-23] MEDS: MEROPENEM INJ 1 GM in APPROPRIATE DILUENT 1 EA IV (05:03)
[2017-04-23 05:10] LABS: MEAN CORPUSCULAR HEMOGLOBIN 30.7 pg (27.0-33.0); MEAN CORPUSCULAR VOLUME 95.8 fl (80.0-96.0); PLATELET COUNT, AUTOMATED 199 10^3/uL (150-450); RED BLOOD COUNT 2.61 10^6/uL (4.30-6.10); WHITE BLOOD COUNT 7.1 10^3/uL (4.0-10.0)
[2017-04-23 05:40] LABS: ANION GAP 7 MEQ/L (8-16); BLOOD UREA NITROGEN 18 MG/DL (7-18); CARBON DIOXIDE LEVEL 30 MEQ/L (21-32); CHLORIDE LEVEL 101 MEQ/L (98-107); CREATININE FOR GFR 0.68 MG/DL (0.70-1.30); GLOMERULAR FILTRATION RATE > 60.0 (>35); GLUCOSE, FASTING 91 MG/DL (70-100); POTASSIUM SERUM 4.9 MEQ/L (3.5-5.1); SODIUM LEVEL 138 MEQ/L (136-145)
[2017-04-23] MEDS: LEVALBUTEROL 1.25 MG/0.5 ML CONCENTRATE NEB INH ×4 (07:13→22:06)
[2017-04-23] MEDS: LINEZOLID 600MG TABLET (ZYVOX) PO ×2 (08:27→21:07)
[2017-04-23] MEDS: GABAPENTIN 300 MG CAP PO ×3 (08:27→21:06)
[2017-04-23] MEDS: TAMSULOSIN 0.4 MG CAP PO (08:27)
[2017-04-23] MEDS: VOLTAREN 1% TOP ×2 (08:28→21:00)
[2017-04-23] MEDS: FAMOTIDINE 20 MG TAB PO ×2 (08:28→21:08)
[2017-04-23] MEDS: SOTALOL HCL 80 MG TAB PO ×2 (08:28→21:07)
[2017-04-23] MEDS: CLOTRIMAZOLE 1% TOPICAL CREAM 30GM TOP ×2 (08:29→21:09)
[2017-04-23] MEDS: TIMOLOL MALEATE 0.5% OPHTH SOLN 5 ML OU (08:29)
[2017-04-23] MEDS: NYSTATIN OINTMENT 15 GM TOP ×2 (08:29→21:10)
[2017-04-23] MEDS: NYSTATIN 100,000 UNITS/GM TOPICAL PWD 15 GM TOP ×2 (08:29→21:09)
[2017-04-23] MEDS: oxyCODONE 5MG TAB PO ×3 (10:37→21:08)
[2017-04-23] MEDS: FLUCONAZOLE 100 MG TAB PO (14:38)
[2017-04-23 16:22] LABS: HEMATOCRIT 25.2 % (42.0-52.0); HEMOGLOBIN 8.1 g/dl (14.0-18.0); MEAN CORPUSCULAR HEMOGLOBIN 30.9 pg (27.0-33.0); MEAN CORPUSCULAR HGB CONC 32.1 g/dl (32.0-36.5); MEAN CORPUSCULAR VOLUME 96.2 fl (80.0-96.0); PLATELET COUNT, AUTOMATED 204 10^3/uL (150-450); RED BLOOD COUNT 2.62 10^6/uL (4.30-6.10); RED CELL DISTRIBUTION WIDTH 14.9 % (11.5-14.5); WHITE BLOOD COUNT 6.7 10^3/uL (4.0-10.0)
[2017-04-23] MEDS: RIVAROXABAN 15 MG TAB (XARELTO) PO (17:05)
[2017-04-23] MEDS: TERAZOSIN 1 MG CAP PO (21:07)
[2017-04-23] MEDS: LATANOPROST 0.005% OPHTH SOLN 2.5 ML OU (21:09)
[2017-04-24] MEDS: SODIUM CHLORIDE 0.9% INJ 10 ML SYR IV ×2 (06:10→18:50)
[2017-04-24] MEDS: LEVALBUTEROL 1.25 MG/0.5 ML CONCENTRATE NEB INH ×4 (07:06→22:14)
[2017-04-24] MEDS: FAMOTIDINE 20 MG TAB PO ×2 (09:35→21:26)
[2017-04-24] MEDS: SOTALOL HCL 80 MG TAB PO ×2 (09:39→21:35)
[2017-04-24] MEDS: GABAPENTIN 300 MG CAP PO ×3 (09:40→21:27)
[2017-04-24] MEDS: TAMSULOSIN 0.4 MG CAP PO (09:40)
[2017-04-24] MEDS: FLUCONAZOLE 100 MG TAB PO (09:40)
[2017-04-24] MEDS: LINEZOLID 600MG TABLET (ZYVOX) PO ×2 (09:40→21:27)
[2017-04-24] MEDS: NYSTATIN OINTMENT 15 GM TOP ×2 (09:42→21:28)
[2017-04-24] MEDS: NYSTATIN 100,000 UNITS/GM TOPICAL PWD 15 GM TOP ×2 (09:42→21:29)
[2017-04-24] MEDS: TIMOLOL MALEATE 0.5% OPHTH SOLN 5 ML OU (09:42)
[2017-04-24] MEDS: CLOTRIMAZOLE 1% TOPICAL CREAM 30GM TOP ×2 (09:43→21:30)
[2017-04-24] MEDS: VOLTAREN 1% TOP ×2 (09:44→21:29)
[2017-04-24] MEDS: oxyCODONE 5MG TAB PO ×2 (14:25→21:28)
[2017-04-24] MEDS: RIVAROXABAN 15 MG TAB (XARELTO) PO (18:49)
[2017-04-24] MEDS: LATANOPROST 0.005% OPHTH SOLN 2.5 ML OU (21:28)
[2017-04-24] MEDS: TERAZOSIN 1 MG CAP PO (21:35)
[2017-04-25] MEDS: SODIUM CHLORIDE 0.9% INJ 10 ML SYR IV ×2 (05:12→17:56)
[2017-04-25] MEDS: LEVALBUTEROL 1.25 MG/0.5 ML CONCENTRATE NEB INH ×4 (07:09→20:32)
[2017-04-25] MEDS: FLUCONAZOLE 100 MG TAB PO (08:32)
[2017-04-25] MEDS: GABAPENTIN 300 MG CAP PO ×3 (08:33→19:31)
[2017-04-25] MEDS: LINEZOLID 600MG TABLET (ZYVOX) PO ×2 (08:33→19:31)
[2017-04-25] MEDS: TAMSULOSIN 0.4 MG CAP PO (08:33)
[2017-04-25] MEDS: FAMOTIDINE 20 MG TAB PO ×2 (08:33→19:32)
[2017-04-25] MEDS: SOTALOL HCL 80 MG TAB PO ×2 (08:36→19:31)
[2017-04-25] MEDS: TIMOLOL MALEATE 0.5% OPHTH SOLN 5 ML OU (08:42)
[2017-04-25] MEDS: NYSTATIN 100,000 UNITS/GM TOPICAL PWD 15 GM TOP ×2 (08:42→19:33)
[2017-04-25] MEDS: CLOTRIMAZOLE 1% TOPICAL CREAM 30GM TOP ×2 (08:42→19:34)
[2017-04-25] MEDS: NYSTATIN OINTMENT 15 GM TOP ×2 (08:43→19:34)
[2017-04-25] MEDS: VOLTAREN 1% TOP ×2 (08:43→19:33)
[2017-04-25] MEDS: oxyCODONE 5MG TAB PO ×2 (13:19→19:33)
[2017-04-25] MEDS: RIVAROXABAN 15 MG TAB (XARELTO) PO (17:55)
[2017-04-25] MEDS: TERAZOSIN 1 MG CAP PO (19:31)
[2017-04-25] MEDS: LATANOPROST 0.005% OPHTH SOLN 2.5 ML OU (19:34)
[2017-04-26] MEDS: SODIUM CHLORIDE 0.9% INJ 10 ML SYR IV ×2 (05:07→17:07)
[2017-04-26] MEDS: LEVALBUTEROL 1.25 MG/0.5 ML CONCENTRATE NEB INH ×4 (07:03→20:37)
[2017-04-26] MEDS: ACETAMINOPHEN TAB 650MG DOSE (2X325MG) PO ×2 (08:31→15:28)
[2017-04-26] MEDS: VOLTAREN 1% TOP ×2 (09:00→20:13)
[2017-04-26] MEDS: TAMSULOSIN 0.4 MG CAP PO (10:26)
[2017-04-26] MEDS: LINEZOLID 600MG TABLET (ZYVOX) PO ×2 (10:26→20:06)
[2017-04-26] MEDS: FAMOTIDINE 20 MG TAB PO ×2 (10:27→20:06)
[2017-04-26] MEDS: SOTALOL HCL 80 MG TAB PO ×2 (10:28→20:07)
[2017-04-26] MEDS: GABAPENTIN 300 MG CAP PO ×3 (10:29→20:06)
[2017-04-26] MEDS: NYSTATIN 100,000 UNITS/GM TOPICAL PWD 15 GM TOP ×2 (10:30→20:11)
[2017-04-26] MEDS: TIMOLOL MALEATE 0.5% OPHTH SOLN 5 ML OU (10:31)
[2017-04-26] MEDS: NYSTATIN OINTMENT 15 GM TOP ×2 (10:32→20:12)
[2017-04-26] MEDS: CLOTRIMAZOLE 1% TOPICAL CREAM 30GM TOP ×2 (10:33→20:13)
[2017-04-26] MEDS: FLUCONAZOLE 100 MG TAB PO (10:37)
[2017-04-26 12:55] LABS: HEMATOCRIT 20.3 % (42.0-52.0); MEAN CORPUSCULAR HEMOGLOBIN 31.7 pg (27.0-33.0); MEAN CORPUSCULAR HGB CONC 32.5 g/dl (32.0-36.5); MEAN CORPUSCULAR VOLUME 97.6 fl (80.0-96.0); PLATELET COUNT, AUTOMATED 151 10^3/uL (150-450); RED BLOOD COUNT 2.08 10^6/uL (4.30-6.10); RED CELL DISTRIBUTION WIDTH 15.1 % (11.5-14.5)
[2017-04-26 13:03] LABS: HEMOGLOBIN 6.6 g/dl (14.0-18.0)
[2017-04-26 13:18] LABS: ANION GAP 9 MEQ/L (8-16); BLOOD UREA NITROGEN 25 MG/DL (7-18); CALCIUM LEVEL 8.5 MG/DL (8.8-10.2); CARBON DIOXIDE LEVEL 28 MEQ/L (21-32); CHLORIDE LEVEL 98 MEQ/L (98-107); CREATININE FOR GFR 1.02 MG/DL (0.70-1.30); GLOMERULAR FILTRATION RATE > 60.0 (>35); GLUCOSE, FASTING 194 MG/DL (70-100); POTASSIUM SERUM 4.3 MEQ/L (3.5-5.1); SODIUM LEVEL 135 MEQ/L (136-145)
[2017-04-26] MEDS: RIVAROXABAN 15 MG TAB (XARELTO) PO (18:35)
[2017-04-26 19:14] LABS: IMMEDIATE SPIN CROSSMATCH 1 2
[2017-04-26] MEDS: TERAZOSIN 1 MG CAP PO (20:07)
[2017-04-26] MEDS: LATANOPROST 0.005% OPHTH SOLN 2.5 ML OU (20:12)
[2017-04-26 23:02] LABS: HEMATOCRIT 25.3 % (42.0-52.0); HEMOGLOBIN 8.4 g/dl (14.0-18.0)
[2017-04-27] MEDS: ACETAMINOPHEN TAB 650MG DOSE (2X325MG) PO ×3 (01:59→20:59)
[2017-04-27] MEDS: SODIUM CHLORIDE 0.9% INJ 10 ML SYR IV ×2 (05:46→17:26)
[2017-04-27 06:32] LABS: BASO % 0.4 % (0.0-1.0); EOS # 0.1 10^3/uL (0.0-0.50); EOS % 1.2 % (0.0-3.0); HEMATOCRIT 25.2 % (42.0-52.0); HEMOGLOBIN 8.3 g/dl (14.0-18.0); IMMATURE GRANULOCYTE % 0.6 % (0-3.0); LYMPH # 2.5 10^3/uL (1.5-4.5); LYMPH % 24.5 % (24.0-44.0); MEAN CORPUSCULAR HEMOGLOBIN 30.2 pg (27.0-33.0); MEAN CORPUSCULAR HGB CONC 32.9 g/dl (32.0-36.5); MEAN CORPUSCULAR VOLUME 91.6 fl (80.0-96.0); MONO # 1.2 10^3/uL (0.0-0.8); MONO % 11.2 % (0.0-5.0); NEUTROPHILS # 6.4 10^3/uL (1.8-7.7); NEUTROPHILS % 62.1 % (36.0-66.0); PLATELET COUNT, AUTOMATED 151 10^3/uL (150-450); RED BLOOD COUNT 2.75 10^6/uL (4.30-6.10); RED CELL DISTRIBUTION WIDTH 15.8 % (11.5-14.5); WHITE BLOOD COUNT 10.3 10^3/uL (4.0-10.0)
[2017-04-27 06:56] LABS: ANION GAP 5 MEQ/L (8-16); BLOOD UREA NITROGEN 27 MG/DL (7-18); CALCIUM LEVEL 8.2 MG/DL (8.8-10.2); CARBON DIOXIDE LEVEL 29 MEQ/L (21-32); CHLORIDE LEVEL 102 MEQ/L (98-107); CREATININE FOR GFR 0.81 MG/DL (0.70-1.30); GLOMERULAR FILTRATION RATE > 60.0 (>35); GLUCOSE, FASTING 117 MG/DL (70-100); POTASSIUM SERUM 4.4 MEQ/L (3.5-5.1); SODIUM LEVEL 136 MEQ/L (136-145)
[2017-04-27 08:00] LABS: ERYTHROCYTE SEDIMENTATION RATE 126 mm/hr (0-30)
[2017-04-27] MEDS: VOLTAREN 1% TOP ×2 (09:00→21:05)
[2017-04-27] MEDS: LEVALBUTEROL 1.25 MG/0.5 ML CONCENTRATE NEB INH ×4 (09:25→19:51)
[2017-04-27] MEDS: FAMOTIDINE 20 MG TAB PO ×2 (10:19→21:03)
[2017-04-27] MEDS: TAMSULOSIN 0.4 MG CAP PO (10:20)
[2017-04-27] MEDS: GABAPENTIN 300 MG CAP PO ×3 (10:21→21:03)
[2017-04-27] MEDS: LINEZOLID 600MG TABLET (ZYVOX) PO ×2 (10:21→21:03)
[2017-04-27] MEDS: FLUCONAZOLE 100 MG TAB PO (10:21)
[2017-04-27] MEDS: SOTALOL HCL 80 MG TAB PO ×2 (10:22→21:02)
[2017-04-27] MEDS: NYSTATIN 100,000 UNITS/GM TOPICAL PWD 15 GM TOP ×2 (10:23→21:03)
[2017-04-27] MEDS: LATANOPROST 0.005% OPHTH SOLN 2.5 ML OU (10:23)
[2017-04-27] MEDS: TIMOLOL MALEATE 0.5% OPHTH SOLN 5 ML OU (10:23)
[2017-04-27] MEDS: NYSTATIN OINTMENT 15 GM TOP ×2 (10:24→21:04)
[2017-04-27] MEDS: CLOTRIMAZOLE 1% TOPICAL CREAM 30GM TOP ×2 (10:24→21:04)
[2017-04-27] MEDS: oxyCODONE 5MG TAB PO (15:15)
[2017-04-27] MEDS: RIVAROXABAN 15 MG TAB (XARELTO) PO (17:25)
[2017-04-27] MEDS: TERAZOSIN 1 MG CAP PO (21:15)
[2017-04-28] MEDS: SODIUM CHLORIDE 0.9% INJ 10 ML SYR IV ×2 (06:37→18:16)
[2017-04-28] MEDS: ACETAMINOPHEN TAB 650MG DOSE (2X325MG) PO ×2 (06:42→20:44)
[2017-04-28] MEDS: LEVALBUTEROL 1.25 MG/0.5 ML CONCENTRATE NEB INH ×4 (07:03→20:22)
[2017-04-28] MEDS: SOTALOL HCL 80 MG TAB PO ×2 (09:00→20:47)
[2017-04-28] MEDS: VOLTAREN 1% TOP ×2 (09:00→20:55)
[2017-04-28] MEDS: GABAPENTIN 300 MG CAP PO ×3 (09:01→20:43)
[2017-04-28] MEDS: TAMSULOSIN 0.4 MG CAP PO (09:01)
[2017-04-28] MEDS: FAMOTIDINE 20 MG TAB PO ×2 (09:02→20:43)
[2017-04-28] MEDS: TIMOLOL MALEATE 0.5% OPHTH SOLN 5 ML OU (09:02)
[2017-04-28] MEDS: LINEZOLID 600MG TABLET (ZYVOX) PO ×2 (09:02→20:42)
[2017-04-28] MEDS: CLOTRIMAZOLE 1% TOPICAL CREAM 30GM TOP ×2 (09:03→20:50)
[2017-04-28] MEDS: NYSTATIN OINTMENT 15 GM TOP ×2 (09:04→20:48)
[2017-04-28] MEDS: NYSTATIN 100,000 UNITS/GM TOPICAL PWD 15 GM TOP ×2 (09:04→20:48)
[2017-04-28] MEDS: oxyCODONE 5MG TAB PO (09:28)
[2017-04-28] MEDS: RIVAROXABAN 15 MG TAB (XARELTO) PO (18:16)
[2017-04-28] MEDS: TERAZOSIN 1 MG CAP PO (20:46)
[2017-04-28] MEDS: LATANOPROST 0.005% OPHTH SOLN 2.5 ML OU (20:47)
[2017-04-29] MEDS: SODIUM CHLORIDE 0.9% INJ 10 ML SYR IV ×2 (05:41→18:07)
[2017-04-29] MEDS: LEVALBUTEROL 1.25 MG/0.5 ML CONCENTRATE NEB INH ×4 (07:13→20:45)
[2017-04-29] MEDS: SOTALOL HCL 80 MG TAB PO ×2 (08:22→22:07)
[2017-04-29] MEDS: FAMOTIDINE 20 MG TAB PO ×2 (08:22→22:07)
[2017-04-29] MEDS: oxyCODONE 5MG TAB PO ×3 (08:23→22:05)
[2017-04-29] MEDS: TAMSULOSIN 0.4 MG CAP PO (08:24)
[2017-04-29] MEDS: GABAPENTIN 300 MG CAP PO ×3 (08:24→22:06)
[2017-04-29] MEDS: LINEZOLID 600MG TABLET (ZYVOX) PO ×2 (08:24→22:07)
[2017-04-29] MEDS: NYSTATIN OINTMENT 15 GM TOP ×2 (08:25→22:08)
[2017-04-29] MEDS: TIMOLOL MALEATE 0.5% OPHTH SOLN 5 ML OU (08:25)
[2017-04-29] MEDS: NYSTATIN 100,000 UNITS/GM TOPICAL PWD 15 GM TOP ×2 (08:26→22:09)
[2017-04-29] MEDS: CLOTRIMAZOLE 1% TOPICAL CREAM 30GM TOP ×2 (08:26→22:08)
[2017-04-29] MEDS: VOLTAREN 1% TOP ×2 (08:27→22:10)
[2017-04-29] MEDS: ACETAMINOPHEN TAB 650MG DOSE (2X325MG) PO (15:03)
[2017-04-29] MEDS: MEROPENEM INJ 1 GM in APPROPRIATE DILUENT 1 EA IV (18:07)
[2017-04-29] MEDS: RIVAROXABAN 15 MG TAB (XARELTO) PO (18:07)
[2017-04-29 19:10] LABS: HEMATOCRIT 23.1 % (42.0-52.0); HEMOGLOBIN 7.3 g/dl (14.0-18.0); MEAN CORPUSCULAR HEMOGLOBIN 30.2 pg (27.0-33.0); MEAN CORPUSCULAR HGB CONC 31.6 g/dl (32.0-36.5); MEAN CORPUSCULAR VOLUME 95.5 fl (80.0-96.0); PLATELET COUNT, AUTOMATED 159 10^3/uL (150-450); RED BLOOD COUNT 2.42 10^6/uL (4.30-6.10); RED CELL DISTRIBUTION WIDTH 15.2 % (11.5-14.5); WHITE BLOOD COUNT 7.1 10^3/uL (4.0-10.0)
[2017-04-29 19:29] LABS: KETONE, URINE AUTO RFX NEGATIVE (NEGATIVE); LEUKOCYTE ESTERASE UR AUTO RFX NEGATIVE (NEGATIVE); NITRITE, URINE AUTO RFX NEGATIVE (NEGATIVE); RBC, URINE AUTO RFX 1 /HPF (0-3); SPECIFIC GRAVITY UR AUTO RFX 1.016 (1.002-1.035); SQUAM EPITHELIAL CELL UR AURFX 0 /HPF (0-6); WBC, URINE AUTO RFX 1 /HPF (0-3)
[2017-04-29 19:42] LABS: ANION GAP 6 MEQ/L (8-16); BLOOD UREA NITROGEN 26 MG/DL (7-18); CARBON DIOXIDE LEVEL 29 MEQ/L (21-32); CHLORIDE LEVEL 100 MEQ/L (98-107); CREATININE FOR GFR 0.83 MG/DL (0.70-1.30); GLOMERULAR FILTRATION RATE > 60.0 (>35); GLUCOSE, FASTING 108 MG/DL (70-100); POTASSIUM SERUM 4.9 MEQ/L (3.5-5.1); SODIUM LEVEL 135 MEQ/L (136-145)
[2017-04-29 20:22] LABS: ERYTHROCYTE SEDIMENTATION RATE 126 mm/hr (0-30)
[2017-04-29] MEDS: TERAZOSIN 1 MG CAP PO (22:06)
[2017-04-29] MEDS: LATANOPROST 0.005% OPHTH SOLN 2.5 ML OU (22:08)
[2017-04-30] MEDS: MEROPENEM INJ 1 GM in APPROPRIATE DILUENT 1 EA IV ×3 (01:52→16:12)
[2017-04-30 05:58] LABS: HEMATOCRIT 21.2 % (42.0-52.0); MEAN CORPUSCULAR HEMOGLOBIN 30.8 pg (27.0-33.0); MEAN CORPUSCULAR HGB CONC 32.1 g/dl (32.0-36.5); MEAN CORPUSCULAR VOLUME 95.9 fl (80.0-96.0); PLATELET COUNT, AUTOMATED 138 10^3/uL (150-450); RED BLOOD COUNT 2.21 10^6/uL (4.30-6.10); RED CELL DISTRIBUTION WIDTH 15.1 % (11.5-14.5); WHITE BLOOD COUNT 7.7 10^3/uL (4.0-10.0)
[2017-04-30 06:00] LABS: HEMOGLOBIN 6.8 g/dl (14.0-18.0)
[2017-04-30 06:35] LABS: ANION GAP 6 MEQ/L (8-16); BLOOD UREA NITROGEN 24 MG/DL (7-18); CALCIUM LEVEL 8.1 MG/DL (8.8-10.2); CARBON DIOXIDE LEVEL 28 MEQ/L (21-32); CHLORIDE LEVEL 102 MEQ/L (98-107); CREATININE FOR GFR 0.79 MG/DL (0.70-1.30); GLOMERULAR FILTRATION RATE > 60.0 (>35); GLUCOSE, FASTING 97 MG/DL (70-100); POTASSIUM SERUM 4.8 MEQ/L (3.5-5.1); SODIUM LEVEL 136 MEQ/L (136-145)
[2017-04-30 06:44] LABS: ERYTHROCYTE SEDIMENTATION RATE 127 mm/hr (0-30)
[2017-04-30] MEDS: LEVALBUTEROL 1.25 MG/0.5 ML CONCENTRATE NEB INH ×4 (07:23→20:26)
[2017-04-30] MEDS: TAMSULOSIN 0.4 MG CAP PO (09:07)
[2017-04-30] MEDS: SODIUM CHLORIDE 0.9% INJ 10 ML SYR IV ×2 (09:07→16:12)
[2017-04-30] MEDS: FAMOTIDINE 20 MG TAB PO ×2 (09:08→20:52)
[2017-04-30] MEDS: SOTALOL HCL 80 MG TAB PO ×2 (09:08→20:53)
[2017-04-30] MEDS: GABAPENTIN 300 MG CAP PO ×3 (09:08→20:52)
[2017-04-30] MEDS: oxyCODONE 5MG TAB PO ×4 (09:09→22:36)
[2017-04-30] MEDS: LINEZOLID 600MG TABLET (ZYVOX) PO (09:09)
[2017-04-30] MEDS: ACETAMINOPHEN TAB 650MG DOSE (2X325MG) PO ×3 (09:10→22:37)
[2017-04-30] MEDS: TIMOLOL MALEATE 0.5% OPHTH SOLN 5 ML OU (09:11)
[2017-04-30] MEDS: CLOTRIMAZOLE 1% TOPICAL CREAM 30GM TOP ×2 (09:11→20:55)
[2017-04-30] MEDS: NYSTATIN 100,000 UNITS/GM TOPICAL PWD 15 GM TOP ×2 (09:12→20:54)
[2017-04-30] MEDS: VOLTAREN 1% TOP ×2 (09:12→20:53)
[2017-04-30] MEDS: NYSTATIN OINTMENT 15 GM TOP ×2 (09:13→20:54)
[2017-04-30 14:59] LABS: RETIC HEMOGLOBIN EQUIVALENT 38.5 pg (24-36); RETICULOCYTE # 23.5 10^9/L (17-77); RETICULOCYTE % 1.1 % (0.5-1.5)
[2017-04-30 15:44] LABS: IMMEDIATE SPIN CROSSMATCH 1 2
[2017-04-30] MEDS: TERAZOSIN 1 MG CAP PO (20:53)
[2017-04-30] MEDS: LATANOPROST 0.005% OPHTH SOLN 2.5 ML OU (20:53)
[2017-04-30] MEDS: DAPTOmycin 750 MG in NS 50 ML IV (23:59)
[2017-05-01] MEDS: MEROPENEM INJ 1 GM in APPROPRIATE DILUENT 1 EA IV ×3 (01:48→17:15)
[2017-05-01 02:18] LABS: HEMATOCRIT 25.4 % (42.0-52.0); HEMOGLOBIN 8.4 g/dl (14.0-18.0); MEAN CORPUSCULAR HEMOGLOBIN 30.5 pg (27.0-33.0); MEAN CORPUSCULAR HGB CONC 33.1 g/dl (32.0-36.5); MEAN CORPUSCULAR VOLUME 92.4 fl (80.0-96.0); PLATELET COUNT, AUTOMATED 117 10^3/uL (150-450); RED BLOOD COUNT 2.75 10^6/uL (4.30-6.10); RED CELL DISTRIBUTION WIDTH 15.2 % (11.5-14.5); WHITE BLOOD COUNT 7.4 10^3/uL (4.0-10.0)
[2017-05-01] MEDS: SODIUM CHLORIDE 0.9% INJ 10 ML SYR IV ×2 (06:43→17:15)
[2017-05-01 06:59] LABS: HEMATOCRIT 28.5 % (42.0-52.0); HEMOGLOBIN 9.4 g/dl (14.0-18.0); MEAN CORPUSCULAR HEMOGLOBIN 30.5 pg (27.0-33.0); MEAN CORPUSCULAR VOLUME 92.5 fl (80.0-96.0); PLATELET COUNT, AUTOMATED 123 10^3/uL (150-450); RED BLOOD COUNT 3.08 10^6/uL (4.30-6.10); RED CELL DISTRIBUTION WIDTH 15.1 % (11.5-14.5); WHITE BLOOD COUNT 6.9 10^3/uL (4.0-10.0)
[2017-05-01 07:27] LABS: ANION GAP 6 MEQ/L (8-16); BLOOD UREA NITROGEN 19 MG/DL (7-18); CALCIUM LEVEL 8.5 MG/DL (8.8-10.2); CARBON DIOXIDE LEVEL 27 MEQ/L (21-32); CHLORIDE LEVEL 103 MEQ/L (98-107); CREATININE FOR GFR 0.65 MG/DL (0.70-1.30); GLOMERULAR FILTRATION RATE > 60.0 (>35); GLUCOSE, FASTING 98 MG/DL (70-100); POTASSIUM SERUM 4.5 MEQ/L (3.5-5.1); SODIUM LEVEL 136 MEQ/L (136-145)
[2017-05-01 07:35] LABS: ERYTHROCYTE SEDIMENTATION RATE 83 mm/hr (0-30)
[2017-05-01] MEDS: LEVALBUTEROL 1.25 MG/0.5 ML CONCENTRATE NEB INH ×4 (08:43→20:51)
[2017-05-01] MEDS: VOLTAREN 1% TOP ×2 (09:00→22:13)
[2017-05-01] MEDS: SOTALOL HCL 80 MG TAB PO ×2 (09:00→22:11)
[2017-05-01] MEDS: TAMSULOSIN 0.4 MG CAP PO (09:55)
[2017-05-01] MEDS: FAMOTIDINE 20 MG TAB PO ×2 (09:55→22:12)
[2017-05-01] MEDS: GABAPENTIN 300 MG CAP PO ×3 (09:55→22:11)
[2017-05-01] MEDS: oxyCODONE 5MG TAB PO ×2 (09:56→22:12)
[2017-05-01] MEDS: NYSTATIN 100,000 UNITS/GM TOPICAL PWD 15 GM TOP ×2 (09:57→22:14)
[2017-05-01] MEDS: TIMOLOL MALEATE 0.5% OPHTH SOLN 5 ML OU (09:58)
[2017-05-01] MEDS: NYSTATIN OINTMENT 15 GM TOP ×2 (09:58→22:14)
[2017-05-01] MEDS: CLOTRIMAZOLE 1% TOPICAL CREAM 30GM TOP ×2 (09:58→22:14)
[2017-05-01] MEDS: LATANOPROST 0.005% OPHTH SOLN 2.5 ML OU (22:09)
[2017-05-01] MEDS: TERAZOSIN 1 MG CAP PO (22:10)
[2017-05-01] MEDS: ACETAMINOPHEN TAB 650MG DOSE (2X325MG) PO (22:11)
[2017-05-01] MEDS: DAPTOmycin 750 MG in NS 50 ML IV (23:42)
[2017-05-02] MEDS: MEROPENEM INJ 1 GM in APPROPRIATE DILUENT 1 EA IV ×3 (01:15→16:42)
[2017-05-02] MEDS: SODIUM CHLORIDE 0.9% INJ 10 ML SYR IV ×2 (05:33→16:43)
[2017-05-02 06:10] LABS: HEMATOCRIT 26.6 % (42.0-52.0); HEMOGLOBIN 8.7 g/dl (14.0-18.0); MEAN CORPUSCULAR HEMOGLOBIN 30.4 pg (27.0-33.0); MEAN CORPUSCULAR HGB CONC 32.7 g/dl (32.0-36.5); PLATELET COUNT, AUTOMATED 127 10^3/uL (150-450); RED BLOOD COUNT 2.86 10^6/uL (4.30-6.10); RED CELL DISTRIBUTION WIDTH 14.7 % (11.5-14.5); WHITE BLOOD COUNT 8.6 10^3/uL (4.0-10.0)
[2017-05-02 06:39] LABS: ANION GAP 4 MEQ/L (8-16); BLOOD UREA NITROGEN 18 MG/DL (7-18); CALCIUM LEVEL 8.6 MG/DL (8.8-10.2); CARBON DIOXIDE LEVEL 31 MEQ/L (21-32); CHLORIDE LEVEL 102 MEQ/L (98-107); CREATININE FOR GFR 0.63 MG/DL (0.70-1.30); GLOMERULAR FILTRATION RATE > 60.0 (>35); GLUCOSE, FASTING 98 MG/DL (70-100); POTASSIUM SERUM 4.2 MEQ/L (3.5-5.1); SODIUM LEVEL 137 MEQ/L (136-145)
[2017-05-02 07:58] LABS: ERYTHROCYTE SEDIMENTATION RATE 106 mm/hr (0-30)
[2017-05-02] MEDS: LEVALBUTEROL 1.25 MG/0.5 ML CONCENTRATE NEB INH ×4 (08:35→20:00)
[2017-05-02] MEDS: VOLTAREN 1% TOP ×2 (09:00→21:10)
[2017-05-02] MEDS: GABAPENTIN 300 MG CAP PO ×3 (09:41→21:07)
[2017-05-02] MEDS: TIMOLOL MALEATE 0.5% OPHTH SOLN 5 ML OU (09:42)
[2017-05-02] MEDS: NYSTATIN 100,000 UNITS/GM TOPICAL PWD 15 GM TOP ×2 (09:42→21:09)
[2017-05-02] MEDS: FAMOTIDINE 20 MG TAB PO ×2 (09:42→21:07)
[2017-05-02] MEDS: SOTALOL HCL 80 MG TAB PO ×2 (09:42→21:07)
[2017-05-02] MEDS: CLOTRIMAZOLE 1% TOPICAL CREAM 30GM TOP ×2 (09:42→21:10)
[2017-05-02] MEDS: TAMSULOSIN 0.4 MG CAP PO (09:42)
[2017-05-02] MEDS: NYSTATIN OINTMENT 15 GM TOP ×2 (09:43→21:08)
[2017-05-02] MEDS: oxyCODONE 5MG TAB PO ×2 (14:43→21:07)
[2017-05-02] MEDS: TERAZOSIN 1 MG CAP PO (21:06)
[2017-05-02] MEDS: LATANOPROST 0.005% OPHTH SOLN 2.5 ML OU (21:08)
[2017-05-02] MEDS: DAPTOmycin 750 MG in NS 50 ML IV (22:46)
[2017-05-03] MEDS: MEROPENEM INJ 1 GM in APPROPRIATE DILUENT 1 EA IV ×3 (01:06→17:22)
[2017-05-03] MEDS: oxyCODONE 5MG TAB PO ×2 (04:57→23:10)
[2017-05-03] MEDS: SODIUM CHLORIDE 0.9% INJ 10 ML SYR IV ×2 (04:58→17:22)
[2017-05-03 05:17] LABS: HEMOGLOBIN 8.1 g/dl (14.0-18.0); MEAN CORPUSCULAR HEMOGLOBIN 30.5 pg (27.0-33.0); MEAN CORPUSCULAR HGB CONC 32.4 g/dl (32.0-36.5); PLATELET COUNT, AUTOMATED 162 10^3/uL (150-450); RED BLOOD COUNT 2.66 10^6/uL (4.30-6.10); RED CELL DISTRIBUTION WIDTH 14.6 % (11.5-14.5); WHITE BLOOD COUNT 9.6 10^3/uL (4.0-10.0)
[2017-05-03 05:43] LABS: ANION GAP 3 MEQ/L (8-16); BLOOD UREA NITROGEN 18 MG/DL (7-18); C REACTIVE PROTEIN QUANTITATIV 7.61 MG/DL (0.00-0.30); CALCIUM LEVEL 8.3 MG/DL (8.8-10.2); CARBON DIOXIDE LEVEL 31 MEQ/L (21-32); CHLORIDE LEVEL 103 MEQ/L (98-107); CREATININE FOR GFR 0.66 MG/DL (0.70-1.30); GLOMERULAR FILTRATION RATE > 60.0 (>35); GLUCOSE, FASTING 108 MG/DL (70-100); POTASSIUM SERUM 4.6 MEQ/L (3.5-5.1); SODIUM LEVEL 137 MEQ/L (136-145)
[2017-05-03 05:46] LABS: ERYTHROCYTE SEDIMENTATION RATE 108 mm/hr (0-30)
[2017-05-03] MEDS: LEVALBUTEROL 1.25 MG/0.5 ML CONCENTRATE NEB INH ×4 (08:08→19:00)
[2017-05-03] MEDS: FAMOTIDINE 20 MG TAB PO ×2 (09:45→23:10)
[2017-05-03] MEDS: GABAPENTIN 300 MG CAP PO ×3 (09:45→23:10)
[2017-05-03] MEDS: SOTALOL HCL 80 MG TAB PO ×2 (09:46→23:18)
[2017-05-03] MEDS: TAMSULOSIN 0.4 MG CAP PO (09:46)
[2017-05-03] MEDS: FLUCONAZOLE 100 MG TAB PO (09:46)
[2017-05-03] MEDS: TIMOLOL MALEATE 0.5% OPHTH SOLN 5 ML OU (09:48)
[2017-05-03] MEDS: CLOTRIMAZOLE 1% TOPICAL CREAM 30GM TOP ×2 (09:48→23:19)
[2017-05-03] MEDS: NYSTATIN OINTMENT 15 GM TOP ×2 (09:50→23:19)
[2017-05-03] MEDS: VOLTAREN 1% TOP ×2 (09:51→23:18)
[2017-05-03] MEDS: NYSTATIN 100,000 UNITS/GM TOPICAL PWD 15 GM TOP ×2 (09:52→23:19)
[2017-05-03 17:51] LABS: HEMATOCRIT 25.2 % (42.0-52.0); HEMOGLOBIN 8.2 g/dl (14.0-18.0); MEAN CORPUSCULAR HEMOGLOBIN 30.9 pg (27.0-33.0); MEAN CORPUSCULAR HGB CONC 32.5 g/dl (32.0-36.5); MEAN CORPUSCULAR VOLUME 95.1 fl (80.0-96.0); PLATELET COUNT, AUTOMATED 201 10^3/uL (150-450); RED BLOOD COUNT 2.65 10^6/uL (4.30-6.10); RED CELL DISTRIBUTION WIDTH 14.6 % (11.5-14.5); WHITE BLOOD COUNT 9.2 10^3/uL (4.0-10.0)
[2017-05-03] MEDS: TERAZOSIN 1 MG CAP PO (23:17)
[2017-05-03] MEDS: LATANOPROST 0.005% OPHTH SOLN 2.5 ML OU (23:18)
[2017-05-03] MEDS: DAPTOmycin 750 MG in NS 50 ML IV (23:18)
[2017-05-04] MEDS: MEROPENEM INJ 1 GM in APPROPRIATE DILUENT 1 EA IV ×3 (01:56→17:07)
[2017-05-04] MEDS: SODIUM CHLORIDE 0.9% INJ 10 ML SYR IV ×2 (05:30→17:07)
[2017-05-04 05:52] LABS: MEAN CORPUSCULAR HEMOGLOBIN 30.8 pg (27.0-33.0); MEAN CORPUSCULAR VOLUME 96.2 fl (80.0-96.0); PLATELET COUNT, AUTOMATED 234 10^3/uL (150-450); RED CELL DISTRIBUTION WIDTH 14.6 % (11.5-14.5); WHITE BLOOD COUNT 8.6 10^3/uL (4.0-10.0)
[2017-05-04 06:20] LABS: ANION GAP 5 MEQ/L (8-16); BLOOD UREA NITROGEN 15 MG/DL (7-18); CALCIUM LEVEL 8.8 MG/DL (8.8-10.2); CARBON DIOXIDE LEVEL 31 MEQ/L (21-32); CHLORIDE LEVEL 101 MEQ/L (98-107); CREATININE FOR GFR 0.59 MG/DL (0.70-1.30); GLOMERULAR FILTRATION RATE > 60.0 (>35); GLUCOSE, FASTING 89 MG/DL (70-100); POTASSIUM SERUM 4.5 MEQ/L (3.5-5.1); SODIUM LEVEL 137 MEQ/L (136-145)
[2017-05-04 06:24] LABS: CPK CREATINE PHOSPHOKINASE 13 U/L (39-308)
[2017-05-04] MEDS: LEVALBUTEROL 1.25 MG/0.5 ML CONCENTRATE NEB INH ×4 (07:19→19:58)
[2017-05-04] MEDS: TAMSULOSIN 0.4 MG CAP PO (09:28)
[2017-05-04] MEDS: GABAPENTIN 300 MG CAP PO ×3 (09:28→21:11)
[2017-05-04] MEDS: FAMOTIDINE 20 MG TAB PO ×2 (09:28→21:12)
[2017-05-04] MEDS: FLUCONAZOLE 100 MG TAB PO (09:28)
[2017-05-04] MEDS: TIMOLOL MALEATE 0.5% OPHTH SOLN 5 ML OU (09:29)
[2017-05-04] MEDS: CLOTRIMAZOLE 1% TOPICAL CREAM 30GM TOP ×2 (09:29→21:09)
[2017-05-04] MEDS: SOTALOL HCL 80 MG TAB PO ×2 (09:29→21:03)
[2017-05-04] MEDS: NYSTATIN OINTMENT 15 GM TOP ×2 (09:30→21:09)
[2017-05-04] MEDS: NYSTATIN 100,000 UNITS/GM TOPICAL PWD 15 GM TOP ×2 (09:30→21:10)
[2017-05-04] MEDS: VOLTAREN 1% TOP ×2 (09:31→21:10)
[2017-05-04] MEDS: predniSONE 20 MG TAB PO (17:07)
[2017-05-04] MEDS: oxyCODONE 5MG TAB PO ×2 (17:08→21:13)
[2017-05-04] MEDS: LATANOPROST 0.005% OPHTH SOLN 2.5 ML OU (21:11)
[2017-05-04] MEDS: TERAZOSIN 1 MG CAP PO (21:12)
[2017-05-04] MEDS: DAPTOmycin 750 MG in NS 50 ML IV (22:34)
[2017-05-05] MEDS: MEROPENEM INJ 1 GM in APPROPRIATE DILUENT 1 EA IV ×3 (00:04→16:38)
[2017-05-05] MEDS: SODIUM CHLORIDE 0.9% INJ 10 ML SYR IV ×4 (05:25→23:33)
[2017-05-05 05:44] LABS: HEMATOCRIT 26.4 % (42.0-52.0); HEMOGLOBIN 8.4 g/dl (14.0-18.0); MEAN CORPUSCULAR HGB CONC 31.8 g/dl (32.0-36.5); MEAN CORPUSCULAR VOLUME 94.3 fl (80.0-96.0); RED CELL DISTRIBUTION WIDTH 15.1 % (11.5-14.5)
[2017-05-05 05:47] LABS: PLATELET COUNT, AUTOMATED 369 10^3/uL (150-450)
[2017-05-05 06:01] LABS: ANION GAP 5 MEQ/L (8-16); BLOOD UREA NITROGEN 14 MG/DL (7-18); C REACTIVE PROTEIN QUANTITATIV 9.09 MG/DL (0.00-0.30); CALCIUM LEVEL 8.7 MG/DL (8.8-10.2); CARBON DIOXIDE LEVEL 30 MEQ/L (21-32); CHLORIDE LEVEL 103 MEQ/L (98-107); CREATININE FOR GFR 0.57 MG/DL (0.70-1.30); GLOMERULAR FILTRATION RATE > 60.0 (>35); GLUCOSE, FASTING 154 MG/DL (70-100); POTASSIUM SERUM 4.5 MEQ/L (3.5-5.1); SODIUM LEVEL 138 MEQ/L (136-145)
[2017-05-05] MEDS: LEVALBUTEROL 1.25 MG/0.5 ML CONCENTRATE NEB INH ×2 (07:21→11:21)
[2017-05-05] MEDS: predniSONE 20 MG TAB PO (08:46)
[2017-05-05] MEDS: FAMOTIDINE 20 MG TAB PO ×2 (08:46→21:09)
[2017-05-05] MEDS: GABAPENTIN 300 MG CAP PO ×3 (08:46→21:10)
[2017-05-05] MEDS: FLUCONAZOLE 100 MG TAB PO (08:46)
[2017-05-05] MEDS: TAMSULOSIN 0.4 MG CAP PO (08:46)
[2017-05-05] MEDS: CLOTRIMAZOLE 1% TOPICAL CREAM 30GM TOP ×2 (08:47→21:12)
[2017-05-05] MEDS: SOTALOL HCL 80 MG TAB PO ×2 (08:47→21:10)
[2017-05-05] MEDS: TIMOLOL MALEATE 0.5% OPHTH SOLN 5 ML OU (08:47)
[2017-05-05] MEDS: VOLTAREN 1% TOP ×2 (08:48→21:00)
[2017-05-05] MEDS: NYSTATIN OINTMENT 15 GM TOP ×2 (08:48→21:11)
[2017-05-05] MEDS: NYSTATIN 100,000 UNITS/GM TOPICAL PWD 15 GM TOP ×2 (08:50→21:12)
[2017-05-05] MEDS: oxyCODONE 5MG TAB PO (09:44)
[2017-05-05] MEDS: LATANOPROST 0.005% OPHTH SOLN 2.5 ML OU (21:10)
[2017-05-05] MEDS: DAPTOmycin 750 MG in NS 50 ML IV (22:53)
[2017-05-06] MEDS: MEROPENEM INJ 1 GM in APPROPRIATE DILUENT 1 EA IV ×3 (01:16→18:10)
[2017-05-06] MEDS: SODIUM CHLORIDE 0.9% INJ 10 ML SYR IV ×3 (02:04→18:10)
[2017-05-06 05:54] LABS: HEMATOCRIT 25.8 % (42.0-52.0); HEMOGLOBIN 8.3 g/dl (14.0-18.0); MEAN CORPUSCULAR HEMOGLOBIN 30.9 pg (27.0-33.0); MEAN CORPUSCULAR HGB CONC 32.2 g/dl (32.0-36.5); MEAN CORPUSCULAR VOLUME 95.9 fl (80.0-96.0); PLATELET COUNT, AUTOMATED 464 10^3/uL (150-450); RED BLOOD COUNT 2.69 10^6/uL (4.30-6.10); RED CELL DISTRIBUTION WIDTH 15.9 % (11.5-14.5); WHITE BLOOD COUNT 11.5 10^3/uL (4.0-10.0)
[2017-05-06 06:18] LABS: ANION GAP 4 MEQ/L (8-16); BLOOD UREA NITROGEN 17 MG/DL (7-18); CALCIUM LEVEL 8.4 MG/DL (8.8-10.2); CARBON DIOXIDE LEVEL 31 MEQ/L (21-32); CHLORIDE LEVEL 105 MEQ/L (98-107); CREATININE FOR GFR 0.62 MG/DL (0.70-1.30); GLOMERULAR FILTRATION RATE > 60.0 (>35); GLUCOSE, FASTING 132 MG/DL (70-100); POTASSIUM SERUM 4.4 MEQ/L (3.5-5.1); SODIUM LEVEL 140 MEQ/L (136-145)
[2017-05-06] MEDS: oxyCODONE 5MG TAB PO ×3 (07:02→16:29)
[2017-05-06] MEDS: GABAPENTIN 300 MG CAP PO ×3 (08:19→21:53)
[2017-05-06] MEDS: SOTALOL HCL 80 MG TAB PO ×2 (08:19→21:54)
[2017-05-06] MEDS: predniSONE 20 MG TAB PO (08:19)
[2017-05-06] MEDS: TAMSULOSIN 0.4 MG CAP PO (08:19)
[2017-05-06] MEDS: FLUCONAZOLE 100 MG TAB PO (08:19)
[2017-05-06] MEDS: FAMOTIDINE 20 MG TAB PO ×2 (08:19→21:54)
[2017-05-06] MEDS: TIMOLOL MALEATE 0.5% OPHTH SOLN 5 ML OU (08:20)
[2017-05-06] MEDS: NYSTATIN OINTMENT 15 GM TOP ×2 (08:20→21:54)
[2017-05-06] MEDS: CLOTRIMAZOLE 1% TOPICAL CREAM 30GM TOP ×2 (08:20→21:55)
[2017-05-06] MEDS: NYSTATIN 100,000 UNITS/GM TOPICAL PWD 15 GM TOP ×2 (08:21→21:55)
[2017-05-06] MEDS: VOLTAREN 1% TOP ×2 (08:21→21:00)
[2017-05-06] MEDS ORDERED: LEVALBUTEROL 1.25 MG/0.5 ML CONCENTRATE NEB INH (12:00)
[2017-05-06] MEDS: LATANOPROST 0.005% OPHTH SOLN 2.5 ML OU (21:55)
[2017-05-06] MEDS: DAPTOmycin 750 MG in NS 50 ML IV (23:37)
[2017-05-07] MEDS: MEROPENEM INJ 1 GM in APPROPRIATE DILUENT 1 EA IV ×3 (00:04→18:30)
[2017-05-07] MEDS: SODIUM CHLORIDE 0.9% INJ 10 ML SYR IV ×3 (00:42→18:41)
[2017-05-07 05:39] LABS: HEMATOCRIT 27.1 % (42.0-52.0); HEMOGLOBIN 8.8 g/dl (14.0-18.0); MEAN CORPUSCULAR HEMOGLOBIN 31.2 pg (27.0-33.0); MEAN CORPUSCULAR HGB CONC 32.5 g/dl (32.0-36.5); MEAN CORPUSCULAR VOLUME 96.1 fl (80.0-96.0); PLATELET COUNT, AUTOMATED 521 10^3/uL (150-450); RED BLOOD COUNT 2.82 10^6/uL (4.30-6.10); RED CELL DISTRIBUTION WIDTH 16.5 % (11.5-14.5); WHITE BLOOD COUNT 11.7 10^3/uL (4.0-10.0)
[2017-05-07 06:03] LABS: ANION GAP 5 MEQ/L (8-16); BLOOD UREA NITROGEN 15 MG/DL (7-18); CALCIUM LEVEL 8.7 MG/DL (8.8-10.2); CARBON DIOXIDE LEVEL 31 MEQ/L (21-32); CHLORIDE LEVEL 103 MEQ/L (98-107); CPK CREATINE PHOSPHOKINASE 41 U/L (39-308); CREATININE FOR GFR 0.69 MG/DL (0.70-1.30); GLOMERULAR FILTRATION RATE > 60.0 (>35); GLUCOSE, FASTING 118 MG/DL (70-100); POTASSIUM SERUM 4.4 MEQ/L (3.5-5.1); SODIUM LEVEL 139 MEQ/L (136-145)
[2017-05-07] MEDS: SOTALOL HCL 80 MG TAB PO ×2 (08:54→21:00)
[2017-05-07] MEDS: TAMSULOSIN 0.4 MG CAP PO (08:54)
[2017-05-07] MEDS: FAMOTIDINE 20 MG TAB PO ×2 (08:55→21:00)
[2017-05-07] MEDS: GABAPENTIN 300 MG CAP PO ×3 (08:55→21:00)
[2017-05-07] MEDS: oxyCODONE 5MG TAB PO ×2 (08:55→14:15)
[2017-05-07] MEDS: FLUCONAZOLE 100 MG TAB PO (08:55)
[2017-05-07] MEDS: CLOTRIMAZOLE 1% TOPICAL CREAM 30GM TOP ×2 (08:56→22:09)
[2017-05-07] MEDS: TIMOLOL MALEATE 0.5% OPHTH SOLN 5 ML OU (08:56)
[2017-05-07] MEDS: NYSTATIN 100,000 UNITS/GM TOPICAL PWD 15 GM TOP ×2 (08:57→22:08)
[2017-05-07] MEDS: NYSTATIN OINTMENT 15 GM TOP ×2 (08:57→22:09)
[2017-05-07] MEDS: VOLTAREN 1% TOP ×2 (08:59→21:00)
[2017-05-07 15:25] LABS: HEMATOCRIT 26.7 % (42.0-52.0); HEMOGLOBIN 8.5 g/dl (14.0-18.0); MEAN CORPUSCULAR HGB CONC 31.8 g/dl (32.0-36.5); MEAN CORPUSCULAR VOLUME 97.4 fl (80.0-96.0); PLATELET COUNT, AUTOMATED 489 10^3/uL (150-450); RED BLOOD COUNT 2.74 10^6/uL (4.30-6.10); WHITE BLOOD COUNT 10.7 10^3/uL (4.0-10.0)
[2017-05-07 16:17] LABS: C REACTIVE PROTEIN QUANTITATIV 3.31 MG/DL (0.00-0.30)
[2017-05-07] MEDS: DAPTOmycin 750 MG in NS 50 ML IV (22:08)
[2017-05-07] MEDS: LATANOPROST 0.005% OPHTH SOLN 2.5 ML OU (22:09)
[2017-05-08] MEDS: MEROPENEM INJ 1 GM in APPROPRIATE DILUENT 1 EA IV ×3 (00:11→17:45)
[2017-05-08] MEDS: SODIUM CHLORIDE 0.9% INJ 10 ML SYR IV ×3 (06:00→17:45)
[2017-05-08 06:05] LABS: HEMOGLOBIN 9.2 g/dl (14.0-18.0); MEAN CORPUSCULAR HEMOGLOBIN 30.8 pg (27.0-33.0); MEAN CORPUSCULAR HGB CONC 31.7 g/dl (32.0-36.5); PLATELET COUNT, AUTOMATED 579 10^3/uL (150-450); RED BLOOD COUNT 2.99 10^6/uL (4.30-6.10); RED CELL DISTRIBUTION WIDTH 17.4 % (11.5-14.5); WHITE BLOOD COUNT 11.6 10^3/uL (4.0-10.0)
[2017-05-08 06:20] LABS: ANION GAP 5 MEQ/L (8-16); BLOOD UREA NITROGEN 15 MG/DL (7-18); CALCIUM LEVEL 8.9 MG/DL (8.8-10.2); CARBON DIOXIDE LEVEL 31 MEQ/L (21-32); CHLORIDE LEVEL 105 MEQ/L (98-107); CREATININE FOR GFR 0.61 MG/DL (0.70-1.30); GLOMERULAR FILTRATION RATE > 60.0 (>35); GLUCOSE, FASTING 88 MG/DL (70-100); POTASSIUM SERUM 4.3 MEQ/L (3.5-5.1); SODIUM LEVEL 141 MEQ/L (136-145)
[2017-05-08] MEDS: GABAPENTIN 300 MG CAP PO ×3 (08:42→19:50)
[2017-05-08] MEDS: FLUCONAZOLE 100 MG TAB PO (08:43)
[2017-05-08] MEDS: TAMSULOSIN 0.4 MG CAP PO (08:43)
[2017-05-08] MEDS: SOTALOL HCL 80 MG TAB PO ×2 (08:43→19:50)
[2017-05-08] MEDS: FAMOTIDINE 20 MG TAB PO ×2 (08:44→19:50)
[2017-05-08] MEDS: TIMOLOL MALEATE 0.5% OPHTH SOLN 5 ML OU (08:44)
[2017-05-08] MEDS: NYSTATIN OINTMENT 15 GM TOP ×2 (08:45→19:52)
[2017-05-08] MEDS: NYSTATIN 100,000 UNITS/GM TOPICAL PWD 15 GM TOP ×2 (08:45→19:51)
[2017-05-08] MEDS: VOLTAREN 1% TOP ×2 (08:46→19:51)
[2017-05-08] MEDS: CLOTRIMAZOLE 1% TOPICAL CREAM 30GM TOP ×2 (08:47→19:52)
[2017-05-08] MEDS: oxyCODONE 5MG TAB PO (11:45)
[2017-05-08] MEDS: RIVAROXABAN 15 MG TAB (XARELTO) PO (17:45)
[2017-05-08] MEDS: ACETAMINOPHEN TAB 650MG DOSE (2X325MG) PO (18:55)
[2017-05-08] MEDS: LATANOPROST 0.005% OPHTH SOLN 2.5 ML OU (19:49)
[2017-05-08] MEDS: DAPTOmycin 750 MG in NS 50 ML IV (22:00)
[2017-05-09] MEDS: MEROPENEM INJ 1 GM in APPROPRIATE DILUENT 1 EA IV ×3 (00:10→16:22)
[2017-05-09] MEDS: oxyCODONE 5MG TAB PO ×2 (00:41→13:19)
[2017-05-09] MEDS: SODIUM CHLORIDE 0.9% INJ 10 ML SYR IV ×2 (05:38→17:10)
[2017-05-09] MEDS: VOLTAREN 1% TOP ×2 (09:00→19:49)
[2017-05-09] MEDS: SOTALOL HCL 80 MG TAB PO ×2 (09:30→19:50)
[2017-05-09] MEDS: GABAPENTIN 300 MG CAP PO ×3 (09:31→19:50)
[2017-05-09] MEDS: TIMOLOL MALEATE 0.5% OPHTH SOLN 5 ML OU (09:31)
[2017-05-09] MEDS: FLUCONAZOLE 100 MG TAB PO (09:31)
[2017-05-09] MEDS: TAMSULOSIN 0.4 MG CAP PO (09:31)
[2017-05-09] MEDS: CLOTRIMAZOLE 1% TOPICAL CREAM 30GM TOP ×2 (09:32→19:49)
[2017-05-09] MEDS: NYSTATIN 100,000 UNITS/GM TOPICAL PWD 15 GM TOP ×2 (09:32→19:49)
[2017-05-09] MEDS: NYSTATIN OINTMENT 15 GM TOP ×2 (11:17→19:48)
[2017-05-09] MEDS: FAMOTIDINE 20 MG TAB PO ×2 (11:17→19:50)
[2017-05-09] MEDS: RIVAROXABAN 15 MG TAB (XARELTO) PO (17:09)
[2017-05-09] MEDS: LATANOPROST 0.005% OPHTH SOLN 2.5 ML OU (19:49)
[2017-05-09] MEDS: DAPTOmycin 750 MG in NS 50 ML IV (23:11)
[2017-05-10] MEDS: MEROPENEM INJ 1 GM in APPROPRIATE DILUENT 1 EA IV ×3 (00:11→17:31)
[2017-05-10] MEDS: SODIUM CHLORIDE 0.9% INJ 10 ML SYR IV ×2 (05:06→17:32)
[2017-05-10 05:58] LABS: CPK CREATINE PHOSPHOKINASE 49 U/L (39-308)
[2017-05-10 07:35] LABS: HEMATOCRIT 29.2 % (42.0-52.0); HEMOGLOBIN 9.1 g/dl (14.0-18.0); MEAN CORPUSCULAR HEMOGLOBIN 30.5 pg (27.0-33.0); MEAN CORPUSCULAR HGB CONC 31.2 g/dl (32.0-36.5); PLATELET COUNT, AUTOMATED 547 10^3/uL (150-450); RED BLOOD COUNT 2.98 10^6/uL (4.30-6.10); RED CELL DISTRIBUTION WIDTH 18.4 % (11.5-14.5); WHITE BLOOD COUNT 15.2 10^3/uL (4.0-10.0)
[2017-05-10 07:40] LABS: ANION GAP 6 MEQ/L (8-16); BLOOD UREA NITROGEN 15 MG/DL (7-18); CALCIUM LEVEL 8.4 MG/DL (8.8-10.2); CARBON DIOXIDE LEVEL 30 MEQ/L (21-32); CHLORIDE LEVEL 103 MEQ/L (98-107); CREATININE FOR GFR 0.74 MG/DL (0.70-1.30); GLOMERULAR FILTRATION RATE > 60.0 (>35); GLUCOSE, FASTING 114 MG/DL (70-100); POTASSIUM SERUM 4.8 MEQ/L (3.5-5.1); SODIUM LEVEL 139 MEQ/L (136-145)
[2017-05-10] MEDS: VOLTAREN 1% TOP ×2 (09:00→21:00)
[2017-05-10] MEDS: SOTALOL HCL 80 MG TAB PO ×2 (09:05→21:08)
[2017-05-10] MEDS: FAMOTIDINE 20 MG TAB PO ×2 (09:05→21:09)
[2017-05-10] MEDS: GABAPENTIN 300 MG CAP PO ×3 (09:05→21:07)
[2017-05-10] MEDS: TAMSULOSIN 0.4 MG CAP PO (09:06)
[2017-05-10] MEDS: FLUCONAZOLE 100 MG TAB PO (09:06)
[2017-05-10] MEDS: oxyCODONE 5MG TAB PO ×2 (09:07→13:11)
[2017-05-10] MEDS: TIMOLOL MALEATE 0.5% OPHTH SOLN 5 ML OU (09:11)
[2017-05-10] MEDS: NYSTATIN OINTMENT 15 GM TOP ×2 (09:11→21:09)
[2017-05-10] MEDS: NYSTATIN 100,000 UNITS/GM TOPICAL PWD 15 GM TOP ×2 (09:11→21:11)
[2017-05-10] MEDS: CLOTRIMAZOLE 1% TOPICAL CREAM 30GM TOP ×2 (09:12→21:10)
[2017-05-10] MEDS: ACETAMINOPHEN TAB 650MG DOSE (2X325MG) PO (11:06)
[2017-05-10 15:55] LABS: ERYTHROCYTE SEDIMENTATION RATE 107 mm/hr (0-30)
[2017-05-10] MEDS: RIVAROXABAN 15 MG TAB (XARELTO) PO (17:32)
[2017-05-10] MEDS: LATANOPROST 0.005% OPHTH SOLN 2.5 ML OU (21:10)
[2017-05-10] MEDS: DAPTOmycin 750 MG in NS 50 ML IV (23:39)
[2017-05-11] MEDS: MEROPENEM INJ 1 GM in APPROPRIATE DILUENT 1 EA IV ×3 (00:42→17:43)
[2017-05-11] MEDS: SODIUM CHLORIDE 0.9% INJ 10 ML SYR IV ×3 (02:09→17:46)
[2017-05-11 06:05] LABS: BASO # 0.1 10^3/uL (0.0-0.2); BASO % 0.4 % (0.0-1.0); EOS # 0.2 10^3/uL (0.0-0.50); EOS % 1.3 % (0.0-3.0); HEMATOCRIT 27.7 % (42.0-52.0); HEMOGLOBIN 8.7 g/dl (14.0-18.0); IMMATURE GRANULOCYTE % 0.6 % (0-3.0); LYMPH % 19.8 % (24.0-44.0); MEAN CORPUSCULAR HEMOGLOBIN 31.2 pg (27.0-33.0); MEAN CORPUSCULAR HGB CONC 31.4 g/dl (32.0-36.5); MEAN CORPUSCULAR VOLUME 99.3 fl (80.0-96.0); MONO # 1.9 10^3/uL (0.0-0.8); MONO % 12.2 % (0.0-5.0); NEUTROPHILS # 10.1 10^3/uL (1.8-7.7); NEUTROPHILS % 65.7 % (36.0-66.0); PLATELET COUNT, AUTOMATED 501 10^3/uL (150-450); RED BLOOD COUNT 2.79 10^6/uL (4.30-6.10); RED CELL DISTRIBUTION WIDTH 17.8 % (11.5-14.5); WHITE BLOOD COUNT 15.3 10^3/uL (4.0-10.0)
[2017-05-11 06:33] LABS: ALBUMIN 1.9 GM/DL (3.2-5.2); ALBUMIN/GLOBULIN RATIO 0.48 (1.00-1.93); ALKALINE PHOSPHATASE 108 U/L (45-117); ALT/SGPT 25 U/L (12-78); ANION GAP 5 MEQ/L (8-16); AST/SGOT 25 U/L (7-37); BILIRUBIN,TOTAL 0.9 MG/DL (0.2-1.0); BLOOD UREA NITROGEN 16 MG/DL (7-18); CALCIUM LEVEL 8.4 MG/DL (8.8-10.2); CARBON DIOXIDE LEVEL 31 MEQ/L (21-32); CHLORIDE LEVEL 102 MEQ/L (98-107); CREATININE FOR GFR 0.59 MG/DL (0.70-1.30); GLOMERULAR FILTRATION RATE > 60.0 (>35); GLUCOSE, FASTING 116 MG/DL (70-100); POTASSIUM SERUM 4.7 MEQ/L (3.5-5.1); SODIUM LEVEL 138 MEQ/L (136-145); TOTAL PROTEIN 5.9 GM/DL (6.4-8.2)
[2017-05-11] MEDS: TAMSULOSIN 0.4 MG CAP PO (10:46)
[2017-05-11] MEDS: SOTALOL HCL 80 MG TAB PO (10:46)
[2017-05-11] MEDS: FAMOTIDINE 20 MG TAB PO ×2 (10:48→21:31)
[2017-05-11] MEDS: ACETAMINOPHEN TAB 650MG DOSE (2X325MG) PO ×2 (10:49→17:46)
[2017-05-11] MEDS: COLCHICINE 0.6 MG TAB PO (10:49)
[2017-05-11] MEDS: FLUCONAZOLE 100 MG TAB PO (10:49)
[2017-05-11] MEDS: GABAPENTIN 300 MG CAP PO ×3 (10:49→21:31)
[2017-05-11] MEDS: TIMOLOL MALEATE 0.5% OPHTH SOLN 5 ML OU (10:50)
[2017-05-11] MEDS: oxyCODONE 5MG TAB PO ×3 (10:50→21:32)
[2017-05-11] MEDS: NYSTATIN 100,000 UNITS/GM TOPICAL PWD 15 GM TOP ×2 (10:51→21:33)
[2017-05-11] MEDS: NYSTATIN OINTMENT 15 GM TOP ×2 (10:51→21:34)
[2017-05-11] MEDS: CLOTRIMAZOLE 1% TOPICAL CREAM 30GM TOP ×2 (10:51→21:34)
[2017-05-11] MEDS: VOLTAREN 1% TOP ×2 (10:52→21:33)
[2017-05-11] MEDS: RIVAROXABAN 15 MG TAB (XARELTO) PO (17:42)
[2017-05-11 18:23] LABS: APPEARANCE, URINE HAZY (CLEAR); BACTERIA, URINE AUTO NEGATIVE (NEGATIVE); BILIRUBIN, URINE AUTO NEGATIVE (NEGATIVE); BLOOD, URINE BLOOD 2+ (NEGATIVE); COLOR, URINE YELLOW (YELLOW); GLUCOSE, URINE (UA) AUTO 1+ mg/dL (NEGATIVE); KETONE, URINE AUTO NEGATIVE (NEGATIVE); LEUKOCYTE ESTERASE, URINE AUTO NEGATIVE (NEGATIVE); MUCUS, URINE SMALL (NEGATIVE); NITRITE, URINE AUTO NEGATIVE (NEGATIVE); PROTEIN, URINE AUTO 2+ mg/dL (NEGATIVE); RBC, URINE AUTO 77 /HPF (0-3); SPECIFIC GRAVITY URINE AUTO 1.019 (1.002-1.035); SQUAMOUS EPITHELIAL CELL UR AU 0 /HPF (0-6); UROBILINOGEN, URINE AUTO 0.2 mg/dL (0.0-2.0); WBC, URINE AUTO 4 /HPF (0-3)
[2017-05-11] MEDS: LATANOPROST 0.005% OPHTH SOLN 2.5 ML OU (21:34)
[2017-05-11] MEDS: DAPTOmycin 750 MG in NS 50 ML IV (22:49)
[2017-05-12] MEDS: MEROPENEM INJ 1 GM in APPROPRIATE DILUENT 1 EA IV ×3 (00:27→16:56)
[2017-05-12] MEDS: ACETAMINOPHEN TAB 650MG DOSE (2X325MG) PO ×2 (05:22→19:48)
[2017-05-12] MEDS: SODIUM CHLORIDE 0.9% INJ 10 ML SYR IV ×3 (05:22→17:02)
[2017-05-12] MEDS: oxyCODONE 5MG TAB PO ×2 (05:23→17:50)
[2017-05-12 05:31] LABS: HEMATOCRIT 28.9 % (42.0-52.0); MEAN CORPUSCULAR HEMOGLOBIN 31.1 pg (27.0-33.0); MEAN CORPUSCULAR HGB CONC 31.1 g/dl (32.0-36.5); PLATELET COUNT, AUTOMATED 474 10^3/uL (150-450); RED BLOOD COUNT 2.89 10^6/uL (4.30-6.10); RED CELL DISTRIBUTION WIDTH 17.5 % (11.5-14.5); WHITE BLOOD COUNT 20.4 10^3/uL (4.0-10.0)
[2017-05-12 05:54] LABS: ANION GAP 5 MEQ/L (8-16); BLOOD UREA NITROGEN 19 MG/DL (7-18); CALCIUM LEVEL 8.5 MG/DL (8.8-10.2); CARBON DIOXIDE LEVEL 30 MEQ/L (21-32); CHLORIDE LEVEL 103 MEQ/L (98-107); CREATININE FOR GFR 0.73 MG/DL (0.70-1.30); GLOMERULAR FILTRATION RATE > 60.0 (>35); GLUCOSE, FASTING 134 MG/DL (70-100); POTASSIUM SERUM 4.6 MEQ/L (3.5-5.1); SODIUM LEVEL 138 MEQ/L (136-145)
[2017-05-12] MEDS: VOLTAREN 1% TOP ×2 (09:00→19:50)
[2017-05-12] MEDS: GABAPENTIN 300 MG CAP PO ×3 (10:54→19:48)
[2017-05-12] MEDS: COLCHICINE 0.6 MG TAB PO (10:55)
[2017-05-12] MEDS: FAMOTIDINE 20 MG TAB PO ×2 (10:55→19:48)
[2017-05-12] MEDS: FLUCONAZOLE 100 MG TAB PO (10:56)
[2017-05-12] MEDS: TIMOLOL MALEATE 0.5% OPHTH SOLN 5 ML OU (10:56)
[2017-05-12] MEDS: TAMSULOSIN 0.4 MG CAP PO (10:56)
[2017-05-12] MEDS: NYSTATIN 100,000 UNITS/GM TOPICAL PWD 15 GM TOP ×2 (10:57→20:58)
[2017-05-12] MEDS: CLOTRIMAZOLE 1% TOPICAL CREAM 30GM TOP ×2 (10:57→19:50)
[2017-05-12] MEDS: NYSTATIN OINTMENT 15 GM TOP ×2 (10:57→19:50)
[2017-05-12] MEDS: RIVAROXABAN 15 MG TAB (XARELTO) PO (17:01)
[2017-05-12] MEDS: LATANOPROST 0.005% OPHTH SOLN 2.5 ML OU (20:58)
[2017-05-12] MEDS: DAPTOmycin 750 MG in NS 50 ML IV (22:56)
[2017-05-13] MEDS: MEROPENEM INJ 1 GM in APPROPRIATE DILUENT 1 EA IV ×2 (01:00→09:51)
[2017-05-13] MEDS: SODIUM CHLORIDE 0.9% INJ 10 ML SYR IV (05:03)
[2017-05-13 05:20] LABS: HEMATOCRIT 27.3 % (42.0-52.0); HEMOGLOBIN 8.5 g/dl (14.0-18.0); MEAN CORPUSCULAR HEMOGLOBIN 30.6 pg (27.0-33.0); MEAN CORPUSCULAR HGB CONC 31.1 g/dl (32.0-36.5); MEAN CORPUSCULAR VOLUME 98.2 fl (80.0-96.0); PLATELET COUNT, AUTOMATED 465 10^3/uL (150-450); RED BLOOD COUNT 2.78 10^6/uL (4.30-6.10); RED CELL DISTRIBUTION WIDTH 17.2 % (11.5-14.5)
[2017-05-13 06:01] LABS: ANION GAP 7 MEQ/L (8-16); BLOOD UREA NITROGEN 23 MG/DL (7-18); CALCIUM LEVEL 8.6 MG/DL (8.8-10.2); CARBON DIOXIDE LEVEL 29 MEQ/L (21-32); CHLORIDE LEVEL 104 MEQ/L (98-107); CPK CREATINE PHOSPHOKINASE 29 U/L (39-308); CREATININE FOR GFR 0.71 MG/DL (0.70-1.30); GLOMERULAR FILTRATION RATE > 60.0 (>35); GLUCOSE, FASTING 122 MG/DL (70-100); POTASSIUM SERUM 4.4 MEQ/L (3.5-5.1); SODIUM LEVEL 140 MEQ/L (136-145)
[2017-05-13] MEDS ORDERED: IPRATROPIUM 0.5MG/ALBUTEROL 2.5MG INH SOL UD 3ML (DUONEB)(J7620) NEB (07:30)
[2017-05-13 08:13] LABS: ERYTHROCYTE SEDIMENTATION RATE 126 mm/hr (0-30)
[2017-05-13] MEDS: VOLTAREN 1% TOP ×2 (09:00→20:50)
[2017-05-13] MEDS: IPRATROPIUM 0.5MG/ALBUTEROL 2.5MG INH SOL UD 3ML (DUONEB)(J7620) NEB ×3 (09:00→20:00)
[2017-05-13] MEDS: NYSTATIN 100,000 UNITS/GM TOPICAL PWD 15 GM TOP (09:00)
[2017-05-13] MEDS: COLCHICINE 0.6 MG TAB PO (09:47)
[2017-05-13] MEDS: GABAPENTIN 300 MG CAP PO ×3 (09:47→20:50)
[2017-05-13] MEDS: FAMOTIDINE 20 MG TAB PO (09:48)
[2017-05-13] MEDS: TAMSULOSIN 0.4 MG CAP PO (09:48)
[2017-05-13] MEDS: oxyCODONE 5MG TAB PO (09:48)
[2017-05-13] MEDS: NYSTATIN OINTMENT 15 GM TOP (09:53)
[2017-05-13] MEDS: FLUCONAZOLE 100 MG TAB PO (09:53)
[2017-05-13] MEDS: CLOTRIMAZOLE 1% TOPICAL CREAM 30GM TOP (09:54)
[2017-05-13] MEDS: TIMOLOL MALEATE 0.5% OPHTH SOLN 5 ML OU (09:54)
[2017-05-13] MEDS ORDERED: MORPHINE 4 MG/ML 1ML VIAL (J2270) IV (12:30)
[2017-05-13] MEDS ORDERED: LORazepam 1 MG TAB PO (12:30)
[2017-05-13] MEDS: SCOPOLAMINE 1MG TRANSDERMAL PATCH TOP (13:00)
[2017-05-13] MEDS: MORPHINE 10MG/0.5ML ORAL CONCENTRATE SOLUTION U/D SL ×2 (13:01→16:31)
[2017-05-13] MEDS: LORazepam 2 MG/ML VIAL (J2060) IV ×2 (13:52→18:28)
[2017-05-14] MEDS: MORPHINE 10MG/0.5ML ORAL CONCENTRATE SOLUTION U/D SL ×2 (00:52→03:28)
[2017-05-14] MEDS: LORazepam 2 MG/ML VIAL (J2060) IV ×2 (01:00→03:28)
[2017-05-14] MEDS: IPRATROPIUM 0.5MG/ALBUTEROL 2.5MG INH SOL UD 3ML (DUONEB)(J7620) NEB ×2 (02:00→07:17)
== END 2017-05-14 04:35 | disposition expired | DRG 853 ==
LOC: M MS5PR 04-14 13:17 → M PCU 15:04
PROC: 0KBF0ZZ Excision of Right Trunk Muscle, Open Approach (ICD-10-PCS; principal; 2017-04-20 14:33)
PROC: 0HD8XZZ Extraction of Buttock Skin, External Approach (ICD-10-PCS; 2017-04-20 14:33)
PROC: 02HV33Z Insertion of Infusion Device into Superior Vena Cava, Percutaneous Approach (ICD-10-PCS; 2017-04-20 14:33)
PROC: 30253N1 (ICD-10-PCS; 2017-04-20 14:33)
DX: A41.81 Sepsis due to Enterococcus (principal); G93.41 Metabolic encephalopathy; L89.153 Pressure ulcer of sacral region, stage 3; E43 Unspecified severe protein-calorie malnutrition; M62.82 Rhabdomyolysis; L03.317 Cellulitis of buttock; B37.49 Other urogenital candidiasis; L89.154 Pressure ulcer of sacral region, stage 4; I48.0 Paroxysmal atrial fibrillation; Z51.5 Encounter for palliative care; Z66 Do not resuscitate; K21.9 Gastro-esophageal reflux disease without esophagitis; N40.1 Benign prostatic hyperplasia with lower urinary tract symptoms; E11.42 Type 2 diabetes mellitus with diabetic polyneuropathy; L89.312 Pressure ulcer of right buttock, stage 2; F03.90 Unspecified dementia, unspecified severity, without behavioral disturbance, psychotic disturbance, mood disturbance, and anxiety; M48.00 Spinal stenosis, site unspecified; I10 Essential (primary) hypertension; M54.5 Low back pain; D63.8 Anemia in other chronic diseases classified elsewhere; R19.7 Diarrhea, unspecified; D69.59 Other secondary thrombocytopenia; B37.2 Candidiasis of skin and nail; G54.6 Phantom limb syndrome with pain; R33.9 Retention of urine, unspecified; B35.9 Dermatophytosis, unspecified; D64.9 Anemia, unspecified; Z79.01 Long term (current) use of anticoagulants; Z79.899 Other long term (current) drug therapy; Z88.5 Allergy status to narcotic agent; Z89.111 Acquired absence of right hand; T36.95XA Adverse effect of unspecified systemic antibiotic, initial encounter; Z89.612 Acquired absence of left leg above knee; Z89.611 Acquired absence of right leg above knee; Z87.828 Personal history of other (healed) physical injury and trauma